=== PATIENT | female | born 1965 | race Caucasian/White ===

== ENCOUNTER → 2017-07-26 13:26 | Outpatient (CLI) | payer OTHER, SELFPAY ==
--- NOTE | 2017-07-26 13:35 | RAD_ITS ---
STUDY: X-RAY - PELVIS AND RIGHT HIP REASON FOR EXAM: Female, 51 years old. Pain TECHNIQUE: Radiological exam, hip, unilateral, with pelvis when performed; 2 or 3 views. COMPARISON: None. FINDINGS: There is a non-specific bowel gas pattern. Normal visualized soft tissue structures. Postoperative changes are seen in the lumbar spine. Normal bilateral iliac wings, sacroiliac joints and visualized sacrum. Normal bilateral superior and inferior pubic rami. Normal pubic symphysis. Normal bilateral ischial tuberosities. Normal visualized femoral head. Normal acetabulum. Normal hip joint. RAD/Hip 2-3 Views with Pelvis IMPRESSION: No acute bony abnormality. Electronically Signed: Vaibhav Alberts DO at 13:45 EDT Tel , Service support ,
== END ==
PROVIDERS: Family Provider Internal Medicine; PCP Internal Medicine; Visit Provider Anesthesiology Pain Medicine
DX: M25.559 Pain in unspecified hip (principal)
CPT/HCPCS: 73502

== ENCOUNTER → 2017-09-21 07:56 | Outpatient (CLI) | payer OTHER, SELFPAY ==
--- NOTE | 2017-09-21 07:59 | CT_ITS ---
STUDY: CT LUMBAR SPINE WITHOUT CONTRAST REASON FOR EXAM: Female, 51 years old. Chronic back pain and right hip pain. Prior lumbar fusion and pain stimulator placement. RADIATION DOSAGE (If Supplied By Facility): CTDIvol = ( 22.99 ) mGy, DLP = ( 617.81 ) mGycm TECHNIQUE: The patient was scanned in a multi detector CT scanner. High resolution transaxial imaging was performed. Images were obtained from T12 to S1 level. Sagittal and coronal images were reconstructed. Individualized dose optimization techniques were used for this CT. COMPARISON: Comparison is made with prior examination dated August 19, 2016. FINDINGS: Normal lumbar lordosis. There is no substantial scoliosis. Normal vertebrae of the lumbar spine. L1-2: Normal endplates. Normal disc height and morphology. Normal bilateral facet joints. Normal central canal and bilateral lateral recesses. Normal bilateral intervertebral neural foramina. L2-3: Normal endplates. Normal disc height and morphology. Normal bilateral facet joints. Normal central canal and bilateral lateral recesses. Normal bilateral intervertebral neural foramina. L3-4: The patient is status post laminectomy and interpedicular fusion. Intertransverse bone grafting. There is no evidence of spinal stenosis. No recurrent disc herniation is seen. L4-5: Status post laminectomy and interpedicular screw fixation. There is no evidence of spinal stenosis. There is no evidence of herniated nucleus pulposus. There is evidence of intertransverse body bone grafting. L5-S1: Mild degree of disc space narrowing. There is no evidence of hernia in the distal pulses. There is no evidence of spinal stenosis. Normal visualized paraspinous soft tissue structures. CT/Spine Lumbar without Contrast IMPRESSION: Status post laminectomy and interpedicular screw fixation at the L3-L4, and L4-L5 levels. No acute abnormality is seen. Electronically Signed: Ez Mascorro MD at 12:34 EDT Tel [phone], Service support ,
== END ==
PROVIDERS: Family Provider Internal Medicine; PCP Internal Medicine; Visit Provider Anesthesiology Pain Medicine
DX: M54.9 Dorsalgia, unspecified (principal); M79.606 Pain in leg, unspecified
CPT/HCPCS: 72131

== ENCOUNTER → 2017-12-26 16:27 | Outpatient (CLI) | payer OTHER, SELFPAY ==
[2017-12-26 17:18] LABS: Amphetamine Urine VISTA NEGATIVE (<1000 ng/mL); Barbiturate Urine VISTA NEGATIVE (< 200 ng/mL); Benzodiazepine Urine VISTA NEGATIVE (< 200 ng/mL); Cocaine Urine VISTA NEGATIVE (< 300 ng/mL); Ecstacy Urine VISTA NEGATIVE (< 500 ng/mL); Methadone Urine VISTA NEGATIVE (< 300 ng/mL); PCP Urine VISTA NEGATIVE (< 25 ng/mL); THC Urine VISTA NEGATIVE (< 50 ng/mL); Vista UDS pH Range 7
== END ==
PROVIDERS: Family Provider Internal Medicine; PCP Internal Medicine; Visit Provider Anesthesiology Pain Medicine
DX: F11.20 Opioid dependence, uncomplicated (principal)
CPT/HCPCS: 80307

== ENCOUNTER 2018-02-07 09:00 | Outpatient (RCR) | payer OTHER, SELFPAY ==
[2017-05-29 08:44] VITALS: BMI 32.4
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
== END 2018-02-07 10:00 | disposition home or self-care (01) ==
LOC: MASS 09:00
PROVIDERS: Family Provider Internal Medicine; PCP Internal Medicine; Visit Provider Anesthesiology Pain Medicine
DX: M54.9 Dorsalgia, unspecified (principal); M79.606 Pain in leg, unspecified
CPT/HCPCS: 97124

== ENCOUNTER → 2018-02-19 08:51 | Outpatient (CLI) | payer OTHER, SELFPAY ==
--- NOTE | 2018-02-19 08:53 | RAD_ITS ---
STUDY: X-RAY - LEFT HAND, ATTENTION THUMB REASON FOR EXAM: Pain at the base of the thumb for one year after injury. TECHNIQUE: 3 view(s) of the finger were obtained. COMPARISON: None. FINDINGS: There is moderate joint space narrowing of the first carpometacarpal joint. Normal metacarpal. Normal metacarpophalangeal joint. Normal proximal phalanx. Normal distal phalanx. Normal interphalangeal joint. RAD/Finger(s) Min 2 Views IMPRESSION: First carpometacarpal arthrosis. Electronically Signed: Ned Morton MD at 10:08 EDT Tel , Service support ,
== END ==
PROVIDERS: Family Provider Internal Medicine; PCP Internal Medicine; Referring Provider Orthopaedic Surgery; Visit Provider Orthopaedic Surgery
DX: M79.645 Pain in left finger(s) (principal)
CPT/HCPCS: 73140

== ENCOUNTER 2018-03-01 14:00 | Outpatient (RCR) | payer OTHER, SELFPAY ==
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
--- NOTE | 2018-02-22 15:59 | HP.PTREVAL ---
Marija Diaz, It has been my pleasure to treat DAVIS JONES over the last 9 visits for BACK PAIN AND RIGHT LEG WEAKNESS. Please see the progress note below for an update on the physical therapy plan of care! Subjective: PATIENT REPORTS INCREASED LBP AND DIFFICULTY SLEEPING AFTER LAST VISIT (FIRST AQUATIC THERAPY SESSION). PATIENT REPORTS HER HAND LEFT HAND HAS BEEN CRAMPY AND WITH INCREASED PAIN EVER SINCE THE POOL EXERCISES AND SHE RELATES IT TO SOMETHING WITH THE INJECTION SHE RECEIVED 48 HOURS PRIOR. SHE REPORTS THAT SHE IS JUST MOVING SLOWER TODAY. PATIENT HAD A FOLLOW UP WITH DR. DIAZ SUNDAY AND THEY DECIDED TO TRY A SACRAL INJECTION TO HELP DETERMINE IF ABLATION PROCEDURE MIGHT BE INDICATED. TURNED STIMULATOR UP HIGHER THAN NORMAL TODAY JUST BECAUSE SHE IS IN MORE PAIN SINCE POOL VISIT. Objective/Function: THERE ARE NO SIGNIFICANT CHANGES WITH TESTING TODAY COMPARED TO INITIAL EVAL BUT PATIENT IS HAVING INCREASED PAIN TODAY AND PRIOR TO LAST VISIT SHE WAS REPORTING IMPROVED STRENGTH IN HER LE'S. PATIENT HAS MADE PROGRESS TOWARD INCORPORATING BETTER BODY MECHANICS AND POSTURE CONTROL WITH ADL'S ALONG WITH APPROPRIATE ACTIVITIY MODIFICATIONS TO TRY TO BETTER MANAGE PAIN. WE ARE GOING TO MODIFY HER POOL PROGRAM AND CONTINUE LAND THERAPY WITH THE HOPE OF BUILDING ON PRIOR PROGRESS WITH PATIENT BEING ABLE TO TOLERATE ROM, STRETCHING AND STRENGTHEING WITHOUT INCREASING PAIN. Plan Plan: WE ARE GOING TO TRY TO MODIFY OUR APPROACH TO POOL EX'S FOR THIS PATIENT TO TAKE ADVANTAGE OF THE POTENTIAL BENEFITS WITH POOL THERAPY. TENTATIVELY WE WILL SCHEDULE ONE TIME A WEEK IN THE POOL AND ONE TIME A WEEK ON LAND FOR 13 MORE VISITS. *NO US OR ES*. POSTURE CORRECTION/STRENGTHENING, INSTRUCTION IN APPROPRIATE BODY MECHANICS AND ACTIVITY MODIFICATIONS. DLS WITH A NEUTRAL SPINE. MILTON LE ROM, STRETCHING AND STRENGTHENING. HEP INSTRUCTION. AQUATIC THERAPY HAS BEEN INCORPORATED INTO POC. PATIENT IS AGREEABLE. Goals Goal 1:: DECREASE C/O BACK AND LE SX'S Goal Time Frame: 4-6 Weeks Goal Progress: Not Progressing Goal 2:: IMPROVE SITTING, STANDING , WALKING, BENDING, LIFTING, WORK AND SLEEP FUNCTION Goal Time Frame: 4-6 Weeks Goal Progress: Progressing Goal 3:: INSTRUCT IN PROPHYLAXIS Goal Time Frame: 4-6 Weeks Goal Progress: Progressing Anticipated Interventions Patient/Client Instruction: Educate patient on: Condition, Plan of Care, Risk Factors, Benefits of Fitness Program For the Purpose of:: To improve self management Therapeutic Exercise to Include: Strength training, Body mechanics, Postural training, Flexibilty training, Dynamic Lumbar Stabilization For the Purpose of:: To decrease pain, To improve muscle performance and motor function, To increase tolerance to activity/condition/position, To improve ability of physical actions for home/community/work/leisure Thermo therapy (hot pack): Yes For the Purpose of:: To decrease pain, To increase ROM, To improve nutrient delivery to tissue Please do not hesitate to contact me at [phone] by phone or if you have questions or concerns regarding this new plan of care! Sincerely, Kelly Blake
--- NOTE | 2018-05-08 13:35 | HP.PTDCSUM ---
HP - PT D/C Summary It has been my pleasure to treat DAVIS JONES under orders from Marija Rascon MD, for the diagnosis of BACK PAIN AND RIGHT LEG WEAKNESS for a total of 11 visit(s). Discharge Date: 03/01/18 Please see the following information for a summary of their discharge status. - Subjective Subjective: PATIENT REPORTS SHE WAS STILL BAD AFTER THE LAST POOL SESSION BUT NOT BAD THE FIRST POOL SESSION. SHE HAD INCREASE LOW BACK AND LE PAIN AND DYSFUNCTION (INTERMS OF LEGS FEELING WEAKER THAN NORMAL) ALONG WITH INCREASED DIFFICULTY SLEEPING. PATIENT REPORTS SHE REALLY ISN'T ANY BETTER OR WORSE OVER ALL SINCE STARTING PT EXCEPT FOR MAYBE HER LEGS FEELING A LITTLE BIT STRONGER. - Pain LOW BACK Pain Intensity (Out of 10): 3 LEFT LEG Pain Intensity (Out of 10): 2 RIGHT LEG Pain Intensity (Out of 10): 1 - Objective Objective/Function: ALTHOUGH WE HAVE BEEN ABLE TO FIND A LIMITED LAND EX PROGRAM THAT PATIENT CAN TOLERATE WITHOUT INCREASED PAIN, SHE IS NOT IMPROVING OVER-ALL. UPON EXAM TODAY THERE ARE NO SIGNIFICANT CHANGES COMPARED TO INITIAL EVAL. - Goals Goal 1:: DECREASE C/O BACK AND LE SX'S Goal Progress: Not Progressing Goal 2:: IMPROVE SITTING, STANDING , WALKING, BENDING, LIFTING, WORK AND SLEEP FUNCTION Goal Progress: Progressing Goal 3:: INSTRUCT IN PROPHYLAXIS Goal Progress: Progressing - Plan Plan: D/C TO LIMITED INDEP EX PROGRAM TOLERATED. PATIENT IS AGREEABLE TO DISCHARGE. - D/C Information If there are questions or concerns regarding this patient's physical therapy, please feel free to call me at [phone]. Thank you for the referral of this patient. Sincerely, Kelly Blake, PT, Cert MDT
== END 2018-03-01 19:00 | disposition home or self-care (01) ==
LOC: PT 14:00
PROVIDERS: Family Provider Internal Medicine; PCP Internal Medicine; Referring Provider Anesthesiology Pain Medicine; Visit Provider Anesthesiology Pain Medicine
DX: M54.9 Dorsalgia, unspecified (principal); R29.898 Other symptoms and signs involving the musculoskeletal system
CPT/HCPCS: 97110; 97113; 97162; 97530

== ENCOUNTER → 2018-03-19 08:05 | Outpatient (CLI) | payer OTHER, SELFPAY ==
[2018-02-28 09:06] VITALS: BMI 36.0
--- NOTE | 2018-03-19 11:16 | NEURO_ITS ---
NCS and/or EMG Patient Report Ordering Doctor: Marija Rascon DATE OF SERVICE: 03/19/18 This is a bilateral lower extremity nerve conduction study and a left lower extremity EMG performed on this 60-year-old female with a history of lumbar laminectomy in 2009 followed by fractured pelvis in 2010. The patient has had paresthesias in her left lower extremity and to a lesser extent in the right lower extremity as well as weakness. Patient also experiences restless leg syndrome. Mild hammertoe deformities are noted bilaterally Bilateral lower extremity sensory and motor nerve conduction studies performed. The sural sensory responses demonstrate normal latencies and amplitudes. Conduction velocities from the motor responses from the peroneal nerves and tibial nerves are normal bilaterally as are the distal latencies and amplitudes. F-wave latency from the left peroneal nerve is mildly prolonged, this nerve al so demonstrates mild asymmetric reduction in conduction velocity and prolongation of latency although it remains within the normal range. The left tibial H reflex response is reduced, on the right it is normal. Left lower extremity needle electromyography is performed. Muscles evaluated included the extensor digitorum brevis, abductor houses, medial gastrocnemius, anterior tibialis, vastus lateralis and vastus medialis muscles. All muscles demonstrated normal insertional activity with absence of pathologic spontaneous activity. Motor unit potential recruitment pattern and amplitude was normal in all muscles tested. 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
--- OUTSIDE RECORDS SUMMARY | 2018-04-30 20:34 | XMS RPT_ITS ---
:1965 Author Organization OHIP Support Name Relationship Address Phone DESMOND JONES Unavailable [address] + [place] [address] [facility] Unavailable [address] + [place] [address] KAREN DESMOND Unavailable [address] + [place] [address] [facility] Unavailable [address] + [place] [address] KAREN DESMOND Unavailable [address] + [place] [address] [facility] Unavailable [address] + [place] [address] KAREN DESMOND Unavailable [address] + [place] [address] [facility] Unavailable [address] + [place] [address] KAREN DESMOND Unavailable [address] + [place] [address] [facility] Unavailable [address] + [place] [address] KAREN DESMOND Unavailable [address] + [place] [address] [facility] Unavailable [address] + [place] [address] KAREN DESMOND Unavailable [address] + [place] [address] [facility] Unavailable [address] + [place] [address] KAREN DESMOND Unavailable [address] + [place] [address] [facility] Unavailable [address] + [place] [address] KAREN, DESMOND Unavailable [address] + [place] [address] [facility] Unavailable [address] + [place] [address] KAREN, DESMOND Unavailable [address] + [place] [address] [facility] Unavailable [address] + [place] [address] KAREN, DESMOND Unavailable [address] + [place] [address] [facility] Unavailable [address] + [place] [address] KAREN, DESMOND Unavailable [address] + [place] [address] [facility] Unavailable [address] + [place] [address] KAREN, DESMOND Unavailable [address] + [place] [address] [facility] Unavailable [address] + [place] [address] KAREN, DESMOND Unavailable [address] + [place] [address] [facility] Unavailable [address] + [place] [address] KAREN, DESMOND Unavailable [address] + [place] [address] [facility] Unavailable [address] + [place] [address] KAREN, DESMOND Unavailable [address] + [place] [address] [facility] Unavailable [address] + [place] [address] KAREN, DESMOND Unavailable [address] + [place] [address] [facility] Unavailable [address] + [place] [address] KAREN, DESMOND Unavailable [address] + [place] [address] [facility] Unavailable [address] + [place] [address] KAREN, DESMOND Unavailable [address] + [place] [address] [facility] Unavailable [address] + [place] [address] KAREN, DESMOND Unavailable [address] + [place] [address] [facility] Unavailable [address] + [place] [address] KAREN, DESMOND Unavailable [address] + [place] [address] [facility] Unavailable [address] + [place] [address] KAREN, DESMOND Unavailable [address] + [place] [address] [facility] Unavailable [address] + [place] [address] KAREN, DESMOND Unavailable [address] + [place] [address] [facility] Unavailable [address] + [place] [address] KAREN, DESMOND Unavailable [address] + [place] [address] [facility] Unavailable [address] + [place] [address] KAREN, DESMOND Unavailable [address] + [place] [address] [facility] Unavailable [address] + [place] [address] KAREN, DESMOND Unavailable [address] + [place] [address] [facility] Unavailable [address] + [place] [address] KAREN, DESMOND Unavailable [address] + [place] [address] [facility] Unavailable [address] + [place] [address] KAREN, DESMOND Unavailable [address] + [place] [address] [facility] Unavailable [address] + [place] [address] KAREN, DESMOND Unavailable [address] + [place] [address] [facility] Unavailable [address] + [place] [address] KAREN, DESMOND Unavailable [address] + [place] [address] [facility] Unavailable [address] + [place] [address] KAREN, DESMOND Unavailable [address] + [place] [address] [facility] Unavailable [address] + [place] [address] KAREN, DESMOND Unavailable [address] + [place] [address] [facility] Unavailable [address] + [place] [address] KAREN, DESMOND Unavailable [address] + [place] [address] [facility] Unavailable [address] + [place] [address] KAREN, DESMOND Unavailable [address] + [place] [address] [facility] Unavailable [address] + [place] [address] Care Team Providers Name Role Phone TERI QUISPE (MALATHI) Referring Unavailable TERI QUISPE (MALATHI) Attending Unavailable TERI QUISPE (FABIANO) Referring Unavailable RAKEL VILLA Attending Unavailable TERI QUISPE (MALATHI) Referring Unavailable Sheila Sanchez Attending Unavailable Jonny Manzano Referring Unavailable Sheila Sanchez Attending Unavailable Sheila Sanchez Referring Unavailable [place]oneale, [facility] Unavailable DOCTOR, OUT OF TOWN Attending Unavailable Davide [facility] Primary [facility] Unavailable DossieKaruna D.C. Attending Unavailable Oleghe, Efewongbe Referring Unavailable Oleghe, Efewongbe Primary Care Unavailable DossieKaruna D.C. Attending Unavailable Oleghe, Efewongbe Referring Unavailable Oleghe, Efewongbe Primary Care Unavailable DossieKaruna D.C. Attending Unavailable Barry Le Attending Unavailable Oleghe, Efewongbe Referring Unavailable Oleghe, Efewongbe Primary Care Unavailable DossieKaruna D.C. Attending Unavailable Marija Diaz Attending Unavailable Oleghe, Efewongbe Primary Care Unavailable DossieKaruna D.C. Attending Unavailable Oleghe, Efewongbe Referring Unavailable Oleghe, Efewongbe Primary Care Unavailable DossieKaruna D.C. Attending Unavailable Oleghe, Efewongbe Referring Unavailable Oleghe, Efewongbe Primary Care Unavailable DossiKaruna farris D.C. Attending Unavailable Oleghe, Efewongbe Referring Unavailable Oleghe, Efewongbe Primary Care Unavailable DossieKaruna D.C. Attending Unavailable Oleghe, Efewongbe Referring Unavailable Oleghe, Efewongbe Primary Care Unavailable Marija Diaz Attending Unavailable Oleghe, Efewongbe Primary Care Unavailable DossieKaruna D.C. Attending Unavailable Oleghe, Efewongbe Referring Unavailable Oleghe, Efewongbe Primary Care Unavailable DossiKaruna farris D.C. Attending Unavailable Oleghe, Efewongbe Referring Unavailable Oleghe, Efewongbe Primary Care Unavailable DossieKaruna D.C. Attending Unavailable Oleghe, Efewongbe Referring Unavailable Oleghe, Efewongbe Primary Care Unavailable Oleghe, Efewongbe Attending Unavailable Oleghe, Efewongbe Referring Unavailable Oleghe, Efewongbe Primary Care Unavailable BasalMarija renteria Attending Unavailable BasaliMarija Referring Unavailable Oleghe, Efewongbe Primary Care Unavailable DossieKaruna D.C. Attending Unavailable Oleghe, Efewongbe Referring Unavailable Oleghe, Efewongbe Primary Care Unavailable Oleghe, Efewongbe Attending Unavailable Oleghe, Efewongbe Referring Unavailable Oleghe, Efewongbe Primary Care Unavailable DossiKaruna farris D.C. Attending Unavailable Oleghe, Efewongbe Referring Unavailable Oleghe, Efewongbe Primary Care Unavailable Rosibel Brooks Attending Unavailable DossiKaruna farris D.C. Attending Unavailable Oleghe, Efewongbe Referring Unavailable Oleghe, Efewongbe Primary Care Unavailable DossiKaruna farris D.C. Attending Unavailable Oleghe, Efewongbe Referring Unavailable Oleghe, Efewongbe Primary Care Unavailable Basali Ayman Attending Unavailable Basali, Ayman Referring Unavailable Oleghe, Efewongbe Primary Care Unavailable ASSESSMENT, HEALTH RISK Attending Unavailable ASSESSMENT, HEALTH RISK Referring Unavailable Oleghe, Efewongbe Primary Care Unavailable Oleghe, Efewongbe Attending Unavailable Oleghe, Efewongbe Referring Unavailable Oleghe, Efewongbe Primary Care Unavailable Basali, Edvinman Attending Unavailable Basali, Ayman Referring Unavailable Oleghe, Efewongbe Primary Care Unavailable DossiKaruna farris D.C. Attending Unavailable Oleghe, Efewongbe Referring Unavailable Chicorelli, Mattie Attending Unavailable Oleghe, Efewongbe Referring Unavailable Chicorelli, Mattie Attending Unavailable Chicorelli, Mattie Referring Unavailable Oleghe, Efewongbe Primary Care Unavailable DossiKaruna farris D.C. Attending Unavailable Basali, Ayman Attending Unavailable Basali, Ayman Referring Unavailable Oleghe, Efewongbe Primary Care Unavailable PROBLEMS PROBLEMS DATE TYPE CONDITION / CODE ATTENDING STATUS SOURCE 04/04/2018 Unknown M54.9 - Dorsalgia, DOCTOR, OUT OF Active [place] unspecified / TOWN Community M54.9(ICD-10) Hospital Repository 04/02/2018 Unknown G89.29 - Other Sheila Sanchez Active [place] chronic pain / Community G89.29(ICD-10) Hospital Repository 03/01/2018 Unknown M99.01 - Segmental DossiKaruna farris Active [place] and somatic [facility].C[facility] Community dysfunction of Hospital cervical region / Repository M99.01(ICD-10) 03/01/2018 Unknown M99.03 - Segmental Dossie, Karuna Active [place] and somatic D.C[facility] Community dysfunction of Hospital lumbar region / Repository M99.03(ICD-10) 03/01/2018 Unknown M99.02 - Segmental Dossie, Karuna Active [place] and somatic [facility] Community dysfunction of Hospital thoracic region / Repository M99.02(ICD-10) 03/01/2018 Unknown M51.16 - Dossie, Karuna Active [place] Intervertebral disc [facility] Community disorders with Hospital radiculopathy, Repository lumbar region / M51.16(ICD-10) 03/01/2018 Unknown M99.05 - Segmental Dossie, Karuna Active [place] and somatic [facility] Community dysfunction of Hospital pelvic region / Repository M99.05(ICD-10) 03/01/2018 Unknown M99.04 - Segmental Dossie, Karuna Active [place] and somatic [facility] Community dysfunction of Hospital sacral region / Repository M99.04(ICD-10) 02/26/2018 Active Unknown / TERI QUISPE Active [facility] UNK(Unknown) (CNM) [facility] [place] Repository 02/26/2018 Active Encounter for NA Active [facility] screening mammogram [facility] for malignant [place] neoplasm of breast / Repository Z12.31(ICD-10) 02/19/2018 Unknown M79.645 - Pain in Chicorelli, Active [place] left finger(s) / [facility] Community M79.645(ICD-10) Hospital Repository 01/11/2018 Unknown F11.20 - Opioid BasaliMarija Active [place] dependence, Community uncomplicated / Hospital F11.20(ICD-10) Repository 09/21/2017 Unknown M79.606 - Pain in Basali, Aynhan Active [place] leg, unspecified / Community M79.606(ICD-10) Hospital Repository 09/11/2017 Unknown M25.551 - Pain in Oleghe, Active [place] right hip / [place] Community M25.551(ICD-10) Hospital Repository 05/09/2017 Unknown J32.9 - Chronic Barry Le Active [place] sinusitis, Community unspecified / Hospital J32.9(ICD-10) Repository PROCEDURES PROCEDURES No Procedure Records FoundRESULTS RESULTS L/S SPINE COMP/W Observed: 04/02/2018 Status: F Source: [place] BENDING VIEWS 8:22 AM [facility] REPOSITORY [facility] Imaging Services [address] [place] [address] L/S Spine Comp/w Bending Views MR#: [id number] Acct: [id number] Name: DAVIS JONES Rep #: [id number] : 1965 F 52 From: Kostas Merida DO PCP: Jonny Manzano MD Status: REG CLI Study: L/S Spine Comp/w Bending Views Date of Exam: 04/02/18 Exam# [id number] Ordering Dr: Sheila Sanchez MD STUDY: X-RAY - LUMBOSACRAL SPINE REASON FOR EXAM: Female, 52 years old. Chronic back pain. TECHNIQUE: 6 view(s) of the lumbosacral spine were obtained. COMPARISON: None FINDINGS: Normal lumbar lordosis. There is no substantial scoliosis. There is normal alignment of the vertebrae. There is no change in alignment with flexion or extension. There is posterior fusion of L3-S1. The left pedicle screw at S1 is fractured. The remainder of the hardware is intact. Is associated laminectomy defects. No endplate spondylosis. Normal disc space heights. There is no evidence of acute fracture or loss of vertebral axial height. Normal bilateral sacral ala, sacroiliac joints, and visualized sacrum. Normal visualized soft tissue structures. There is a dorsal column stimulator with its electrodes posterior to T8. The generator is in the soft tissues of the right back. RAD/L/S Spine Comp/w Bending Views IMPRESSION: 1. Posterior fusion and laminectomy at L3-S1. The left S1 pedicle screw is fractured. 2. No evidence of vertebral fracture or prevertebral instability. Electronically Signed: Kostas Merida DO at 22:16 EST Tel [phone], Service support , CC: Jonny Manzano MD; Sheila Sanchez MD Hand Bobbin Cleaner: Signed NCS AND/OR EMG Observed: 03/20/2018 Status: F Source: [place] PATIENT 4:38 PM [facility] REPOSITORY [facility] Pulmonary Services/Neurology [address] [place] [address] MR#: [id number] Acct: [id number] Name: DAVIS JONES Rep #: [id number] : 1965 52 From: Juan Luis Vigil MD Referring Dr: Marija Diaz MD Status: REG CLI Ordering Dr: Date: Location: PSN Sex: F C NCS and/or EMG Patient Report Ordering Doctor: Marija iDaz DATE OF SERVICE: 03/19/18 This is a bilateral lower extremity nerve conduction study and a left lower extremity EMG performed on this 60-year-old female with a history of lumbar laminectomy in 2009 followed by fractured pelvis in 2010. The patient has had paresthesias in her left lower extremity and to a lesser extent in the right lower extremity as well as weakness. Patient also experiences restless leg syndrome. Mild hammertoe deformities are noted bilaterally Bilateral lower extremity sensory and motor nerve conduction studies performed. The sural sensory responses demonstrate normal latencies and amplitudes. Conduction velocities from the motor responses from the peroneal nerves and tibial nerves are normal bilaterally as are the distal latencies and amplitudes. F-wave latency from the left peroneal nerve is mildly prolonged, this nerve also demonstrates mild asymmetric reduction in conduction velocity and prolongation of latency although it remains within the normal range. The left tibial H reflex response is reduced, on the right it is normal. Left lower extremity needle electromyography is performed. Muscles evaluated included the extensor digitorum brevis, abductor houses, medial gastrocnemius, anterior tibialis, vastus lateralis and vastus medialis muscles. All muscles demonstrated normal insertional activity with absence of pathologic spontaneous activity. Motor unit potential recruitment pattern and amplitude was normal in all muscles tested. 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 03/20/18 1637 <Electronically signed by Juan Luis Vigil MD> Date Juan Luis Vigil MD CC: Marija Diaz MD; Jonny Manzano MD; Juan Luis Vigil MD Date Dictated: 03/19/18 1113 Date Transcribed: 03/19/18 1113 Hand Bobbin Cleaner: NF Signed PROGRESS Observed: 03/05/2018 Status: COMPLETED Source: [place] 5:30 PM [facility] REPOSITORY O ID: [id number] Author: Rakel Villa Service: (none) Author Type: Physician Type: Progress Notes Filed: 03/05/2018 5:34 PM Note Text: A normal sized anteverted uterus with the measurements shown below. The endometrial echo measures 5.8 mm. The endometrial cavity appears normal. A small intramural fibroid in the mid segment of the uterus. The myometrium appears normal. The right ovary appears normal. The left ovary is sub visualized. There is no free fluid in the cul de sac IMPRESSION: A small intramural fibroid CHIROPRACTIC REPORT Observed: 02/28/2018 Status: F Source: [place] 10:31 AM [facility] REPOSITORY [facility] Chiropractic [address] [place] [address] OFFICE VISIT Date of Service: 02/28/18 MR#: [id number] Acct: [id number] Name: DAVIS JONES Rep #: [id number] : 1965 Provider: Karuna Romero D.C. Age/Sex: 52/F Location: [facility] Status: Signed Intake Vital Signs02/28/18 Height 5 ft 4 in 02/28/18 Weight: 210 lb 02/28/18 Body Mass Index (BMI) 36.0 Intake Visit Reasons: back pain Chief Complaint: low back and pelvic pain Is patient in pain?: Yes Allergies No Known Allergies Allergy (Verified 01/02/18 15:34) Medications fexofenadine 60 mg tablet 60 mg PO BID 09/11/17 [History Confirmed 02/19/18] naproxen sodium 220 mg capsule 220 mg PO BID 10/19/17 [History Confirmed 02/19/18] oxycodone ER 15 mg tablet,extended release,12 hr mg PO BID tab 10/19/17 [History Confirmed 02/19/18] ranitidine 150 mg tablet 150 mg PO QDAY 10/19/17 [History Confirmed 02/19/18] tramadol 50 mg tablet 50 mg PO BID tab 10/19/17 [History Confirmed 02/19/18] PFS Medical History Back pain (Acute) Osteoarthritis (Acute) Surgical History Previous back surgery (Acute) Family History Other Arthritis Breast cancer Colon cancer Heart disease High cholesterol Hypertension Melanoma Myocardial infarction Social History Smoking Status: Never smoker alcohol intake: former what type of physical activity do you participate in: walking frequency: 1-2 times per week HPI back pain : Chief Complaint: neck and low back back pain Visit Number: 13 Details: DAVIS JONES is a 52 year old F who presents with neck and low back pain. She states that recently she has begun pool therapy, causing increased pain and tension. When pulling her arms back in the pool. at times she will feel a spasm in the neck and shoulder area. Today Davis rates her pain a 4/10 and describes it as a deep ache that bands across the neck, she also complains of low back and pelvic pain. Pool therapy is also causing pain in the low back and pelvis. Doing pelvic tilts and walking in the pool causes increased pain in the low back and legs. Davis complains of leg pain, occasional numbness and tingling. Location: neck and low back Duration: constant Aggravating or associated factors: pool therapy, walking, bending Relieving factors: chiro Pain Quality: aching, dull, cramping, sharp Exam Musc General: Yes normal posture and joint tenderness (C2, C5,C6,C7,T4, L2-L5); no normal gait Cervical Spine: loss of normal cervical lordosis, cervical muscular tenderness (R scalene and levator), pain with cervical ROM (slightly improved), cervical spasm (R scalene and levator), cervical ROM abnormal lateral flexion to the right decreased, lateral flexion to the left decreased and extension decreased Thoracic/Lumbar Spine: thor and lumb spine abnorm to inspection (surgical scar from T12-L5, stimulator R L1-L3), surgical scar(s) present, pain with thoraco- lumbar ROM (slightly worse) with forward flexion, with lateral flexion to the left, with rotation to the right, with lateral flexion to the right and with rotation to the left, thoraco-lumbar spasm bilaterally in the lower lumbar, in the mid lumbar and in the upper thoracic, paraspinal tenderness bilaterally in the lower lumbar, in the mid lumbar and in the upper thoracic, thoraco-lumbar ROM limited Sacroiliac joints: on the left, on the right Sacrum: tenderness on the left Office Procedures Chiropractic Treatments Procedures Manipulation: 3-4 regions (C2,C6,T4, L2, L sacrum) Electrical Stimulation: 15 mins (cervical) Assessment AND Plan 1. 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 Segmental and somatic dysfunction of thoracic region M99.02 Orders Orders: 3. Segmental and somatic dysfunction of cervical region M99.01 Orders Orders: 4. Segmental and somatic dysfunction of lumbar region M99.03 Orders Orders: 5. Segmental and somatic dysfunction of sacral region M99.04 Plan Detail Other Orders Orders: Additional Comments Recommend follow up with spinal surgeon. 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 Cosigner Signature: Date (if applicable) CC: CNCO Observed: 02/26/2018 Status: COMPLETED Source: [place] 4:31 PM [facility] REPOSIT[facility] HNO ID: [id number] Author: Mammography Coordinator Service: (none) Author Type: Physician Type: Letter Filed: 02/27/2018 11:33 PM Note Text: February 26, 2018 PID: [id number] Davis Jones [address] [place] [address] Dear Ms. Jones, We are pleased to inform you that the results of your recent breast imaging exam on 02/26/2018 are normal. Your mammogram demonstrates that you have dense breast tissue, which could hide abnormalities. Dense breast tissue, in and of itself, is a relatively common condition. Therefore, this information is not provided to cause undue concern; rather, it is to raise your awareness and promote discussion with your health care provider regarding the presence of dense breast tissue in addition to other risk factors. Early detection of cancer is very important. We also understand recommendations regarding breast cancer screening are controversial. Please discuss with your primary care provider which strategy is best for you and whether a mammogram is right for you. Your imaging studies and report will be kept on file at [facility] as part of your permanent medical record and are available for your continuing care. Thank you for allowing us to help in meeting your health care needs. Sincerely, Dr. Ledbetter Interpreting Radiologist [facility] (Normal over 40) PROGRESS Observed: 02/26/2018 Status: COMPLETED Source: [place] 8:37 AM [facility] REPOSITORY O ID: [id number] Author: Teri Quispe Service: (none) Author Type: Liquor Grinding Mill Operator Type: Progress Notes Filed: 03/06/2018 9:52 PM Note Text: Davis Jones is a 52 year old who presents for her annual gynecologic exam with complaints of lower left abdominal pain in the morning that goes away 1-2 hours after urinating. Rating pain 1-2/10, Denies any urinary complaints of dysuria, urinary frequency, urinary urgency, or hematuria. Menses: Last bleeding in December, very light flow, single wipe in the morning after urinating, no liner needed. Contraception: tubal ligation HPV vaccine: No Last Pap: 2015 normal HPV: negative History of abnormal pap: No Last mammogram: Today 02/26/2018, results pending Sexually active: Yes Time with current partner: 9 years History of fibroids: Yes, Pain with intercourse: No Postcoital bleeding: No Hot flashes: No. Would like to continue HRT (Estrace and Provera) Night sweats: No Vaginal dryness: No Mood swings: No Insomnia: No Exercise: Physical Therapy, 3 times a week, 30-60 minutes, exercises in the pool and land exercise Diet: Regular Seatbelt use: Yes Obstetric History T3 L3 SAB0 TAB0 Ectopic0 Multiple0 Live Births0 PAST MEDICAL HISTORY Diagnosis Date - Back pain - Fracture of coccyx (HCC) 07/2010 - Pelvic fracture (HCC) 07/2010 PAST SURGICAL HISTORY Procedure Laterality Date - COLONOSCOP W/ OR W/O BRSH SPEC 12/05/12 Colonoscopy - NEUROSTIMULATOR, SIMPLE 2011 back - PAST SURGICAL HISTORY OF tonsillectomy - PAST SURGICAL HISTORY OF exploratory lap-lysis of adhesions-fallopian tubes to abdominal wall - PAST SURGICAL HISTORY OF 08/2009 back surgery - lower back - PAST SURGICAL HISTORY OF 09/15/14 injection into coccyx FAMILY HISTORY Problem Relation Age of Onset - Hypertension Mother - Heart Mother Triple Bypass - Hypertension Father Diet controlled - Cancer Maternal Grandfather Leukemia - other (Dementia) Paternal Grandmother - other (Dementia) Paternal Grandfather - other (CF) Daughter - Cancer Sister 47 colon - stage 4 mets - Breast Cancer Maternal Aunt - Heart Maternal Aunt - Heart Maternal Uncle SOCIAL HISTORY Social History Substance Use Topics - Smoking status: Never Smoker - Smokeless tobacco: Never Used - Alcohol use No REVIEW OF SYSTEMS Abdomen: Left lower quadrant pain in the morning, nausea, vomiting, diarrhea, or constipation. No bloating, early satiety, indigestion, or increased flatulence. Bladder: No dysuria, gross hematuria, urinary frequency, urinary urgency. Some stress incontinence, does not require a liner/pad Breast: No breast lumps, nipple d/c, overlying skin changes, redness or skin retraction. Allergies and current medication updated:Yes EXAM: BP 132/84 Ht 5' 4.7[with shoes[ (1.64m) Wt 199 lb (90.3kg) LMP 01/09/2018 BMI 33.44 kg/(m2). GENERAL: pleasant, female in no apparent distress HEENT: Normocephalic, atraumatic, mucus membranes moist and no lesions NECK: Supple, full range of motion, no adenopathy and thyroid normal DERMATOLOGY: Normal, without lesions, non-icteric, non-hirsute and warm BREAST: soft, non-tender, symmetric, no dominant mass, normal nipple-areolar complex, no lymphadenopathy and no nipple discharge CHEST: Clear to auscultation Normal inspiratory effort Regular rate and rhythm ABDOMEN: soft, no masses, tenderness over the left lower quadrant with palpation PELVIC: external genitalia normal, normal Bartholin's glands, urethra, Wimbledon's glands, no vulvar lesions, no cervical lesions, good vaginal support, physiologic discharge present, normal appearing perineal body and perianal region, well estrogenized BIMANUAL: no adnexal masses, no cervical motion tenderness and Moderate tenderness midline and on the patient's left lower quadrant RECTOVAGINAL: deferred. NEURO: alert and oriented x3,exam grossly non-focal EXTREMITIES: normal ASSESSMENT/PLAN: 1) Health maintenance: Educated patient on signs of menopause (1 year of amenorrhea) 2) Pap/HPV up to date. Next PAP in 2020 3) Mammogram up to date, completed today 02/26/2018 4) Nutrition, exercise and routine health maintenance exams reviewed. Patient's current method of exercise is physical therapy 5) Contraception: tubal ligation. 6) STD screening: Declined STD check. 7) Pelvic Ultrasound ordered to follow up on pelvic pain and hx of fibroid 8) Estrace prescription renewed, discussed plan of care related to estrogen and progesterone use once patient is in menopause, will re-evaluate at future appointment, patient currently happy with estrace and provera. 9) Follow up one year or sooner as needed Adeline Barr Apn Student Teri Quispe APRN.FABIANO ARREOLA Observed: 02/26/2018 Status: COMPLETED Source: [place] 8:30 AM [facility] REPOSITORY Office Visit (WOOB) DAVIS JONES ([id number]) 1965 F Date Time Provider Department 02/26/18 8:30 AM TERI QUISPE) WOOB During your visit today, we recorded the following information about you: Blood pressure Weight Height Last Period 132/84 90.3 kg 1.643 m 01/09/18 Teri Quispe APRN.CNM 03/06/2018 9:52 PM Signed Davis Jones is a 52 year old who presents for her annual gynecologic exam with complaints of lower left abdominal pain in the morning that goes away 1-2 hours after urinating. Rating pain 1-2/10, Denies any urinary complaints of dysuria, urinary frequency, urinary urgency, or hematuria. Menses: Last bleeding in December, very light flow, single wipe in the morning after urinating, no liner needed. Contraception: tubal ligation HPV vaccine: No Last Pap: 2015 normal HPV: negative History of abnormal pap: No Last mammogram: Today 02/26/2018, results pending Sexually active: Yes Time with current partner: 9 years History of fibroids: Yes, Pain with intercourse: No Postcoital bleeding: No Hot flashes: No. Would like to continue HRT (Estrace and Provera) Night sweats: No Vaginal dryness: No Mood swings: No Insomnia: No Exercise: Physical Therapy, 3 times a week, 30-60 minutes, exercises in the pool and land exercise Diet: Regular Seatbelt use: Yes Obstetric History T3 L3 SAB0 TAB0 Ectopic0 Multiple0 Live Births0 PAST MEDICAL HISTORY Diagnosis Date - Back pain - Fracture of coccyx (HCC) 07/2010 - Pelvic fracture (HCC) 07/2010 PAST SURGICAL HISTORY Procedure Laterality Date - COLONOSCOP W/ OR W/O [facility] SPEC 12/05/12 Colonoscopy - NEUROSTIMULATOR, SIMPLE 2011 back - PAST SURGICAL HISTORY OF tonsillectomy - PAST SURGICAL HISTORY OF exploratory lap-lysis of adhesions-fallopian tubes to abdominal wall - PAST SURGICAL HISTORY OF 08/2009 back surgery - lower back - PAST SURGICAL HISTORY OF 09/15/14 injection into coccyx FAMILY HISTORY Problem Relation Age of Onset - Hypertension Mother - Heart Mother Triple Bypass - Hypertension Father Diet controlled - Cancer Maternal Grandfather Leukemia - other (Dementia) Paternal Grandmother - other (Dementia) Paternal Grandfather - other (CF) Daughter - Cancer Sister 47 colon - stage 4 mets - Breast Cancer Maternal Aunt - Heart Maternal Aunt - Heart Maternal Uncle SOCIAL HISTORY Social History Substance Use Topics - Smoking status: Never Smoker - Smokeless tobacco: Never Used - Alcohol use No REVIEW OF SYSTEMS Abdomen: Left lower quadrant pain in the morning, nausea, vomiting, diarrhea, or constipation. No bloating, early satiety, indigestion, or increased flatulence. Bladder: No dysuria, gross hematuria, urinary frequency, urinary urgency. Some stress incontinence, does not require a liner/pad Breast: No breast lumps, nipple d/c, overlying skin changes, redness or skin retraction. Allergies and current medication updated:Yes EXAM: BP 132/84 Ht 5' 4.7[with shoes[ (1.64m) Wt 199 lb (90.3kg) LMP 01/09/2018 BMI 33.44 kg/(m2). GENERAL: pleasant, female in no apparent distress HEENT: Normocephalic, atraumatic, mucus membranes moist and no lesions NECK: Supple, full range of motion, no adenopathy and thyroid normal DERMATOLOGY: Normal, without lesions, non-icteric, non-hirsute and warm BREAST: soft, non-tender, symmetric, no dominant mass, normal nipple-areolar complex, no lymphadenopathy and no nipple discharge CHEST: Clear to auscultation Normal inspiratory effort Regular rate and rhythm ABDOMEN: soft, no masses, tenderness over the left lower quadrant with palpation PELVIC: external genitalia normal, normal Bartholin's glands, urethra, Wimbledon's glands, no vulvar lesions, no cervical lesions, good vaginal support, physiologic discharge present, normal appearing perineal body and perianal region, well estrogenized BIMANUAL: no adnexal masses, no cervical motion tenderness and Moderate tenderness midline and on the patient's left lower quadrant RECTOVAGINAL: deferred. NEURO: alert and oriented x3,exam grossly non-focal EXTREMITIES: normal ASSESSMENT/PLAN: 1) Health maintenance: Educated patient on signs of menopause (1 year of amenorrhea) 2) Pap/HPV up to date. Next PAP in 2020 3) Mammogram up to date, completed today 02/26/2018 4) Nutrition, exercise and routine health maintenance exams reviewed. Patient's current method of exercise is physical therapy 5) Contraception: tubal ligation. 6) STD screening: Declined STD check. 7) Pelvic Ultrasound ordered to follow up on pelvic pain and hx of fibroid 8) Estrace prescription renewed, discussed plan of care related to estrogen and progesterone use once patient is in menopause, will re-evaluate at future appointment, patient currently happy with estrace and provera. 9) Follow up one year or sooner as needed Adeline Barr Apn Student Teri Quispe APRN.CNM Referring Provider: TERI QUISPE ([employer]) [[id number]] Allergies As of Date: 02/26/2018 Noted Allergy Reaction environmental [Other] 04/20/2005 16 - Unknown Comments: not confirmed Date Reviewed: 02/26/2018 Reviewed by: Zeynep Buckner Ma - Fully Assessed Primary Visit Diagnosis:Encounter for gynecological examination with abnormal finding [Z01.411] Other Visit Diagnoses:Pelvic pain in female [R10.2] Hormone replacement therapy (postmenopausal) [Z79.890] Order(s):ULTRASOUND [facility]I [[id number]] Order #: [id number]: 1 medroxyPROGESTERone (PROVERA, CYCRIN) 2.5 mg tabletTake 1 tablet by mouth once daily.Disp: 30 tabletRfl: 11 estradiol (ESTRACE) 1 mg tabletTake 1 tablet by mouth once daily.Disp: 30 tabletRfl: 11 Prescriptions as of 02/26/2018 Sig: TRAMADOL 50 MG TABLET Take 50 mg by mouth twice shilpi* MEDROXYPROGESTERONE 2.5 MG TA* Take 1 tablet by mouth once d* ESTRADIOL 1 MG TABLET Take 1 tablet by mouth once d* BUPRENORPHINE 15 MCG/HOUR WEE* Apply as directed. MULTIVITAMIN ORAL Take 1 tablet by mouth once d* FENTANYL 25 MCG/HR TRANSDERMA* Apply 1 Patch as directed dorcas* Patient taking differently: Apply 1 Patch as directed dorcas* CALTRATE 600 + D ORAL Take by mouth. Problem List As Of Date 02/26/2018 Noted Resolved PERS HX INFECT/PARASITIC DIS UNSP [Z86.19] INVALID FOR* More... ALLERGIC RHINITIS NOS [J30.9] INVALID FOR* More... Prescriptions ordered this encounter Disp Refills Start End ESTRADIOL 1 MG TABLET 30 t* 02/26/2018 02/26/2018 Route: ORAL Sig: Take 1 tablet by mouth once daily. MEDROXYPROGESTERONE 2.5 MG TABLET 30 t* 02/26/2018 02/26/2018 Route: ORAL Sig: Take 1 tablet by mouth once daily. MEDROXYPROGESTERONE 2.5 MG TABLET 30 t* 11 02/26/2018 Route: ORAL Sig: Take 1 tablet by mouth once daily. ESTRADIOL 1 MG TABLET 30 t* 11 02/26/2018 Route: ORAL Sig: Take 1 tablet by mouth once daily. Medications Discontinued During This Encounter estradiol (ESTRACE) 1 mg tablet 30 t* 11 02/20/2017 02/26/2018 Route: ORAL Sig: Take 1 tablet by mouth once daily. Disc: Reason for discontinue is not on file. medroxyPROGESTERone (PROVERA, CYCRIN* 30 t* 11 02/20/2017 02/26/2018 Route: ORAL Sig: Take 1 tablet by mouth once daily. Disc: Reason for discontinue is not on file. medroxyPROGESTERone (PROVERA, CYCRIN* 30 t* 11 02/26/2018 02/26/2018 Route: ORAL Sig: Take 1 tablet by mouth once daily. Disc: Reason for discontinue is not on file. estradiol (ESTRACE) 1 mg tablet 30 t* 11 02/26/2018 02/26/2018 Route: ORAL Sig: Take 1 tablet by mouth once daily. Disc: Reason for discontinue is not on file. Disposition: Return in 1 year (on 02/26/2019) for Annual Exam. Follow-up and Disposition History Recorded Encounter Status:Closed by TERI QUISPE on 03/06/18 [facility] SCREENING Observed: 02/26/2018 Status: F Source: [place] 7:41 AM [facility] REPOSITORY * * *Final Report* * * DATE OF EXAM: Feb 26 2018 7:41AM [facility] 05[address] [facility] SCREENING / PROCEDURE REASON: Encounter for screening mammogram for malignant neoplasm of breast * * * * Physician Interpretation * * * * RESULT: #[id number] - [facility] SCREENING BILATERAL DIGITAL SCREENING MAMMOGRAM WITH CAD: 02/26/2018 HISTORY: Encounter For Screening Mammogram For Malignant Neoplasm Of Breast /Screening Mammogram - patient reports NO breast symptoms /Priors available for comparison. RESULT: TECHNIQUE: The study was acquired using full field digital technology and interpreted from soft copy. Current study was also evaluated with a Computer Aided Detection (CAD). Comparison is made to exam dated: 09/24/2015 mammogram - [facility]. The tissue of both breasts is heterogeneously dense. This may lower the sensitivity of mammography. No significant masses, calcifications, or other findings are seen in either breast. There has been no significant interval change. IMPRESSION: NEGATIVE There is no mammographic evidence of malignancy.A 1 year screening mammogram is recommended. Obed Ledbetter M.D., lp/sonia:02/26/2018 16:31:04 Ed Manager: Clare VERMA)(Surya), [facility] letter sent: Normal over 40 Mammogram BI-RADS: 1 Negative Multiple national specialty organizations have released breast cancer screening guidelines for women at average risk for developing breast cancer - guidelines that are based on both evidence and opinion, yet differ on when to start and how often to screen for breast cancer. With representation from Breast Imaging, Internal Medicine, Women's Health, Family Medicine, and Medical/Surgical Oncology, the [facility] has carefully reviewed the data and reached the following consensus: 1) All women should engage in shared decision-making with their providers to decide when to start and how often to screen; 2) All women should have the opportunity to start screening mammography at age 40; 3) For women ages 45-55, we recommend annual screening mammograms; 4) For women ages 55 and over, we support both the transition from an annual to a biennial interval if this aligns more with patient's values and preferences, or continuation with annual screening; 5) All women should discuss with their providers when to stop screening mammograms. Hand Bobbin Cleaner: Sonia Transcribe Date/Time: Feb 26 2018 7:59A Dictated by: OBED LEDBETTER MD This examination was interpreted and the report reviewed and electronically signed by: OBED LEDBETTER MD on Feb 26 2018 4:31PM EST [id number] RE-EVALUATION - PT (1) Observed: 02/25/2018 Status: F Source: [place] 8:32 AM [facility] REPOSITORY [facility] [address] [place] [address] Fax REEVALUATION / MEDICARE RECERTIFICATION PHYSICAL THERAPY MR#: [id number] Acct: [id number] Name: DAVIS JONES Rep #: [id number] : 1965 52 From: Kelly Blake PT, Cert. MDT Referring Dr.: Marija Diaz MD Status: REG RCR Insurance: [facility] SELF PAY INSURANCE Marija Diaz, It has been my pleasure to treat DAVIS JONES over the last 9 visits for BACK PAIN AND RIGHT LEG WEAKNESS. Please see the progress note below for an update on the physical therapy plan of care! Subjective: PATIENT REPORTS INCREASED LBP AND DIFFICULTY SLEEPING AFTER LAST VISIT (FIRST AQUATIC THERAPY SESSION). PATIENT REPORTS HER HAND LEFT HAND HAS BEEN CRAMPY AND WITH INCREASED PAIN EVER SINCE THE POOL EXERCISES AND SHE RELATES IT TO SOMETHING WITH THE INJECTION SHE RECEIVED 48 HOURS PRIOR. SHE REPORTS THAT SHE IS JUST MOVING SLOWER TODAY. PATIENT HAD A FOLLOW UP WITH DR. DIAZ SUNDAY AND THEY DECIDED TO TRY A SACRAL INJECTION TO HELP DETERMINE IF ABLATION PROCEDURE MIGHT BE INDICATED. TURNED STIMULATOR UP HIGHER THAN NORMAL TODAY JUST BECAUSE SHE IS IN MORE PAIN SINCE POOL VISIT. Objective/Function: THERE ARE NO SIGNIFICANT CHANGES WITH TESTING TODAY COMPARED TO INITIAL EVAL BUT PATIENT IS HAVING INCREASED PAIN TODAY AND PRIOR TO LAST VISIT SHE WAS REPORTING IMPROVED STRENGTH IN HER LE'S. PATIENT HAS MADE PROGRESS TOWARD INCORPORATING BETTER BODY MECHANICS AND POSTURE CONTROL WITH ADL'S ALONG WITH APPROPRIATE ACTIVITIY MODIFICATIONS TO TRY TO BETTER MANAGE PAIN. WE ARE GOING TO MODIFY HER POOL PROGRAM AND CONTINUE LAND THERAPY WITH THE HOPE OF BUILDING ON PRIOR PROGRESS WITH PATIENT BEING ABLE TO TOLERATE ROM, STRETCHING AND STRENGTHEING WITHOUT INCREASING PAIN. Plan Plan: WE ARE GOING TO TRY TO MODIFY OUR APPROACH TO POOL EX'S FOR THIS PATIENT TO TAKE ADVANTAGE OF THE POTENTIAL BENEFITS WITH POOL THERAPY. TENTATIVELY WE WILL SCHEDULE ONE TIME A WEEK IN THE POOL AND ONE TIME A WEEK ON LAND FOR 13 MORE VISITS. *NO US OR ES*. POSTURE CORRECTION/STRENGTHENING, INSTRUCTION IN APPROPRIATE BODY MECHANICS AND ACTIVITY MODIFICATIONS. DLS WITH A NEUTRAL SPINE. MILTON LE ROM, STRETCHING AND STRENGTHENING. HEP INSTRUCTION. AQUATIC THERAPY HAS BEEN INCORPORATED INTO POC. PATIENT IS AGREEABLE. Goals Goal 1:: DECREASE C/O BACK AND LE SX'S Goal Time Frame: 4-6 Weeks Goal Progress: Not Progressing Goal 2:: IMPROVE SITTING, STANDING , WALKING, BENDING, LIFTING, WORK AND SLEEP FUNCTION Goal Time Frame: 4-6 Weeks Goal Progress: Progressing Goal 3:: INSTRUCT IN PROPHYLAXIS Goal Time Frame: 4-6 Weeks Goal Progress: Progressing Anticipated Interventions Patient/Client Instruction: Educate patient on: Condition, Plan of Care, Risk Factors, Benefits of Fitness Program For the Purpose of:: To improve self management Therapeutic Exercise to Include: Strength training, Body mechanics, Postural training, Flexibilty training, Dynamic Lumbar Stabilization For the Purpose of:: To decrease pain, To improve muscle performance and motor function, To increase tolerance to activity/condition/position, To improve ability of physical actions for home/community/work/leisure Thermo therapy (hot pack): Yes For the Purpose of:: To decrease pain, To increase ROM, To improve nutrient delivery to tissue Please do not hesitate to contact me at [phone] by phone or if you have questions or concerns regarding this new plan of care! Sincerely, Kelly Blake <Electronically signed by Kelly Blake PT, Cert. MDT> 02/25/18 0832 CC: Marija Diaz MD; Jonny Manzano MD VASHTI Signed For Medicare only, by signing this I certify the plan of care. Physicians Signature Date ORTHOPEDIC VISIT Observed: 02/19/2018 Status: F Source: [place] REPORT 9:59 AM [facility] [address] [place] [address] OFFICE VISIT Date of Service: 02/19/18 MR#: [id number] Acct: [id number] Name: DAVIS JONES Zoltan Rep #: [id number] : 1965 Provider: Mattie Kunz DO Age/Sex: 52/F Location: [facility] Status: Signed Intake Intake Visit Reasons: LEFT THUMB Is patient in pain?: Yes Allergies No Known Allergies Allergy (Verified 01/02/18 15:34) Medications fexofenadine 60 mg tablet 60 mg PO BID 09/11/17 [History Confirmed 02/19/18] naproxen sodium 220 mg capsule 220 mg PO BID 10/19/17 [History Confirmed 02/19/18] oxycodone ER 15 mg tablet,extended release,12 hr mg PO BID tab 10/19/17 [History Confirmed 02/19/18] ranitidine 150 mg tablet 150 mg PO QDAY 10/19/17 [History Confirmed 02/19/18] tramadol 50 mg tablet 50 mg PO BID tab 10/19/17 [History Confirmed 02/19/18] PFSH Medical History Back pain (Acute) Osteoarthritis (Acute) Surgical History Previous back surgery (Acute) Family History Other Arthritis Breast cancer Colon cancer Heart disease High cholesterol Hypertension Melanoma Myocardial infarction Social History Smoking Status: Never smoker alcohol intake: former what type of physical activity do you participate in: walking frequency: 1-2 times per week HPI LEFT THUMB: Details: DAVIS JONES is a 52 year old F here today for left thumb pain for a year now. 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 She has tried bracing and KT tape that gives some relief. 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 She has not had any injections or xrays. Denies numbness, tingling or other associated symptoms. Office Procedures Kenalog 10 mg/mL suspension for injection (triamcinolone acetonide) 20 mg Intra-Articular ONCE Procedure Detail Procedure performed by: Mattie Kunz Lot number: [id number] date: 03/23/19 Ortho Injection Site: Yes Ortho Injections/Aspirations Yes CMC Left Office Meds Justyn Performing Provider: Mattie Kunz DO Administered by: Mattie Kunz DO on 02/19/18 09:36 Dose Route [facility] Scaler Helper 20 mg Tendon Sheath Ileft wrist [id number] 03/23/19 8721-2617-22 [facility]. SQUIBB Justyn Performing Provider: Mattie Kunz DO Documented (not given) by: Zac Morales on 02/19/18 09:36 Dose Route Admin Location Lot Number Expiration Date [facility] Field Cane Scaler Helper 20 mg Intra-Articular Assessment AND Plan 1. De Quervain's tenosynovitis, left M65.4 Plan Patient has both CMC and de Quervain's. X-rays confirm probably in [place] 1 1-1/2 CMC arthritis on the left. This is where most of her pain is however she is also having some de Quervain's pain as well. Discussed risk benefits and alternatives to different treatment options today. 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 At this point we will offered her an injection and patient elected to proceed with CMC and de Quervain's injections. 2. Osteoarthritis of carpometacarpal joint of left thumb M18.12 Plan Detail Other Orders Orders: Other Medications New: Discontinued: Kenalog (triamcinolone acetonide) Disc20 mg (0.5 mL) Tendon Sheath Inj. ONCE 0.M79.645 ontinued Reason: Office Medication has b5 mL 0RF NS een Documented as given Goals Decrease pain and radiculopathy Decrease spasm Barriers Previous spinal surgery Coding Level of Care Code Off vis,new,level 3 Diagnoses De Quervain's tenosynovitis, left M65.4 Osteoarthritis of carpometacarpal joint of left thumb M18.12 Additional Codes wax pot tender.cmc (37106) 02/19/18 0959 <Electronically signed by Mattie Kunz DO> Date Mattie Kunz DO Cosigner Signature: Date (if applicable) CC: FINGER(S) MIN 2 VIEWS Observed: 02/19/2018 Status: F Source: [place] 8:53 AM [facility] REPOSITORY [facility] Imaging Services [address] [place] [id number] Finger(s) Min 2 Views MR#: [id number] Acct: [id number] Name: DAVIS JONES Rep #: [id number] : 1965 F 52 From: Ned Morton MD PCP: Jonny Manzano MD Status: REG CLI Study: Finger(s) Min 2 Views Date of Exam: 02/19/18 Exam# [id number] Ordering Dr: Mattie Kunz DO STUDY: X-RAY - LEFT HAND, ATTENTION THUMB REASON FOR EXAM: Pain at the base of the thumb for one year after injury. TECHNIQUE: 3 view(s) of the finger were obtained. COMPARISON: None. FINDINGS: There is moderate joint space narrowing of the first carpometacarpal joint. Normal metacarpal. Normal metacarpophalangeal joint. Normal proximal phalanx. Normal distal phalanx. Normal interphalangeal joint. RAD/Finger(s) Min 2 Views IMPRESSION: First carpometacarpal arthrosis. Electronically Signed: Ned Morton MD at 10:08 EDT Tel , Service support , CC: Mattie Kunz DO; Jonny Manzano MD Hand Bobbin Cleaner: Signed CHIROPRACTIC REPORT Observed: 02/11/2018 Status: F Source: [place] 12:27 PM [facility] [address] [place] [address] OFFICE VISIT Date of Service: 02/05/18 MR#: [id number] Acct: [id number] Name: DAVIS JONES Rep #: [id number] : 1965 Provider: Karuna Romero D.C. Age/Sex: 52/F Location: [facility] Status: Signed Intake Intake Visit Reasons: Neck pain Is patient in pain?: Yes Allergies No Known Allergies Allergy (Verified 01/02/18 15:34) Medications Estrogen,Con/M-Progest Acet [Prempro 0.625-5 MG TABLET] 1 ea PO DAILY 07/21/13 [History Confirmed 01/02/18] fexofenadine 60 mg tablet 60 mg PO BID 09/11/17 [History Confirmed 01/02/18] naproxen sodium 220 mg capsule 220 mg PO BID 10/19/17 [History Confirmed 01/02/18] oxycodone ER 15 mg tablet,extended release,12 hr mg PO BID tab 10/19/17 [History Confirmed 01/02/18] ranitidine 150 mg tablet 150 mg PO QDAY 10/19/17 [History Confirmed 01/02/18] tramadol 50 mg tablet 50 mg PO BID tab 10/19/17 [History Confirmed 01/02/18] PFS Medical History Back pain (Acute) Osteoarthritis (Acute) Surgical History Previous back surgery (Acute) Family History Other Arthritis Breast cancer Colon cancer Heart disease High cholesterol Hypertension Melanoma Myocardial infarction Social History Smoking Status: Never smoker HPI Neck pain : Chief Complaint: Neck pain Visit Number: 12 Details: DAVIS JONES is a 52 year old F who presents with neck pain. She states that this morning while driving to work, she noticed her neck, went out. The pain is described as a tight ache that can become sharp. Rotation of the neck, looking down, and lifting cause increased pain that does radiate up into the back of the skull. Her low back pain has been persistent since her last visit. She has begun physical therapy to attempt to strength her legs and low back. Davis denies any numbness, tingling, or radiculopathy. Location: neck/low back pain Duration: constant Aggravating or associated factors: rotation, looking down, and lifting Relieving factors: chiro Pain Quality: aching, dull, cramping, sharp Exam Musc General: Yes normal posture and joint tenderness (C2, C5,C6,C7,T4, L2-L5); no normal gait Cervical Spine: loss of normal cervical lordosis, cervical muscular tenderness (R scalene and levator), pain with cervical ROM (slightly improved), cervical spasm (R scalene and levator), cervical ROM abnormal Thoracic/Lumbar Spine: thor and lumb spine abnorm to inspection (surgical scar from T12-L5, stimulator R L1-L3), surgical scar(s) present, pain with thoraco- lumbar ROM (slightly worse), thoraco-lumbar spasm bilaterally in the lower lumbar and in the mid lumbar, paraspinal tenderness bilaterally in the lower lumbar, in the mid lumbar, in the upper thoracic and in the mid thoracic Sacroiliac joints: on the left, on the right Office Procedures Chiropractic Treatments Procedures Manipulation: 3-4 regions (C2,C6,T4, L2, RIL) Electrical Stimulation: 15 mins (cervical ) Assessment AND Plan 1. 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 Segmental and somatic dysfunction of cervical region M99.01 Orders Orders: 3. Segmental and somatic dysfunction of thoracic region M99.02 Orders Orders: 4. Segmental and somatic dysfunction of lumbar region M99.03 Orders Orders: 5. Segmental and somatic dysfunction of pelvic region M99.05 Plan Detail Additional Comments Angled that table to 30 degrees while treating to make patient comfortable. Laying flat or extension exacerbates patients low back pain. 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 activity do you participate in: walking frequency: 1-2 times per week HPI back pain : Chief Complaint: R sided low back and neck pain Visit Number: 14 Details: DAVIS JONES is a 51 year old F who presents with increased low back pain. She states that since the past treatment her pain has increased when standing after sitting, or laying for a long period of time. Davis states that her legs are feeling weak, and even giving out on her, at times. Today the patient rates her pain a 4/10 and describes it as a tight and deep ache that bands across the low back. Prolonged sitting, bending, and lifting all cause increased pain, although she denies any numbness or tingling. Location: low back Duration: constant Aggravating or associated factors: prolonged sitting and standing Relieving factors: chiro and massage Pain Quality: aching, dull, cramping Exam Musc General: Yes normal posture and joint tenderness (C2, C5,T4, L2-L5); no normal gait Cervical Spine: loss of normal cervical lordosis, cervical muscular tenderness (R scalene and levator), pain with cervical ROM (slightly improved) with lateral flexion to left and with extension, cervical spasm (R scalene and levator), cervical ROM abnormal lateral flexion to the left decreased and extension decreased Thoracic/Lumbar Spine: thor and lumb spine abnorm to inspection (surgical scar from T12-L5, stimulator R L1-L3), surgical scar(s) present, pain with thoraco- lumbar ROM (slightly worse) other (extension), with lateral flexion to the right and with lateral flexion to the left, thoraco-lumbar spasm on the left (QL) in the lower lumbar and on the right (QL) in the lower lumbar, paraspinal tenderness (worsened) bilaterally in the lower lumbar and in the mid lumbar Sacroiliac joints: on the left, on the right Office Procedures Chiropractic Treatments Procedures Manipulation: 3-4 regions (C2, C5,T4, L2, L5) Electrical Stimulation: 15 mins (lumbar ) Assessment AND Plan Problems 1. 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 Segmental and somatic dysfunction of thoracic region M99.02 3. Segmental and somatic dysfunction of cervical region M99.01 4. Segmental and somatic dysfunction of lumbar region M99.03 Plan Continue with acute treatment, referred to spinal surgeon for evaluation. Utilized Aceves technique on patient today. Monitor patient results. Orders Orders: Plan Detail Goals Decrease pain and radiculopathy Decrease spasm Barriers Previous spinal surgery Follow Up 3 Weeks Coding Level of Care Code No Charge Diagnoses Lumbar disc herniation with radiculopathy M51.16 Segmental and somatic dysfunction of thoracic region M99.02 Segmental and somatic dysfunction of cervical region M99.01 Segmental and somatic dysfunction of lumbar region M99.03 Additional Codes Procedures - Manipulation: 3-4 regions (46998) Procedures - Electrical Stimulation: 15 mins (64666) 11/29/17 2606 <Electronically signed by Karuna Romero D.C.> Date [facility] Signature: Date (if applicable) CC: CHIROPRACTIC REPORT Observed: 11/13/2017 Status: F Source: [place] 10:39 AM [facility] [address] [place] [id number] OFFICE VISIT Date of Service: 11/01/17 MR#: [id number] Acct: [id number] Name: DAVIS JONES Rep #: [id number] : 1965 Provider: Karuna Romero D.C. Age/Sex: 51/F Location: [facility] Status: Signed Intake Vital Signs11/01/17 Height 5 ft 4 in 11/01/17 Weight: 192 lb 11/01/17 Body Mass Index (BMI) 32.9 Intake Visit Reasons: BACK PAIN Chief Complaint: Rt hip pain AND low back pain Is patient in pain?: Yes Allergies No Known Allergies Allergy (Verified 09/11/17 08:08) Medications Estrogen,Con/M-Progest Acet [Prempro 0.625-5 MG TABLET] 1 ea PO DAILY 07/21/13 [History Confirmed 09/11/17] fexofenadine 60 mg tablet 60 mg PO BID 09/11/17 [History Confirmed 09/11/17] naproxen sodium 220 mg capsule 220 mg PO BID 10/19/17 [History Confirmed 10/19/17] oxycodone ER 15 mg tablet,extended release,12 hr mg PO BID tab 10/19/17 [History Confirmed 10/19/17] ranitidine 150 mg tablet 150 mg PO QDAY 10/19/17 [History Confirmed 10/19/17] tramadol 50 mg tablet 50 mg PO BID tab 10/19/17 [History Confirmed 10/19/17] PFSH Medical History Back pain (Acute) Osteoarthritis (Acute) Surgical History Previous back surgery (Acute) Family History Other Arthritis Breast cancer Colon cancer Heart disease High cholesterol Hypertension Melanoma Myocardial infarction Social History Smoking Status: Never smoker alcohol intake: former what type of physical activity do you participate in: walking frequency: 1-2 times per week HPI BACK PAIN: Chief Complaint: low back and hip pain Visit Number: 13 Details: DAVIS JONES is a 51 year old F who presents with hip and low back pain. Today the patient states that her low back pain has increased, describing it as a tight and deep ache. Bending, lifting, and twisting all cause increased pain. At times throughout the day Davis will still have some numbness and tingling into the upper thighs. Location: low back and L hip Duration: constant Aggravating or associated factors: bending, lifting, and twisting Relieving factors: chiro and medication Pain Quality: aching, dull, sharp Exam Musc General: Yes normal posture and joint tenderness (C2, C5,T4, L2-L5); no normal gait Cervical Spine: loss of normal cervical lordosis, cervical muscular tenderness (R scalene and levator), pain with cervical ROM (slightly improved) with lateral flexion to left and with extension, cervical spasm (R scalene and levator), cervical ROM abnormal lateral flexion to the left decreased and extension decreased Thoracic/Lumbar Spine: thor and lumb spine abnorm to inspection (surgical scar from T12-L5, stimulator R L1-L3), surgical scar(s) present, pain with thoraco- lumbar ROM (slightly worse) other (extension), with lateral flexion to the right and with lateral flexion to the left, thoraco-lumbar spasm (slightly improved) on the left (QL) in the lower lumbar and on the right (QL) in the lower lumbar, paraspinal tenderness (worsened) bilaterally in the lower lumbar and in the mid lumbar Sacroiliac joints: on the left, on the right Office Procedures Chiropractic Treatments Procedures Manipulation: 3-4 regions ( C2, C5,T4, L2,L5) Electrical Stimulation: 15 mins (Lumbar ) Assessment AND Plan 1. Segmental and somatic dysfunction of thoracic region M99.02 Orders Orders: 2. Lumbar disc herniation with radiculopathy M51.16 3. Segmental and somatic dysfunction of cervical region M99.01 Orders Orders: 4. Segmental and somatic dysfunction of lumbar region M99.03 Orders Orders: Plan Detail Goals Decrease pain and radiculopathy Decrease spasm Barriers Previous spinal surgery Health Concerns Recommend consult with spinal surgeon. Follow Up 2 Weeks Coding Level of Care Code No Charge Diagnoses Segmental and somatic dysfunction of thoracic region M99.02 Lumbar disc herniation with radiculopathy M51.16 Segmental and somatic dysfunction of cervical region M99.01 Segmental and somatic dysfunction of lumbar region M99.03 Additional Codes Procedures - Manipulation: 3-4 regions (25770) Procedures - Electrical Stimulation: 15 mins (29523) 11/13/17 1039 <Electronically signed by Karuna Romero D.C.> Date Karuna Romero D.C. Cosigner Signature: Date (if applicable) CC: CHIROPRACTIC REPORT Observed: 10/16/2017 Status: F Source: [place] 9:17 AM [facility] [place] [id number] OFFICE VISIT Date of Service: 10/11/17 MR#: [id number] Acct: [id number] Name: DAVIS JONES Rep #: [id number] : 1965 Provider: Karuna Romero D.C. Age/Sex: 51/F Location: [facility] Status: Signed Intake Vital Signs10/11/17 Height 5 ft 4 in 10/11/17 Weight: 192 lb 10/11/17 Body Mass Index (BMI) 32.9 Intake Visit Reasons: back pain Is patient in pain?: Yes Allergies No Known Allergies Allergy (Verified 09/11/17 08:08) Medications Estrogen,Con/M-Progest Acet [Prempro 0.625-5 MG TABLET] 1 ea PO DAILY 07/21/13 [History Confirmed 09/11/17] oxycodone-acetaminophen 2.5 mg-325 mg tablet 1 tab PO ONCE 05/09/17 [History Confirmed 09/11/17] tramadol 50 mg tablet 50 mg PO ONCE 05/09/17 [History Confirmed 09/11/17] fexofenadine 60 mg tablet 60 mg PO BID 09/11/17 [History Confirmed 09/11/17] methylprednisolone 4 mg tablets in a dose pack See Label Instructions PO PER PKG DIR #21 tab 09/11/17 [Rx Confirmed 09/11/17] PFSH Medical History Back pain (Acute) Osteoarthritis (Acute) Surgical History Previous back surgery (Acute) Family History Other Arthritis Breast cancer Colon cancer Heart disease High cholesterol Hypertension Melanoma Myocardial infarction Social History Smoking Status: Never smoker alcohol intake: former what type of physical activity do you participate in: walking frequency: 1-2 times per week HPI back pain : Chief Complaint: back pain Visit Number: 12 Details: DAVIS JONES is a 51 year old F who presents with low back pain. She states that still first thing in the morning her pain is at its worst and does not decrease until late afternoon. Today she rates her pain a 4/10 and describes it as a tight and sharp ache. Bending, lifting, twisting, all cause increased pain at times it can be sharp banding across the low back. Davis denies any numbness, tingling or radiculopathy. Location: low back Duration: constant Aggravating or associated factors: bending, lifting, twisting Relieving factors: chiro and massage Pain Quality: aching, dull, sharp Exam Musc General: Yes normal posture, normal gait and joint tenderness (C2, C5,T4, L2-L5) Cervical Spine: loss of normal cervical lordosis, cervical muscular tenderness (R scalene and levator), pain with cervical ROM (slightly improved) with lateral flexion to left and with extension, cervical spasm (R scalene and levator), cervical ROM abnormal lateral flexion to the left decreased and extension decreased Thoracic/Lumbar Spine: thor and lumb spine abnorm to inspection (surgical scar from T12-L5, stimulator R L1-L3), surgical scar(s) present, pain with thoraco- lumbar ROM (slightly improved) other (extension), with lateral flexion to the right and with lateral flexion to the left, thoraco-lumbar spasm (slightly improved) on the left (QL) in the lower lumbar and on the right (QL) in the lower lumbar, paraspinal tenderness bilaterally in the lower lumbar and in the mid lumbar Sacroiliac joints: on the left, on the right Office Procedures Chiropractic Treatments Procedures Manipulation: 3-4 regions (C2, C5,T4, L2, L5) Electrical Stimulation: 15 mins Location: lumbar Assessment AND Plan 1. 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 Segmental and somatic dysfunction of thoracic region M99.02 Orders Orders: 3. Segmental and somatic dysfunction of cervical region M99.01 Orders Orders: 4. Segmental and somatic dysfunction of lumbar region M99.03 Orders Orders: Plan Detail Goals Decrease pain and radiculopathy Decrease spasm Barriers Previous spinal surgery Follow Up 3 Weeks Coding Level of Care Code No Charge Diagnoses Lumbar disc herniation with radiculopathy M51.16 Segmental and somatic dysfunction of thoracic region M99.02 Segmental and somatic dysfunction of cervical region M99.01 Segmental and somatic dysfunction of lumbar region M99.03 Additional Codes Procedures - Manipulation: 3-4 regions (46380) Procedures - Electrical Stimulation: 15 mins (05130) 10/16/17 0917 <Electronically signed by Karuna Romero D.C.> Date Karuna Romero D.C. Cosigner Signature: Date (if applicable) CC: CHIROPRACTIC REPORT Observed: 10/03/2017 Status: F Source: [place] 8:52 AM [facility] [address] [place] [address] OFFICE VISIT Date of Service: 09/20/17 MR#: [id number] Acct: [id number] Name: DAVIS JONES Rep #: [id number] : 1965 Provider: Karuna Romero D.C. Age/Sex: 51/F [facility] [facility] Status: Signed Intake Vital Signs09/20/17 Height 5 ft 4 in 09/20/17 Weight: 192 lb 09/20/17 Body Mass Index (BMI) 32.9 Intake Visit Reasons: back pain Chief Complaint: Rt hip pain AND Lt thumb pain Is patient in pain?: Yes Allergies No Known Allergies Allergy (Verified 09/11/17 08:08) Medications Estrogen,Con/M-Progest Acet [Prempro 0.625-5 MG TABLET] 1 ea PO DAILY 07/21/13 [History Confirmed 09/11/17] oxycodone-acetaminophen 2.5 mg-325 mg tablet 1 tab PO ONCE 05/09/17 [History Confirmed 09/11/17] tramadol 50 mg tablet 50 mg PO ONCE 05/09/17 [History Confirmed 09/11/17] fexofenadine 60 mg tablet 60 mg PO BID 09/11/17 [History Confirmed 09/11/17] methylprednisolone 4 mg tablets in a dose pack See Label Instructions PO PER PKG DIR #21 tab 09/11/17 [Rx Confirmed 09/11/17] PFSH Medical History Back pain (Acute) Osteoarthritis (Acute) Surgical History Previous back surgery (Acute) Family History Other Arthritis Breast cancer Colon cancer Heart disease High cholesterol Hypertension Melanoma Myocardial infarction Social History Smoking Status: Never smoker HPI back pain : Chief Complaint: back pain Visit Number: 11 Details: DAVIS JONES is a 51 year old F who presents with low back and R hip pain. Davis states that since her last treatment she has been sore and achy in the low back. Today Davis rates her pain a 4/10 and describes it as a tight and sharp ache that is constant, the pain is worse first thing in the morning, as the day goes on she does seem to loosen up some. Bending, lifting, prolonged sitting and twisting cause increased pain although she denies any numbness or tingling. Her neck pain comes and goes, depending on her level of activity. She gets tight and sore bilaterally in her upper back. Location: low back and R hip Duration: constant Aggravating or associated factors: bending, lifting and twisting Relieving factors: chiro Pain Quality: aching, dull, cramping, sharp Exam Musc General: Yes normal posture, normal gait and joint tenderness (C2, C5,T4, L2-L5) Cervical Spine: loss of normal cervical lordosis, cervical muscular tenderness (R scalene and levator), pain with cervical ROM (slightly improved) with lateral flexion to left and with extension, cervical spasm (R scalene and levator), cervical ROM abnormal lateral flexion to the left decreased and extension decreased Thoracic/Lumbar Spine: thor and lumb spine abnorm to inspection (surgical scar from T12-L5, stimulator R L1-L3), surgical scar(s) present, pain with thoraco- lumbar ROM (slightly improved) other (extension), with lateral flexion to the right and with lateral flexion to the left, thoraco-lumbar spasm (slightly improved) on the left (QL) in the lower lumbar and on the right (QL) in the lower lumbar, paraspinal tenderness bilaterally in the lower lumbar and in the mid lumbar Sacroiliac joints: on the left, on the right Office Procedures Chiropractic Treatments Procedures Manipulation: 3-4 regions (C2, C5,T4, L2,L5) Electrical Stimulation: 15 mins Location: lumbar Traction, Mechanical: Yes Details: lumbar traction 15 min Assessment AND Plan 1. 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 Segmental and somatic dysfunction of thoracic region M99.02 Orders Orders: 3. Segmental and somatic dysfunction of cervical region M99.01 Orders Orders: 4. Segmental and somatic dysfunction of lumbar region M99.03 Orders Orders: Plan Detail Goals Decrease pain and radiculopathy Decrease spasm Barriers Previous spinal surgery Follow Up 2 Weeks Coding Level of Care Code No Charge Diagnoses Lumbar disc herniation with radiculopathy M51.16 Segmental and somatic dysfunction of thoracic region M99.02 Segmental and somatic dysfunction of cervical region M99.01 Segmental and somatic dysfunction of lumbar region M99.03 Additional Codes Procedures - Manipulation: 3-4 regions (45339) Procedures - Electrical Stimulation: 15 mins (67125) Procedures - Traction, Mechanical: Yes (50499) 10/03/17 0852 <Electronically signed by Karuna Romero D.C.> Date Karuna Romero D.C. Cosigner Signature: Date (if applicable) CC: SPINE LUMBAR WITHOUT Observed: 09/21/2017 Status: F Source: [place] CONTRAST 7:59 AM [facility] REPOSITORY [facility] Imaging Services [address] [place] [id number] Spine Lumbar without Contrast MR#: [id number] Acct: [id number] Name: DAVIS JONES Rep #: [id number] : 1965 F 51 From: Ez Mascorro MD PCP: Jonny Manzano MD Status: REG CLI Study: Spine Lumbar without Contrast Date of Exam: 09/21/17 Exam# [id number] Ordering Dr: Marija Diaz MD STUDY: CT LUMBAR SPINE WITHOUT CONTRAST REASON FOR EXAM: Female, 51 years old. Chronic back pain and right hip pain. Prior lumbar fusion and pain stimulator placement. RADIATION DOSAGE (If Supplied By Facility): CTDIvol = ( 22.99 ) mGy, DLP = ( 617.81 ) mGycm TECHNIQUE: The patient was scanned in a multi detector CT scanner. High resolution transaxial imaging was performed. Images were obtained from T12 to S1 level. Sagittal and coronal images were reconstructed. Individualized dose optimization techniques were used for this CT. COMPARISON: Comparison is made with prior examination dated August 19, 2016. FINDINGS: Normal lumbar lordosis. There is no substantial scoliosis. Normal vertebrae of the lumbar spine. L1-2: Normal endplates. Normal disc height and morphology. Normal bilateral facet joints. Normal central canal and bilateral lateral recesses. Normal bilateral intervertebral neural foramina. L2-3: Normal endplates. Normal disc height and morphology. Normal bilateral facet joints. Normal central canal and bilateral lateral recesses. Normal bilateral intervertebral neural foramina. L3-4: The patient is status post laminectomy and interpedicular fusion. Intertransverse bone grafting. There is no evidence of spinal stenosis. No recurrent disc herniation is seen. L4-5: Status post laminectomy and interpedicular screw fixation. There is no evidence of spinal stenosis. There is no evidence of herniated nucleus pulposus. There is evidence of intertransverse body bone grafting. L5-S1: Mild degree of disc space narrowing. There is no evidence of hernia in the distal pulses. There is no evidence of spinal stenosis. Normal visualized paraspinous soft tissue structures. CT/Spine Lumbar without Contrast IMPRESSION: Status post laminectomy and interpedicular screw fixation at the L3-L4, and L4-L5 levels. No acute abnormality is seen. Electronically Signed: Ez Mascorro MD at 12:34 EDT Tel [phone], Service support , CC: Marija Diaz MD; Jonny Manzano MD Hand Bobbin Cleaner: Signed INTERNAL MEDICINE Observed: 09/11/2017 Status: F Source: [place] OFFICE VISIT 4:48 PM [facility] [place], [place] [address] OFFICE VISIT Date of Service: 09/11/17 MR#: [id number] Acct: [id number] Name: DAVIS JONES Rep #: [id number] : 1965 Provider: Jonny Manzano MD Age/Sex: 51/F [place] [facility] Status: Signed Intake Vital Signs05/22/18 Height 5 ft 4 in 09/11/17 Weight: 192 lb 09/11/17 Body Mass Index (BMI) 32.9 09/11/17 Blood Pressure 136/84 Intake Visit Reasons: Hip pain Chief Complaint: Rt hip pain AND Lt thumb pain Is patient in pain?: Yes (Rt hip) Pain scale (1-10): 7 Allergies No Known Allergies Allergy (Verified 09/11/17 08:08) Medications Estrogen,Con/M-Progest Acet [Prempro 0.625-5 MG TABLET] 1 ea PO DAILY 07/21/13 [History Confirmed 09/11/17] oxycodone-acetaminophen 2.5 mg-325 mg tablet 1 tab PO ONCE 05/09/17 [History Confirmed 09/11/17] tramadol 50 mg tablet 50 mg PO ONCE 05/09/17 [History Confirmed 09/11/17] fexofenadine 60 mg tablet 60 mg PO BID 09/11/17 [History Confirmed 09/11/17] methylprednisolone 4 mg tablets in a dose pack See Label Instructions PO PER PKG DIR #21 tab 09/11/17 [Rx Confirmed 09/11/17] PFSH Medical History Back pain (Acute) Osteoarthritis (Acute) Surgical History Previous back surgery (Acute) Family History Other Arthritis Breast cancer Colon cancer Heart disease High cholesterol Hypertension Melanoma Myocardial infarction Social History Smoking Status: Never smoker alcohol intake: former what type of physical activity do you participate in: walking frequency: 1-2 times per week HPI HPI Chief Complaint: Rt hip pain AND Lt thumb pain Details: DAVIS JONES, is a 51yo F who presents to the office today due to left thumb pain and right hip pain. Right hip pain is said to have been ongoing for a couple of months. She currently follows up with Dr. Diaz and is currently on pain medications which does not help much with her pain. Pain is said to be worse after a period of immobility. She denies any history of trauma or history of osteoarthritis. Left thumb pain has been ongoing for a couple of weeks. She denies any history of trauma but states that her job involves a lot of repetitive motion. ROS Const Constitutional: No chills, fatigue, fever(s), frequent falls, malaise, sleep problems or change in appetite Eyes Eyes: No blurry vision, change in vision, double vision, discharge or visual disturbances ENT ENT: No abnormal hearing, ear pain, ear pressure, tinnitus or dizziness/vertigo Resp Respiratory: No cough, shortness of breath or wheezing Cardio Cardiology: No chest pain at rest, chest pain with exertion, shortness of breath, dyspnea on exertion, generalized swelling, irregular heart rhythm, lightheadedness, orthopnea, fast heart rate or palpitations Gastro GI: No abdominal pain, change in bowel habits, constipation, diarrhea, nausea/dyspepsia or vomiting Genitourinary-Female: No difficulty urinating, burning urination, painful urination, urinary incontinence, urinary frequency, urinary urgency, urinary hesitancy, urinary retention, Frequent nighttime urination/ nocturia, sexual problems, genital lesions, abnormal vaginal bleeding, pelvic pain, vaginal dryness, vaginal odor or Vaginal Itching Musc Musculoskeletal: Positive for joint pain (Rt hip AND Lt thumb) and back pain; no joint swelling, limited range of motion or tingling Skin Skin: No change in skin color, itching, rash or wounds Breast Breast: No breast lump or breast pain Neuro Neurology: Positive for unsteady gait/balance (Due to Rt hip); no frequent falls, abnormal hearing, tingling, dizziness, loss of vision, memory loss or visual disturbances Psych Psychiatric: No memory loss, No anxiety, No change in appetite, No depression, No Thoughts of harming yourself/Others Endo Endocrine: No fatigue, heat intolerance, increased thirst/drinking, increased hunger or increased urination Aller/Imm Allergy/Immunologic: Positive for seasonal allergy symptoms; no wheezing or itchy eyes Peter/Lymp Hematologic/Lymphatic: No easy bleeding, easy bruising or enlarged lymph nodes Exam Const General: cooperative, no acute distress, well developed Orientation: alert, awake, oriented x3 HENMT Head: atraumatic, normocephalic Ears: hearing grossly normal bilaterally Resp Effort AND Inspection: normal respiratory effort, able to speak in complete sentences Auscultation: Bilateral: Clear to Auscultation Cardio Rate: regular rate Rhythm: regular rhythm Heart Sounds: S1 normal, S2 normal GI Palpation: soft, no hepatosplenomegaly Musc Musculoskeletal: Yes joint tenderness; no joint redness or joint warmth Thoracic/Lumbar Spine: straight leg raise negative, thoracic and lumbar spine normal to inspection Neuro General: alert, awake, oriented x3, moves all extremities, CN's II-XI intact bilaterally Extrem General: no clubbing, cyanosis or edema Psych Appearance: grossly normal Mental Status: mental status grossly normal Mood: congruent mood Affect: normal affect Assessment AND Plan 1. Pain of left thumb M79.645 Plan Most probably tendinitis. Medrol dose pack. immobilize with a splint. Follow up in 2 weeks. 2. Right hip pain M25.551 Plan Chronic and progressing. Does not appear to be associated with her back pain. Straight leg raise test negative. Possibly an inflammatory process. A trial of medrol dose pack as above. Also scheduled to have a CT per pain management. Follow up in 2 weeks. Plan Detail Other Medications New: Goals Decrease pain and radiculopathy Decrease spasm Barriers Previous spinal surgery Follow Up 2 Weeks Coding Level of Care Code Off vis,est,level 3 Diagnoses Pain of left thumb M79.645 Right hip pain M25.551 09/11/17 1648 <Electronically signed by Jonny Manzano MD> Date Jonny Manzano MD Cosigner Signature: Date (if applicable) CC: CHIROPRACTIC REPORT Observed: 09/10/2017 Status: F Source: [place] 11:16 AM [facility] [address] [place] [id number] OFFICE VISIT Date of Service: 09/06/17 MR#: [id number] Acct: [id number] Name: DAVIS JONES Rep #: [id number] : 1965 Provider: Karuna Romero D.C. Age/Sex: 51/F Location: [facility] Status: Signed Intake Vital Signs09/06/17 Height 5 ft 4 in 09/06/17 Weight: 188 lb 09/06/17 Body Mass Index (BMI) 32.2 Intake Visit Reasons: back pain Chief Complaint: back pain Is patient in pain?: Yes Allergies No Known Allergies Allergy (Verified 05/09/17 12:16) Medications Ca/D3/Mag Ox/Zinc/Cable Weaver/Lance/Bor [Calcium 600-D3 Plus Caplet] 1 ea PO DAILY 07/21/13 [History Confirmed 05/09/17] Estrogen,Con/M-Progest Acet [Prempro 0.625-5 MG TABLET] 1 ea PO DAILY 07/21/13 [History Confirmed 05/09/17] oxycodone-acetaminophen 2.5 mg-325 mg tablet 1 tab PO ONCE 05/09/17 [History Confirmed 05/09/17] tramadol 50 mg tablet 50 mg PO ONCE 05/09/17 [History Confirmed 05/09/17] PFSH Medical History Back pain (Acute) Osteoarthritis (Acute) Surgical History Previous back surgery (Acute) Family History Other Arthritis Breast cancer Colon cancer Heart disease High cholesterol Hypertension Melanoma Myocardial infarction Social History Smoking Status: Never smoker alcohol intake: former what type of physical activity do you participate in: walking frequency: 1-2 times per week HPI back pain : Chief Complaint: back pain Visit Number: 10 Details: DAVIS JONES is a 51 year old F who presents with low back pain. She states that her pain has been persistent since her last visit, although it is no longer sharp and shooting. Today Davis rates her pain a 4/10 and describes it as a tight ache that increases with bending, kneeling and lifting. The patient still complains of pain radiating into the R hip, the patient does state that the pain radiates down the leg to the knee, although she denies any numbness, tingling. Location: low back and R hip Duration: constant Aggravating or associated factors: bending, lifting. kneeling Relieving factors: chiro Pain Quality: dull, aching, cramping Exam Musc General: Yes normal posture, normal gait and joint tenderness (C2, C5,T4, L2-L5) Cervical Spine: loss of normal cervical lordosis, cervical muscular tenderness (R scalene and levator), pain with cervical ROM (slightly improved) with lateral flexion to left and with extension, cervical spasm (R scalene and levator), cervical ROM abnormal lateral flexion to the left decreased and extension decreased Thoracic/Lumbar Spine: thor and lumb spine abnorm to inspection (surgical scar from T12-L5, stimulator R L1-L3), surgical scar(s) present, pain with thoraco- lumbar ROM (slightly improved) other (extension), with lateral flexion to the right and with lateral flexion to the left, thoraco-lumbar spasm (slightly improved) on the left (QL) in the lower lumbar and on the right (QL) in the lower lumbar, paraspinal tenderness bilaterally in the lower lumbar and in the mid lumbar Sacroiliac joints: on the left, on the right Office Procedures Chiropractic Treatments Procedures Manipulation: 3-4 regions (C2, C5,T4, L2,L5) Electrical Stimulation: 15 mins Location: Lumbar Traction, Mechanical: Yes Details: Lumbar traction 15 min Assessment AND Plan 1. 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 Segmental and somatic dysfunction of thoracic region M99.02 Orders Orders: 3. Segmental and somatic dysfunction of cervical region M99.01 Orders Orders: 4. Segmental and somatic dysfunction of lumbar region M99.03 Orders Orders: Plan Detail Goals Decrease pain and radiculopathy Decrease spasm Barriers Previous spinal surgery Follow Up 1 Month Coding Level of Care Code No Charge Diagnoses Lumbar disc herniation with radiculopathy M51.16 Segmental and somatic dysfunction of thoracic region M99.02 Segmental and somatic dysfunction of cervical region M99.01 Segmental and somatic dysfunction of lumbar region M99.03 Additional Codes Procedures - Electrical Stimulation: 15 mins (35227) Procedures - Traction, Mechanical: Yes (70400) Procedures - Manipulation: 3-4 regions (47261) 09/10/17 1116 <Electronically signed by Karuna Romero D.C.> Date Karuna Romero D.C. Cosign Signature: Date (if applicable) CC: CHIROPRACTIC REPORT Observed: 08/20/2017 Status: F Source: [place] 4:08 PM [facility] [address] [place] [id number] OFFICE VISIT Date of Service: 08/16/17 MR#: [id number] Acct: [id number] Name: DAVIS JONES Rep #: [id number] : 1965 Provider: Karuna Romero D.C. Age/Sex: 51/F Location: [facility] Status: Signed Intake Vital Signs08/16/17 Height 5 ft 4 in 08/16/17 Weight: 188 lb 08/16/17 Body Mass Index (BMI) 32.2 Intake Visit Reasons: back pain Chief Complaint: back pain Is patient in pain?: Yes Allergies No Known Allergies Allergy (Verified 05/09/17 12:16) Medications Ca/D3/Mag Ox/Zinc/Cable Weaver/Lance/Bor [Calcium 600-D3 Plus Caplet] 1 ea PO DAILY 07/21/13 [History Confirmed 05/09/17] Estrogen,Con/M-Progest Acet [Prempro 0.625-5 MG TABLET] 1 ea PO DAILY 07/21/13 [History Confirmed 05/09/17] oxycodone-acetaminophen 2.5 mg-325 mg tablet 1 tab PO ONCE 05/09/17 [History Confirmed 05/09/17] tramadol 50 mg tablet 50 mg PO ONCE 05/09/17 [History Confirmed 05/09/17] PFSH Medical History Back pain (Acute) Osteoarthritis (Acute) Surgical History Previous back surgery (Acute) Family History Other Arthritis Breast cancer Colon cancer Heart disease High cholesterol Hypertension Melanoma Myocardial infarction Social History Smoking Status: Never smoker alcohol intake: former what type of physical activity do you participate in: walking frequency: 1-2 times per week HPI back pain : Chief Complaint: back pain Visit Number: 9 Details: DAVIS JONES is a 51 year old F who presents with increased low back pain. She states that when the weather changes her pain increases. Today Davis rates her pain a 4/10 and describes it as a tight and sharp ache that radiates across the low back. Bending, prolonged standing, kneeling and twisting cause increased pain. Yesterday the patient did a lot of cooking causing increased pain, although she denies any numbness or tingling. Onset: 08/13/17 Location: low back Duration: constant Aggravating or associated factors: weather, bending, twisting, and kneeling Relieving factors: heat, medication and adjustments Pain Quality: aching, dull, cramping, sharp Exam Musc General: Yes normal posture, normal gait and joint tenderness (C2, C5,T4, L2-L5) Cervical Spine: loss of normal cervical lordosis, cervical muscular tenderness (R scalene and levator), pain with cervical ROM (slightly improved) with lateral flexion to left and with extension, cervical spasm (R scalene and levator), cervical ROM abnormal lateral flexion to the left decreased and extension decreased Thoracic/Lumbar Spine: thor and lumb spine abnorm to inspection (surgical scar from T12-L5, stimulator R L1-L3), surgical scar(s) present, pain with thoraco- lumbar ROM (slightly improved) other (extension), with lateral flexion to the right and with lateral flexion to the left, thoraco-lumbar spasm (slightly improved) on the left (QL) in the lower lumbar and on the right (QL) in the lower lumbar Sacroiliac joints: on the left, on the right Office Procedures Chiropractic Treatments Procedures Manipulation: 3-4 regions (C2, C5,T4, L2, L5) Electrical Stimulation: 15 mins Location: Lumbar Traction, Mechanical: Yes Details: Lumbar traction 15 min Assessment AND Plan Problems 1. 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 Segmental and somatic dysfunction of thoracic region M99.02 3. Segmental and somatic dysfunction of cervical region M99.01 4. Segmental and somatic dysfunction of lumbar region M99.03 Plan Follow up PRN. Orders Orders: Plan Detail Goals Decrease pain and radiculopathy Decrease spasm Barriers Previous spinal surgery Follow Up PRN Coding Level of Care Code No Charge Diagnoses Lumbar disc herniation with radiculopathy M51.16 Segmental and somatic dysfunction of thoracic region M99.02 Segmental and somatic dysfunction of cervical region M99.01 Segmental and somatic dysfunction of lumbar region M99.03 Additional Codes Procedures - Electrical Stimulation: 15 mins (25123) Procedures - Traction, Mechanical: Yes (36676) Procedures - Manipulation: 3-4 regions (81208) 08/20/17 1608 <Electronically signed by Karuna Romero D.C.> Date Karuna Romero D.C. Cosigner Signature: Date (if applicable) CC: CHIROPRACTIC REPORT Observed: 08/14/2017 Status: F Source: [place] 8:39 AM [facility] [address] [place] [address] OFFICE VISIT Date of Service: 08/02/17 MR#: [id number] Acct: [id number] Name: DAVIS JONES Rep #: [id number] : 1965 Provider: Karuna Romero D.C. Age/Sex: 51/F Location: [facility] Status: Signed Intake Vital Signs08/02/17 Height 5 ft 4 in 08/02/17 Weight: 188 lb 08/02/17 Body Mass Index (BMI) 32.2 Intake Visit Reasons: back pain Chief Complaint: back pain Is patient in pain?: Yes Allergies No Known Allergies Allergy (Verified 05/09/17 12:16) Medications Ca/D3/Mag Ox/Zinc/Cable Weaver/Lance/Bor [Calcium 600-D3 Plus Caplet] 1 ea PO DAILY 07/21/13 [History Confirmed 05/09/17] Estrogen,Con/M-Progest Acet [Prempro 0.625-5 MG TABLET] 1 ea PO DAILY 07/21/13 [History Confirmed 05/09/17] oxycodone-acetaminophen 2.5 mg-325 mg tablet 1 tab PO ONCE 05/09/17 [History Confirmed 05/09/17] tramadol 50 mg tablet 50 mg PO ONCE 05/09/17 [History Confirmed 05/09/17] PFSH Medical History Back pain (Acute) Osteoarthritis (Acute) Surgical History Previous back surgery (Acute) Family History Other Arthritis Breast cancer Colon cancer Heart disease High cholesterol Hypertension Melanoma Myocardial infarction Social History Smoking Status: Never smoker alcohol intake: former what type of physical activity do you participate in: walking frequency: 1-2 times per week HPI back pain : Chief Complaint: back pain Visit Number: 8 Details: DAVIS JONES is a 51 year old F who presents with low back pain. She states that recently she has began working out causing increased pain and soreness in the low back. Today Davis rates her pain a 4/10 and describes it as a tight and deep ache banding across low back, prolonged standing, bending and lifting causes increased pain. At its worst the ryan is rated a 7/10 which normally occurs first thing in the morning upon rising, after a shower and medication it does slightly ease up. Location: low back Duration: intermittent Aggravating or associated factors: bending, lifting and prolonged standing Relieving factors: heat and medication along with adjustment Pain Quality: aching, dull, sharp Exam Musc General: Yes normal posture, normal gait and joint tenderness (C2, C5,T4, L2-L5) Cervical Spine: loss of normal cervical lordosis, cervical muscular tenderness (R scalene and levator), pain with cervical ROM (slightly improved) with lateral flexion to left and with extension, cervical spasm (R scalene and levator), cervical ROM abnormal lateral flexion to the left decreased and extension decreased Thoracic/Lumbar Spine: thor and lumb spine abnorm to inspection (surgical scar from T12-L5, stimulator R L1-L3), surgical scar(s) present, pain with thoraco- lumbar ROM (slightly improved) other (extension), with lateral flexion to the right and with lateral flexion to the left, thoraco-lumbar spasm (slightly improved) on the left (QL) in the lower lumbar and on the right (QL) in the lower lumbar Sacroiliac joints: on the left, on the right Office Procedures Chiropractic Treatments Procedures Manipulation: 3-4 regions (C2, C5,T4, L2,L5) Electrical Stimulation: 15 mins Location: lumbar Traction, Mechanical: Yes Details: Lumbar traction 15 min Assessment AND Plan Problems 1. 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 Segmental and somatic dysfunction of thoracic region M99.02 3. Segmental and somatic dysfunction of cervical region M99.01 4. Segmental and somatic dysfunction of lumbar region M99.03 Plan Follow up PRN. Orders Orders: Plan Detail Goals Decrease pain and radiculopathy Decrease spasm Barriers Previous spinal surgery Follow Up PRN Coding Level of Care Code No Charge Diagnoses Lumbar disc herniation with radiculopathy M51.16 Segmental and somatic dysfunction of thoracic region M99.02 Segmental and somatic dysfunction of cervical region M99.01 Segmental and somatic dysfunction of lumbar region M99.03 Additional Codes Procedures - Electrical Stimulation: 15 mins (78229) Procedures - Traction, Mechanical: Yes (98671) Procedures - Manipulation: 3-4 regions (02690) 08/14/17 0839 <Electronically signed by Karuna Romero D.C.> Date Karuna Romero D.C. Cosigner Signature: Date (if applicable) CC: HIP 2-3 VIEWS WITH Observed: 07/26/2017 Status: F Source: [facility] 1:29 PM [facility] REPOSITORY [facility] Imaging Services [address] [place] [address] [place] [address] Hip 2-3 Views with Pelvis MR#: [id number] Acct: [id number] Name: DAVIS JONES Rep #: [id number] : 1965 F 51 From: Vaibhav Alberts DO PCP: Jonny Manzano MD Status: REG CLI Study: Hip 2-3 Views with Pelvis Date of Exam: 07/26/17 Exam# [id number] Ordering Dr: Marija Diaz MD STUDY: X-RAY - PELVIS AND RIGHT HIP REASON FOR EXAM: Female, 51 years old. Pain TECHNIQUE: Radiological exam, hip, unilateral, with pelvis when performed; 2 or 3 views. COMPARISON: None. FINDINGS: There is a non-specific bowel gas pattern. Normal visualized soft tissue structures. Postoperative changes are seen in the lumbar spine. Normal bilateral iliac wings, sacroiliac joints and visualized sacrum. Normal bilateral superior and inferior pubic rami. Normal pubic symphysis. Normal bilateral ischial tuberosities. Normal visualized femoral head. Normal acetabulum. Normal hip joint. RAD/Hip 2-3 Views with Pelvis IMPRESSION: No acute bony abnormality. Electronically Signed: Vaibhav Alberts DO at 13:45 EDT Tel , Service support , CC: Marija Diaz MD; Jonny Manzano MD Hand Bobbin Cleaner: Signed CHIROPRACTIC REPORT Observed: 07/16/2017 Status: F Source: [place] 9:05 AM [facility] [address] [place] [address] OFFICE VISIT Date of Service: 07/12/17 MR#: [id number] Acct: [id number] Name: DAVIS JONES Rep #: [id number] : 1965 Provider: Karuna Romero D.C. Age/Sex: 51/F Location: [facility] Status: Signed Intake Intake Visit Reasons: back pain Chief Complaint: back pain Allergies No Known Allergies Allergy (Verified 05/09/17 12:16) Medications Ca/D3/Mag Ox/Zinc/Cable Weaver/Lance/Bor [Calcium 600-D3 Plus Caplet] 1 ea PO DAILY 07/21/13 [History Confirmed 05/09/17] Estrogen,Con/M-Progest Acet [Prempro 0.625-5 MG TABLET] 1 ea PO DAILY 07/21/13 [History Confirmed 05/09/17] oxycodone-acetaminophen 2.5 mg-325 mg tablet 1 tab PO ONCE 05/09/17 [History Confirmed 05/09/17] tramadol 50 mg tablet 50 mg PO ONCE 05/09/17 [History Confirmed 05/09/17] PFSH Medical History Back pain (Acute) Osteoarthritis (Acute) Surgical History Previous back surgery (Acute) Family History Other Arthritis Breast cancer Colon cancer Heart disease High cholesterol Hypertension Melanoma Myocardial infarction Social History Smoking Status: Never smoker alcohol intake: former what type of physical activity do you participate in: walking frequency: 1-2 times per week HPI back pain : Chief Complaint: back pain Visit Number: 7 Details: DAVIS JONES is a 51 year old F who presents with neck and low back pain. She states that recently her R hip pain has decreased due to massage therapy, although her back pain is still present. Today the patient rates her pain a 4/10 and describes it as a deep sharp ache that can be constant, bending, lifting, and prolonged standing causes increased pain. Davis's pain is worse in the morning but then as the day goes on, and her medication kicks in the pain does slightly decrease. She denies any numbness or tingling. Her neck pain is described as a sore ache that comes and goes with tension, specifically in the evenings. Location: neck and low back Duration: intermittant Aggravating or associated factors: bending, lifting, rising, and prolonged standing Relieving factors: heat and adjustment Pain Quality: aching, dull, sharp Exam Musc General: Yes normal posture, normal gait and joint tenderness (C2, C5,T4, L2-L5) Cervical Spine: loss of normal cervical lordosis, cervical muscular tenderness (R scalene and levator), pain with cervical ROM (slightly improved) with lateral flexion to left and with extension, cervical spasm (R scalene and levator), cervical ROM abnormal lateral flexion to the left decreased and extension decreased Thoracic/Lumbar Spine: thor and lumb spine abnorm to inspection (surgical scar from T12-L5, stimulator R L1-L3), surgical scar(s) present, pain with thoraco- lumbar ROM (slightly improved) other (extension), with lateral flexion to the right and with lateral flexion to the left, thoraco-lumbar spasm (slightly improved) on the left (QL) in the lower lumbar and on the right (QL) in the lower lumbar Sacroiliac joints: on the left, on the right Office Procedures Chiropractic Treatments Procedures Manipulation: 3-4 regions (C2, C5, T4, L2, L5) Electrical Stimulation: 15 mins Location: cervical and lumbar Assessment AND Plan 1. 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 Segmental and somatic dysfunction of thoracic region M99.02 Orders Orders: 3. Segmental and somatic dysfunction of cervical region M99.01 Orders Orders: 4. Segmental and somatic dysfunction of lumbar region M99.03 Orders Orders: Plan Detail Goals Decrease pain and radiculopathy Decrease spasm Barriers Previous spinal surgery Follow Up 2 Weeks Coding Level of Care Code No Charge Diagnoses Lumbar disc herniation with radiculopathy M51.16 Segmental and somatic dysfunction of thoracic region M99.02 Segmental and somatic dysfunction of cervical region M99.01 Segmental and somatic dysfunction of lumbar region M99.03 Additional Codes Procedures - Electrical Stimulation: 15 mins (03363) Procedures - Manipulation: 3-4 regions (52387) 07/16/17 0905 <Electronically signed by Karuna Romero D.C.> Date Karuna Romero D.C. Cosigner Signature: Date (if applicable) CC: CHIROPRACTIC REPORT Observed: 07/05/2017 Status: F Source: [place] 9:44 AM [facility] [address] [place] [id number] OFFICE VISIT Date of Service: 07/03/17 MR#: [id number] Acct: [id number] Name: DAVIS JONES Rep #: [id number] : 1965 Provider: Karuna Romero D.C. Age/Sex: 51/F Location: [facility] Status: Signed Intake Vital Signs07/03/17 Height 5 ft 4 in 07/03/17 Weight: 188 lb 5 oz 07/03/17 Body Mass Index (BMI) 32.3 Intake Visit Reasons: LOW BACK PAIN Chief Complaint: back pain Is patient in pain?: Yes Allergies No Known Allergies Allergy (Verified 05/09/17 12:16) Medications Ca/D3/Mag Ox/Zinc/Cable Weaver/Lance/Bor [Calcium 600-D3 Plus Caplet] 1 ea PO DAILY 07/21/13 [History Confirmed 05/09/17] Estrogen,Con/M-Progest Acet [Prempro 0.625-5 MG TABLET] 1 ea PO DAILY 07/21/13 [History Confirmed 05/09/17] oxycodone-acetaminophen 2.5 mg-325 mg tablet 1 tab PO ONCE 05/09/17 [History Confirmed 05/09/17] tramadol 50 mg tablet 50 mg PO ONCE 05/09/17 [History Confirmed 05/09/17] [facility] Medical History Back pain (Acute) Osteoarthritis (Acute) Surgical History Previous back surgery (Acute) Family History Other Arthritis Breast cancer Colon cancer Heart disease High cholesterol Hypertension Melanoma Myocardial infarction Social History Smoking Status: Never smoker alcohol intake: former what type of physical activity do you participate in: walking frequency: 1-2 times per week HPI LOW BACK PAIN: Chief Complaint: neck and low back pain Visit Number: 7 Details: DAVIS JONES is a 51 year old F who presents with increased neck and low back pain. The patient states that recently she has been experiencing tightness and stiffness in the R lower back, with radiculopathy at times. Bending, prolonged standing and walking all increase the patients low back pain. the pain is described as a tight and sharp ache that comes and goes. The patient also complains of R sided neck pain. Today Davis rates her pain a 3/10 and describes it as a dull throbbing ache, she denies any numbness, tingling, or radiculopathy. Location: neck and low back Duration: constant Aggravating or associated factors: bending, prolonged walking and standing Relieving factors: chiro Pain Quality: aching, dull, sharp, radiating Exam Musc General: Yes normal posture, normal gait and joint tenderness (C2, C5,T4, L2-L5) Cervical Spine: loss of normal cervical lordosis, cervical muscular tenderness (R scalene and levator), pain with cervical ROM with lateral flexion to left and with extension, cervical spasm (R scalene and levator), cervical ROM abnormal lateral flexion to the left decreased and extension decreased Thoracic/Lumbar Spine: thor and lumb spine abnorm to inspection (surgical scar from T12-L5, stimulator R L1-L3), surgical scar(s) present, pain with thoraco- lumbar ROM other (extension), with lateral flexion to the right and with lateral flexion to the left, thoraco-lumbar spasm on the left (QL) in the lower lumbar and on the right (QL) in the lower lumbar Sacroiliac joints: on the left, on the right Office Procedures Chiropractic Treatments Procedures Manipulation: 3-4 regions (C2, C5, T1, T4, L3, L5) Electrical Stimulation: 15 mins Location: cervical and lumbar Traction, Mechanical: Yes Details: Traction: lumbar, 15min Assessment AND Plan 1. 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 Segmental and somatic dysfunction of thoracic region M99.02 Orders Orders: 3. Segmental and somatic dysfunction of cervical region M99.01 Orders Orders: 4. Segmental and somatic dysfunction of lumbar region M99.03 Orders Orders: Plan Detail Goals Decrease pain and radiculopathy Decrease spasm Barriers Previous spinal surgery Follow Up 2 Weeks Coding Level of Care Code No Charge Diagnoses Lumbar disc herniation with radiculopathy M51.16 Segmental and somatic dysfunction of thoracic region M99.02 Segmental and somatic dysfunction of cervical region M99.01 Segmental and somatic dysfunction of lumbar region M99.03 Additional Codes Procedures - Electrical Stimulation: 15 mins (54777) Procedures - Manipulation: 3-4 regions (04667) Procedures - Traction, Mechanical: Yes (77574) 07/05/17 0944 <Electronically signed by Karuna Romero D.C.> Date Karuna Romero D.C. Cosigner Signature: Date (if applicable) CC: CHIROPRACTIC REPORT Observed: 06/14/2017 Status: F Source: [place] 3:32 PM [facility] [address] [place] [address] OFFICE VISIT Date of Service: 06/14/17 MR#: [id number] Acct: [id number] Name: DAVIS JONES Rep #: [id number] : 1965 Provider: Karuna Romero D.C. Age/Sex: 51/F [place] [facility] Status: Signed Intake Vital Signs06/14/17 Height 5 ft 4 in 06/14/17 Weight: 189 lb 06/14/17 Body Mass Index (BMI) 32.4 Intake Visit Reasons: back pain Is patient in pain?: Yes Allergies No Known Allergies Allergy (Verified 05/09/17 12:16) Medications Ca/D3/Mag Ox/Zinc/Cable Weaver/Lance/Bor [Calcium 600-D3 Plus Caplet] 1 ea PO DAILY 07/21/13 [History Confirmed 05/09/17] Estrogen,Con/M-Progest Acet [Prempro 0.625-5 MG TABLET] 1 ea PO DAILY 07/21/13 [History Confirmed 05/09/17] oxycodone-acetaminophen 2.5 mg-325 mg tablet 1 tab PO ONCE 05/09/17 [History Confirmed 05/09/17] tramadol 50 mg tablet 50 mg PO ONCE 05/09/17 [History Confirmed 05/09/17] [facility] Medical History Back pain (Acute) Osteoarthritis (Acute) Surgical History Previous back surgery (Acute) Family History Other Arthritis Breast cancer Colon cancer Heart disease High cholesterol Hypertension Melanoma Myocardial infarction Social History Smoking Status: Never smoker alcohol intake: former what type of physical activity do you participate in: walking frequency: 1-2 times per week HPI back pain : Chief Complaint: back pain Visit Number: 6 Details: DAVIS JONES is a 51 year old F who presents with increased low back and neck pain. Davis states that over the past week she has felt as if she is having a flare up specifically in the mid back and neck. Today the patient rates her pain a 5/10 and describes it as a tight and sharp ache, specifically in the mid back. She stated that she had been experiencing an occasional headache although her doctor did increase her medication. Prolonged standing, sitting, walking, bending and leaning forward increase the patients pain which is worst first thing in the morning. Davis denies any numbness, tingling, or radiculopathy. Location: neck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 flexion to the left decreased and extension decreased Thoracic/Lumbar Spine: thor and lumb spine abnorm to inspection (surgical scar from T12-L5, stimulator R L1-L3), surgical scar(s) present, pain with thoraco- lumbar ROM other (extension), with lateral flexion to the right and with lateral flexion to the left, thoraco-lumbar spasm on the right greater than left (lower lumbar) Sacroiliac joints: on the right Office Procedures Chiropractic Treatments Procedures Manipulation: 3-4 regions (C2, C5, T3, T6, T11, L2) Electrical Stimulation: 15 mins Location: thoracic/lumbar region Assessment AND Plan 1. 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 Segmental and somatic dysfunction of thoracic region M99.02 Orders Orders: 3. Segmental and somatic dysfunction of cervical region M99.01 Orders Orders: 4. Segmental and somatic dysfunction of lumbar region M99.03 Plan Modified acute care treatment plan Orders Orders: Plan Detail Additional Comments Patient emailed cervical/lumbar imaging which was reviewed. Goals Decrease pain and radiculopathy Decrease spasm Barriers Previous spinal surgery Follow Up 1 Week 05/02/17 0834 <Electronically signed by Karuna Romero D.C.> Date Karuna Romero D.C. Cosigner Signature: Date (if applicable) CC: CHIROPRACTIC REPORT Observed: 04/30/2017 Status: F Source: [place] 1:39 PM [facility] [address] [place] [address] OFFICE VISIT Date of Service: 04/26/17 MR#: [id number] Acct: [id number] Name: DAVIS JONES Rep #: [id number] : 1965 Provider: Karuna Romero D.C. Age/Sex: 51/F Location: [facility] Status: Signed Intake Vital Signs04/26/17 Height 5 ft 4 in Intake Visit Reasons: back pain Is patient in pain?: Yes Allergies No Known Allergies Allergy (Verified 07/21/13 16:16) Medications Ca/D3/Mag Ox/Zinc/Cable Weaver/Lance/Bor [Calcium 600-D3 Plus Caplet] 1 ea PO DAILY 07/21/13 [History Confirmed 07/21/13] Estrogen,Con/M-Progest Acet [Prempro 0.625-5 MG TABLET] 1 ea PO DAILY 07/21/13 [History Confirmed 07/21/13] Fentanyl [Duragesic] 25 mcg TRANSDERM. Q48H 07/21/13 [History Confirmed 07/21/13] PFSH Medical History Lumbar disc herniation with radiculopathy (Acute) Segmental and somatic dysfunction of thoracic region (Acute) Segmental and somatic dysfunction of cervical region (Acute) Segmental and somatic dysfunction of lumbar region (Acute) Chest pain (Acute) Chronic back pain (Chronic) Osteoarthritis (Acute) Cervical strain, acute (Inactive) Contusion, hip (Inactive) Surgical History Previous back surgery (Acute) Family History Other Arthritis Breast cancer Colon cancer Heart disease High cholesterol Hypertension Melanoma Myocardial infarction Social History Smoking Status: Never smoker alcohol intake: never what type of physical activity do you participate in: walking frequency: 1-2 times per week HPI back pain : Chief Complaint: neck and back pain Visit Number: 1 Referral source: [facility] Employee Details: DAVIS JONES is a 51 year old F who presents with neck and low back pain. 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 The patient complains of neck pain mainly on the R side described as a tight ache that comes and goes. Davis also complains of low back pain, rating it a 6/10 at its worst. The pain is described as a tight and sharp ache that at times can becomes a muscle spasm. The pain does radiate into the legs and causes numbness and tingling along with weakness. Davis does see pain management where she receives injections although she has never gotten any relief. Mrs. Jones has been under child day care center worker in the past and has positive results. Onset: 02/15/11 Location: neck and low back Aggravating or associated factors: standing and lifting Relieving factors: chiropractic Pain Quality: aching, dull, sharp, radiating ROS Musc Reports system reviewed and no additional complaints, except as docu, Reports as per HPI Neuro Yes system reviewed and no additional complaints, except as docu, Yes as per HPI Exam Musc General: Yes normal posture, normal gait and joint tenderness (C4, C5, C6, T3, T4, L2-L5) Cervical Spine: loss of normal cervical lordosis, cervical muscular tenderness (R scalene and levator), pain with cervical ROM with lateral flexion to left and with extension, cervical spasm (R scalene and levator), cervical ROM abnormal lateral flexion to the left decreased and extension decreased Thoracic/Lumbar Spine: thor and lumb spine abnorm to inspection (surgical scar from T12-L5, stimulator R L1-L3), surgical scar(s) present, pain with thoraco- lumbar ROM other (extension), with lateral flexion to the right and with lateral flexion to the left, thoraco-lumbar spasm on the right greater than left (lower lumbar) Sacroiliac joints: on the right Neuro General: alert, awake, oriented x3, gait normal, deep tendon reflexes 2+ bilaterally Gait: normal gait DTR's: Rt Patellar: 3+, Lt Patellar: 2+ Ortho Test CERVICAL Compression pain: Negative Distraction pain: relief Femi's pain: Negative Valsalvas: Negative Shoulder depression pain: Right THORACIC Kemps: Negative Schepelmanns pain: Negative Wen: Negative LUMBAR Kemps: Positive Valsalvas: Negative SLR: Negative Braggards: Negative Iliac Compression: Positive Office Procedures Chiropractic Treatments Procedures Manipulation: 3-4 regions (C2, C5, T2, T6, L1, L5) Assessment AND Plan 1. Segmental and somatic dysfunction of cervical region M99.01 Orders Orders: 2. Segmental and somatic dysfunction of lumbar region M99.03 Orders Orders: 3. Segmental and somatic dysfunction of thoracic region M99.02 4. Lumbar disc herniation with radiculopathy M51.16 Plan Modified acute treatment plan: 1x/wk Plan Detail Goals Decrease pain and radiculopathy Decrease spasm Barriers Previous spinal surgery Follow Up 1 Week 04/30/17 1339 <Electronically signed by Karuna Romero D.C.> Date Karuna Romero D.C. Cosigner Signature: Date (if applicable) CC: ALLERGIES ALLERGIES DATE TYPE / CODE NAME / CODE REACTION SEVERITY SOURCE 01/02/2018 Drug No Known Unknown [place] Allergy/612539054(S Allergies/F Community NOMED [facility]) [id number]([facility]) Repository 04/20/2005 Miscellaneous OTHER UNKNOWN [facility] Allergy/647331108([facility] NOMED CT) Repository ENCOUNTERS ENCOUNTERS ADMIT/DISCHARGE ACCOUNT ADMITTING ENCOUNTER LOCATION SOURCE NUMBER CLASS 04/04/2018 [id number] Ambulatory [facility] Hospital ing:MASS Repository 04/02/2018 [id number] Ambulatory [facility] Hospital ing:HPRAD Repository 04/02/2018/04/02/20 [id number] Ambulatory BMSBuilding:B [place] [address] [place] Repository 03/19/2018 [id number] Ambulatory [facility] Hospital ing:PSN Repository 03/05/2018/03/06/20 [id number] Ambulatory [address] Repository 03/01/2018 [id number] Ambulatory [facility] Hospital ing:PT Repository 02/28/2018/02/29/20 [id number] Ambulatory BMSBuilding:[facility] [place] [facility] [place].Critical access hospital Hospital Repository 02/26/2018/03/07/20 [id number] Ambulatory [address] Repository 02/26/2018/02/27/20 [id number] Ambulatory [address] Repository 02/19/2018 [id number] Ambulatory [facility] Hospital[facility] Hospital ing:HPRAD Repository 02/19/2018/02/20/20 [id number] Ambulatory BMSBuilding:B [place] [address] [place].[facility] Hospital Repository 02/05/2018/02/06/20 [id number] Ambulatory BMSBuilding:B [place] [facility].Critical access hospital Hospital Repository 01/02/2018/01/03/20 [id number] Ambulatory BMSBuilding:B [place] 18 [facility] Hospital Repository 01/02/2018 [id number] Ambulatory [facility] Hospital ing:EMPH Repository 12/26/2017 [id number] Ambulatory [facility] Hospital ing:LAB Repository 11/22/2017/11/23/19 [id number] Ambulatory BMSBuilding:B [place] 18 [facility].Critical access hospital Hospital Repository 11/01/2017/11/02/19 [id number] Ambulatory BMSBuilding:[facility] [place] [facility].Critical access hospital Hospital Repository 10/19/2017 [id number] Ambulatory BMSBuilding:B [place] MS.[facility] Hospital Repository 10/11/2017/10/12/19 [id number] Ambulatory BMSBuilding:B [place] 18 [facility].Critical access hospital Hospital Repository 09/25/2017/09/26/19 [id number] Ambulatory BMSBuilding:B [place] 18 [facility] Hospital Repository 09/21/2017 [id number] Ambulatory [facility] Hospital[facility] Hospital ing:CT Repository 09/20/2017/09/21/19 [id number] Ambulatory BMSBuilding:B [place] 18 [facility].Critical access hospital Hospital Repository 09/13/2017 [id number] Ambulatory [facility] Hospital[facility] Hospital ing:MASS Repository 09/11/2017/09/12/19 [id number] Ambulatory BMSBuilding:B [place] 18 [facility] Hospital Repository 09/06/2017/09/07/19 [id number] Ambulatory BMSBuilding:[facility] [place] [facility].Critical access hospital Hospital Repository 08/16/2017/08/17/19 [id number] Ambulatory BMSBuilding:[facility] [place] [facility].Critical access hospital Hospital Repository 08/02/2017/08/03/19 [id number] Ambulatory BMSBuilding:[facility] [place] [facility].Critical access hospital Hospital Repository 07/26/2017 [id number] Ambulatory [facility] Hospital[facility] Hospital ing:RAD Repository 07/12/2017/07/13/19 [id number] Ambulatory BMSBuilding:B [place] 18 [facility].Critical access hospital Hospital Repository 07/03/2017/07/04/19 [id number] Ambulatory BMSBuilding:B [place] 18 [facility].Critical access hospital Hospital Repository 06/14/2017/06/14/19 [id number] Ambulatory BMSBuilding:B [place] 18 [facility].Critical access hospital Hospital Repository 05/29/2017/05/29/19 [id number] Ambulatory BMSBuilding:[facility] [place] [facility].Critical access hospital Hospital Repository 05/15/2017/05/15/19 [id number] Ambulatory BMSBuilding:B [place] 18 [facility].Critical access hospital Hospital Repository 05/09/2017/05/09/19 [id number] Ambulatory BMSBuilding:B [place] 18 [facility] Hospital Repository 05/08/2017/05/08/19 [id number] Ambulatory BMSBuilding:B [place] 18 [facility] Repository 05/01/2017/05/01/19 [id number] Ambulatory BMSBuilding:B [place] 18 [facility] Repository 04/26/2017/04/26/19 [id number] Ambulatory BMSBuilding:B [place] [facility] Repository PAYERS PAYERS ENCOUNTER GUARANTOR PAYER SUBSCRIBER SOURCE 04/04/2018 DAVIS L Primary Insurance:[facility] DAVIS L [place] [id number] [facility]: [address] [id number] Hospital [address]Izg: (330) Number: Repository [phone] () [id number] Date:0432-81-75KA [address] [address]QJKWKUKDJ, [place] [address]KZ: CHECK WEBSITE 04/04/2018 Secondary NOT GIVENUNK [place] Insurance:SELF PAY [facility] Number: Effective Repository Date:2017-02-22 04/02/2018 DAVIS L Primary Insurance:[facility] DAVIS [place] [id number] [facility] [address] [id number] Hospital [address]Dbf: (330) Number: Repository [phone] () [id number] Date:2874-23-37FX [address] [address]LMSJMFMUN, [place] [address]KT: CHECK WEBSITE 04/02/2018 Secondary NOT GIVENUNK [place] Insurance:SELF PAY [facility] Number: Effective Repository Date:2018-04-02 04/02/2018 DAVIS L Primary Insurance:[facility] DAVIS L [place] [id number] [facility] [address] [id number] Hospital [address]Kfw: (330) Number: Repository [phone] () [id number] Date:7623-27-68MY [address] [address]XMZGVOTFM, [place] [address]AB: CHECK WEBSITE 04/02/2018 Secondary NOT GIVENUNK [place] Insurance:SELF PAY [facility] Number: Effective Repository Date:2018-04-02 03/19/2018 DAVIS L Primary Insurance:[facility] DAVIS L [place] [id number] [facility] 5075-26-16[facility] [place] Number: Repository [address]Epg: 330 [id number] [phone] (HP) Date:3949-06-76LB [address] [address]ALFNGRWND, [place] [address]LH: CHECK WEBSITE 03/19/2018 Secondary NOT GIVENUNK [place] Insurance:SELF PAY [facility] Number: Effective Repository Date:2017-11-28 03/01/2018 DAVIS L Primary Insurance:[facility] DAVIS L [place] [id number] [address] [facility]: [facility] 1274-98-80BBXPlatte [facility] Number: Repository [address]Nmr: 330 [id number] [phone] (HP) Date:9231-82-50TG [address] [address]MTRLBPMEJ, [place] [address]TD: CHECK WEBSITE 03/01/2018 Secondary NOT GIVENUNK [place] Insurance:SELF PAY [facility] Number: Effective Repository Date:2018-01-24 02/28/2018 DAVIS L Primary Insurance:[facility] DAVIS L [place] [id number] [address] [facility]: [facility] 0791-28-30TXIPlatte [facility] Number: Repository [address]Keh: 330 [id number] [phone] (HP) Date:3080-65-82GM [address] [address]RWYMDPZHU, [place] [address]YK: CHECK WEBSITE 02/28/2018 Secondary NOT GIVENUNK [place] Insurance:SELF PAY [facility] Number: Effective Repository Date:2018-02-28 02/19/2018 DAVIS L Primary Insurance:[facility] DAVIS L [place] [id number] N [facility]: [facility] 2542-38-85VMRSt. [facility] [place] Number: Repository [address]Viz: 330 [id number] [phone] (HP) Date:0455-94-41NN [address] [address]GYLMLPTXE, [place] [address]SJ: CHECK WEBSITE 02/19/2018 Secondary NOT GIVENUNK [place] Insurance:SELF PAY [facility] Number: Effective Repository Date:2018-02-19 02/19/2018 DAVIS L Primary Insurance:[facility] DAVIS [place] Dimitrios [id number] N [facility]OB: [facility] 1843-33-47[place]JH[place], [place] Number: Repository [address]Dmy: 330 [id number] [phone]) Date:7568-74-75DD [address] [address]IFFXTJHEJ, [place] [address]SQ: CHECK WEBSITE 02/19/2018 Secondary NOT GIVENUNK [place] Insurance:SELF PAY [facility] Number: Effective Repository Date:2018-02-19 02/05/2018 DAVIS L Primary Insurance:[facility] DAVIS L [place] [id number] N [facility]DOB: [facility] 8695-03-77[place]BM[place], [place] Number: Repository [phone]: 330 [id number] [phone] (HP) Date:9214-65-01BE [address] [address]JWQMPOLIS, [place] [address]IQ: CHECK WEBSITE 02/05/2018 Secondary NOT GIVENUNK [place] Insurance:SELF PAY [facility] Number: Effective Repository Date:2018-02-05 01/02/2018 DAVIS L Primary Insurance:[facility] DAVIS L [place] [id number] N [facility]DOB: [facility] 1662-13-27UKUMoore, [place] Number: Repository [address]Jrv: 330 [id number] [phone] (HP) Date:1289-82-58SU [address] [address]DUAIHCEAQ, [place] [address]TY: CHECK WEBSITE 01/02/2018 Secondary NOT GIVENUNK [place] Insurance:SELF PAY [facility] Number: Effective Repository Date:2017-12-26 01/02/2018 DAVIS L Primary NOT GIVENUNK [place] [id number] N Insurance:SELF PAY [place], [place] Number: Effective Repository [address]Wyk: (330) Date:2018-01-021206 () 12/26/2017 DAVIS L Primary Insurance:[facility] DAVIS L [place] [id number] N [facility] BENNERDOB: [facility] 2678-88-92XDLPlatte Valley Medical Center, [place] Number: Repository [address]Pko: 330 [id number] [phone] () Date:0157-19-75JK [address] [address]RRLCHEFFY, [place] [address]UK: CHECK WEBSITE 12/26/2017 Secondary NOT GIVENUNK [place] Insurance:SELF PAY [facility] Number: Effective Repository Date:2017-12-26 11/22/2017 DAVIS L Primary Insurance:[facility] DAVIS L [place] [id number] N [facility]ENNERDOB: [facility] 3440-47-56ZNTPlatte Valley Medical Center, [place] Number: Repository [address]Wvs: 330 [id number] [phone] () Date:2252-63-04GM [address] [address]COPLPAWHC, [place] [address]YN: CHECK WEBSITE 11/22/2017 Secondary NOT GIVENUNK [place] Insurance:SELF PAY [facility] Number: Effective Repository Date:2017-11-22 11/01/2017 DAVIS L Primary Insurance:[facility] DAVIS L [place] [id number] N [facility]EN[facility]DOB: [facility] 6252-18-02OZWPlatte Valley Medical Center, [place] Number: Repository [address]Bls: (330 [id number] [phone] (HP) Date:3095-74-66ZC [address] [address]EJHCVVPUJ, [place] [address]SD: CHECK WEBSITE 11/01/2017 Secondary NOT GIVENUNK [place] Insurance:SELF PAY [facility] Number: Effective Repository Date:2017-11-01 10/19/2017 DAVIS L Primary Insurance:[facility] DAVIS L [place] [id number] N [facility]ENNERDOB: [facility] 6078-12-33JUNPlatte Valley Medical [facility], [place] Number: Repository [address]Blo: 330 [id number] [phone] (HP) Date:5386-72-29AM [address] [address]TFSJYNJLA, [place] [address]FH: CHECK WEBSITE 10/19/2017 Secondary NOT GIVENUNK [place] Insurance:SELF PAY [facility] Number: Effective Repository Date:2017-10-19 10/11/2017 DAVIS L Primary Insurance:[facility] DAVIS L [place] [id number] N [facility]: [facility] 7185-89-39RQLPlatte Valley Medical Center, [place] Number: Repository [address]Hoq: 330 [id number] [phone] (HP) Date:7064-67-57PB [address] [address]JPRBZPIYV, [place] [address]DJ: CHECK WEBSITE 10/11/2017 Secondary NOT GIVENUNK [place] Insurance:SELF PAY [facility] Number: Effective Repository Date:2017-10-11 09/25/2017 DAVIS L Primary Insurance:[facility] DAVIS L [place] [id number] N [facility]: [facility] 9284-07-42YEKSt. [facility] [place] Number: Repository [address]Uaj: 330 [id number] [phone] (HP) Date:1246-45-40JP [address] [address]CAYHQPGFX, [place] [address]TQ: CHECK WEBSITE 09/25/2017 Secondary NOT GIVENUNK [place] Insurance:SELF PAY [facility] Number: Effective Repository Date:2017-10-04 09/21/2017 DAVIS L Primary Insurance:[facility] DAIVS L [place] [id number] N [facility]: [facility] 3601-27-14CKUSt. [facility] [place] Number: Repository [address]Vyk: 330 [id number] [phone] (HP) Date:4597-87-44VV [address] [address]PKTMTCAXL, [place] [address]YK: CHECK WEBSITE 09/21/2017 Secondary NOT GIVENUNK [place] Insurance:SELF PAY [facility] Number: Effective Repository Date:2017-09-11 09/20/2017 DAVIS L Primary Insurance:[facility] DAVIS L [place] [id number] N [facility]: [facility] 6642-83-06JSIPlatte Valley Medical [facility], [place] Number: Repository [address]Rsd: 330 [id number] [phone] (HP) Date:9500-94-94UA [address] [address]MYCFBZDTF, [place] [address]AT: CHECK WEBSITE 09/20/2017 Secondary NOT GIVENUNK [place] Insurance:SELF PAY [facility] Number: Effective Repository Date:2017-09-20 09/13/2017 DAVIS L Primary Insurance:[facility] DAVIS L [place] [id number] N [facility]: [facility] [id number] [place] Number: Repository [address]Jsg: 330 [id number] [phone] (HP) Date:6828-95-63[address] [address]JICRIEWTC, [place] [address]BA: CHECK WEBSITE 09/13/2017 Secondary NOT GIVENUNK Dimitrios Insurance:SELF PAY [facility] Number: Effective Repository Date:2017-05-28 09/11/2017 DAVIS L Primary Insurance:[facility] DAVIS L [place] [id number] [facility] BENNERDOB: [facility] [id number]. [facility] [place] Number: Repository [phone]: 330 [id number] [phone] (HP) Date:2186-88-07UB [address] [address]SXTJAEZCJ, [place] [address]VW: CHECK WEBSITE 09/11/2017 Secondary NOT GIVENUNK [place] Insurance:SELF PAY [facility] Number: Effective Repository Date:2017-09-04 09/06/2017 DAVIS L Primary Insurance:[facility] DAVIS L [place] [id number] [facility] BENNERDOB: [facility] [id number]. [facility] [place] Number: Repository [phone]: 330 [id number] [phone] (HP) Date:8542-77-08WP [address] [address]DZYHVMEFO, [place] [address]HP: CHECK WEBSITE 09/06/2017 Secondary NOT GIVENUNK Dimitrios Insurance:SELF PAY [facility] Number: Effective Repository Date:2017-09-06 08/16/2017 DAVIS L Primary Insurance:[facility] DAVIS Charl[place] Dimitrios [id number] [facility] BENNERDOB: [facility] [id number] Number: Repository [address]Lcn: 330 [id number] [phone] (HP) Date:0420-05-91TK [address] [address]ZQEUDHTYY, [place] [address]NU: CHECK WEBSITE 08/16/2017 Secondary NOT GIVENUNK Dimitrios Insurance:SELF PAY [facility] Number: Effective Repository Date:2017-08-16 08/02/2017 DAVIS L Primary Insurance:[facility] DAVIS L Dimitrios [id number] [facility] BENNERDOB: [facility] [id number] Number: Repository [address]Gyh: 330 [id number] [phone] (HP) Date:3006-90-20BV [address] [address]BNWUCUAQA, [place] [address]AJ: CHECK WEBSITE 08/02/2017 Secondary NOT GIVENUNK Dimitrios Insurance:SELF PAY [facility] Number: Effective Repository Date:2017-08-02 07/26/2017 DAVIS L Primary Insurance:[facility] DVAIS L [place] [id number] [facility] BENNERDOB: [facility] [id number][place] Number: Repository [phone]: 330 [id number] [phone] (HP) Date:1847-96-20YM [address] [address]KCNNBAJLZ, [place] [address]JF: CHECK WEBSITE 07/26/2017 Secondary NOT GIVENUNK [place] Insurance:SELF PAY [facility] Number: Effective Repository Date:2017-07-26 07/12/2017 DAVIS [id number] Primary [facility] Dimitrios N [facility] [id number] Health West Hospital [address]Vyj: (330) Number: Repository [phone] () [id number] Date:7136-37-66RK [address] [address]WPQTSVTVG, [place] [address]QQ: CHECK WEBSITE 07/12/2017 Secondary NOT GIVENUNK Dimitrios Insurance:SELF PAY [facility] Number: Effective Repository Date:2017-07-12 07/03/2017 DAVISROEL [id number] Primary Insurance:[facility] JONESDOB: Dimitrios N SOHAN FoKo [facility] [id number] Health West Hospital [address]Arl: (330) Number: Repository [phone] () [id number] Date:0030-89-93WK [address] [address]DFZQJWCKP, [place] [address]JX: CHECK WEBSITE 07/03/2017 Secondary NOT GIVENUNK [place] Insurance:SELF PAY [facility] Number: Effective Repository Date:2017-07-02 06/14/2017 DAVIS [id number] Primary Insurance:[facility] DAVIS MONTIELB: Dimitrios N SOHAN FoKo [facility] [id number] Health West Hospital [address]Eok: (330) Number: Repository [phone] () [id number] Date:9974-96-67JA [address] [address]KGAGKHMQS, [place] [address]TR: CHECK WEBSITE 06/14/2017 Secondary NOT GIVENUNK Dimitrios Insurance:SELF PAY [facility] Number: Effective Repository Date:2017-05-15 05/29/2017 DAVIS [id number] Primary Insurance:[facility] DAVIS MONTIELB: Dimitrios Stalin PARRY FoKo [facility] [id number] Health West Hospital [address]Mnu: (330) Number: Repository [phone] () [id number] Date:5556-06-33CX [address] [address]BLWDMJXGL, [place] [address]ID: CHECK WEBSITE 05/29/2017 Secondary NOT GIVENUNK Dimitrios Insurance:SELF PAY [facility] Number: Effective Repository Date:2017-05-15 05/15/2017 DAVIS [id number] Primary Insurance:[facility] DAVIS MONTIELB: Dimitrios [facility]Y [facility] [id number] Ville [id number]: (330) Number: Repository [phone] () [id number] Date:2010-42-83XM [address] [address]TASPWUVXR, [place] [address]RA: CHECK WEBSITE 05/15/2017 Secondary NOT GIVENUNK Dimitrios Insurance:SELF PAY [facility] Number: Effective Repository Date:2017-04-26 05/09/2017 DAVIS [id number] Primary Insurance:[facility] DAVIS MONTIELB: Dimitrios [facility]Y [facility] [id number] Ville [address]Tel: (330) Number: Repository [phone] () [id number] Date:3838-35-08OR [address] [address]CGRSROCBT, [place] [address]GR: CHECK WEBSITE 05/09/2017 Secondary NOT GIVENUNK [place] Insurance:SELF PAY [facility] Number: Effective Repository Date:2017-05-09 05/08/2017 DAVIS [id number] Primary Insurance:[facility] DAVIS MONTIELB: Dimitrios [facility] [id number] Ville [id number]: (330) Number: Repository [phone] () [id number] Date:8730-80-85NG [address] [address]MXEMABJVY, [place] [address]AU: CHECK WEBSITE 05/08/2017 Secondary NOT GIVENUNK [place] Insurance:SELF PAY [facility] Number: Effective Repository Date:2017-04-26 05/01/2017 DAVIS [id number] Primary Insurance:[facility] DAVIS MONTIELB: Dimitrios [facility] [id number] Ville [id number]: (330) Number: Repository [phone] () [id number] Date:3043-09-36HC [address] [address]AKUYYEKQQ, [place] [address]OV: CHECK WEBSITE 05/01/2017 Secondary NOT GIVENUNK Dimitrios Insurance:SELF PAY [facility] Number: Effective Repository Date:2017-04-26 04/26/2017 DAVIS [id number] Primary Insurance:[facility] DAVIS MONTIELB: Dimitrios Gant [facility] [id number] Health [facility] Hospital [address]Hvj: (330) Number: Repository [phone] () [id number] Date:9061-18-61TP [address] [address]SGYANVNKV, [place] [address]KJ: CHECK WEBSITE 04/26/2017 Secondary NOT GIVENUNK Dimitrios Insurance:SELF PAY [facility] Number: Effective Repository Date:2017-04-26
== END ==
PROVIDERS: Family Provider Internal Medicine; PCP Internal Medicine; Referring Provider Anesthesiology Pain Medicine; Visit Provider Anesthesiology Pain Medicine
DX: M54.16 Radiculopathy, lumbar region (principal); M54.17 Radiculopathy, lumbosacral region
CPT/HCPCS: 95886; 95910

== ENCOUNTER → 2018-04-02 08:20 | Outpatient (CLI) | payer OTHER, SELFPAY ==
[2018-04-02 08:20] VITALS: BMI 32.4
--- NOTE | 2018-04-02 08:22 | RAD_ITS ---
STUDY: X-RAY - LUMBOSACRAL SPINE REASON FOR EXAM: Female, 52 years old. Chronic back pain. TECHNIQUE: 6 view(s) of the lumbosacral spine were obtained. COMPARISON: None FINDINGS: Normal lumbar lordosis. There is no substantial scoliosis. There is normal alignment of the vertebrae. There is no change in alignment with flexion or extension. There is posterior fusion of L3-S1. The left pedicle screw at S1 is fractured. The remainder of the hardware is intact. Is associated laminectomy defects. No endplate spondylosis. Normal disc space heights. There is no evidence of acute fracture or loss of vertebral axial height. Normal bilateral sacral ala, sacroiliac joints, and visualized sacrum. Normal visualized soft tissue structures. There is a dorsal column stimulator with its electrodes posterior to T8. The generator is in the soft tissues of the right back. RAD/L/S Spine Comp/w Bending Views IMPRESSION: 1. Posterior fusion and laminectomy at L3-S1. The left S1 pedicle screw is fractured. 2. No evidence of vertebral fracture or prevertebral instability. Electronically Signed: Kostas Merida DO at 22:16 EST Tel [phone], Service support ,
--- OUTSIDE RECORDS SUMMARY | 2018-05-19 06:13 | XMS RPT_ITS ---
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 Mattie Kunz DO Documented (not given) by: Zac Morales on 02/19/18 09:36 Dose Route Admin Location Lot Number Expiration Date [facility] Telecommunications Field Technician 20 mg Intra-Articular Assessment AND Plan 1. 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[facility] [place] ([address]) 02/19/18 0959 <Electronically signed by Mattie Kunz DO> Date Mattie Kunz DO Cosigner Signature: Date (if applicable) CC: FINGER(S) MIN 2 VIEWS Observed: 02/19/2018 Status: F Source: [place] 8:53 AM [facility] REPOSITORY [place] [facility] [address] [place] [address] Finger(s) Min 2 Views MR#: [id number] Acct: [id number] Name: DAVIS JONES Rep #: [id number] : 1965 F 52 From: Ned Morton MD PCP: Jonny Manzano MD Status: REG CLI Study: Finger(s) Min 2 Views Date of Exam: 02/19/18 Exam# [id number] Ordering Dr: Mattie Kunz DO STUDY: X-RAY [...] CC: Mattie Kunz DO; Jonny Manzano MD Manager Access: Signed CHIROPRACTIC REPORT Observed: 02/11/2018 Status: F Source: [place] 12:27 PM [facility] [address] [place] [address] OFFICE VISIT Date of Service: 02/05/18 MR#: [id number] Acct: [id number] Name: DAVIS JONES Rep #: [id number] : 1965 Provider: Karuna Romero D.C. Age/Sex: 52/F [place] [facility] [place] Status: Signed Intake Intake Visit Reasons: Neck [...] PO BID tab 10/19/17 [History Confirmed 01/02/18] [facility] Medical History Back pain (Acute) Osteoarthritis [...] Additional Codes Procedures - Manipulation: 3-4 regions (83859) Procedures - Electrical Stimulation: 15 mins (36200) 02/11/18 1227 <Electronically signed by Karuna Romero D.C.> Date Karuna Romero D.C. Cosigner Signature: Date (if applicable) CC: DISCHARGE SUMMARY Observed: 02/07/2018 Status: F Source: [place] 12:54 PM [facility] REPOSITORY [place] Medical Records Department [address] [place] [address] Discharge Summary 02/07/18 1248 MR#: [id number] Acct: [id number] Name: DAVIS JONES Rep #: [id number] : 1965 52 From: Rachel Crawford PCP: [...] is being discharged from [facility]. 02/07/18 1254 <Electronically signed by Rachel Crawford > Date Rachel Crawford Cosigner Signature (if applicable): Date CC: Jonny Manzano MD; Rachel Crawford Signed INITAL EVALUATION (1) Observed: 02/01/2018 Status: F Source: [place] - PT 5:00 PM [facility] REPOSITORY [facility] Physical [facility] [address] [place] [address]. [address] [place] [address] Fax REHABILITATION SERVICES INITIAL EVALUATION MR#: [id number] Acct: [id number] Name: DAVIS JONES Rep #: [id number] : 1965 52 From: Kelly Blake PT, Cert. MDT Referring Dr.: Marija Diaz MD Status: REG RCR Insurance: [facility] SELF PAY INSURANCE Patient's Visit Information DAVIS JONES is a 52 year old F referred to Physical Therapy by Marija Diaz with a diagnosis of BACK PAIN AND RIGHT LEG WEAKNESS. Date of Evaluation: 01/31/18 Physical Therapist: Kelly Blake - Visit Plan Frequency: 2-3x /Week Duration: 4-6 Weeks Plan: *NO US OR ES*. POSTURE CORRECTION/STRENGTHENING, INSTRUCTION IN APPROPRIATE BODY MECHANICS AND ACTIVITY MODIFICATIONS. DLS WITH A NEUTRAL SPINE. MILTON LE ROM, STRETCHING AND STRENGTHENING. HEP INSTRUCTION. CONSIDER AQUATIC THERAPY. 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 Disability: NO. Present symptoms: MILTON LOW BACK PAIN LEFT > RIGHT FROM L4 DOWN AND SACRUM AREA IS THE WORST. MILTON THIGH, LEG AND FOOT SX'S LEFT > RIGHT. MILTON LE NUMBNESS AND TINGLING MILTON LE'S LEFT > RIGHT. RIGHT HIP > LEFT HIP. Present since: 2008. RIGHT HIP PAIN IS NEW 5 MONTHS AGO AND PATIENT RELATES IT TO BURSITIS AND ALEVE HELPS. Pain Scale: WORST 6/10, LEAST 3/10. PATIENT REPORTS ALL SX'S ARE CONSTANT. Currently: 08/30. 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 FX'D PELVIS 2010 - FELL OFF HORSE [...] REFERRED HER TO DR. SULLIVAN AT THE [facility] BUT SHE WAS UNABLE TO GET AN [...] No acute abnormality is seen. MYLEGRAM IN [place] AFTER FALL FROM HORSE SHOWING BROKEN SCREW. [...] to be FAXED BACK to us at [phone] for Medicare purposes. Please let me know if there are questions or concerns regarding this plan of care. Physician Signature: Date: <Electronically signed by Kelly Blake PT, Cert. MDT> 02/01/18 7040 CC: Marija Diaz MD; Jonny Manzano MD VASHTI Signed For Medicare only, by signing this I certify the plan of care. Physicians Signature Date INTERNAL MEDICINE Observed: 01/04/2018 Status: F Source: [place] OFFICE VISIT 4:45 PM [facility] [place] [address] OFFICE VISIT Date of Service: 01/02/18 MR#: [id number] Acct: [id number] Name: DAVIS JONES Rep #: [id number] : 1965 Provider: Jonny Manzano MD Age/Sex: 52/F [place] [facility] [place] Status: Signed Intake Vital Signs01/02/18 Height 5 [...] joint injection. This note was generated with Ludeiation software. It may contain incorrect words, spelling, [...] 01/02/2018 Status: F Source: [place] 7:29 AM [facility] REPOSITORY TYPE CODE TESTS [...] ESTERASE 100 Performed By: #### L400.0100 #### [facility] [address] [place], [place], [id number] [employer], EMPLOYEE Collected: 01/02/2018 Status: C Source: [place] 7:29 AM [facility] REPOSITORY Order Comment: SLIDE [...] as: August Performed By: #### L100.0200 #### [facility] [address] [place], [address] NICOTINE URINE DRUG Collected: 01/02/2018 Status: F Source: [place] SCREEN 7:29 AM [facility] REPOSITORY TYPE CODE TESTS [...] of Nicotine. Performed By: #### L505.6240 #### [facility] [address] [place], [address] EMPLOYEE PROFILE Collected: 01/02/2018 Status: F Source: [place] 7:29 AM [facility] REPOSITORY TYPE CODE TESTS [...] LDH 166 Performed By: #### L500.2900 #### [facility] [address] [place], [place], [id number] URINE DRUG SCREEN Collected: 12/26/2017 Status: F Source: [place] (VISTA) 4:35 PM [facility] REPOSITORY Order Comment: Comments: [id number] TRAMADOL URINE List of Drugs Taken or [...] Normal NEGATIVE Performed By: #### L505.5000 #### [facility] [address] [place], [place], [address] MISCELLANEOUS LAB Collected: 12/26/2017 Status: F Source: [place] PROCEDURE 2 4:35 PM [facility] REPOSITORY Order Comment: Comments: [id number] TRAMADOL URINE List Test(s) Ordered by Physician: [id number] TRAMADOL URINE TYPE CODE TESTS RESULT OUT OF RANGE REFERENCE UNITS LAB L801.1543 Normal [facility] LAB TEST 2 Result Comment: TEST RESULT UNITS REF INTERVAL Tramadol, Urine Tramadol Positive Gesfoi=226 Tramadol (GC/MS) 2620 ng/mL Glyesq=356 Tramadol detected; this finding can be consistent with use of medications that include Ultram, Topalgic, Tradol, Zydol, or generic formulations. Drugs listed are termite control service representative of common sources of the compound detected and are not intended to include all possible sources. Please Note: Drug-test results should be interpreted in the context of clinical information. Patient metabolic variables, specific drug chemistry, and specimen characteristics can affect test outcome. Technical consultation is available if a test result is inconsistent with an expected outcome. ([email or web address] or call toll-free [phone]) TESTING PERFORMED AT [facility]. ORIGINAL REPORT ON FILE IN LAB CONTAINS ADDITIONAL TEST SITE INFORMATION. Performed By: #### L801.1543 #### [facility] [place], [address] MISCELLANEOUS LAB Collected: 12/26/2017 Status: F Source: [place] PROCEDURE 4:35 PM [facility] REPOSITORY Order Comment: Comments: [id number] TRAMADOL URINE Test(s) Ordered: [id number] URINE DRUG SCREEN TYPE CODE TESTS RESULT OUT OF RANGE REFERENCE UNITS LAB L801.1541 Normal [facility] LAB TEST Result Comment: TEST RESULT UNITS REF INTERVAL 641976 6+Oxycodone-Bund Amphetamines, Urine Negative ng/mL Tfcakj=1887 Amphetamine test includes Amphetamine and Methamphetamine. Barbiturate Negative ng/mL Esvkfs=498 Benzodiazepines Negative ng/mL Zwqxvu=906 Cannabinoids Negative ng/mL Cutoff=20 Cocaine (Metabolite) Negative ng/mL Hambww=415 Opiates Negative ng/mL Dugzff=343 Opiate test includes Codeine, Morphine, Hydromorphone, Hydrocodone. Oxycodone/Oxymorph Positive Whcjlx=426 Test includes Oxycodone and Oxymorphone Oxycodone Positive Oxycodone (GC/MS) 506 ng/mL Rxwydj=663 Oxymorphone Negative Cpntyr=282 TESTING PERFORMED AT [facility]. ORIGINAL REPORT ON FILE IN LAB CONTAINS ADDITIONAL TEST SITE INFORMATION. Performed By: #### L801.1541 #### [facility] [address] [facility]. [place], [place], [address] CHIROPRACTIC REPORT Observed: 11/29/2017 Status: F Source: [place] 2:17 PM [facility] REPOSITORY [facility] [address] [place], [place] [id number] OFFICE VISIT Date of Service: 11/22/17 MR#: [id number] Acct: [id number] Name: KARENDAVIS L Rep #: [id number] : 1965 Provider: Karuna Romero D.C. Age/Sex: 51/F [place] [facility] [place]: Signed Intake Vital Signs11/22/17 Height 5 [...] Additional Codes Procedures - Manipulation: 3-4 regions (17828) Procedures - Electrical Stimulation: 15 mins (82023) 11/29/17 3631 <Electronically signed by Karuna Romero D.C.> Date Karuna Romero D.C. Cosigner Signature: Date (if applicable) CC: CHIROPRACTIC REPORT Observed: 11/13/2017 Status: F Source: [place] 10:39 AM [facility] [address] [place] [address] OFFICE VISIT Date of Service: 11/01/17 MR#: [id number] Acct: [id number] Name: DAVIS JONES Rep #: [id number] : 1965 Provider: Karuna Romero D.C. Age/Sex: 51/F [place] [facility] [place]: Signed Intake Vital Signs11/01/17 Height 5 [...] Additional Codes Procedures - Manipulation: 3-4 regions (23803) Procedures - Electrical Stimulation: 15 mins (33740) 11/13/17 1039 <Electronically signed by Karuna Romero D.C.> Date Karuna Romero D.C. Cosigner Signature: Date (if applicable) CC: CHIROPRACTIC REPORT Observed: 10/16/2017 Status: F Source: [place] 9:17 AM [facility] [address] [place] [address] OFFICE VISIT Date of Service: 10/11/17 MR#: [id number] Acct: [id number] Name: KARENDAVIS L Rep #: [id number] : 1965 Provider: Karuna Romero D.C. Age/Sex: 51/F [place] [facility] [place]: Signed Intake Vital Signs10/11/17 Height 5 [...] Additional Codes Procedures - Manipulation: 3-4 regions (31483) Procedures - Electrical Stimulation: 15 mins (59285) 10/16/17 0917 <Electronically signed by Karuna Romero D.C.> Date Karuna Romero D.C. Cosigner Signature: Date (if applicable) CC: CHIROPRACTIC REPORT Observed: 10/03/2017 Status: F Source: [place] 8:52 AM [facility] [address] [place] [address] OFFICE VISIT Date of Service: 09/20/17 MR#: [id number] Acct: [id number] Name: DAVIS JONES Rep #: [id number] : 1965 Provider: Karuna Romero D.C. Age/Sex: 51/F [place] [facility] [place]: Signed Intake Vital Signs09/20/17 Height 5 [...] Additional Codes Procedures - Manipulation: 3-4 regions (79757) Procedures - Electrical Stimulation: 15 mins (53549) Procedures - Traction, Mechanical: Yes (81603) 10/03/17 0852 <Electronically signed by Karuna Romero D.C.> Date Karuna Escalona Signature: Date (if applicable) CC: SPINE LUMBAR WITHOUT Observed: 09/21/2017 Status: F Source: [place] CONTRAST 7:59 AM [facility] REPOSITORY [place] [facility] [address] [place] [address] Spine Lumbar without Contrast MR#: [id number] Acct: [id number] Name: DAVIS JONES Rep #: [id number] : 1965 F 51 From: Ez Mascorro MD PCP: Jonny Manzano MD Status: REG CLI Study: Spine Lumbar without Contrast Date of Exam: 09/21/17 Exam# [id number] Ordering Dr: Marija Diaz MD STUDY: CT [...] Ez Mascorro MD at 12:34 EDT Tel [phone], Service support , CC: Marija Diaz MD; Jonny Manzano MD Manager Access: Signed INTERNAL MEDICINE Observed: 09/11/2017 Status: F Source: [place] OFFICE VISIT 4:48 PM [facility] [address] [place] [address] OFFICE VISIT Date of Service: 09/11/17 MR#: [id number] Acct: [id number] Name: DAVIS JONES Rep #: [id number] : 1965 Provider: Jonny Manzano MD Age/Sex: 51/F Location: [facility] Status: Signed Intake Vital Signs09/11/17 Height 5 ft 4 in 09/11/17 Weight: [...] well developed Orientation: alert, awake, oriented x3 [facility] Head: atraumatic, normocephalic Ears: hearing grossly normal [...] CHIROPRACTIC REPORT Observed: 09/10/2017 Status: F Source: [place] 11:16 AM [facility] [address] [place] [address] OFFICE VISIT Date of Service: 09/06/17 MR#: [id number] Acct: [id number] Name: DAVIS JONES Rep #: [id number] : 1965 Provider: Karuna Romero D.C. Age/Sex: 51/F [place] [facility] [place]: Signed Intake Vital Signs09/06/17 Height 5 ft 4 in 09/06/17 Weight: 188 lb 09/06/17 Body Mass Index (BMI) 32.2 Intake Visit Reasons: back pain Chief Complaint: back pain Is patient in pain?: Yes Allergies No Known Allergies Allergy (Verified 05/09/17 12:16) Medications Ca/D3/Mag Ox/Zinc/Bereavement Program Coordinator/Lance/Bor [Calcium 600-D3 Plus Caplet] 1 ea PO [...] Codes Procedures - Electrical Stimulation: 15 mins (85039) Procedures - Traction, Mechanical: Yes (27457) Procedures - Manipulation: 3-4 regions (32461) 09/10/17 1116 <Electronically signed by Karuna Romero D.C.> Date Karuna Romero D.C. Cosigner Signature: Date (if applicable) CC: CHIROPRACTIC REPORT Observed: 08/20/2017 Status: F Source: [place] 4:08 PM [facility] REPOSITORY [facility] [address] [place] [address] OFFICE VISIT Date of Service: 08/16/17 MR#: [id number] Acct: [id number] Name: DAVIS JONES Rep #: [id number] : 1965 Provider: Karuna Romero D.C. Age/Sex: 51/F [place] [facility]: Signed Intake Vital Signs08/16/17 Height 5 ft 4 in 08/16/17 Weight: 188 lb 08/16/17 Body Mass Index (BMI) 32.2 Intake Visit Reasons: back pain Chief Complaint: back pain Is patient in pain?: Yes Allergies No Known Allergies Allergy (Verified 05/09/17 12:16) Medications Ca/D3/Mag Ox/Zinc/Bereavement Program Coordinator/Lance/Bor [Calcium 600-D3 Plus Caplet] 1 ea PO [...] Codes Procedures - Electrical Stimulation: 15 mins (06091) Procedures - Traction, Mechanical: Yes (92038) Procedures - Manipulation: 3-4 regions (32138) 08/20/17 1608 <Electronically signed by Karuna Romero D.C.> Date Karuna Romero D.C. Cosigner Signature: Date (if applicable) CC: CHIROPRACTIC REPORT Observed: 08/14/2017 Status: F Source: [place] 8:39 AM [facility] [address] [place] [address] OFFICE VISIT Date of Service: 08/02/17 MR#: [id number] Acct: [id number] Name: DAVIS JONES Rep #: [id number] : 1965 Provider: Karuna Romero D.C. Age/Sex: 51/F [place] [facility] [place] Status: Signed Intake Vital Signs08/02/17 Height 5 ft 4 in 08/02/17 Weight: 188 lb 08/02/17 Body Mass Index (BMI) 32.2 Intake Visit Reasons: back pain Chief Complaint: back pain Is patient in pain?: Yes Allergies No Known Allergies Allergy (Verified 05/09/17 12:16) Medications Ca/D3/Mag Ox/Zinc/Bereavement Program Coordinator/Lance/Bor [Calcium 600-D3 Plus Caplet] 1 ea PO DAILY 07/21/13 [History Confirmed 05/09/17] Estrogen,Con/M-Progest Acet [Prempro 0.625-5 MG TABLET] 1 ea PO DAILY 07/21/13 [History Confirmed 05/09/17] oxycodone-acetaminophen 2.5 mg-325 mg tablet 1 tab PO ONCE 05/09/17 [History Confirmed 05/09/17] tramadol 50 mg tablet 50 mg PO ONCE 05/09/17 [History Confirmed 05/09/17] [facility] Medical History Back pain (Acute) Osteoarthritis [...] Codes Procedures - Electrical Stimulation: 15 mins (56022) Procedures - Traction, Mechanical: Yes (21337) Procedures - Manipulation: 3-4 regions (90582) 08/14/17 0839 <Electronically signed by Karuna Romero D.C.> Date Karuna Romero D.C. Cosigner Signature: Date (if applicable) CC: HIP 2-3 VIEWS WITH Observed: 07/26/2017 Status: F Source: [place] PELVIS 1:29 PM [facility] REPOSITORY [place] [facility] [address] [place] [address] Hip 2-3 Views with Pelvis MR#: [id number] Acct: [id number] Name: DAVIS JONES Rep #: [id number] : 1965 F 51 From: Vaibhav Alberts DO PCP: Jonny Manzano MD Status: REG CLI Study: Hip 2-3 Views with Pelvis Date of Exam: 07/26/17 Exam# [id number] Ordering Dr: Marija Diaz MD STUDY: X-RAY [...] CC: Marija Diaz MD; Jonny Manzano MD Manager Access: Signed CHIROPRACTIC REPORT Observed: 07/16/2017 Status: F Source: [place] 9:05 AM [facility] [address] [place] [address] OFFICE VISIT Date of Service: 07/12/17 MR#: [id number] Acct: [id number] Name: DAVIS JONES Rep #: [id number] : 1965 Provider: Karuna Romero D.C. Age/Sex: 51/F [place] [facility] [place]: Signed Intake Intake Visit Reasons: back pain Chief Complaint: back pain Allergies No Known Allergies Allergy (Verified 05/09/17 12:16) Medications Ca/D3/Mag Ox/Zinc/Bereavement Program Coordinator/Lance/Bor [Calcium 600-D3 Plus Caplet] 1 ea PO DAILY 07/21/13 [History Confirmed 05/09/17] Estrogen,Con/M-Progest Acet [Prempro 0.625-5 MG TABLET] 1 ea PO DAILY 07/21/13 [History Confirmed 05/09/17] oxycodone-acetaminophen 2.5 mg-325 mg tablet 1 tab PO ONCE 05/09/17 [History Confirmed 05/09/17] tramadol 50 mg tablet 50 mg PO ONCE 05/09/17 [History Confirmed 05/09/17] [facility] Medical History Back pain (Acute) Osteoarthritis [...] Codes Procedures - Electrical Stimulation: 15 mins (78210) Procedures - Manipulation: 3-4 regions (29308) 07/16/17 0905 <Electronically signed by Karuna Romero D.C.> Date Karuna Romero D.C. Cosigner Signature: Date (if applicable) CC: CHIROPRACTIC REPORT Observed: 07/05/2017 Status: F Source: [place] 9:44 AM [facility] [address] [place] [address] OFFICE VISIT Date of Service: 07/03/17 MR#: [id number] Acct: [id number] Name: DAVIS JONES Rep #: [id number] : 1965 Provider: Karuna Romero D.C. Age/Sex: 51/F [place] [facility] [place] Status: Signed Intake Vital Signs07/03/17 Height 5 ft 4 in 07/03/17 Weight: 188 lb 5 oz 07/03/17 Body Mass Index (BMI) 32.3 Intake Visit Reasons: LOW BACK PAIN Chief Complaint: back pain Is patient in pain?: Yes Allergies No Known Allergies Allergy (Verified 05/09/17 12:16) Medications Ca/D3/Mag Ox/Zinc/Bereavement Program Coordinator/Lance/Bor [Calcium 600-D3 Plus Caplet] 1 ea PO [...] Codes Procedures - Electrical Stimulation: 15 mins (65984) Procedures - Manipulation: 3-4 regions (98302) Procedures - Traction, Mechanical: Yes (81290) 07/05/17 0944 <Electronically signed by Karuna Romero D.C.> Date Karuna Romero D.C. Cosigner Signature: Date (if applicable) CC: CHIROPRACTIC REPORT Observed: 06/14/2017 Status: F Source: [place] 3:32 PM [facility] [address] [place] [address] OFFICE VISIT Date of Service: 06/14/17 MR#: [id number] Acct: [id number] Name: DAVIS JONES Rep #: [id number] : 1965 Provider: Karuna Romero D.C. Age/Sex: 51/F [place] [facility] [place]: Signed Intake Vital Signs06/14/17 Height 5 ft 4 in 06/14/17 Weight: 189 lb 06/14/17 Body Mass Index (BMI) 32.4 Intake Visit Reasons: back pain Is patient in pain?: Yes Allergies No Known Allergies Allergy (Verified 05/09/17 12:16) Medications Ca/D3/Mag Ox/Zinc/Bereavement Program Coordinator/Lance/Bor [Calcium 600-D3 Plus Caplet] 1 ea PO [...] Codes Procedures - Electrical Stimulation: 15 mins (33786) Procedures - Traction, Mechanical: Yes (11626) Procedures - Manipulation: 3-4 regions (05761) 06/14/17 1532 <Electronically signed by Karuna Romero D.C.> Date Karuna Romero D.C. Cosigner Signature: Date (if applicable) CC: MASSAGE THERAPY Observed: 06/07/2017 Status: F Source: [place] EVALUATION 7:53 AM [facility] REPOSITORY [facility] Physical Therapy [address] [place] [address] Fax REHABILITATION SERVICES INITIAL EVALUATION MR#: [id number] Acct: [id number] Name: DAVIS JONES Rep #: [id number] : 1965 51 From: Kimberlee Castaneda DrCornelius: Marija Diaz MD Status: REG RCR Insurance: [facility] SELF PAY INSURANCE Massage Therapy Evaluation: Evaluation [...] CHIROPRACTIC REPORT Observed: 05/30/2017 Status: F Source: [place] 10:51 AM [facility] [address] [place] [address] OFFICE VISIT Date of Service: 05/29/17 MR#: [id number] Acct: [id number] Name: DAVIS JONES Rep #: [id number] : 1965 Provider: Karuna Romero D.C. Age/Sex: 51/F [place] [facility] [place]: Signed Intake Vital Signs05/29/17 Height 5 ft 4 in 05/29/17 Weight: 189 lb 05/29/17 Body Mass Index (BMI) 32.4 Intake Visit Reasons: back pain Allergies No Known Allergies Allergy (Verified 05/09/17 12:16) Medications Ca/D3/Mag Ox/Zinc/Bereavement Program Coordinator/Lance/Bor [Calcium 600-D3 Plus Caplet] 1 ea PO [...] Codes Procedures - Electrical Stimulation: 15 mins (79907) Procedures - Traction, Mechanical: Yes (41622) Procedures - Manipulation: 3-4 regions (19427) 05/30/17 1051 <Electronically signed by Karuna Romero D.C.> Date Karuna Romero D.C. Cosigner Signature: Date (if applicable) CC: CHIROPRACTIC REPORT Observed: 05/15/2017 Status: F Source: [place] 9:42 AM [facility] [place] [address] OFFICE VISIT Date of Service: 05/15/17 MR#: [id number] Acct: [id number] Name: DAVIS JONES Rep #: [id number] : 1965 Provider: Karuna Romero D.C. Age/Sex: 51/F [place] [facility] [place]: Signed Intake Vital Signs05/15/17 Height 5 ft 4 in 05/15/17 Weight: 189 lb 05/15/17 Body Mass Index (BMI) 32.4 Intake Visit Reasons: back pain Is patient in pain?: Yes Allergies No Known Allergies Allergy (Verified 05/09/17 12:16) Medications Ca/D3/Mag Ox/Zinc/Bereavement Program Coordinator/Lance/Bor [Calcium 600-D3 Plus Caplet] 1 ea PO [...] mg PO ONCE 05/09/17 [History Confirmed 05/09/17] PFS Medical History Back pain (Acute) Osteoarthritis [...] Additional Codes Procedures - Manipulation: 3-4 regions (99603) Procedures - Electrical Stimulation: 15 mins (04633) Procedures - Traction, Mechanical: Yes (54697) 05/15/17 0942 <Electronically signed by Karuna Romero D.C.> Date Karuna Mckeonigner Signature: Date (if applicable) CC: ALLERGIES ALLERGIES DATE TYPE / CODE NAME / CODE REACTION SEVERITY SOURCE 01/02/2018 Drug No Known Unknown [facility] Allergy/545225951( Allergies/[facility] NOMED [facility]) [id number]([facility] X[facility] OF [facility]) Repository 04/20/2005 Miscellaneous OTHER UNKNOWN [facility] Allergy/754986780([facility] NOMED CT) Repository ENCOUNTERS ENCOUNTERS ADMIT/DISCHARGE ACCOUNT ADMITTING ENCOUNTER LOCATION SOURCE NUMBER CLASS 04/04/2018 [id number] Ambulatory [facility] ing:MASS Repository 04/02/2018 [id number] Ambulatory [facility] ing:HPRAD Repository 04/02/2018/04/02/20 [id number] Ambulatory BMSBuilding:B [facility] [address] [facility] Repository 03/19/2018 [id number] Ambulatory [facility] ing:PSN Repository 03/05/2018/03/06/20 [id number] Ambulatory [address] Repository 03/01/2018 [id number] Ambulatory [facility] ing:PT Repository 02/28/2018/02/29/20 [id number] Ambulatory BMSBuilding:B [facility] 18 [facility] Repository 02/26/2018/03/07/20 [id number] Ambulatory [address] Repository 02/26/2018/02/27/20 [id number] Ambulatory [address] Repository 02/19/2018 [id number] Ambulatory [facility] ing:HPRAD Repository 02/19/2018/02/20/20 [id number] Ambulatory BMSBuilding:B D[facility] 18 MS.[facility] Repository 02/05/2018/02/06/20 [id number] Ambulatory BMSBuilding:B [place] 18 MS.[facility] Repository 01/02/2018/01/03/20 [id number] Ambulatory BMSBuilding:B [facility] 18 MS.[facility] Repository 01/02/2018 [id number] [facility] 12/26/2017 [id number] [facility] Repository 11/22/2017/11/23/19 [id number] Ambulatory BMSBuilding:B [facility] 18 [place].[facility] Repository 11/01/2017/11/02/19 [id number] Ambulatory BMSBuilding:B [place] 18 MS.[facility] Repository 10/19/2017 [id number] Ambulatory BMSBuilding:B [facility] MS.[facility] Repository 10/11/2017/10/12/19 [id number] Ambulatory BMSBuilding:B [place] 18 MS.[facility] Repository 09/25/2017/09/26/19 [id number] Ambulatory BMSBuilding:B [place] 18 MS.[facility] Repository 09/21/2017 [id number] Ambulatory [facility] ing:CT Repository 09/20/2017/09/21/19 [id number] Ambulatory BMSBuilding:B [place] 18 MS.[facility] Repository 09/13/2017 [id number] [facility] ing:MASS Repository 09/11/2017/09/12/19 [id number] Ambulatory BMSBuilding:B [facility] 18 MS.[facility] Repository 09/06/2017/09/07/19 [id number] Ambulatory BMSBuilding:B [facility] 18 MS.[facility] Repository 08/16/2017/08/17/19 [id number] Ambulatory BMSBuilding:B [place] 18 MS.[facility] Repository 08/02/2017/08/03/19 [id number] Ambulatory BMSBuilding:B [place] 18 MS.[facility] Repository 07/26/2017 [id number] Ambulatory [facility] ing:RAD Repository 07/12/2017/07/13/19 [id number] Ambulatory BMSBuilding:B [facility] 18 [facility] Repository 07/03/2017/07/04/19 [id number] Ambulatory BMSBuilding:B [facility] 18 MS.[facility] Repository 06/14/2017/06/14/19 [id number] Ambulatory BMSBuilding:B [facility] 18 [facility] Repository 05/29/2017/05/29/19 [id number] Ambulatory BMSBuilding:B [facility] 18 MS.[facility] Repository 05/15/2017/05/15/19 [id number] Ambulatory BMSBuilding:B [facility] 18 MS.[facility] Repository PAYERS PAYERS ENCOUNTER GUARANTOR PAYER SUBSCRIBER SOURCE 04/04/2018 DAVIS L Primary Insurance:[facility] DAVIS L [facility] [id number] [facility] [address] [id number] Hospital [address]Kqx: (330) Number: Repository [phone] () [id number] Date:4237-49-00LD [address] [address]VFFBUUCWD, [place] [address]KJ: CHECK WEBSITE 04/04/2018 Secondary NOT GIVENUNK [facility] Insurance:SELF PAY [facility] Number: Effective Repository Date:2017-02-22 04/02/2018 DAVIS L Primary Insurance:[facility] DAVIS L Dimitrios [id number] [facility]: [address] [id number] Hospital [address]Fnb: (330) Number: Repository [phone] () [id number] Date:0628-36-65WB [address] [address]KVAAKZMMF, [place] [address]US: CHECK WEBSITE 04/02/2018 Secondary NOT GIVENUNK [facility] Insurance:SELF PAY [facility] Number: Effective Repository Date:2018-04-02 04/02/2018 DAVIS L Primary Insurance:[facility] DAIVS L [facility] [id number] [facility]: [address] [id number] Hospital [address]Ofx: (330) Number: Repository [phone] () [id number] Date:1668-01-27EW [address] [address]BQWURPPOC, [place] [address]CH: CHECK WEBSITE 04/02/2018 Secondary NOT GIVENUNK [facility] Insurance:SELF PAY [facility] Number: Effective Repository Date:2018-04-02 03/19/2018 DAVIS L Primary Insurance:[facility] DAVIS L [facility] [id number] [address] [facility] BENNER[facility]: [facility] 7674-67-73[place]QJes[place] Number: Repository [address]Wff: 330 [id number] [phone] (HP) Date:7466-60-82KI [address] [address]WMKWVUDKH, [place] [address]NA: CHECK WEBSITE 03/19/2018 Secondary NOT GIVENUNK [facility] Insurance:SELF PAY [facility] Number: Effective Repository Date:2017-11-28 03/01/2018 DAVIS L Primary Insurance:[facility] DAVIS L [facility] [id number] N [facility] 1912-13-[place] Number: Repository [address]Vxq: 330 [id number] [phone] (HP) Date:3058-75-65ZW [address] [address]QOHBVXEYM, [place] [address]MW: CHECK WEBSITE 03/01/2018 Secondary NOT GIVENUNK [facility] Insurance:SELF PAY [facility] Number: Effective Repository Date:2018-01-24 02/28/2018 DAVIS L Primary Insurance:[facility] DAVIS L Dimitrios [id number] N [facility]: [facility] 2468-21-69WYBJesup, [place] Number: Repository [address]Wrk: 330 [id number] [phone] (HP) Date:5769-46-41NG [address] [address]YMIHMLWUY, [place] [address]DQ: CHECK WEBSITE 02/28/2018 Secondary NOT GIVENUNK [facility] Insurance:SELF PAY [facility] Number: Effective Repository Date:2018-02-28 02/19/2018 DAVIS L Primary Insurance:[facility] DAVIS L Dimitrios [id number] [address] [facility]: [facility] 0041-47-48KNUJes[place], [place] Number: Repository [address]Qbh: 330 [id number] [phone] (HP) Date:7407-35-14IG [address] [address]MVFXPEBJK, [place] [address]HZ: CHECK WEBSITE 02/19/2018 Secondary NOT GIVENUNK Dimitrios Insurance:SELF PAY [facility] Number: Effective Repository Date:2018-02-19 02/19/2018 DAVIS L Primary Insurance:[facility] DAVIS L [facility] [id number] [address] [facility]ENNER[facility]: [facility] 5791-75-31MOFJes[place], [place] Number: Repository [address]Gtj: 330 [id number] [phone] (HP) Date:5455-23-64UR [address] [address]LJHJCAMPW, [place] [address]TJ: CHECK WEBSITE 02/19/2018 Secondary NOT GIVENUNK [facility] Insurance:SELF PAY [facility] Number: Effective Repository Date:2018-02-19 02/05/2018 DAVIS L Primary Insurance:[facility] DAVIS L Dimitrios [id number] [address] [facility]: [facility] 3445-96-51VUFJes[place], [place] Number: Repository [address]Mhl: 330 [id number] [phone] (HP) Date:6697-65-65HK [address] [address]JFIFQREKG, [place] [address]DF: CHECK WEBSITE 02/05/2018 Secondary NOT GIVENUNK Dimitrios Insurance:SELF PAY [facility] Number: Effective Repository Date:2018-02-05 01/02/2018 DAVIS L Primary Insurance:[facility] DAVIS L Dimitrios [id number] [address] [facility]: [facility] 1167-15-66GNIJes[place], [place] Number: Repository [address]Tjn: 330 [id number] [phone] (HP) Date:2434-26-08HB [address] [address]MFGZUXONX, [place] [address]FJ: CHECK WEBSITE 01/02/2018 Secondary NOT GIVENUNK [facility] Insurance:SELF PAY [facility] Number: Effective Repository Date:2017-12-26 01/02/2018 DAVIS L Primary NOT GIVENUNK Dimitrios [id number] N Insurance:SELF [place] Number: Effective Repository [address]Yww: (330) Date:2018-01-021206 (HP) 12/26/2017 DAVIS L Primary Insurance:[facility] DAVIS L Dimitrios [id number] N [facility]EN[facility]: [facility] 1917-73-[facility] [place] Number: Repository [address]Uhi: 330 [id number] 1206 (HP) Date:2099-06-03OX [address] [address]IJSVGKPVC, [place] [address]EO: CHECK WEBSITE 12/26/2017 Secondary NOT GIVENUNK Dimitrios Insurance:SELF PAY [facility] Number: Effective Repository Date:2017-12-26 11/22/2017 DAVIS L Primary Insurance:[facility] DAVIS L [facility] [id number] [address] [facility]ENNER[facility]: [facility] 3301-02-12TCMJes[place], [place] Number: Repository [address]Nhv: 330 [id number] 1206 (HP) Date:2656-98-66YL [address] [address]WCDBAYEMD, [place] [address]NZ: CHECK WEBSITE 11/22/2017 Secondary NOT GIVENUNK [facility] Insurance:SELF PAY [facility] Number: Effective Repository Date:2017-11-22 11/01/2017 DAVIS L Primary Insurance:[facility] DAVIS L [facility] [id number] [address] [facility]: [facility] 5063-08-66MSTJesup, [place] Number: Repository [address]Pkd: 330 [id number] 1206 (HP) Date:9784-99-26ZP [address] [address]WBXRRJAAW, [place] [address]FF: CHECK WEBSITE 11/01/2017 Secondary NOT GIVENUNK [facility] Insurance:SELF PAY [facility] Number: Effective Repository Date:2017-11-01 10/19/2017 DAVIS L Primary Insurance:[facility] DAVIS L Dimitrios [id number] N [facility]: [facility] 6328-73-23YZOJesup, [place] Number: Repository [address]Brt: 330 [id number] [phone] () Date:3906-94-46ZM [address] [address]ZMLTUBGGZ, [place] [address]WE: CHECK WEBSITE 10/19/2017 Secondary NOT GIVENUNK Dimitrios Insurance:SELF PAY [facility] Number: Effective Repository Date:2017-10-19 10/11/2017 DAVIS L Primary Insurance:[facility] DAVIS L Dimitrios [id number] [address] [facility]: [facility] [id number] View Behavioral [facility] [place] Number: Repository [address]Ith: 330 [id number] [phone] () Date:0054-22-44QV [address] [address]SJKAJALSI, [place] [address]JM: CHECK WEBSITE 10/11/2017 Secondary NOT GIVENUNK Dimitrios Insurance:SELF PAY [facility] Number: Effective Repository Date:2017-10-11 09/25/2017 DAVIS L Primary Insurance:[facility] DAVIS L [facility] [id number] [address] [facility]EN[facility]: [facility] [id number] View Behavioral Health [place] Number: Repository [address]Exb: 330 [id number] [phone] () Date:4032-73-59AH [address] [address]TXAVTCDXP, [place] [address]LS: CHECK WEBSITE 09/25/2017 Secondary NOT GIVENUNK [facility] Insurance:SELF PAY [facility] Number: Effective Repository Date:2017-10-04 09/21/2017 DAVIS L Primary Insurance:[facility] DAVIS L Dimitrios [id number] [address] [facility]EN[facility]: [facility] [id number] View Behavioral Health [place] Number: Repository [address]Lgd: 330 [id number] [phone] (HP) Date:5763-04-00AL [address] [address]DWSNKRLMS, [place] [address]ZW: CHECK WEBSITE 09/21/2017 Secondary NOT GIVENUNK [facility] Insurance:SELF PAY [facility] Number: Effective Repository Date:2017-09-11 09/20/2017 DAVIS L Primary Insurance:[facility] DAVIS L [facility] [id number] N [facility]: [facility] 5359-32-38CDIJesup, [place] Number: Repository [address]Mre: 330 [id number] [phone] (HP) Date:8109-46-62EO [address] [address]DCTGKTCRU, [place] [address]NE: CHECK WEBSITE 09/20/2017 Secondary NOT GIVENUNK [facility] Insurance:SELF PAY [facility] Number: Effective Repository Date:2017-09-20 09/13/2017 DAVIS L Primary Insurance:[facility] DAVIS L [facility] [id number] N [facility] 7912-27-67EGNJesup, [place] Number: Repository 34[address]Fjf: 330 [id number] [phone] (HP) Date:9239-79-72MH [address] [address]UMFDZAPXV, [place] [address]AJ: CHECK WEBSITE 09/13/2017 Secondary NOT GIVENUNK Dimitrios Insurance:SELF PAY [facility] Number: Effective Repository Date:2017-05-28 09/11/2017 DAVIS L Primary Insurance:[facility] DAVIS L Dimitrios [id number] N [facility]: [facility] 7945-83-84ZMAJesup, [place] Number: Repository [address]Vcf: 330 [id number] [phone] (HP) Date:7371-28-51JS [address] [address]RFHWRVNIL, [place] [address]XT: CHECK WEBSITE 09/11/2017 Secondary NOT GIVENUNK Dimitrios Insurance:SELF PAY [facility] Number: Effective Repository Date:2017-09-04 09/06/2017 DAVIS L Primary Insurance:[facility] DAVIS L Dimitrios [id number] N [facility]: [facility] 9167-94-92YXRJesup, [place] Number: Repository 386[address]Djj: 330 [id number] [phone] (HP) Date:8821-55-79YV [address] [address]HTJOEMCKY, [place] [address]QT: CHECK WEBSITE 09/06/2017 Secondary NOT GIVENUNK [facility] Insurance:SELF PAY [facility] Number: Effective Repository Date:2017-09-06 08/16/2017 DAVIS L Primary Insurance:[facility] DAVIS L Dimitrios [id number] N [facility]EN[facility]: [facility] 5858-39-50GRKJesup, [place] Number: Repository [address]Gna: 330 [id number] [phone] (HP) Date:9873-68-71QR [address] [address]TFAAPKDZI, [place] [address]ON: CHECK WEBSITE 08/16/2017 Secondary NOT GIVENUNK [facility] Insurance:SELF PAY [facility] Number: Effective Repository Date:2017-08-16 08/02/2017 DAVIS L Primary Insurance:[facility] DAVIS L Dimitrios [id number] N [facility]: [facility] 8727-81-72PGLJesup, [place] Number: Repository [address]Rpm: 330 [id number] [phone] (HP) Date:8854-10-29TA [address] [address]IYNLQUWPS, [place] [address]NG: CHECK WEBSITE 08/02/2017 Secondary NOT GIVENUNK [facility] Insurance:SELF PAY [facility] Number: Effective Repository Date:2017-08-02 07/26/2017 DAVIS L Primary Insurance:[facility] DAVIS L [facility] [id number] N [facility]: [facility] 7425-44-95ADZJesup, [place] Number: Repository [id number]: 330 [id number] [phone] (HP) Date:9680-51-65XH [address] [address]PARQTYXUI, [place] [address]ET: CHECK WEBSITE 07/26/2017 Secondary NOT GIVENUNK [facility] Insurance:SELF PAY [facility] Number: Effective Repository Date:2017-07-26 07/12/2017 DAVIS [id number] Primary Insurance:[facility] DAVIS IRWINDECLANDOB: [facility] N [employer] [id number] [place] [address]Tel: (330) Number: Repository [phone] () [id number] Date:3262-98-05XR [address] [address]QJYCMJPTE, [place] [address]GN: CHECK WEBSITE 07/12/2017 Secondary NOT GIVENUNK [facility] Insurance:SELF PAY [facility] Number: Effective Repository Date:2017-07-12 07/03/2017 DAVIS [id number] Primary Insurance[facility] JONESB: [facility] N [employer] [id number] [place] [address]Tel: (330) Number: Repository [phone] () [id number] Date:2264-89-91JB [address] [address]NMIVMYPZB, [place] [address]KW: CHECK WEBSITE 07/03/2017 Secondary NOT GIVENUNK [facility] Insurance:SELF PAY [facility] Number: Effective Repository Date:2017-07-02 06/14/2017 DAVIS [id number] Primary Insurance:[facility] KARENB: Dimitrios Stalin [facility] [id number] [place] [address]Tel: (330) Number: Repository [phone] () [id number] Date:1066-14-30PK [address] [address]PBJHVSARK, [place] [address]DR: CHECK WEBSITE 06/14/2017 Secondary NOT GIVENUNK Dimitrios Insurance:SELF PAY [facility] Number: Effective Repository Date:2017-05-15 05/29/2017 DAVIS [id number] Primary Insurance:[facility] TIANAB: Dimitrios Stalin [facility] [id number] [place] [address]Tel: (330) Number: Repository [phone] () [id number] Date:9295-64-61MK [address] [address]DVYWLEAOW, [place] [address]PU: CHECK WEBSITE 05/29/2017 Secondary NOT GIVENUNK Dimitrios Insurance:SELF PAY [facility] Number: Effective Repository Date:2017-05-15 05/15/2017 DAVIS [id number] Primary Insurance:[facility] DAVIS TAY: [facility] [id number] [address]Ayz: (330) Number: Repository [phone] () [id number] Date:7179-82-36OM [address] [address]APBDJACDX, [place] [address]KL: CHECK WEBSITE 05/15/2017 Secondary NOT GIVENUNK [facility] Insurance:SELF PAY [facility] Number: Effective Repository Date:2017-04-26
== END ==
PROVIDERS: Family Provider Internal Medicine; PCP Internal Medicine; Referring Provider Orthopaedic Surgery; Visit Provider Orthopaedic Surgery
DX: G89.29 Other chronic pain (principal); M54.9 Dorsalgia, unspecified
CPT/HCPCS: 72114

== ENCOUNTER 2018-04-04 08:00 | Outpatient (RCR) | payer OTHER, SELFPAY ==
--- NOTE | 2018-02-07 12:54 | DS.PCM_ITS ---
Massage Therapy Discharge Summary: Discharge Date: 02/07/2018 Diane was seen for a massotherapy evaluation on 05/31/2017 with the diagnosis of back and leg pain. She was treated with ten sessions of massage consisting of moderate to deep pressure soft tissue techniques, myofascial release and trigger point compression to her neck, shoulders, thoracic, lower back and hips. Diane responded well to the therapy by reporting decreased tension and pain throughout her interscapular region, lower back and hips. Her goals for therapy were met throughout the treatment sessions. At this time this patient is being discharged from our care at [facility] facility.
== END 2018-04-04 19:00 | disposition home or self-care (01) ==
LOC: MASS 08:00
PROVIDERS: Family Provider Internal Medicine; PCP Internal Medicine
DX: M54.9 Dorsalgia, unspecified (principal); M79.606 Pain in leg, unspecified
CPT/HCPCS: 97124

== ENCOUNTER → 2018-05-15 11:34 | Outpatient (CLI) | payer OTHER, SELFPAY ==
[2018-04-24 15:09] VITALS: BMI 32.4
--- NOTE | 2018-05-15 11:36 | RAD_ITS ---
PROCEDURE: LUMBAR MYELOGRAM DATE OF EXAMINATION: 2018. INDICATION: Female, 52 years old. Low back pain. Prior laminectomy with screw and the ventricular fixation at the L3-L4, L4-L5 and L5-S1 levels. PHYSICIAN: Ez Mascorro M.D. CONSENT: The patient's history and physical findings were reviewed. The lumbar myelogram procedure was discussed with the patient prior to signing a consent. SEDATION: Local anesthesia with 3 mL of 1% lidocaine was used. FLUOROSCOPY TIME (if supplied): (0:55) minutes/seconds Injection Information: 10 cc of Isovue-M 200. Number of images obtained: 4 TECHNIQUE: Digital fluoroscopy was used to identify a safe approach for the lumbar myelogram. The back was prepped and draped in usual fashion. Local anesthesia was utilized. Under fluoroscopic guidance a 22-gauge spinal needle was inserted into the spinal canal at the L4-5 level. The opening pressure measured 11 cm. Clear spinal fluid was seen with a sample sent to the laboratory. 12 mL of Isovue 200 M was injected into the spinal canal. There is good opacification of the spinal fluid. The nerve root sheaths are asymmetrically identified. There is no extradural defects. CT scan to follow. RAD/Lumbar Myelogram IMPRESSION: Normal lumbar myelogram. Electronically Signed: Ez Mascorro MD at 13:44 EST , Service support ,
--- NOTE | 2018-05-15 11:36 | CT_ITS ---
STUDY: CT LUMBAR SPINE WITH INTRATHECAL CONTRAST (LUMBAR CT MYELOGRAM) REASON FOR EXAM: Female, 52 years old. Low back pain. Prior fusion. Spinal stimulator. RADIATION DOSAGE (If Supplied By Facility): CTDIvol = ( 31.22 ) mGy, DLP = ( 1057.68 ) mGycm TECHNIQUE: Transaxial images were obtained from the T12 vertebra through the S1 vertebrae, following intrathecal administration of 12 ml of Isovue-M 200 contrast material, performed by Dr. Mascorro. Please refer to this physicians technical notes for procedural details. Coronal and sagittal reconstructions were obtained. Individualized dose optimization techniques were used for this CT. COMPARISON: None. FINDINGS: Normal lumbar lordosis. There is no substantial scoliosis. Normal vertebrae of the lumbar spine. There is dependent layering of contrast material in the distal thecal sac. The conus medullaris terminates in a normal position at the T12-L1 level. There is no demonstrated cauda equina nerve root abnormality or intraspinal mass. L1-2: Normal endplates. Normal disc height and morphology. Normal bilateral facet joints. Normal central canal and bilateral lateral recesses. Normal bilateral intervertebral neural foramina. L2-3: Mild degree of central canal stenosis secondary to hypertrophy of the ligamenta flava and minimal disc bulge. L3-4: The patient is status post posterior laminectomy and interpedicular screw fixation. There is no evidence for spinal stenosis or nerve root impingement. L4-5: The patient is status post interpedicular screw fixation and laminectomy. There is no evidence of spinal stenosis. No neural foraminal stenosis is seen. L5-S1: Interval decrease screws are seen at the L5 level. There is no evidence of spinal stenosis. No evidence of neural foraminal stenosis. Normal visualized sacroiliac joints. Normal visualized paraspinous soft tissue structures. CT/Spine Lumbar without Contrast IMPRESSION: Status post laminectomy and fusion at the L3-L4 and L4-L5 levels. Mild degree of central canal stenosis at the L2-L3 level as described. Electronically Signed: Ez Mascorro MD at 14:57 EST , Service support ,
[2018-05-15 12:34] VITALS: BP 152/89; PULSE 68; RESP 16; O2SAT 100; BMI 31.7
[2018-05-15 14:30] VITALS: BP 128/77; PULSE 75; RESP 16; O2SAT 97
--- OUTSIDE RECORDS SUMMARY | 2018-07-17 09:10 | XMS RPT_ITS ---
:1965 Author Organization OHIP Support Name Relationship Address Phone DESMOND JONES Unavailable [address] + [place] [address] [facility] Unavailable [address] + [place] [address] KAREN DESMOND Unavailable [address] + [place] [address] [facility] Unavailable [address] + [place] [address] KAREN DESMOND Unavailable [address] + [place] [address] [facility] Unavailable [address] + [place] [address] KAREN DESMOND Unavailable [address] + [place] [address] [facility] Unavailable [address] + [place] [address] KAREN DESMOND Unavailable [address] + [place] [address] [facility] Unavailable [address] + [place] [address] KAREN DESMOND Unavailable [address] + [place] [address] [facility] Unavailable [address] + [place] [address] KAREN DESMOND Unavailable [address] + [place] [address] [facility] Unavailable [address] + [place] [address] KAREN DESMOND Unavailable [address] + [place] [address] [facility] Unavailable [address] + [place] [address] KAREN, DESMOND Unavailable [address] + [place] [address] [facility] Unavailable [address] + [place] [address] KAREN, DESMOND Unavailable [address] + [place] [address] [facility] Unavailable [address] + [place] [address] KAREN, DESMOND Unavailable [address] + [place] [address] [facility] Unavailable [address] + [place] [address] KAREN, DESMOND Unavailable [address] + [place] [address] [facility] Unavailable [address] + [place] [address] KAREN, DESMOND Unavailable [address] + [place] [address] [facility] Unavailable [address] + [place] [address] KAREN, DESMOND Unavailable [address] + [place] [address] [facility] Unavailable [address] + [place] [address] KAREN, DESMOND Unavailable [address] + [place] [address] [facility] Unavailable [address] + [place] [address] KAERN, DESMOND Unavailable [address] + [place] [address] [facility] Unavailable [address] + [place] [address] KAREN, DESMOND Unavailable [address] + [place] [address] [facility] Unavailable [address] + [place] [address] KAREN, DESMOND Unavailable [address] + [place] [address] [facility] Unavailable [address] + [place] [address] KAREN, DESMOND Unavailable [address] + [place] [address] [facility] Unavailable [address] + [place] [address] KAREN, DESMOND Unavailable [address] + [place] [address] [facility] Unavailable [address] + [place] [address] KAREN, DESMOND Unavailable [address] + [place] [address] [facility] Unavailable [address] + [place] [address] KAREN, DESMOND Unavailable [address] + [place] [address] [facility] Unavailable [address] + [place] [address] KAREN, DESMOND Unavailable [address] + [place] [address] [facility] Unavailable [address] + [place] [address] KAREN, DESMOND Unavailable [address] + [place] [address] [facility] Unavailable [address] + [place] [address] KAREN, DESMOND Unavailable [address] + [place] [address] [facility] Unavailable [address] + [place] [address] KAREN, DESMOND Unavailable [address] + [place] [address] [facility] Unavailable [address] + [place] [address] KAREN, DESMOND Unavailable [address] + [place] [address] [facility] Unavailable [address] + [place] [address] KAREN, DESMOND Unavailable [address] + [place] [address] [facility] Unavailable [address] + [place] [address] KAREN, DESMOND Unavailable [address] + [place] [address] [facility] Unavailable [address] + [place] [address] KAREN, DESMOND Unavailable [address] + [place] [address] [facility] Unavailable [address] + [place] [address] Care Team Providers Name Role Phone TERI QUISPE (CN) Referring Unavailable TERI QUISPE (CN) Attending Unavailable TERI QIUSPE (CN) Referring Unavailable RAKEL VILLA Attending Unavailable TERI QUISPE ([facility]) Referring Unavailable DosKaruna olivier D.C. Attending Unavailable Oleghe, Efewongbe Referring Unavailable Oleghe, Efewongbe Primary Care Unavailable Karuna Carballo D.C. Attending Unavailable Oleghe, Efewongbe Referring Unavailable Oleghe, Efewongbe Primary Care Unavailable Sheila Sanchez Attending Unavailable Celestina SanchezSheila Referring Unavailable Oleghe, Efewongbe Primary Care Unavailable Mattie Kunz Attending Unavailable Mattie Kunz Referring Unavailable Oleghe, Efewongbe Primary Care Unavailable Mattie Kunz Attending Unavailable Oleghe, Efewongbe Referring Unavailable ASSESSMENT, HEALTH RISK Attending Unavailable ASSESSMENT, HEALTH RISK Referring Unavailable Oleghe, Efewongbe Primary Care Unavailable Marija Diaz Attending Unavailable Jerrii Aynhan Referring Unavailable Oleghe, Efewongbe Primary Care Unavailable Karuna Carballo D.C. Attending Unavailable Oleghe, Efewongbe Referring Unavailable Oleghe, Efewongbe Primary Care Unavailable Karuna Carballo D.C. Attending Unavailable Oleghe, Efewongbe Referring Unavailable Oleghe, Efewongbe Primary Care Unavailable Rosibel Brooks Attending Unavailable Karuna Carballo D.C. Attending Unavailable Oleghe, [...] Primary Care Unavailable BasaliMarija Attending Unavailable Oleghe, Efewongbe Primary Care Unavailable DossiKaruna farris D.C. Attending Unavailable Oleghe, Efewongbe Referring Unavailable Oleghe, Efewongbe Primary Care Unavailable Karuna Carballo D.C. Attending Unavailable Oleghe, Efewongbe Referring Unavailable Oleghe, Efewongbe Primary Care Unavailable BasaliEdvinman Attending Unavailable Oleghe, Efewongbe Primary Care Unavailable Sanchez, Sheila Attending Unavailable Sanchez, Sheila Referring Unavailable Oleghe, Efewongbe Primary Care Unavailable Sanchez Sheila Attending Unavailable Oleghe, Efewongbe Referring Unavailable Basali Aynhan Attending Unavailable Basali Ayman Referring Unavailable Oleghe, Efewongbe Primary Care Unavailable DossiKaruna farris D.C. Attending Unavailable Karuna Carballo D.C. Attending Unavailable Oleghe, Efewongbe Referring Unavailable Basali Ayman Attending Unavailable Basali Ayman Referring Unavailable Oleghe, Efewongbe Primary Care Unavailable Oleghe, Efewongbe Attending Unavailable Oleghe, Efewongbe Referring Unavailable Oleghe, Efewongbe Primary Care Unavailable Oleghe, Efewongbe Attending Unavailable Oleghe, Efewongbe Referring Unavailable Oleghe, Efewongbe Primary Care Unavailable Basali Aynhan Attending Unavailable Basali Ayman Referring Unavailable Oleghe, Efewongbe Primary Care Unavailable DOCTOR, OUT OF TOWN Attending Unavailable Oleghe, Efewongbe Primary Care Unavailable DossiKaruna farris D.C. Attending Unavailable Jonny Manzano Referring Unavailable Jonny Manzano Primary Care Unavailable PROBLEMS PROBLEMS DATE TYPE CONDITION / CODE ATTENDING STATUS SOURCE 05/15/2018 Unknown M51.16 - Sheila Sanchez Active [place] Intervertebral disc Community disorders with Hospital radiculopathy, Repository lumbar region / M51.16(ICD-10) 04/02/2018 Unknown G89.29 - Other Lanie Sanchezbeth Active [place] chronic pain / Community G89.29(ICD-10) Hospital Repository 05/16/2018 Unknown M54.9 - Dorsalgia, Basali, Ayman Active [facility] unspecified / Community M54.9(ICD-10) Hospital Repository 03/01/2018 Unknown M99.02 - Segmental Dossie, Karuna Active [facility] and somatic D.C. Community dysfunction of Hospital thoracic region / Repository M99.02(ICD-10) 03/01/2018 Unknown M99.01 - Segmental Dossie, Karuna Active [place] and somatic D.C. Community dysfunction of Hospital cervical region / Repository M99.01(ICD-10) 03/01/2018 Unknown M99.03 - Segmental Dossie, Karuna Active [place] and somatic D.C. Community dysfunction of Hospital lumbar region / Repository M99.03(ICD-10) 03/01/2018 Unknown M99.05 - Segmental [place]ossie, Karuna Active [place] and somatic D.C. Community dysfunction of Hospital pelvic region / Repository M99.05(ICD-10) 03/01/2018 Unknown M99.04 - Segmental Dossie, Karuna Active [place] and somatic D.C. Community dysfunction of Hospital sacral region / Repository M99.04(ICD-10) 02/26/2018 Active Unknown / TERI QUISPE Active [facility] UNK(Unknown) (CNM) Clinic Main [place] Repository 02/26/2018 Active Encounter for NA Active [facility] screening mammogram Clinic Main for malignant [place] neoplasm of breast / Repository Z12.31(ICD-10) 02/19/2018 Unknown M79.645 - Pain in [place], Active [facility] left finger(s) / [facility]ie Community M79.645(ICD-10) Hospital Repository 01/11/2018 Unknown F11.20 - Opioid Basali, Ayman Active [place] dependence, Community uncomplicated / Hospital F11.20(ICD-10) Repository 09/21/2017 Unknown M79.606 - Pain in Marija Diaz Active [place] leg, unspecified / Community M79.606(ICD-10) Hospital Repository 09/11/2017 Unknown M25.551 - Pain in Jose Juan, Active [facility] right hip / [facility] M25.551(ICD-10) Hospital Repository PROCEDURES PROCEDURES No Procedure Records FoundRESULTS RESULTS LUMBAR MYELOGRAM Observed: 05/15/2018 Status: F Source: [place] 11:36 AM [facility], [facility]1983 HOSPITAL REPOSITORY [facility] Imaging Services [address] [place] [address] Lumbar Myelogram MR#: [id number] Acct: [id number] Name: DAVIS JONES Rep #: [id number] : 1965 F 52 From: Ez Mascorro MD PCP: Jonny Manzano MD Status: REG CLI Study: Lumbar Myelogram Date of Exam: 05/15/18 Exam# [id number] Ordering Dr: Sheila Sanchez MD PROCEDURE: LUMBAR MYELOGRAM DATE OF EXAMINATION: 2018. INDICATION: Female, 52 years old. Low back pain. Prior laminectomy with screw and the ventricular fixation at the L3-L4, L4-L5 and L5-S1 levels. PHYSICIAN: Ez Mascorro M.D. CONSENT: The patient's history and physical findings were reviewed. The lumbar myelogram procedure was discussed with the patient prior to signing a consent. SEDATION: Local anesthesia with 3 mL of 1% lidocaine was used. FLUOROSCOPY TIME (if supplied): (0:55) minutes/seconds Injection Information: 10 cc of Isovue-M 200. Number of images obtained: 4 TECHNIQUE: Digital fluoroscopy was used to identify a safe approach for the lumbar myelogram. The back was prepped and draped in usual fashion. Local anesthesia was utilized. Under fluoroscopic guidance a 22- gauge spinal needle was inserted into the spinal canal at the L4-5 level. The opening pressure measured 11 cm. Clear spinal fluid was seen with a sample sent to the laboratory. 12 mL of Isovue 200 M was injected into the spinal canal. There is good opacification of the spinal fluid. The nerve root sheaths are asymmetrically identified. There is no extradural defects. CT scan to follow. RAD/Lumbar Myelogram IMPRESSION: Normal lumbar myelogram. Electronically Signed: Ez Mascorro MD at 13:44 EST , Service support , CC: Jonny Manzano MD; Sheila Sanchez MD Digital Project Manager: Signed SPINE LUMBAR WITHOUT Observed: 05/15/2018 Status: F Source: [place] CONTRAST 11:36 AM REPOSITORY [facility] Imaging Services [address] [place] [address] Spine Lumbar without Contrast MR#: [id number] Acct: [id number] Name: DAVIS JONES Rep #: [id number] : 1965 F 52 From: Ez Mascorro MD PCP: Jonny Manzano MD Status: REG CLI Study: Spine Lumbar without Contrast Date of Exam: 05/15/18 Exam# [id number] Ordering Dr: Sheila Sanchez MD STUDY: CT LUMBAR SPINE WITH INTRATHECAL CONTRAST (LUMBAR CT MYELOGRAM) REASON FOR EXAM: Female, 52 years old. Low back pain. Prior fusion. Spinal stimulator. RADIATION DOSAGE (If Supplied By Facility): CTDIvol = ( 31.22 ) mGy, DLP = ( 1057.68 ) mGycm TECHNIQUE: Transaxial images were obtained from the T12 vertebra through the S1 vertebrae, following intrathecal administration of 12 ml of Isovue-M 200 contrast material, performed by Dr. Mascorro. Please refer to this physicians technical notes for procedural details. Coronal and sagittal reconstructions were obtained. Individualized dose optimization techniques were used for this CT. COMPARISON: None. FINDINGS: Normal lumbar lordosis. There is no substantial scoliosis. Normal vertebrae of the lumbar spine. There is dependent layering of contrast material in the distal thecal sac. The conus medullaris terminates in a normal position at the T12-L1 level. There is no demonstrated cauda equina nerve root abnormality or intraspinal mass. L1-2: Normal endplates. Normal disc height and morphology. Normal bilateral facet joints. Normal central canal and bilateral lateral recesses. Normal bilateral intervertebral neural foramina. L2-3: Mild degree of central canal stenosis secondary to hypertrophy of the ligamenta flava and minimal disc bulge. L3-4: The patient is status post posterior laminectomy and interpedicular screw fixation. There is no evidence for spinal stenosis or nerve root impingement. L4-5: The patient is status post interpedicular screw fixation and laminectomy. There is no evidence of spinal stenosis. No neural foraminal stenosis is seen. L5-S1: Interval decrease screws are seen at the L5 level. There is no evidence of spinal stenosis. No evidence of neural foraminal stenosis. Normal visualized sacroiliac joints. Normal visualized paraspinous soft tissue structures. CT/Spine Lumbar without Contrast IMPRESSION: Status post laminectomy and fusion at the L3-L4 and L4-L5 levels. Mild degree of central canal stenosis at the L2-L3 level as described. Electronically Signed: Ez Mascorro MD at 14:57 EST , Service support , CC: Jonny Manzano MD; Sheila Sanchez MD Digital Project Manager: Signed PT D/C SUMMARY (1) Observed: 05/09/2018 Status: F Source: [place] 1:23 PM REPOSITORY [facility] Physical Therapy [facility] [address] [place] [address]. [address] [place] [address] / REHABILITATION SERVICES DISCHARGE SUMMARY MR#: [id number] Acct: [id number] Name: DAVIS JONES Rep #: [id number] : 1965 52 From: Cert. JAYANT Duncan PT Referring Dr.: Marija Diaz MD Status: REG RCR Insurance: [facility] SELF PAY INSURANCE HP - PT D/C [...] please feel free to call me at [phone]. Thank you for the referral of this patient. Sincerely, Kelly Blake PT, Cert T <Electronically signed by Cert. SHARLENE Duncan PTT> 05/09/18 1320 CC: Marija Diaz MD; Jonny Manzano MD VASHTI Signed ORTHOPEDIC VISIT Observed: 04/13/2018 Status: F Source: [place] REPORT 9:16 PM REPOSITORY [facility] Orthopaedics AND Sports Medicine [address] [place] [address] [address] [place] [address] OFFICE VISIT Date of Service: 04/02/18 MR#: [id number] Acct: [id number] Name: DAVIS JONES Rep #: [id number] : 1965 Provider: Sheila Sanchez MD Age/Sex: 52/F Location: [facility] Status: Signed Intake Intake Visit Reasons: LOW [...] a spinal fusion by Dr. Nguyen at [facility] for back pain. She denies postoperative complications. [...] up pain. 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. She denies nicotine use. Ortho Exam Spine [...] history of L3-S1 laminectomy with instrumented fusion 2009, elsewhere 4. history of pelvic fractures 5. [...] SPINE COMP/W Observed: 04/02/2018 Status: F Source: [place] BENDING VIEWS 8:22 AM REPOSITORY [facility] Imaging Services [address] [place] [address] L/S Spine Comp/w Bending Views MR#: [id number] Acct: [id number] Name: DAVIS JONES Rep #: [id number] : 1965 F 52 From: Kostas Merida DO PCP: Jonny Manzano MD Status: REG CLI Study: L/S Spine Comp/w Bending Views Date of Exam: 04/02/18 Exam# [id number] Ordering Dr: Sheila Sanchez MD STUDY: X-RAY [...] Kostas Merida DO at 22:16 EST Tel [phone], Service support , CC: Jonny Manzano MD; Sheila Sanchez MD Digital Project Manager: Signed NCS AND/OR EMG Observed: 03/20/2018 Status: F Source: [place] PATIENT 4:38 PM REPOSITORY [facility] Pulmonary Services/Neurology [address] [place] [address] MR#: [id number] Acct: [id number] Name: DAVIS JONES Rep #: [id number] : 1965 52 From: Juan Luis Vigil MD Referring Dr: Marija Diaz MD Status: REG CLI Ordering Dr: Date: Location: [facility] Sex: F C NCS and/or EMG [...] MD Date Dictated: 03/19/18 1113 Date Transcribed: 03/19/181112 Digital Project Manager: NF Signed PROGRESS Observed: 03/05/2018 Status: COMPLETED Source: [place] 5:30 PM [facility] REPOSITORY O ID: [id number] Author: Rakel Villa Service: (none) Author Type: [...] CHIROPRACTIC REPORT Observed: 02/28/2018 Status: F Source: [place] 10:31 AM REPOSITORY [facility] Chiropractic [address] [place] [address] OFFICE VISIT Date of Service: 02/28/18 MR#: [id number] Acct: [id number] Name: DAVIS JONES Rep #: [id number] : 1965 Provider: Karuna Romero D.C. Age/Sex: 52/F Location: [facility] Status: Signed Intake Vital Signs02/28/18 Height 5 [...] PO BID tab 10/19/17 [History Confirmed 02/19/18] [facility] Medical History Back pain (Acute) Osteoarthritis (Acute) [...] Additional Codes Procedures - Manipulation: 3-4 regions (20174) Procedures - Electrical Stimulation: 15 mins (37429) 02/28/18 1031 <Electronically signed by Karuna Romero D.C.> Date Karuna Romero D.C. Cosigner Signature: Date (if applicable) CC: CNCO Observed: 02/26/2018 Status: COMPLETED Source: [place] 4:31 PM [facility] [place] REPOSITORY HNO ID: [id number] Author: Mammography Coordinator Service: (none) Author Type: Physician Type: Letter Filed: 02/27/2018 11:33 PM Note Text: February 26, 2018 PID: [id number] Davis Jones [address] [place] [address] Dear Ms. Jones, We are pleased to [...] report will be kept on file at [facility] as part of your permanent medical record and are available for your continuing care. Thank you for allowing us to help in meeting your health care needs. Sincerely, Dr. Ledbetter Interpreting Radiologist [facility] (Normal over 40) PROGRESS Observed: 02/26/2018 Status: COMPLETED Source: [place] 8:37 AM CLINIC MAIN [facility]AMPUS REPOSITORY O ID: [id number] Author: Teri Quispe Service: (none) Author Type: Arborer Type: Progress Notes Filed: 03/06/2018 9:52 PM [...] external genitalia normal, normal Bartholin's glands, urethra, [place]'s glands, no vulvar lesions, no cervical lesions, [...] Adeline Barr Apn Student Teri Quispe APRN.CNM CNOV Observed: 02/26/2018 Status: COMPLETED Source: [place] 8:30 AM [facility] REPOSITORY Office Visit (WOOB) DAVIS JONES ([id number]) 1965 F Date Time Provider Department 02/26/18 8:30 AM TERI QUISPE ([facility]) WOOB During your visit today, we [...] Laterality Date - COLONOSCOP W/ OR W/O [facility] SPEC 12/05/12 Colonoscopy - NEUROSTIMULATOR, [...] external genitalia normal, normal Bartholin's glands, urethra, [place]'s glands, no vulvar lesions, no cervical lesions, [...] Teri Quispe APRN.FABIANO Referring Provider: TERI QUISPE ([facility]) [[id number]] Allergies As of Date: 02/26/2018 Noted Allergy Reaction environmental [Other] 04/20/2005 16 - Unknown Comments: not confirmed Date Reviewed: 02/26/2018 Reviewed by: Zeynep Buckner Ma - Fully Assessed Primary Visit Diagnosis:Encounter for gynecological examination with abnormal finding [Z01.411] Other Visit Diagnoses:Pelvic pain in female [R10.2] Hormone replacement therapy (postmenopausal) [Z79.890] Order(s):ULTRASOUND I [5020358] Order #: [id number]: 1 medroxyPROGESTERone (PROVERA, CYCRIN) 2.5 mg tabletTake [...] Encounter Status:Closed by TERI QUISPE on 03/06/18 FENG SCREENING Observed: 02/26/2018 Status: F Source: [place] 7:41 AM [facility] REPOSITORY * * *Final Report* * * DATE OF EXAM: Feb 26 2018 7:41AM WOW 0581 - [facility] SCREENING / PROCEDURE REASON: Encounter for screening mammogram for malignant neoplasm of breast * * * * Physician Interpretation * * * * RESULT: #[id number] - FENG SCREENING BILATERAL DIGITAL SCREENING MAMMOGRAM WITH CAD: [...] made to exam dated: 09/24/2015 mammogram - [facility]. The tissue of both breasts is heterogeneously dense. This may lower the sensitivity of mammography. No significant masses, calcifications, or other findings are seen in either breast. There has been no significant interval change. IMPRESSION: NEGATIVE There is no mammographic evidence of malignancy.A 1 year screening mammogram is recommended. Obed Ledbetter M.D., lp/penrad:02/26/2018 16:31:04 Watch Train Inspector: Clare VERMA)([place]), [facility] letter sent: Normal over 40 Mammogram BI-RADS: [...] Health, Family Medicine, and Medical/Surgical Oncology, the [facility] has carefully reviewed the data and [...] their providers when to stop screening mammograms. Digital Project Manager: Shade Transcribe Date/Time: Feb 26 2018 7:59A Dictated by: OBED LEDBETTER MD This examination was interpreted and the report reviewed and electronically signed by: OBED LEDBETTER MD on Feb 26 2018 4:31PM EST [id number] RE-EVALUATION - PT (1) Observed: 02/25/2018 Status: F Source: [place] 8:32 AM REPOSITORY [facility] Physical Therapy [facility] [address] [place] [address] Fax REEVALUATION / MEDICARE RECERTIFICATION PHYSICAL THERAPY MR#: [id number] Acct: [id number] Name: DAVIS JONES Rep #: [id number] : 1965 52 From: Kelly Blake PT, Cert. MDT Referring Dr.: Marija Diaz MD Status: REG RCR Insurance: [facility] [employer] SELF PAY INSURANCE Marija Diaz, It has [...] do not hesitate to contact me at [phone] by phone or if you have questions or concerns regarding this new plan of care! Sincerely, Kelly Blake <Electronically signed by Kelly Blake PT, Cert. MDT> 02/25/18 0832 CC: Marija Diaz MD; Jonny Manzano MD VASHTI Signed For Medicare only, by signing this I certify the plan of care. 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 She has tried bracing and KT tape that gives some relief. 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 She has not had any injections or xrays. Denies numbness, tingling or other associated symptoms. Office Procedures Kenalog 10 mg/mL suspension for injection (triamcinolone acetonide) 20 mg Intra-Articular ONCE Procedure Detail Procedure performed by: Mattie Knuz Lot number: [id number] date: 03/23/19 Ortho Injection Site: Yes Ortho Injections/Aspirations Yes CMC Left Office Meds Kenalog Performing Provider: Mattie Kunz DO Administered by: Mattie Kunz DO on 02/19/18 09:36 Dose Route Admin [facility] 20 mg Tendon Sheath Ileft wrist [id number] 03/23/19 0623-1918-80 [place] RM de. SQUIBB Kenalog Performing Provider: Mattie Kunz DO Documented (not given) by: Zac Morales on 02/19/18 09:36 Dose Route Admin Location Lot Number Expiration Date [facility] Vice President Diversity 20 mg Intra-Articular Assessment AND Plan 1. De Quervain's tenosynovitis, left M65.4 Plan Patient has both CMC and de Quervain's. X-rays confirm probably in [place] 1 1-12 CMC arthritis on the left. This is where most of her pain is however she is also having some de Quervain's pain as well. Discussed risk benefits and alternatives to different treatment options today. 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.cmc (15923) 02/19/18958 <Electronically signed by Mattie Kunz DO> Date Mattie Kunz DO Cosigner Signature: Date (if applicable) CC: FINGER(S) MIN 2 VIEWS Observed: 02/19/2018 Status: F Source: [place] 8:53 AM [facility] Imaging Services [address] [place] [address] Finger(s) Min 2 Views MR#: [id number] Acct: [id number] Name: DAVIS JONES Rep #: [id number] : 1965 F 52 From: Ned Morton MD PCP: Jonny Manzano MD Status: REG CLI Study: Finger(s) Min 2 Views Date of Exam: 02/19/18 Exam# [id number] Ordering Dr: Mattie Kunz DO STUDY: X-RAY [...] CC: Mattie Kunz DO; Jonny Manzano MD Digital Project Manager: Signed CHIROPRACTIC REPORT Observed: 02/11/2018 Status: F Source: [place] 12:27 PM [facility] [address] [place] [address] OFFICE VISIT Date of Service: 02/05/18 MR#: [id number] Acct: [id number] Name: DAVIS JONES Rep #: [id number] : 1965 Provider: Karuna Romero D.C. Age/Sex: 52/F Location: [facility] Status: Signed Intake Intake Visit [...] PO BID tab 10/19/17 [History Confirmed 01/02/18] [facility] Medical History Back pain (Acute) Osteoarthritis (Acute) [...] Additional Codes Procedures - Manipulation: 3-4 regions (38725) Procedures - Electrical Stimulation: 15 mins (94686) 02/11/18 1227 <Electronically signed by Karuna Romero D.C.> Date Karuna Romero D.C. Cosigner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 [phone] (HP) Date:1617-72-67BV [address] [address]QPYUBMBCD, [place] [address]AM: CHECK WEBSITE 02/19/2018 Secondary NOT GIVENUNK [place] Insurance:SELF PAY [facility] Number: Effective Repository Date:2018-02-19 02/05/2018 DAVIS L Primary Insurance:[facility] DAVIS L [place] [id number] N [facility] BENNERDOB: [facility] 6924-07-43JYGHettick, [place] Number: Repository [phone]: 330 [id number] 120 () Date:8558-11-51IB [address] [address]DBPPUHJBR, [place] [address]HV: CHECK WEBSITE 02/05/2018 Secondary NOT GIVENUNK [place] Insurance:SELF PAY [facility] Number: Effective Repository Date:2018-02-05 01/02/2018 DAVIS L Primary Insurance:[facility] DAVIS L [place] [id number] N [facility]NERDOB: [facility] 6732-93-60WHUParkview Medical [facility], [place] Number: Repository [address]Cfn: 330 [id number] 120 () Date:1604-32-68DS [address] [address]KBXQMQAVO, [place] [address]IF: CHECK WEBSITE 01/02/2018 Secondary NOT GIVENUNK [place] Insurance:SELF PAY [facility] Number: Effective Repository Date:2017-12-26 01/02/2018 DAVIS L Primary NOT GIVENUNK [place] [id number] N Insurance:SELF [place]Y [place] Number: Effective Repository [phone]: 330) Date:2018-01-02120 () 12/26/2017 DAVIS L Primary Insurance:[facility] DAVIS L [place] [id number] N [facility] BENNERB: [facility] 3644-39-04PITHettick, [place] Number: Repository [address]Qiy: 330 [id number] 120 () Date:3786-72-60UX [address] [address]AVNBYOQRQ, [place] [address]YI: CHECK WEBSITE 12/26/2017 Secondary NOT GIVENUNK [place] Insurance:SELF [facility]Y [facility] Number: Effective Repository Date:2017-12-26 11/22/2017 DAVIS L Primary Insurance:[facility] DAVIS L [place] [id number] N [facility] BENNERDOB: [facility] 1479-08-67CCWParkview Medical Center, [place] Number: Repository [address]Bbv: 330 [id number] [phone] (HP) Date:9169-89-33JH [address] [address]JWBEPTCRV, [place] [address]PH: CHECK WEBSITE 11/22/2017 Secondary NOT GIVENUNK [place] Insurance:SELF PAY [facility] Number: Effective Repository Date:2017-11-22 11/01/2017 DAVIS L Primary Insurance:[facility] DAVIS L [place] [id number] N [facility] BENNERDOB: [facility] 3357-20-30ATQParkview Medical Center, [place] Number: Repository [address]Ipa: 330 [id number] [phone] (HP) Date:5109-70-14JG [address] [address]SIZGZOFFN, [place] [address]VU: CHECK WEBSITE 11/01/2017 Secondary NOT GIVENUNK [place] Insurance:SELF PAY [facility] Number: Effective Repository Date:2017-11-01 10/19/2017 DAVIS L Primary Insurance:[facility] DAVIS L [place] [id number] N [facility] BENNERDOB: [facility] 8751-28-89IOAParkview Medical Center, [place] Number: Repository [address]Dzl: 330 [id number] [phone] (HP) Date:8974-12-16NI [address] [address]AVRPDDXYF, [place] [address]NI: CHECK WEBSITE 10/19/2017 Secondary NOT GIVENUNK [place] Insurance:SELF PAY [facility] Number: Effective Repository Date:2017-10-19 10/11/2017 DAVIS L Primary Insurance:[facility] DAVIS L [place] [id number] N [facility] BENNERDOB: [facility] 5158-45-43PLPParkview Medical Center, [place] Number: Repository [address]Dzr: 330 [id number] [phone] (HP) Date:2672-11-94VO [address] [address]TDSDYBREB, [place] [address]TQ: CHECK WEBSITE 10/11/2017 Secondary NOT GIVENUNK [place] Insurance:SELF PAY [facility] Number: Effective Repository Date:2017-10-11 09/25/2017 DAVIS L Primary Insurance:[facility] DAVIS L [place] [id number] N [facility] BENNERDOB: [facility] 3520-61-21QHGHettick, [place] Number: Repository [address]Rxd: 330 [id number] [phone] (HP) Date:7052-36-24PM [address] [address]KODRTTDZM, [place] [address]XR: CHECK WEBSITE 09/25/2017 Secondary NOT GIVENUNK [place] Insurance:SELF PAY [facility] Number: Effective Repository Date:2017-10-04 09/21/2017 DAVIS L Primary Insurance:[facility] DAVIS L [place] [id number] N [facility] BENNERDOB: [facility] 6654-02-11JNRHettick, [place] Number: Repository [address]Dri: 330 [id number] 1206 (HP) Date:6105-83-67WG [address] [address]QAPWWYVZO, [place] [address]IM: CHECK WEBSITE 09/21/2017 Secondary NOT GIVENUNK [place] Insurance:SELF PAY [facility] Number: Effective Repository Date:2017-09-11 09/20/2017 DAVIS L Primary Insurance:[facility] DAVIS L [place] [id number] N [facility] BENNERDOB: [facility] 0768-50-52QCEHettick, [place] Number: Repository [address]Uhf: 330 [id number] 1206 (HP) Date:8121-48-43IB [address] [address]IQAZRJAAE, [place] [address]MG: CHECK WEBSITE 09/20/2017 Secondary NOT GIVENUNK [place] Insurance:SELF PAY [facility] Number: Effective Repository Date:2017-09-20 09/13/2017 DAVIS L Primary Insurance:[facility] DAVIS L [place] [id number] N [facility] BENNERDOB: [facility] 0981-59-14SMHSt. Mary's Medical Center [place] Number: Repository [address]Uoq: 330 [id number] [phone] (HP) Date:7944-19-07UU [address] [address]QSMRLNDIE, [place] [address]CR: CHECK WEBSITE 09/13/2017 Secondary NOT GIVENUNK [place] Insurance:SELF PAY [facility] Number: Effective Repository Date:2017-05-28 09/11/2017 DAVIS L Primary Insurance:[facility] DAVIS L [place] [id number] N [facility] BENNERDOB: [facility] 1413-83-78TZOParkview Medical Center, [place] Number: Repository [address]Sab: 330 [id number] [phone] (HP) Date:5469-09-21SJ [address] [address]KRIAQDYHP, [place] [address]GQ: CHECK WEBSITE 09/11/2017 Secondary NOT GIVENUNK [place] Insurance:SELF PAY [facility] Number: Effective Repository Date:2017-09-04 09/06/2017 DAVIS L Primary Insurance:[facility] DAVIS L [place] [id number] N [facility] BENNERDOB: [facility] 7659-70-85NBEParkview Medical Center, [place] Number: Repository [address]Vgl: 330 [id number] [phone] (HP) Date:2640-89-43KI [address] [address]XQCEFITYY, [place] [address]QT: CHECK WEBSITE 09/06/2017 Secondary NOT GIVENUNK [place] Insurance:SELF PAY [facility] Number: Effective Repository Date:2017-09-06 08/16/2017 DAVIS L Primary Insurance:[facility] DAVIS L [place] [id number] N [facility] BENNERDOB: [facility] 0076-53-42WACHettick, [place] Number: Repository 94[address]Zbw: 330 [id number] [phone] (HP) Date:8659-42-76AR [address] [address]TGGSGLKVA, [place] [address]FT: CHECK WEBSITE 08/16/2017 Secondary NOT GIVENUNK [place] Insurance:SELF PAY [facility] Number: Effective Repository Date:2017-08-16 08/02/2017 DAVIS L Primary Insurance:[facility] DAVIS L [place] [id number] N [facility] BENNERDOB: [facility] 7865-47-54OGYHettick, [place] Number: Repository [address]Sjo: 330 [id number] 1206 () Date:3323-29-06PW [address] [address]YFVVGZRFX, [place] [address]KK: CHECK WEBSITE 08/02/2017 Secondary NOT GIVENUNK [place] Insurance:SELF PAY [facility] Number: Effective Repository Date:2017-08-02 07/26/2017 DAVIS L Primary Insurance:[facility] DAVIS L [place] [id number] N [facility] CENT[facility]ERB: [facility] 4199-68-59IIQHettick, [place] Number: Repository [address]Trt: 330 [id number] 1206 () Date:7593-62-23TG [address] [address]HDTKNLGHW, [place] [address]GQ: CHECK WEBSITE 07/26/2017 Secondary NOT GIVENUNK [place] Insurance:SELF PAY [facility] Number: Effective Repository Date:2017-07-26 07/12/2017 DAVIS [id number] Primary Insurance:[facility] TIANAB: Dimitrios N [facility] 3203-00-79ADCAdventHealth Littleton [address]Kyj: (330) Number: Repository [phone] () [id number] Date:9048-06-91RU [address] [address]YWEVYPZBC, [place] [address]BP: CHECK WEBSITE 07/12/2017 Secondary NOT GIVENUNK [place] Insurance:SELF PAY [facility] Number: Effective Repository Date:2017-07-12 07/03/2017 DAVIS [id number] Primary Insurance:[facility] TIANAB: Dimitrios N [facility] [id number] Littleton [address]Jwk: (330) Number: Repository [phone] () [id number] Date:6082-74-72CZ [address] [address]QTVKXYJXJ, [place] [address]WI: CHECK WEBSITE 07/03/2017 Secondary NOT GIVENUNK [place] Insurance:SELF PAY [facility] Number: Effective Repository Date:2017-07-02 06/14/2017 DAVIS [id number] Primary Insurance:[facility] DAVIS MONTIELB: Dimitrios Gant [facility] [id number] V[place] [address]Tel: (330) Number: Repository [phone] () [id number] Date:6428-59-40SW [address] [address]DBCOOBGGK, [place] [address]JG: CHECK WEBSITE 06/14/2017 Secondary NOT GIVENUNK [place] Insurance:SELF PAY [facility] Number: Effective Repository Date:2017-05-15 05/29/2017 DAVIS [id number] Primary [facility] MONTIELB: Dimitrios Gant [facility] 5664-99-23WUUAdventHealth Littleton [address]Okv: (330) Number: Repository [phone] () [id number] Date:9682-71-82AD [address] [address]NUVPJTYDT, [place] [address]YX: CHECK WEBSITE 05/29/2017 Secondary NOT GIVENUNK D[place] Insurance:SELF PAY [facility] Number: Effective Repository Date:2017-05-15
== END ==
PROVIDERS: Family Provider Internal Medicine; PCP Internal Medicine; Referring Provider Orthopaedic Surgery; Visit Provider Orthopaedic Surgery
DX: M51.16 Intervertebral disc disorders with radiculopathy, lumbar region (principal)
CPT/HCPCS: 62304; 62284; 72131; 72265; Q9965

== ENCOUNTER → 2019-02-26 12:11 | Outpatient (CLI) | payer OTHER, SELFPAY ==
[2019-02-26 11:09] VITALS: BMI 35.2
--- NOTE | 2019-02-26 12:14 | RAD_ITS ---
STUDY: X-RAY - PELVIS REASON FOR EXAM: Female, 53 years old. Trauma TECHNIQUE: One view of the pelvis was obtained. COMPARISON: None. FINDINGS: There is a non-specific bowel gas pattern. Normal visualized soft tissue structures. Normal bilateral iliac wings, sacroiliac joints and visualized sacrum. Normal visualized bilateral superior and inferior pubic rami. Normal pubic symphysis. Normal ischial tuberosities. Normal visualized right femoral head. Normal right acetabulum. Normal right hip joint. Normal visualized left femoral head. Normal left acetabulum. Normal left hip joint. RAD/Pelvis 1 or 2 Views IMPRESSION: Normal x-ray examination of the pelvis. Electronically Signed: Clement Benavides MD at 18:11 EST , Service support ,
--- NOTE | 2019-02-26 12:14 | CT_ITS ---
STUDY: CT BRAIN WITHOUT CONTRAST REASON FOR EXAM: Female, 53 years old. Concussion following head injury. Photophobia. RADIATION DOSAGE (If Supplied By Facility): CTDIvol = ( 44.99 ) mGy, DLP = ( 745.49 ) mGycm TECHNIQUE: Transaxial CT imaging of the brain was performed without administration of intravenous contrast material. Individualized dose optimization techniques were used for this CT. COMPARISON: No relevant priors. FINDINGS: Normal soft tissue structures. Normal calvarium. Normal size ventricles and extra-axial spaces for the patient's age. Normal white matter tracts of the cerebral hemispheres. Normal basal ganglia and thalami. Normal brainstem. Normal cerebellum. There is no intracranial hemorrhage. There are no findings of an acute ischemic infarction. Normal visualized paranasal sinuses. CT/Brain/Head without Contrast IMPRESSION: Normal unenhanced CT scan of the brain. Electronically Signed: Ez Mascorro, at 12:55 EST , Service support ,
--- NOTE | 2019-02-26 12:14 | RAD_ITS ---
STUDY: X-RAY - SACRUM/COCCYX REASON FOR EXAM: Female, 53 years old. Struck by a horse TECHNIQUE: 3 view(s) of the sacrum and coccyx were obtained. COMPARISON: None. FINDINGS: Normal bilateral sacroiliac joints. Normal visualized sacral ala and fused sacral bodies. Normal sacrococcygeal junction with a normal angulation. Normal coccygeal segments. The presacral soft tissue structures are unremarkable. There are posterior spinal fusion changes with rods and interpeduncular screws from L3 to S1. There are status post laminectomy changes of L4 and L5. RAD/Sacrum-Coccyx min 2 Views IMPRESSION: Normal x-rays of the sacrum and coccyx. Posterior spinal fusion with rods and interpeduncular screws from L3 to S1. Electronically Signed: Clement Benavides MD at 17:17 EST , Service support ,
== END ==
PROVIDERS: Family Provider Internal Medicine; PCP Internal Medicine; Referring Provider Nurse Practitioner Family; Visit Provider Nurse Practitioner Family
DX: S06.0X9A Concussion with loss of consciousness of unspecified duration, initial encounter (principal); H53.149 Visual discomfort, unspecified; W55.12XA Struck by horse, initial encounter
CPT/HCPCS: 70450; 72170; 72220

== ENCOUNTER → 2019-03-05 17:00 | Outpatient (CLI) | payer OTHER, SELFPAY ==
[2019-03-05 16:28] VITALS: BMI 35.2
[2019-03-06 12:44] LABS: Color, Urine Yellow (Yellow); Glucose, Dipstick Normal (Normal); Ketone-Dipstick Negative (Negative); Leukocyte Esterase-Dipstick 500 /ul (Negative); Nitrite-Dipstick Positive (Negative); Occult Blood-Urine 50 /ul (Negative); Protein-Dipstick 30 mg/dl (Negative); Urine Bilirubin Dipstick Negative (Negative); Urine Clarity Sl. Cloudy (Clear); Urine Urobilinogen Normal (Normal); Urine pH 6.5 (5.0 - 8.0)
[2019-03-06 13:12] LABS: Bacteria 3+ /hpf (None Seen); Red Blood Cells-Urine 0-5 SEEN /hpf (0-5); Squamous Epithelial Cells - UA 0-5 SEEN /hpf (5-10); White Blood Cells 50-100 SEEN /hpf (0-5)
[2019-03-06 13:13] LABS: Mucous, Urine 1+ /hpf (<or=2+)
== END ==
PROVIDERS: Family Provider Internal Medicine; PCP Internal Medicine; Visit Provider Nurse Practitioner Family
DX: R30.0 Dysuria (principal)
CPT/HCPCS: 81001; 87077; 87086; 87088; 87186

== ENCOUNTER → 2019-03-26 16:53 | Outpatient (CLI) | payer OTHER, SELFPAY ==
[2019-03-19 16:11] VITALS: BMI 35.6
[2019-03-26 17:38] LABS: Amphetamine Urine VISTA NEGATIVE (<1000 ng/mL); Barbiturate Urine VISTA NEGATIVE (< 200 ng/mL); Benzodiazepine Urine VISTA NEGATIVE (< 200 ng/mL); Cocaine Urine VISTA NEGATIVE (< 300 ng/mL); Ecstacy Urine VISTA NEGATIVE (< 500 ng/mL); Methadone Urine VISTA NEGATIVE (< 300 ng/mL); PCP Urine VISTA NEGATIVE (< 25 ng/mL); THC Urine VISTA NEGATIVE (< 50 ng/mL); Vista UDS pH Range 6
== END ==
PROVIDERS: Family Provider Internal Medicine; PCP Internal Medicine; Referring Provider Anesthesiology Pain Medicine; Visit Provider Anesthesiology Pain Medicine
DX: F11.20 Opioid dependence, uncomplicated (principal)
CPT/HCPCS: 80307

== ENCOUNTER 2019-04-04 08:00 | Outpatient (RCR) | payer OTHER, SELFPAY ==
[2018-05-15 12:34] VITALS: BMI 31.7
[2018-06-04 08:08] VITALS: BMI 31.7
--- NOTE | 2018-06-06 09:08 | MASS.EVAL ---
Massage Therapy Evaluation: Initial Evaluation Date: 06/06/2018 /Age: 08 1965, 52 Diagnosis: Low Back Pain Medications: Oxycotin Tramidal Goals: Decrease muscle tension Decrease pain Improve range of motion Assessment: The patient is a good candidate for massage. She has responded well in the past. Plan: To be seen one time per month or PRN for a total of 10 visits.
--- NOTE | 2019-04-10 07:50 | MASS.DISCH ---
Massage Therapy Discharge Summary: Initial Evaluation Date: 06/06/2018 Diagnosis: LBP No. of Visits: Date of last visit: 04/04/2019 This patient is being discharged from our care at the [facility]. Thank you, Kimberlee Don LMT
== END 2019-04-04 19:00 | disposition home or self-care (01) ==
LOC: MASS 08:00
PROVIDERS: Family Provider Internal Medicine; PCP Internal Medicine; Referring Provider Anesthesiology Pain Medicine; Visit Provider Anesthesiology Pain Medicine
DX: M54.5 Low back pain (principal)
CPT/HCPCS: 97124

== ENCOUNTER → 2019-06-25 16:41 | Outpatient (CLI) | payer OTHER, SELFPAY ==
[2019-06-18 15:36] VITALS: BMI 35.6
[2019-06-25 17:44] LABS: Amphetamine Urine VISTA NEGATIVE (<1000 ng/mL); Barbiturate Urine VISTA NEGATIVE (< 200 ng/mL); Benzodiazepine Urine VISTA NEGATIVE (< 200 ng/mL); Cocaine Urine VISTA NEGATIVE (< 300 ng/mL); Ecstacy Urine VISTA NEGATIVE (< 500 ng/mL); Methadone Urine VISTA NEGATIVE (< 300 ng/mL); PCP Urine VISTA NEGATIVE (< 25 ng/mL); THC Urine VISTA NEGATIVE (< 50 ng/mL); Vista UDS pH Range 7
== END ==
PROVIDERS: PCP Internal Medicine; Referring Provider Anesthesiology Pain Medicine; Visit Provider Anesthesiology Pain Medicine
DX: F11.20 Opioid dependence, uncomplicated (principal)
CPT/HCPCS: 80307

== ENCOUNTER → 2019-07-23 13:00 | Outpatient (CLI) | payer OTHER, SELFPAY ==
[2019-06-18 15:36] VITALS: BMI 35.6
== END ==
PROVIDERS: PCP Internal Medicine; Referring Provider Nurse Practitioner Family; Visit Provider Nurse Practitioner Family
DX: J02.9 Acute pharyngitis, unspecified (principal)
CPT/HCPCS: 87804; 87880

== ENCOUNTER → 2019-09-09 14:34 | Outpatient (CLI) | payer OTHER, SELFPAY ==
[2019-09-09 14:31] VITALS: BMI 35.6
--- NOTE | 2019-09-09 14:34 | RAD_ITS ---
STUDY: X-RAY - LEFT HAND, ATTENTION THUMB REASON FOR EXAM: Chronic pain, arthritis. TECHNIQUE: 3 view(s) of the finger were obtained. COMPARISON: Radiographs 02/19/2018. FINDINGS: There is joint space narrowing of the first carpometacarpal joint similar to the prior study. Normal metacarpal. Normal metacarpophalangeal joint. Normal proximal phalanx. Normal distal phalanx. Normal interphalangeal joint. RAD/Finger(s) Min 2 Views IMPRESSION: Arthrosis of the first carpometacarpal joint. Electronically Signed: Ned Morton MD at 15:31 EDT Tel , Service support ,
== END ==
PROVIDERS: PCP Internal Medicine; Referring Provider Orthopaedic Surgery; Visit Provider Orthopaedic Surgery
DX: M79.645 Pain in left finger(s) (principal)
CPT/HCPCS: 73140

== ENCOUNTER → 2019-10-16 | Outpatient (CLI) | payer OTHER, SELFPAY ==
[2019-10-16 15:50] VITALS: BMI 35.6
[2019-10-16 16:28] LABS: Bacteria 0 SEEN /hpf (None Seen); Mucous, Urine 0 SEEN /hpf (<or=2+)
[2019-10-16 16:54] LABS: Color, Urine Yellow (Yellow); Glucose, Dipstick Normal (Normal); Ketone-Dipstick 5 mg/dl (Negative); Leukocyte Esterase-Dipstick 500 /ul (Negative); Nitrite-Dipstick Positive (Negative); Occult Blood-Urine 250 /ul (Negative); Protein-Dipstick 100 mg/dl (Negative); Urine Bilirubin Dipstick Negative (Negative); Urine Clarity Cloudy (Clear); Urine Urobilinogen 1 mg/dl (Normal)
[2019-10-16 17:30] LABS: Red Blood Cells-Urine > 100 SEEN /hpf (0-5); White Blood Cells 50-100 SEEN /hpf (0-5)
[2019-10-16 17:31] LABS: Squamous Epithelial Cells - UA 0-5 SEEN /hpf (5-10)
== END | disposition home or self-care (01) ==
PROVIDERS: PCP Internal Medicine; Referring Provider Internal Medicine; Visit Provider Internal Medicine
DX: R30.0 Dysuria (principal)
CPT/HCPCS: 81001; 87086; 87088

== ENCOUNTER → 2020-01-12 12:11 | Outpatient (CLI) | payer OTHER, SELFPAY ==
[2020-01-09 09:17] VITALS: BMI 35.6
[2020-01-12 12:18] LABS: Lyme Ab Screen Interpretation REF LAB
[2020-01-12 16:59] LABS: ALB/GLOB Ratio 0.9 RATIO (0.9-2.4); AST(SGOT) 14 U/L (15-37); Alanine Aminotransfer ALT/SGPT 21 U/L (13-56); Albumin, Serum 3.5 g/dL (3.2-5.0); Alkaline Phosphatase 88 U/L (45-117); Anion Gap 5 (5-15); BUN 15 mg/dL (7-18); BUN/Creat Ratio 17.7 RATIO (10-20); Calcium,Total 8.9 mg/dL (8.5-10.1); Chloride 107 mmol/L (98-107); Creatinine, Serum 0.85 mg/dL (0.55-1.02); EST Glomerular Filtration Rate 75 mL/min (>60); Est Glom Filt Rate - Afr Amer 91 mL/min (>60); Globulin 3.7 g/dL (2.2-4.2); Glucose 107 mg/dL (74-106); Potassium 3.7 mmol/L (3.5-5.1); Protein, Total 7.2 g/dL (6.4-8.2); Rheumatoid Factor < 10.0 IU/mL (<15); Sodium Level 141 mmol/L (136-145)
[2020-01-12 17:13] LABS: Absolute Lymphocyte Count 2.06 X10^3/uL (0.83-4.51); Absolute Neutrophil Count 2.4 X10^3/uL (2.0-7.7); Basophil# 0.03 X10^3/uL; Basophil% 0.6 % (0-1); Eosinophil# 0.06 X10^3/uL; Eosinophils% 1.2 % (0-5); Hematocrit 39.1 % (37-47); Hemoglobin 12.6 g/dL (12.0-15.0); Lymphocyte # 2.06 X10^3/ul (4.0); Lymphocyte % 41.4 % (19-41); Mean Corp Hgb Conc 32.2 g/dL (32-36); Mean Corpuscular Volume 93.1 fL (81-99); Mean Platelet Vol. 9.9 fl (6.2-12.0); Monocyte# 0.39 X10^3/uL; Monocyte% 7.8 % (0-10); NRBC Flagged by Analyzer 0 % (0-5); Neutrophil # 2.43 X10^3/uL (2.7-7.7); Neutrophil % 48.8 % (47-70); Platelet Count 319 K/mm3 (150-450); RBC Distribution Width CV 12.3 % (11.6-14.6); RBC Distribution Width SD 42.4 fl (35.1-43.9)
[2020-01-12 17:27] LABS: Erythrocyte Sedimentation Rate 5 mm/hr (0-30)
[2020-01-14 15:20] LABS: ANTINUCLEAR ANTIBODIES DIRECT Negative (Negative)
[2020-01-20 16:08] LABS: CCP IgG Antibodies 3 units (0-19); HLA B27 Negative (.); Lyme Scn Total Ab w/Rflx <0.91 ISR (0.00-0.90)
== END ==
PROVIDERS: Physician Assistant; PCP Internal Medicine; Referring Provider Internal Medicine; Visit Provider Internal Medicine
DX: M13.0 Polyarthritis, unspecified (principal); M25.50 Pain in unspecified joint
CPT/HCPCS: 36415; 80053; 81374; 85025; 85652; 86038; 86140; 86200; 86431; 86618

== ENCOUNTER → 2020-01-22 08:06 | Outpatient (CLI) | payer OTHER, SELFPAY ==
[2020-01-09 09:17] VITALS: BMI 35.6
--- NOTE | 2020-01-22 08:08 | US_ITS ---
STUDY: RENAL ULTRASOUND - COMPLETE REASON FOR EXAM: Female, 54 years old. Uti TECHNIQUE: Ultrasound evaluation of the kidneys was performed with real-time and static peres-scale imaging. COMPARISON: None. FINDINGS: RIGHT KIDNEY: Normal location of the right kidney, which is normal in size. The right kidney measures 10.2 cm x 4.5 cm x 5.0 cm. There is a normal cortex of the right kidney. The renal cortex measures 1.6 cm. There is no right renal mass or cyst. There are no right renal calculi. There is no right hydronephrosis. DISTAL RIGHT URETER: There is non-visualization of the distal right ureter. There is no demonstrated right ureterovesical junction calculus. There is no demonstrated right ureteral jet. LEFT KIDNEY: Normal location of the left kidney, which is normal in size. The left kidney measures 10 cm x 4.4 cm x 5.1 cm. There is a normal cortex of the left kidney. The renal cortex measures 1.8 cm. There is no left renal mass or cyst. There are no left renal calculi. There is no left hydronephrosis. DISTAL LEFT URETER: There is non-visualization of the distal left ureter. There is no demonstrated left ureterovesical junction calculus. There is no demonstrated left ureteral jet. BLADDER: The bladder is empty at the time of examination. US/Kidney and Bladder IMPRESSION: Normal ultrasound of the kidneys. Electronically Signed: Ez Mascorro, at 10:47 EDT , Service support ,
== END ==
PROVIDERS: PCP Internal Medicine; Visit Provider Urology
DX: N39.0 Urinary tract infection, site not specified (principal)
CPT/HCPCS: 76770

== ENCOUNTER 2020-02-06 06:02 | Day surgery (SDC) | payer OTHER, SELFPAY ==
[2020-01-09 09:17] VITALS: BMI 35.6
[2020-02-06 06:26] VITALS: BP 136/75; PULSE 88; RESP 18; TEMP 36.2; O2SAT 99; BMI 37.0
[2020-02-06] MEDS: Lactated Ringers 1,000 ML 100 ML IV (06:41)
[2020-02-06] MEDS: Cefazolin 2 GM in 0.9% Normal Saline 100 ML IV (08:26)
[2020-02-06] MEDS: Bupiv/Epi 0.25% 30 ML Vial (08:29)
[2020-02-06 08:49] VITALS: BP 136/75; BP 148/92; PULSE 99; RESP 18; TEMP 36.4; O2SAT 96
[2020-02-06 08:55] VITALS: BP 136/75; BP 151/84; PULSE 97; RESP 16; O2SAT 99
[2020-02-06 09:00] VITALS: BP 136/75; BP 145/90; PULSE 91; RESP 18; O2SAT 99
[2020-02-06 09:09] VITALS: BP 136/75; BP 146/94; PULSE 82; RESP 16; TEMP 37.3; O2SAT 100
[2020-02-06 09:58] VITALS: BP 136/75; BP 144/92; PULSE 85; RESP 16; TEMP 37.2; O2SAT 100
== END 2020-02-06 10:00 | disposition home or self-care (01) ==
LOC: SDC 06:02 → AC 06:03
PROVIDERS: Anesthesiology; PCP Internal Medicine; Referring Provider Anesthesiology Pain Medicine; Visit Provider Anesthesiology Pain Medicine
PROC: (CPT 63688; principal; 2020-02-06 07:15)
DX: Z45.42 Encounter for adjustment and management of neurostimulator (principal); M96.1 Postlaminectomy syndrome, not elsewhere classified; M51.16 Intervertebral disc disorders with radiculopathy, lumbar region; M51.17 Intervertebral disc disorders with radiculopathy, lumbosacral region; Z11.59 Encounter for screening for other viral diseases; I10 Essential (primary) hypertension; K21.9 Gastro-esophageal reflux disease without esophagitis; F41.9 Anxiety disorder, unspecified; G25.81 Restless legs syndrome; Z78.0 Asymptomatic menopausal state; Z79.899 Other long term (current) drug therapy
CPT/HCPCS: 63688; 87635; C1820; C9803; J7120; U0003

== ENCOUNTER 2020-02-17 08:25 | Outpatient (RCR) | payer OTHER, SELFPAY ==
[2019-12-23 08:49] VITALS: BMI 35.6
== END 2020-02-21 23:59 | disposition home or self-care (01) ==
LOC: NS 08:25
PROVIDERS: PCP Internal Medicine; Visit Provider Internal Medicine
DX: Z71.3 Dietary counseling and surveillance (principal); E66.9 Obesity, unspecified; Z68.36 Body mass index [BMI] 36.0-36.9, adult
CPT/HCPCS: 97802

== ENCOUNTER → 2020-03-11 07:26 | Outpatient (CLI) | payer OTHER, SELFPAY ==
[2020-01-09 09:17] VITALS: BMI 35.6
--- NOTE | 2020-03-11 07:28 | MRI_ITS ---
STUDY: MRI LEFT HAND (ATTENTION THUMB) REASON FOR EXAM: Left thumb pain and swelling in first carpometacarpal area, no specific injury. TECHNIQUE: Standardized fat and water weighted pulse sequences were obtained in all 3 orthogonal planes. COMPARISON: Radiographs 09/09/2019. FINDINGS: There is advanced arthrosis of the first carpometacarpal articulation with chondral loss, subchondral cystic change, bone edema of the trapezium and bone edema of the first metacarpal extending into the diaphysis and neck (inversion recovery coronal images 9-13). There is a small effusion of the first carpometacarpal articulation (inversion recovery coronal image 9). Normal first metacarpophalangeal joint with intact radial and ulnar collateral ligaments. Normal interphalangeal joint of the first digit. Normal proximal and distal phalanges of the first digit. Normal flexor pollicis longus and extensor pollicis longus tendons. Normal thenar musculature. There is no discrete soft tissue mass or cyst of the thumb. Normal second through fifth carpometacarpal and metacarpophalangeal joints. Normal second through fifth metacarpals and proximal phalanges. MRI/Upper Ext/No Jt/ wo IMPRESSION: Advanced arthrosis of the first carpometacarpal articulation with bone edema and small joint effusion. Electronically Signed: Ned Morton MD at 9:38 EST Tel , Service support ,
== END ==
PROVIDERS: PCP Internal Medicine; Referring Provider Physician Assistant; Visit Provider Physician Assistant
DX: M79.642 Pain in left hand (principal)
CPT/HCPCS: 73218

== ENCOUNTER 2020-03-16 12:15 | Outpatient (RCR) | payer OTHER, SELFPAY | END 2020-03-22 23:59 | LOC: NS 12:15 | PROVIDERS: PCP Internal Medicine; Visit Provider Internal Medicine | DX: Z71.3 Dietary counseling and surveillance (principal); E66.9 Obesity, unspecified; Z68.36 Body mass index [BMI] 36.0-36.9, adult | CPT/HCPCS: 97803 ==

== ENCOUNTER 2020-04-07 07:00 | Outpatient (RCR) | payer OTHER, SELFPAY ==
[2019-03-19 16:11] VITALS: BMI 35.6
[2019-06-18 15:36] VITALS: BMI 35.6
--- NOTE | 2019-06-19 09:10 | MASS.EVAL ---
Massage Therapy Evaluation: Initial Evaluation Date: 06/19/2019 /Age: 08 1965, 53 Diagnosis: Neck and back pain Goals: Decrease pain Decrease muscle tension Assessment: Diane is a good candidate for massage at this time. We have had success helping manage her symptoms in the past. Plan: To be seen one time per month or PRN for a total of 10 one hour sessions.
--- NOTE | 2020-04-12 11:48 | MASS.DISCH ---
Massage Therapy Discharge Summary: Initial Evaluation Date: 06/19/2019 Diagnosis: Low Back Pain No. of Visits: 8 Date of last visit: 04/07/2020 This patient is being discharged from our care at the [facility]. Thank you, Kimberlee Don LMT
== END 2020-04-07 19:00 | disposition home or self-care (01) ==
LOC: MASS 07:00
PROVIDERS: Family Provider Internal Medicine; PCP Internal Medicine; Referring Provider Anesthesiology Pain Medicine; Visit Provider Anesthesiology Pain Medicine
DX: M54.2 Cervicalgia (principal); M54.9 Dorsalgia, unspecified
CPT/HCPCS: 97124

== ENCOUNTER 2020-04-13 12:15 | Outpatient (RCR) | payer OTHER, SELFPAY ==
[2020-03-16 08:43] VITALS: BMI 35.6
== END 2020-04-22 23:59 ==
LOC: NS 12:15
PROVIDERS: PCP Internal Medicine; Visit Provider Internal Medicine
DX: Z71.3 Dietary counseling and surveillance (principal); E66.9 Obesity, unspecified; Z68.36 Body mass index [BMI] 36.0-36.9, adult
CPT/HCPCS: 97803

== ENCOUNTER → 2020-04-28 09:18 | Outpatient (CLI) | payer OTHER, SELFPAY ==
[2020-04-23 00:12] VITALS: BMI 37.0
--- NOTE | 2020-04-28 09:21 | RAD_ITS ---
STUDY: X-RAY - LEFT FOOT CLINICAL: Female, 54 years old. left foot pain on the bottom of left foot by sesamoid bones, large amount of swelling about 7-8 weeks TECHNIQUE: 5 view(s) of the foot. COMPARISON: None. FINDINGS: Normal talus, calcaneus, and tarsal bones. Normal visualized subtalar, talonavicular, calcaneocuboid, tarsal and tarsometatarsal articulations. Normal metatarsi. Normal metatarsophalangeal joint of the great toe. There is a bipartite tibial sesamoid. Normal interphalangeal joint of the great toe. Normal phalanges of the great toe. Normal second through fifth metatarsophalangeal joints. Normal interphalangeal joints and phalanges of the lesser toes. The soft tissue structures are unremarkable. RAD/Foot min 3 Views IMPRESSION: Normal x-ray examination of the foot. Bipartite or less likely fractured tibial sesamoid bone. MRI may be useful. Electronically Signed: Dom Cross MD at 17:19 EST Tel , Service support ,
== END ==
PROVIDERS: PCP Internal Medicine; Referring Provider Podiatrist; Visit Provider Podiatrist
DX: M25.80 Other specified joint disorders, unspecified joint (principal)
CPT/HCPCS: 73630

== ENCOUNTER → 2020-05-14 13:06 | Outpatient (CLI) | payer OTHER, SELFPAY ==
[2020-04-23 00:12] VITALS: BMI 37.0
[2020-05-14 15:46] LABS: Erythrocyte Sedimentation Rate 4 mm/hr (0-30)
== END ==
PROVIDERS: PCP Internal Medicine
DX: M25.475 Effusion, left foot (principal); M18.12 Unilateral primary osteoarthritis of first carpometacarpal joint, left hand
CPT/HCPCS: 36415; 85652; 86140

== ENCOUNTER 2020-05-18 12:15 | Outpatient (RCR) | payer OTHER, SELFPAY ==
[2020-04-23 00:12] VITALS: BMI 37.0
== END 2020-05-23 23:59 ==
LOC: NS 12:15
PROVIDERS: PCP Internal Medicine; Visit Provider Internal Medicine
DX: Z71.3 Dietary counseling and surveillance (principal); E66.9 Obesity, unspecified; Z68.36 Body mass index [BMI] 36.0-36.9, adult
CPT/HCPCS: 97803

== ENCOUNTER 2020-06-15 12:15 | Outpatient (RCR) | payer OTHER, SELFPAY ==
[2020-04-23 00:12] VITALS: BMI 37.0
== END 2020-06-20 23:59 ==
LOC: NS 12:15
PROVIDERS: PCP Internal Medicine; Visit Provider Internal Medicine
DX: Z71.3 Dietary counseling and surveillance (principal); E66.9 Obesity, unspecified; Z68.36 Body mass index [BMI] 36.0-36.9, adult
CPT/HCPCS: 97803

== ENCOUNTER → 2020-06-15 18:07 | Outpatient (CLI) | payer OTHER, SELFPAY ==
[2020-04-23 00:12] VITALS: BMI 37.0
--- NOTE | 2020-06-15 18:12 | CT_ITS ---
STUDY: CT LEFT FOOT REASON FOR EXAM: Female, 54 years old. FRACTURE LT FOOT SESAMOID BONE,SWELLING FOR MONTHS, RADIATION DOSAGE (If Supplied By Facility): CTDIvol = ( 15.35 ) mGy, DLP = ( 453.54 ) mGycm TECHNIQUE: Thin section transaxial imaging of the foot was obtained, with sagittal and coronal reconstructed images. Individualized dose optimization techniques were used for this CT. COMPARISON: Comparison is made with prior radiograph dated 04/28/2020. FINDINGS: Normal talus, calcaneus, and tarsal bones. Normal visualized tibiotalar, subtalar, talonavicular, calcaneocuboid, tarsal and tarsometatarsal articulations. Normal metatarsi. Normal metatarsophalangeal joint of the great toe. There is a fracture of the tibial sesamoid bone. There is no evidence of union. There is sclerosis of the distal fracture fragment. This is suggestive of possible avascular necrosis. Normal interphalangeal joint of the great toe. Normal phalanges of the great toe. Normal second through fifth metatarsophalangeal joints. Normal interphalangeal joints and phalanges of the lesser toes. The soft tissue structures are unremarkable. CT/Extremity Lower without Contra IMPRESSION: Fracture of the tibiotalar sesamoid bone with sclerosis of the distal fracture fragment. Electronically Signed: Ez Mascorro MD at 15:49 EST , Service support ,
== END ==
PROVIDERS: PCP Internal Medicine; Referring Provider Podiatrist; Visit Provider Podiatrist
DX: S92.909K Unspecified fracture of unspecified foot, subsequent encounter for fracture with nonunion (principal)
CPT/HCPCS: 73700

== ENCOUNTER 2020-07-20 12:15 | Outpatient (RCR) | payer OTHER, SELFPAY ==
[2020-04-23 00:12] VITALS: BMI 37.0
[2020-06-30 09:10] VITALS: BMI 36.8
== END 2020-07-21 23:59 ==
LOC: NS 12:15
PROVIDERS: PCP Internal Medicine; Visit Provider Internal Medicine
DX: Z71.3 Dietary counseling and surveillance (principal); E66.9 Obesity, unspecified; Z68.36 Body mass index [BMI] 36.0-36.9, adult
CPT/HCPCS: 97803

== ENCOUNTER → 2020-07-23 08:38 | Outpatient (CLI) | payer OTHER, SELFPAY ==
[2020-06-30 09:10] VITALS: BMI 36.8
[2020-07-23 10:34] LABS: Amphetamine Urine VISTA NEGATIVE (<1000 ng/mL); Barbiturate Urine VISTA NEGATIVE (< 200 ng/mL); Benzodiazepine Urine VISTA NEGATIVE (< 200 ng/mL); Cocaine Urine VISTA NEGATIVE (< 300 ng/mL); Ecstacy Urine VISTA NEGATIVE (< 500 ng/mL); Methadone Urine VISTA NEGATIVE (< 300 ng/mL); PCP Urine VISTA NEGATIVE (< 25 ng/mL); THC Urine VISTA NEGATIVE (< 50 ng/mL); Vista UDS pH Range 5
== END ==
PROVIDERS: PCP Internal Medicine; Referring Provider Anesthesiology Pain Medicine; Visit Provider Anesthesiology Pain Medicine
DX: F11.20 Opioid dependence, uncomplicated (principal)
CPT/HCPCS: 80307

== ENCOUNTER 2020-07-28 13:20 | Outpatient (RCR) | payer OTHER, SELFPAY ==
[2020-06-30 09:10] VITALS: BMI 36.8
--- NOTE | 2020-07-27 17:27 | HP.PTEVAL ---
Patient's Visit Information DAVIS JONES is a 54 year old F referred to Physical Therapy by Dr. Savi Washington DPM with a diagnosis of L sesamoid pain foot. Date of Evaluation: 07/27/20 Physical Therapist: Martin Davis DPT, OCS, CSCS - Visit Plan Duration: 2 visits Plan: Molded orthoitcs and sent to [email or web address], will call to fit in shoe when ready. Goal to offload 1st met head on L with pocket to limit WB. also educated on keeping weight off front of foot in sitting using prop if needed. - Subjective L foot pain for months. Been in boot for 3 months. Insidious onset around Thanksgiving. 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 Numbness in 1 toe L. Pain is in ball of L 1 met adn 06/02 but gets wrose if on it alot. Having 3 EPAT treatments, one down. Working at [employer]. Sleep is not too bad. - Pain L met head Pain Intensity (Out of 10): 0 Pain Intensity Range: 0, 2 - Objective Avoids L met head 1 WB in stance. Walks with weight through heel on L. B pes planus. Will not let me touch 1st met head on L due to sensitivty. Ankle aROM WFL and flexibility gastroc WNL. Strength not tested today. Orthoitc molds taken and sent to [facility]. - Goals Goal 1:: Fit for and I in use of orthoitcs. Goal Time Frame: 2-4 Weeks - Rehabilitation Potential Physical Therapy Diagnosis: pain L foot limiting function Rehabilitation Potential: Fair - Anticipated Interventions Patient/Client Instruction: Educate patient on: Condition, Plan of Care For the Purpose of:: To decrease pain Orthotics: Shoe insert For the Purpose of:: To decrease pain Thank you for the opportunity to evaluate your patient. For Medicare and Medicare HMO plans, please review the plan of care and approve it. It will need to be FAXED BACK to us at [phone] for Medicare purposes. For Medicare only, by signing this I certify the plan of care. Please let me know if there are questions or concerns regarding this plan of care. Physician Signature: Date:
--- NOTE | 2020-08-18 10:51 | HP.PTDCSUM ---
It has been my pleasure to treat DAVIS JONES referred by Dr. Savi Washington DPM, with the diagnosis of L sesamoid pain foot for a total of 2 visit(s). Discharge Date: Please see the following information for a summary of their discharge status. Subjective: Ready to get orthotics in, has doctor appointment today. L met head Pain Intensity (Out of 10): Unrated Goal 1:: Fit for and I in use of orthoitcs. Goal Progress: Goal Met Plan: d/c, pt has and will wear orthotics and let me know if there are questions. If there are questions or concerns regarding this patient's physical therapy, please feel free to call me at [phone]. Thank you for the referral of this patient. Sincerely, Martin Davis, DPT, OCS, CSCS
== END 2020-07-28 19:00 | disposition home or self-care (01) ==
LOC: PT 13:20
PROVIDERS: PCP Internal Medicine; Referring Provider Podiatrist; Visit Provider Podiatrist
DX: S92.902K Unspecified fracture of left foot, subsequent encounter for fracture with nonunion (principal)
CPT/HCPCS: 97161; 97760; 97763

== ENCOUNTER → 2020-07-29 15:28 | Outpatient (CLI) | payer OTHER, SELFPAY ==
[2020-06-30 09:10] VITALS: BMI 36.8
--- NOTE | 2020-07-29 15:31 | RAD_ITS ---
STUDY: X-RAY - LEFT FOOT CLINICAL: Sesamoid fracture follow-up. TECHNIQUE: 4 view(s) of the foot. COMPARISON: Radiographs 04/28/2020. FINDINGS: Normal talus, calcaneus, and tarsal bones. Normal visualized subtalar, talonavicular, calcaneocuboid, tarsal and tarsometatarsal articulations. Normal metatarsi. Normal metatarsophalangeal joint of the great toe. There is mild bone resorption in comparison to the prior study of the nondisplaced tibial sesamoid fracture. Normal fibular sesamoid. Normal interphalangeal joint of the great toe. Normal phalanges of the great toe. Normal second through fifth metatarsophalangeal joints. Normal interphalangeal joints and phalanges of the lesser toes. The soft tissue structures are unremarkable. RAD/Foot min 3 Views IMPRESSION: Nondisplaced tibial sesamoid fracture. Electronically Signed: Ned Morton MD at 11:38 EDT Tel , Service support ,
== END ==
PROVIDERS: PCP Internal Medicine; Referring Provider Podiatrist; Visit Provider Podiatrist
DX: S92.81 Other fracture of foot (principal)
CPT/HCPCS: 73630

== ENCOUNTER 2020-08-09 12:09 | Outpatient (RCR) | payer OTHER, SELFPAY ==
[2020-06-30 09:10] VITALS: BMI 36.8
== END 2020-08-20 23:59 ==
LOC: NS 12:09
PROVIDERS: PCP Internal Medicine; Visit Provider Internal Medicine
DX: Z71.3 Dietary counseling and surveillance (principal); E66.9 Obesity, unspecified; Z68.36 Body mass index [BMI] 36.0-36.9, adult
CPT/HCPCS: 97803

== ENCOUNTER → 2020-09-15 08:53 | Outpatient (CLI) | payer OTHER, SELFPAY ==
[2020-09-15 08:41] VITALS: BMI 36.7
--- NOTE | 2020-09-15 08:54 | RAD_ITS ---
HISTORY: pain EXAMINATION/TECHNIQUE: XR Spine Lumbar Min 4 Views: 5 views COMPARISON: Lumbar CT 05/15/18 FINDINGS: VERTEBRAE: Preserved vertebral body height. No acute fracture. Stable posterior lumbar fusion hardware L3-S1 with stable fracture of the left S1 pedicle screw. Interval development of 10 mm spondylolisthesis at L2-3. Preservation of the normal lumbar lordosis. DISCS: Disc spaces are maintained. INCLUDED ABDOMEN: Included bowel gas pattern is non-obstructive. Control unit with stimulator leads passing into the lower thoracic spine. RAD/L/S Spine Min 4 Views IMPRESSION: Stable surgical changes of posterior fusion with hardware L3-S1. Stable fracture of the left S1 pedicle screw. Interval development of 10 mm spondylolisthesis at L2-3. at 1857 Reported and signed by: Barrett Gary MD Electronically Signed: Barrett Gary MD at 18:56 EDT This report is pending additional review. Service support ,
== END ==
PROVIDERS: PCP Internal Medicine; Referring Provider Orthopaedic Surgery; Visit Provider Orthopaedic Surgery
DX: M54.5 Low back pain (principal); G89.29 Other chronic pain
CPT/HCPCS: 72110

== ENCOUNTER → 2020-09-23 15:13 | Outpatient (CLI) | payer OTHER, SELFPAY ==
[2020-09-15 08:41] VITALS: BMI 36.7
--- NOTE | 2020-09-23 15:18 | RAD_ITS ---
STUDY: X-RAY - LEFT FOOT CLINICAL: Female, 54 years old. FOLLOW UP ON SESAMOID FX TECHNIQUE: 4 view(s) of the foot. COMPARISON: Left foot x-ray dated JULY 29, 2020 and April 28, 2020 FINDINGS: The bony structures are mildly demineralized. Normal talus, calcaneus, and tarsal bones. Normal visualized subtalar, talonavicular, calcaneocuboid, tarsal and tarsometatarsal articulations. Normal metatarsi. There is mild degenerative arthrosis of the metatarsophalangeal joint of the hallux with a hallux valgus deformity. There is a bipartite tibial sesamoid, normal fibular sesamoid. No interval changes noted. Normal interphalangeal joint of the great toe. Normal phalanges of the great toe. Normal second through fifth metatarsophalangeal joints. Normal interphalangeal joints and phalanges of the lesser toes. The soft tissue structures are unremarkable. There is no demonstrated fracture. RAD/Foot min 3 Views IMPRESSION: Mild hallux valgus deformity and joint space narrowing. Electronically Signed: Collin Richardson MD at 21:04 EDT , Service support ,
== END ==
PROVIDERS: PCP Internal Medicine; Referring Provider Podiatrist; Visit Provider Podiatrist
DX: S92.812A Other fracture of left foot, initial encounter for closed fracture (principal)
CPT/HCPCS: 73630

== ENCOUNTER → 2020-10-04 10:19 | Outpatient (CLI) | payer OTHER, SELFPAY ==
[2020-09-28 08:14] VITALS: BMI 36.7
[2020-10-04 12:37] LABS: Anion Gap 7 (5-15); BUN 14 mg/dL (7-18); BUN/Creat Ratio 16.9 RATIO (10-20); Calcium,Total 8.7 mg/dL (8.5-10.1); Chloride 105 mmol/L (98-107); Creatinine, Serum 0.83 mg/dL (0.55-1.02); EST Glomerular Filtration Rate 77 mL/min (>60); Est Glom Filt Rate - Afr Amer 93 mL/min (>60); Glucose 74 mg/dL (74-106); Potassium 3.8 mmol/L (3.5-5.1); Sodium Level 140 mmol/L (136-145); Vitamin D,25 Hydroxy 39.6 ng/mL
== END ==
PROVIDERS: PCP Internal Medicine; Referring Provider Podiatrist; Visit Provider Podiatrist
DX: S82.292A Other fracture of shaft of left tibia, initial encounter for closed fracture (principal)
CPT/HCPCS: 36415; 80048; 82306

== ENCOUNTER 2020-10-11 12:15 | Outpatient (RCR) | payer OTHER, SELFPAY ==
[2020-09-15 08:41] VITALS: BMI 36.7
== END 2020-10-20 23:59 ==
LOC: NS 12:15
PROVIDERS: PCP Internal Medicine; Visit Provider Internal Medicine
DX: Z71.3 Dietary counseling and surveillance (principal); E66.9 Obesity, unspecified; Z68.36 Body mass index [BMI] 36.0-36.9, adult
CPT/HCPCS: 97802; 97803

== ENCOUNTER 2020-11-01 13:58 | Outpatient (RCR) | payer OTHER, SELFPAY ==
[2020-10-13 08:48] VITALS: BMI 36.7
== END 2020-11-20 23:59 ==
LOC: NS 13:58
PROVIDERS: PCP Internal Medicine; Visit Provider Internal Medicine
DX: Z71.3 Dietary counseling and surveillance (principal); E66.9 Obesity, unspecified; Z68.36 Body mass index [BMI] 36.0-36.9, adult
CPT/HCPCS: 97803

== ENCOUNTER → 2020-11-10 08:12 | Outpatient (CLI) | payer OTHER, SELFPAY ==
[2020-10-13 08:48] VITALS: BMI 36.7
[2020-11-03 09:10] VITALS: BMI 36.7
--- NOTE | 2020-11-10 08:14 | CT_ITS ---
STUDY: CT LUMBAR SPINE WITHOUT CONTRAST REASON FOR EXAM: Female, 54 years old. BACK PAIN RADIATION DOSAGE (If Supplied By Facility): CTDIvol = ( 28.23 ) mGy, DLP = ( 721.66 ) mGycm TECHNIQUE: The patient was scanned in a multi detector CT scanner. High resolution transaxial imaging was performed. Images were obtained from L1 to S1 vertebral level. Sagittal and coronal images were reconstructed. Individualized dose optimization techniques were used for this CT. COMPARISON: Comparison is made with prior examination dated 05/15/2018 FINDINGS: There is straightening of the normal lumbar lordosis. There is no substantial scoliosis. With scan, the patient is status post laminectomy and interpedicular screw and valentina fixation at the L3-L4 and L4-L5 levels. There is also evidence of intertransverse body bone grafting. L1-2: Normal endplates. Normal disc height and morphology. Normal bilateral facet joints. Normal central canal and bilateral lateral recesses. Normal bilateral intervertebral neural foramina. L2-3: Minimal anterior listhesis of L2 on L3 most likely secondary to the facet joint osteoarthritis. No significant central canal or bilateral neural foraminal stenosis seen. L3-4: The patient is status post posterior laminectomy and interpedicular screw and valentina fixation. No evidence of stenosis L4-5: Moderate degree of disc space narrowing. Prior laminectomy and interpedicular screw and bar fixation. No significant abnormality is seen. L5-S1: Moderate degree of disc space narrowing. No evidence of stenosis. Normal visualized paraspinous soft tissue structures. CT/Spine Lumbar without Contrast IMPRESSION: Status post laminectomy and fusion at the L3-L4 and L4-L5 levels. Electronically Signed: Ez Mascorro MD at 10:55 EDT , Service support ,
== END ==
PROVIDERS: PCP Internal Medicine; Referring Provider Anesthesiology Pain Medicine; Visit Provider Anesthesiology Pain Medicine
DX: M54.9 Dorsalgia, unspecified (principal); M79.606 Pain in leg, unspecified
CPT/HCPCS: 72131

== ENCOUNTER → 2020-12-01 06:30 | Outpatient (CLI) | payer OTHER, SELFPAY ==
[2020-09-15 08:41] VITALS: BMI 36.7
[2020-11-29 10:34] VITALS: BMI 36.7
--- NOTE | 2020-12-01 13:38 | NEURO ---
NCS and/or EMG Patient Report Ordering Doctor: Barry Gatica DATE OF SERVICE: 12/01/20 Diane Mosquera presents for electrodiagnostic testing of the left upper limb. She reports a burning pain around the left thumb. Electrodiagnostic findings: Left median motor nerve demonstrates normal distal latency, amplitude and conduction velocity. Normal left ulnar motor response. Normal median ulnar F waves. Normal left median sensory latency at the wrist. Normal left ulnar and radial sensory responses. On needle EMG, all muscles tested in the left upper limb showed no evidence of denervation with normal motor unit action potentials. No denervation noted in the left cervical paraspinals. Electrodiagnostic impression: This is a normal electrodiagnostic study in the left upper limb. There is no electrodiagnostic evidence for peripheral neuropathy or cervical radiculopathy.
== END ==
PROVIDERS: PCP Internal Medicine; Referring Provider Specialist; Visit Provider Specialist
DX: R20.2 Paresthesia of skin (principal)
CPT/HCPCS: 95886; 95910

== ENCOUNTER 2020-12-13 13:26 | Outpatient (RCR) | payer OTHER, SELFPAY ==
[2020-11-17 09:09] VITALS: BMI 36.7
== END 2020-12-21 23:59 ==
LOC: NS 13:26
PROVIDERS: PCP Internal Medicine; Visit Provider Internal Medicine
DX: Z71.3 Dietary counseling and surveillance (principal); E66.9 Obesity, unspecified; Z68.36 Body mass index [BMI] 36.0-36.9, adult
CPT/HCPCS: 97803

== ENCOUNTER → 2020-12-17 12:13 | Outpatient (CLI) | payer OTHER, SELFPAY ==
[2020-12-17 15:25] LABS: Absolute Lymphocyte Count 2.42 X10^3/uL (0.83-4.51); Basophil# 0.02 X10^3/uL; Basophil% 0.3 % (0-1); Eosinophil# 0.04 X10^3/uL; Eosinophils% 0.7 % (0-5); Hematocrit 38.5 % (37-47); Hemoglobin 12.5 g/dL (12.0-15.0); Lymphocyte # 2.42 X10^3/ul (0.83-4.51); Lymphocyte % 40.9 % (19-41); Mean Corp Hgb Conc 32.5 g/dL (32-36); Mean Corpuscular Hgb 29.3 pg (27.0-32.0); Mean Corpuscular Volume 90.2 fL (81-99); Mean Platelet Vol. 9.5 fl (6.2-12.0); Monocyte# 0.44 X10^3/uL; Monocyte% 7.4 % (0-10); NRBC Flagged by Analyzer 0 % (0-5); Neutrophil # 2.99 X10^3/uL (2.7-7.7); Neutrophil % 50.5 % (47-70); Platelet Count 363 K/mm3 (150-450); RBC Distribution Width SD 42.5 fl (35.1-43.9); Red Blood Count 4.27 M/mm3 (4.2-5.4); White Blood Count 5.9 K/mm3 (4.4-11.0)
[2020-12-17 16:00] LABS: Anion Gap 6 (5-15); BUN 12 mg/dL (7-18); BUN/Creat Ratio 17.1 RATIO (10-20); Calcium,Total 8.8 mg/dL (8.5-10.1); Chloride 104 mmol/L (98-107); EST Glomerular Filtration Rate 93 mL/min (>60); Est Glom Filt Rate - Afr Amer 112 mL/min (>60); Glucose 81 mg/dL (74-106); Potassium 3.5 mmol/L (3.5-5.1); Sodium Level 139 mmol/L (136-145)
== END ==
PROVIDERS: PCP Internal Medicine; Referring Provider Specialist; Visit Provider Specialist
DX: Z01.818 Encounter for other preprocedural examination (principal)
CPT/HCPCS: 36415; 80048; 85025

== ENCOUNTER 2020-12-22 06:01 | Day surgery (SDC) | payer OTHER, SELFPAY ==
[2020-09-15 08:41] VITALS: BMI 36.7
--- NOTE | 2020-12-20 12:19 | EKG12_ITS ---
Test Reason : PRE OP Blood Pressure : / mmHG Vent. Rate : 082 BPM Atrial Rate : 082 BPM P-R Int : 152 ms QRS Dur : 084 ms QT Int : 366 ms P-R-T Axes : 054 070 036 degrees QTc Int : 427 ms Normal sinus rhythm Normal ECG Confirmed by BLANCA SU, EMMY ([id number]), editorial specialist KAI LOCO ([id number]) on 12/21/2020 8:36:09 AM Referred By: Barry Gatica Confirmed By:EMMY RIOS MD
[2020-12-22] VITALS (10 sets, daily range): BP systolic 128–152; BP diastolic 78–99; PULSE 76–107; RESP 16; TEMP 35.9–36.7; O2SAT 92–99; BMI 37.0
[2020-12-22] MEDS: Lactated Ringers 1,000 ML 100 ML IV ×2 (06:42→09:29)
[2020-12-22] MEDS: Cefazolin 1 GM/50 ML BAG IV (07:20)
--- NOTE | 2020-12-22 08:32 | PCM.OPRPT ---
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 Complete release of first dorsal compartment. 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 X-rays show joint space narrowing, subluxation of the joint and osteophyte formation as well as subchondral sclerosis. We discussed surgical intervention including first CMC arthroplasty with tendon transfer. Risks and benefits discussed included but were not limited to blood loss, DVTs, PEs, neurovascular damage, infection, general risk of anesthesia, hematoma and weakness. Patient demonstrated understanding was able to sign informed consent. Procedure: On the date of the procedure the patient's l hand was marked in the preoperative area. Patient was taken back to the operating room where they were transferred to the table in the supine position. Anesthesia assumed control the C-spine airway and remained in control throughout the remainder of the procedure. All bony prominences were identified and well-padded tourniquet was placed on the l upper extremity. The operative extremity was prepped in a sterile fashion. Surgeon then scrubbed Upon reentering the room, the right upper extremity was draped in a standard orthopedic fashion. Incision was marked out. Timeout was called everyone agreed upon the side, the site, the procedure to be performed, patient identity and antibiotics given. Esmarch bandage was used to exsanguinate the extremity. Tourniquet was placed up to 250 mmHg. Incision was taken down through skin. Blunt dissection was taken through subcutaneous tissues. Superficial nerve was identified and retracted out of the way. At this time we bluntly dissected down along the tendons of the first dorsal compartment. Once we identified the first dorsal compartment it was sharply released with scissors. Carefully identified for any additional slips none were noted. Once the compartment was completely released we directed our attention back to the joint. Radial artery was identified and retracted out of the way. Once we are able to identify the joint arthrotomy was made and the trapezium was identified. Once the trapezium was identified dorsal and volar aspects were debrided of connective tissue. Saw was then used to make a cruciform cut in an osteotomy was completed with the osteotome. Once this was done a rongeur was used to remove the bone fragments and the trapezium in its entirety. Attention was then directed towards the FCR to harvest. FCR was identified in the wrist and FiberWire suture was placed around it passed up into the forearm. We then made a small incision in the form and brought the FiberWire through. Transection of the FCR was done in the forearm. The FCR tendon was then fed down to the wrist and into the joint in the previous incision. Vicryl suture was then used to tag the end of the graft for transfer. Attention was then directed towards the proximal end of the first metacarpal. A bur was used to make a bone tunnel for tendon transfer. Loop suture was then passed through the upper holes and used to pull the graft through the bone tunnel. Once this was done a sling was made and 3-0 Ethibond suture was used to tie the tendon on itself. Once the tendon was appropriately secured anchovy was made with the remainder of the tendon. This was sewn down into the joint using 3-0 Ethibond. Copious amounts of irrigation were used throughout the procedure and prior to closure of the wound. Arthrotomy was closed with 2-0 Vicryl skin was closed with 2-0 Vicryl and 4-0 Monocryl with Steri-Strips. Xeroform dressing was placed. Sterile dressing was placed. Compressive dressing was placed. Tourniquet was let down. Well-padded splint was then placed with the thumb in abduction. Patient was then awakened by anesthesia and transferred to the PACU for recovery. Postoperative plan: Patient will remain in the splint for 2 weeks. 2 weeks we will check the incision and remove any sutures or tails. He will be transferred to a cast and abduction at that time. They will then follow standard postoperative protocol for first CMC arthroplasty with Occupational Therapy. Complications none Admit VTE Documentation VTE Present on Admission: No VTE Mechan Device Prophylaxis: SCD's VTE Pharm Prophylaxis ordered?: No Reason prophylaxis not ordered:: Procedure Not Indicated
[2020-12-22] MEDS: Ketorolac 30 MG/ML Syringe IV (09:26)
--- NOTE | 2020-12-22 09:35 | SUR.PHASEI ---
Patient is experiencing left arm pain. Elevated on pillow, ice applied per order. Continuing to medicate via PACU orders. <3 seconds cap refill, warm to touch. Supraclavicular nerve block performed in PACU. Patient still experiencing pain post block. Will continue to monitor.
--- NOTE | 2020-12-22 09:48 | SUR.PHASEI ---
No sensation in left thumb from supraclavicular block, all 4 fingers with sensation and movement at this time. Dr. Addison to bedside to consult block effectiveness.
--- NOTE | 2020-12-22 10:23 | SUR.PHASEI ---
Patient declined axillary block after consulting Dr. Addison in PACU.
[2020-12-22] MEDS: HYDROcodone Bitartrate/Apap 5/325 Tablet PO (11:19)
== END 2020-12-22 12:07 | disposition home or self-care (01) ==
LOC: SDC 06:02 → AC 06:03
PROVIDERS: PCP Internal Medicine; Referring Provider Specialist; Visit Provider Specialist
PROC: (CPT 25447; principal; 2020-12-22 07:15)
DX: M18.12 Unilateral primary osteoarthritis of first carpometacarpal joint, left hand (principal); M65.4 Radial styloid tenosynovitis [de Quervain]; I10 Essential (primary) hypertension; G89.29 Other chronic pain; E66.8 Other obesity; Z68.36 Body mass index [BMI] 36.0-36.9, adult
CPT/HCPCS: 25000; 25310; 93005; J7120; J2405

== ENCOUNTER 2021-01-03 13:12 | Outpatient (RCR) | payer OTHER, SELFPAY ==
[2020-12-22 00:20] VITALS: BMI 36.7
== END 2021-01-20 23:59 ==
LOC: NS 13:12
PROVIDERS: PCP Internal Medicine; Visit Provider Internal Medicine
DX: Z71.3 Dietary counseling and surveillance (principal); E66.9 Obesity, unspecified; Z68.36 Body mass index [BMI] 36.0-36.9, adult
CPT/HCPCS: 97803

== ENCOUNTER → 2021-01-27 12:19 | Outpatient (CLI) | payer OTHER, SELFPAY ==
--- NOTE | 2021-01-27 12:20 | BI_ITS ---
MAMMOGRAPHY - BILATERAL SCREENING REASON FOR EXAM: Female, 55 years old. Routine annual screening examination. PERTINENT HISTORY: Aunt with breast cancer. TECHNIQUE: Digital bilateral breast senait (3D mammographic acquisition) in the CC and MLO projections. 2-D mediolateral oblique (MLO) and craniocaudad (CC) views of both breasts were obtained. CAD: Full Field Digital Mammography with Computer Added Detection was performed. COMPARISON: Comparison is made with prior outside examination dated 04/02/2019 and 02/22/2017. FINDINGS: Breast Composition: The breasts are heterogeneously dense, which may obscure small masses. A 1 cm well-defined nodule in the central slightly upper deep aspect of the left breast. Ultrasound recommended. Small benign-appearing bilateral axillary lymph nodes. No other significant abnormalities are identified. BI/SCRN MAMM (CAD)W/SENAIT BILAT IMPRESSION: 1 cm well-defined nodule in the central slightly upper deep aspect of the left breast. Correlation with ultrasound is recommended. ASSESSMENT CATEGORY: BIRADS Category 0: Incomplete. Need additional imaging evaluation. A letter regarding these results will be sent to the patient by the facility within 30 days. Approximately 10% of breast cancers are not detected by mammography. A normal mammogram should not delay biopsy of a clinically suspicious abnormality. [id number] Electronically Signed: Ez Mascorro MD at 9:14 EDT , Service support ,
== END ==
PROVIDERS: PCP Internal Medicine; Referring Provider Internal Medicine; Visit Provider Internal Medicine
DX: Z12.31 Encounter for screening mammogram for malignant neoplasm of breast (principal)
CPT/HCPCS: 77063; 77067

== ENCOUNTER → 2021-02-01 13:17 | Outpatient (CLI) | payer OTHER, SELFPAY ==
--- NOTE | 2021-02-01 13:20 | BI_ITS ---
MAMMOGRAPHY - UNILATERAL DIAGNOSTIC: LEFT BREAST REASON FOR EXAM: Female, 55 years old. Abnormal screening mammogram. PERTINENT HISTORY: Aunt with breast cancer. TECHNIQUE: 90 degree lateral view and compression spot views were obtained. CAD: Full Field Digital Mammography with Computer Added Detection was performed. COMPARISON: Comparison is made with prior examination dated 01/27/2021. FINDINGS: Breast Composition: The breasts are heterogeneously dense, which may obscure small masses. There are no dominant masses or suspicious calcifications. The previously seen abnormality on the screening examination most likely represents superimposition of breast tissue. No other significant abnormalities are identified. BI/DIAG MAMM W/CAD, UNILAT IMPRESSION: Stable unilateral diagnostic mammogram. One year follow-up mammogram recommended. (A) ASSESSMENT CATEGORY: BIRADS Category 2: Benign. A letter regarding these results will be sent to the patient by the facility within 30 days. Approximately 10% of breast cancers are not detected by mammography. A normal mammogram should not delay biopsy of a clinically suspicious abnormality. Electronically Signed: Ez Mascorro MD at 14:27 EDT , Service support ,
== END ==
PROVIDERS: PCP Internal Medicine; Referring Provider Internal Medicine; Visit Provider Internal Medicine
DX: N63.20 Unspecified lump in the left breast, unspecified quadrant (principal); Z80.3 Family history of malignant neoplasm of breast
CPT/HCPCS: 77065

== ENCOUNTER 2021-02-14 13:00 | Outpatient (RCR) | payer OTHER, SELFPAY ==
[2021-01-21 00:15] VITALS: BMI 36.7
== END 2021-02-20 23:59 ==
LOC: NS 13:00
PROVIDERS: PCP Internal Medicine; Visit Provider Internal Medicine
DX: Z71.3 Dietary counseling and surveillance (principal); E66.9 Obesity, unspecified; Z68.36 Body mass index [BMI] 36.0-36.9, adult
CPT/HCPCS: 97803

== ENCOUNTER 2021-03-09 08:15 | Outpatient (RCR) | payer OTHER, SELFPAY ==
[2020-04-23 00:12] VITALS: BMI 37.0
== END 2021-03-09 19:00 | disposition home or self-care (01) ==
LOC: MASS 08:15
PROVIDERS: PCP Internal Medicine; Referring Provider Anesthesiology Pain Medicine; Visit Provider Anesthesiology Pain Medicine
DX: M54.9 Dorsalgia, unspecified (principal)
CPT/HCPCS: 97124

== ENCOUNTER 2021-03-21 11:30 | Outpatient (RCR) | payer OTHER, SELFPAY ==
[2021-02-21 00:11] VITALS: BMI 36.7
== END 2021-03-22 23:59 ==
LOC: NS 11:30
PROVIDERS: PCP Internal Medicine; Visit Provider Internal Medicine
DX: Z71.3 Dietary counseling and surveillance (principal); E66.9 Obesity, unspecified; Z68.36 Body mass index [BMI] 36.0-36.9, adult
CPT/HCPCS: 97803

== ENCOUNTER 2021-03-21 13:30 | Outpatient (RCR) | payer OTHER, SELFPAY ==
--- NOTE | 2021-01-21 10:58 | HP.OTEVAL_ITS ---
Patient's Visit Information DAVIS JONES is a 55 year old F, referred to Occupational Therapy by Wilner Jacinto PA-C, with a diagnosis of left unilateral primary osteoarthritis. Date of Evaluation: 01/21/21 Occupational Therapist: Marsha Felix, SAMMY/Zoltan, CHT - Subjective This 55 year old female was seen for OT eval with dx of left unilateral primary osteoarthritis of 1st carpometacarpal joint. pt underwent left cmc arthroplasty on 12/22/20. pt states she struggled with pain and limited use for years- pt had several cortisone shots until she decided to have reconstructive sx. pt would like to return to her PLOF. - Pain left hand 1 Pain Intensity Range: 1, 6 - ROM Wrist: right 75/75 left 35/15 CMC: right 10 left 15 MP: right 65 left 15 IP: right 65 left 20 Radial Abduction: right 35 left 30 - Strength Flanging Machine Operator: right 65 left NT Lateral Pinch: right 10# left NT Tripod Pinch: right 12# left NT - Sensation Sensation Comments: tip of left tingling from sx - Quick DASH-Disab of Arm,Shoulder& Hand Quick DASH Score: [phone] - Goals Goal:100% adherence to protocol: Yes Comment: cmc arthroplasty Goal:Daily scar massage when approriate: Yes Goal:ROM equal to unaffected hand: Yes Goal:Flanging Machine Operator/Pinch strength at least 75% of unaffected hand: Yes Goal:No pain with affected hand use: Yes Goal:Full use of affected hand in daily activities including: Yes - Rehabilitation General Assessment: pt s/p 4 weeks and 2 days from left CMC arthroplasty. pt demo with limited ROM and weakness limiting pts ind. with ADLs and IADLS. pt would benefit from skilled OT services 1-2x week for 8 weeks. Today therapist clay. custom orthosis to provide support and protection while reconstruction is healing. Therapist reviewed skin precautions and POC. pt demo understating and agree to POC. Rehabilitation Potential: Good - Anticipated Interventions A/AAROM/PROM, Strengthening, Scar Care, Modalities, Orthoses, Joint Protection/Energy Conservation, Fine Motor Coord/Domenico, Home Program - Visit Plan Frequency: 1-2x /Week Duration: 2 Months TEXT: Thank you for the opportunity to evaluate your patient. For Medicare and Medicare HMO plans, please review the plan of care and approve it. It will need to be FAXED BACK to us at [phone] for Medicare purposes. Please let me know if there are questions or concerns regarding this plan of care. Physician Signature: Date:
--- NOTE | 2021-07-28 14:39 | HP.OT.NRP ---
DAVIS JONES was seen in my office for initial evaluation on 01/21/21. The following Plan of Care was established for this patient: Initial Frequency: 1-2x /Week Initial Duration: 2 Months Plan: Cont POC Anticipated Interventions: A/AAROM/PROM, Strengthening, Scar Care, Modalities, Orthoses, Joint Protection/Energy Conservation, Fine Motor Coord/Domenico, Home Program This patient was last seen in our office 03/21/21. Pertinent comments regarding their Occupational therapy will appear below: pt was seen for 13 OT visits following a left CMC arthroplasty- pt made good gains in therapy and was using comfort cool thumb brace as needed- pt had returned to performing her ADLs and IADls at IND. level- pt continues to demo with a hyper extension at her MPJ- use of exercise and bracing was rec. pt demo understanding- pt d/c at this time due to time lapse in services. At this point I will be discontinuing this patient from occupational therapy. I would be happy to see this patient again in the future if found appropriate by the physician. Thank you! Marsha Felix, OTR/L, CHT
== END 2021-03-21 19:00 | disposition home or self-care (01) ==
LOC: OT 13:30
PROVIDERS: PCP Internal Medicine; Referring Provider Physician Assistant Surgical; Visit Provider Physician Assistant Surgical
DX: M18.12 Unilateral primary osteoarthritis of first carpometacarpal joint, left hand (principal)
CPT/HCPCS: 97035; 97110; 97140; 97166; 97530; 97760; 97763

== ENCOUNTER 2021-04-11 16:32 | Outpatient (RCR) | payer OTHER, SELFPAY ==
[2021-03-23 00:16] VITALS: BMI 36.7
== END 2021-04-22 23:59 ==
LOC: NS 16:32
PROVIDERS: PCP Internal Medicine; Visit Provider Internal Medicine
DX: Z71.3 Dietary counseling and surveillance (principal); E66.9 Obesity, unspecified; Z68.36 Body mass index [BMI] 36.0-36.9, adult
CPT/HCPCS: 97803

== ENCOUNTER 2021-05-02 12:21 | Outpatient (RCR) | payer OTHER, SELFPAY ==
[2021-04-23 00:17] VITALS: BMI 36.7
== END 2021-05-23 23:59 ==
LOC: NS 12:21
PROVIDERS: PCP Internal Medicine; Visit Provider Internal Medicine
DX: E66.9 Obesity, unspecified (principal); Z71.3 Dietary counseling and surveillance; Z68.36 Body mass index [BMI] 36.0-36.9, adult
CPT/HCPCS: 97803

== ENCOUNTER 2021-06-08 08:25 | Outpatient (CLI) | payer OTHER, SELFPAY ==
[2021-06-08 08:30] LABS: Mucous, Urine 0 SEEN /hpf (<or=2+)
[2021-06-08 10:34] LABS: Color, Urine Brown (Yellow); Glucose, Dipstick Normal (Normal); Ketone-Dipstick 5 mg/dl (Negative); Leukocyte Esterase-Dipstick 500 /ul (Negative); Nitrite-Dipstick Positive (Negative); Occult Blood-Urine 250 /ul (Negative); Protein-Dipstick 500 mg/dl (Negative); Urine Clarity Cloudy (Clear); Urine Urobilinogen 12 mg/dl (Normal)
[2021-06-08 10:39] LABS: Urine Bilirubin Dipstick 6 mg/dL (Negative)
[2021-06-08 10:46] LABS: Anion Gap 6 (5-15); BUN 12 mg/dL (7-18); BUN/Creat Ratio 13.4 RATIO (10-20); Calcium,Total 8.7 mg/dL (8.5-10.1); Chloride 104 mmol/L (98-107); EST Glomerular Filtration Rate 70 mL/min (>60); Est Glom Filt Rate - Afr Amer 84 mL/min (>60); Glucose 107 mg/dL (74-106); Potassium 3.3 mmol/L (3.5-5.1); Sodium Level 141 mmol/L (136-145)
[2021-06-08 10:53] LABS: Bacteria 1+ /hpf (None Seen); Red Blood Cells-Urine 25-50 SEEN /hpf (0-5); Squamous Epithelial Cells - UA 0-5 SEEN /hpf (5-10); White Blood Cells 25-50 SEEN /hpf (0-5)
[2021-06-08 11:00] LABS: T4 Free Direct 0.88 ng/dL (0.76-1.46); Thyroid Stim Hormone (TSH) 0.73 uIU/mL (0.358-3.74)
== END 2021-06-08 23:59 | disposition home or self-care (01) ==
LOC: MTLAB 08:27
PROVIDERS: Physician Assistant; PCP Internal Medicine; Referring Provider Internal Medicine; Visit Provider Internal Medicine
DX: R39.15 Urgency of urination (principal); I10 Essential (primary) hypertension; R00.0 Tachycardia, unspecified; N39.0 Urinary tract infection, site not specified
CPT/HCPCS: 36415; 80048; 81001; 84439; 84443; 87077; 87086; 87088; 87186

== ENCOUNTER 2021-06-14 12:45 | Outpatient (RCR) | payer OTHER, SELFPAY ==
[2021-05-24 00:21] VITALS: BMI 36.7
== END 2021-06-20 23:59 ==
LOC: NS 12:45
PROVIDERS: PCP Internal Medicine; Referring Provider Internal Medicine; Visit Provider Internal Medicine
DX: E66.9 Obesity, unspecified (principal); Z71.3 Dietary counseling and surveillance; Z68.36 Body mass index [BMI] 36.0-36.9, adult
CPT/HCPCS: 97803

== ENCOUNTER 2021-06-21 10:05 | Outpatient (CLI) | payer OTHER, SELFPAY ==
[2021-06-21 11:50] LABS: Amphetamine Urine VISTA NEGATIVE (<1000 ng/mL); Barbiturate Urine VISTA NEGATIVE (< 200 ng/mL); Benzodiazepine Urine VISTA NEGATIVE (< 200 ng/mL); Cocaine Urine VISTA NEGATIVE (< 300 ng/mL); Ecstacy Urine VISTA NEGATIVE (< 500 ng/mL); Methadone Urine VISTA NEGATIVE (< 300 ng/mL); PCP Urine VISTA NEGATIVE (< 25 ng/mL); THC Urine VISTA NEGATIVE (< 50 ng/mL); Vista UDS pH Range 7
== END 2021-06-21 23:59 | disposition home or self-care (01) ==
LOC: LAB 10:07
PROVIDERS: PCP Internal Medicine; Referring Provider Anesthesiology Pain Medicine; Visit Provider Anesthesiology Pain Medicine
DX: F11.20 Opioid dependence, uncomplicated (principal)
CPT/HCPCS: 80307

== ENCOUNTER 2021-07-11 12:48 | Outpatient (RCR) | payer OTHER, SELFPAY ==
[2021-06-21 00:23] VITALS: BMI 36.7
== END 2021-07-21 23:59 ==
LOC: NS 12:48
PROVIDERS: PCP Internal Medicine; Referring Provider Internal Medicine; Visit Provider Internal Medicine
DX: E66.9 Obesity, unspecified (principal); Z71.3 Dietary counseling and surveillance; Z68.36 Body mass index [BMI] 36.0-36.9, adult
CPT/HCPCS: 97803

== ENCOUNTER 2021-08-04 13:34 | Outpatient (CLI) | payer OTHER, SELFPAY ==
--- NOTE | 2021-08-04 11:33 | EKG12_ITS ---
Test Reason : TACHY ARRYTHMIA Blood Pressure : / mmHG Vent. Rate : 074 BPM Atrial Rate : 074 BPM P-R Int : 152 ms QRS Dur : 082 ms QT Int : 388 ms P-R-T Axes : 021 040 018 degrees QTc Int : 430 ms Normal sinus rhythm Normal ECG Confirmed by DESTINY SU, ELLA ([id number]), editorial writer KAI LOCO ([id number]) on 08/05/2021 1:06:29 PM Referred By: ROSELYN Confirmed By:PRASANTH DIXON MD
== END 2021-08-04 23:59 | disposition home or self-care (01) ==
LOC: PSN 08-11 13:34
PROVIDERS: PCP Internal Medicine; Visit Provider Internal Medicine
DX: R00.0 Tachycardia, unspecified (principal)
CPT/HCPCS: 93005; 93225; 93226

== ENCOUNTER 2021-10-04 12:00 | Outpatient (RCR) | payer OTHER, SELFPAY ==
--- NOTE | 2021-09-05 13:05 | HP.PTEVAL_ITS ---
Patient's Visit Information DAVIS JONES is a 55 year old F referred to Physical Therapy by Dr. Kenton Colse, DO with a diagnosis of THORACIC SPRAIN/STRAIN. Date of Evaluation: 09/05/21 Physical Therapist: Kelly Blake, PT, Cert MDT - Visit Plan Frequency: 2-3x /Week Duration: 4-6 Weeks Plan: START VERY SLOW AND TEST RE-ENTRY ON TO LAND AFTER A SHORT TIME IN THE POOL AT LEAST VISITS ONE AND TWO PLEASE. AQUATIC THERAPY FOR PAIN RELEIF, POSTURE CORRECTION/STRENGTHENING, INSTRUCTION IN APPROPRIATE BODY MECHANICS AND ACTIVITY MODIFICATIONS. DLS STARTING WITH A NEUTRAL SPINE PROGRESSING ROM TOLERATED. MILTON LE ROM, STRETCHING AND STRENGTHENING. HEP INSTRUCTION. 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 OFF WORK SINCE LAST SUNDAY PER DR. COLES. NO PENDING RTW DATE BUT OFF AT LEAST TWO WEEKS UNTIL FOLLOW UP WITH DR. COLES 09/16/21. Disability: NO. Present symptoms: MILTON LE PAIN, NUMBNESS AND TINGLING. LEFT > RIGHT. THORACIC PAIN AND TIGHTNESS. LOW BACK PAIN. LIKE A LEG CRAMP IN MY BACK. PATIENT REPORTS ALL OF HER SYMPTOMS ARE CHRONIC BUT SHE STARTED TO NOTICE A NEW SYMPTOM, TIGHTNESS IN HER THORACIC REGION RECENTLY AND HER LE SX'S ARE WORSENING. Present since: SUNDAY EVENING - THORACIC. Pain Scale: WORSE 7/10, LEAST 3/10. Currently: 08/30. Commenced as a result of: NO APPARENT REASON. Symptoms at onset: THORACIC TIGHTNESS. Worse: STANDING IN ONE POSITION, BENDING, STAIRS, LIFTING ANYTHING, TAKING A SHOWER, DOING THE DISHES, ANY HOUSEHOLD WORK, WALKING TO THE BARN TO TAKE CARE OF THE ANIMALS. Better: HEAT, MEDICINE - PERCOCET, SITTING, LYING DOWN. Disturbed sleep: YES. Previous history/Previous treatment: BACK SURGERY 2009. STIMULATOR PLACEMENT 2011. SEE 01/31/18 PT [facility] FOR EXTENSIVE HISTORY. Treatment this episode: PT CONSULT. Coughing/sneezing/straining: UNKNOWN. Gait: I FEEL LIKE I AM HUNCHED OVER AND MY LEGS FEEL WEAKER, ACHIER AND MORE PAINFUL THAN USUAL. UNABLE TO WALK 1/4 MILE NOW. PATIENT REPORTS INCREASED TIGHTNESS AND PAIN JUST WALKING BACK TO TREATMENT ROOM FROM LOBBY. Difficulty initiating urination: NO. Bowel or Bladder Dysfunction: NO. Unexplained weight loss: NO. Imaging: RECENT THORACIC X-RAY: STUDY: X-RAY - THORACIC SPINE. REASON FOR EXAM: Female, 55 years old. pain. TECHNIQUE: XR Spine Thoracic 2 Views. COMPARISON: None. . FINDINGS: Normal kyphosis of the thoracic spine. There is scoliosis. There is. demineralization of the thoracic spine with endplate spondylosis. There is. multilevel disc space narrowing of the thoracic spine. There is a right. side sided subcutaneous implanted electronic device with leads extending. into the spinal canal. This is likely an SCS (spinal cord stimulator). The soft tissue structures are unremarkable. . RAD/Thoracic Spine 2 Views. IMPRESSION: There are degenerative changes as noted above. . Electronically Signed: Juan Ramon العلي MD. at 17:12 EDT. Reading Location ID and State: [address] [place] [address]. , Service support , . 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 - Objective Sitting/Standing Posture: POOR. SCOLIOSIS. INCREASED TRUNK FLEXION. Active Correction of posture: PATIENT C/O INCRASED PAIN IN BACK AND LEGS IMMEDIATELY UPON RISING FROM SITTING. C/O LEFT LEG SHAKING UPON STANDING X 30 SEC. Other Observations: DIFFICULTY RISING FROM SITTING AND INITIATING GAIT. INDEP GAIT X APPROX 300 FEET WITHOUT AD, WITHOUT LOB BUT DECREASED CADANCE, INCREASED TRUNK FLEXION AND DECREASED MILTON STRIDE LENGTH. Sensory deficit: L THIGH HYPERSENSATIVITY COMPARED TO RIGHT BUT OTHERWISE GROSSLY DECREASED LIGHT TOUCH SENSATION LLE COMPARED TO RIGHT. ROM deficit: TIGHT MILTON LE HIP FLEXORS, HS'S AND GASTROC SOLEUS COMPLEX'S. Motor deficit: MILTON HIPS 4/5. MILTON KNEES AND ANKLES GROSSLY 5/5. Dural Signs: POSITIVE MILTON LE'S. Lumbar mvmt loss: flex - MOD. ext - TAL. R SG - MOD. L SG - MOD. PATIENT C/O INCREASED PINCHING IN BACK AND PAIN IN LEGS WITH LUMBAR ROM TESTING ALL PLANES. Core strength: POOR. Palpation: RIGHT LOWER THORACIC TENDERNESS. INCREASED MUSCLE TONE MILTON THORACIC AND LUMBAR PARASPINALS. TREATMENT: NEUROMUSCULAR REEDUCATION - RETRAINING OF MVMT AND POSTURE FOR SITTING, LYING AND STANDING ACTIVITIES. - Balance/Special Test Scores Oswestry Low Back Score: 25 - Goals Goal 1:: DECREASE C/O BACK AND LE'S SX'S. Goal Time Frame: 4-6 Weeks Goal 2:: IMPROVE PERSONAL CARE, LIFTING, WALKING, SITTING, STANDING, SLEEP, SOC IAL LIFE, TRAVEL AND HOMEMAKING FUNCTION. Goal Time Frame: 4-6 Weeks Goal 3:: INSTRUCT IN PROPHYLAXIS Goal Time Frame: 4-6 Weeks - Anticipated Interventions Patient/Client Instruction: Educate patient on: Condition, Plan of Care, Risk Factors For the Purpose of:: To improve self management Therapeutic Exercise to Include: Strength training, Body mechanics, Postural training, Flexibilty training, Neuromotor development, In an aquatic setting, Dynamic Lumbar Stabilization For the Purpose of:: To decrease pain, To increase ROM, To improve muscle performance and motor function, To increase tolerance to ac tivity/condition/position, To improve ability of physical actions for home/community/work/leisure, To improve gait and locomotor functions Thank you for the opportunity to evaluate your patient. For Medicare and Medicare HMO plans, please review the plan of care and approve it. It will need to be FAXED BACK to us at [phone] for Medicare purposes. For Medicare only, by signing this I certify the plan of care. Please let me know if there are questions or concerns regarding this plan of care. Physician Signature: __Date:
--- NOTE | 2022-01-31 12:12 | HP.PTDCSUM ---
It has been my pleasure to treat DAVIS JONES referred by Dr. Kenton Coles DO, with the diagnosis of THORACIC SPRAIN/STRAIN for a total of 11 visit(s). Discharge Date: 10/04/21 Please see the following information for a summary of their discharge status. Subjective: PATIENT REPORTS DR. COLES TOLD HER SHE COULD DO PT BUT IT WOULDN'T HELP. PATIENT REPORTS HE TOLD HER SHE EITHER CAN DEAL WITH THE PAIN OR GO ON DISABILITY. SHE REPORTS HE WROTE HER OFF WORK UNTIL 10/10/21. SHE REPORTS SHE WENT TO [facility] FOR SECOND OPINION 09/30/21. MYLOGRAM ORDERED BUT NOT SCHEDULED YET. SHE REPORTS PA SAID PT NOTED LLE WEAKNESS COMPARED TO RIGHT. PATIENT REPORTS SHE FEELS HER LLE HAS GOT WEAKER OVER THE LAST MONTH AND HER LEFT LEG WEAKNESS INCREASES WHEN HER BACK PAIN INCREASES. PATIENT REPORTS SHE CAN'T EVEN STAND FOR 5 MINUTES AND SHE HAS CRAMPING AND STABBING DOWN HER LEFT LEG RIGHT NOW. SHE REPORTS THERE IS NO WAY SHE CAN GO BACK TO WORK 10/10/21. PATIENT REPORTS SHE IS LEARNING A LOT FROM THERAPY ABOUT PROPER SPINE POSITION AND SHE FEELS MORE EDUCATED AND MORE AWARE. SHE FEELS THIS IS HELPING HER CORE AND LEG STRENGTH A LITTLE BIT BUT IT IS NOT HELPING HER PAIN. RLE Pain Intensity (Out of 10): 3 LLE Pain Intensity (Out of 10): 5 Lumbar Spine Pain Intensity (Out of 10): 5 Thoracic Spoine Pain Intensity (Out of 10): 1 % Improvement: 0 Objective/Function: PATIENT WAS SEEN TODAY FOR RE-ASSESSMENT OF PROGRESS TOWARD THE SET PT GOALS AND THE NEED FOR FURTHER PHYSICAL THERAPY VS READINESS FOR DISCHARGE. PATIENT DENIES PT HELPING HER PAIN AND SHE DEMO'S A LITTLE INCREASED LLE WEAKNESS COMPARED TO INITIAL EVAL. HER LUMBAR FLEXION AND EXTENSION ROM HAVE IMPROVED A LITTLE BIT AND R LE DURAL SIGN IS NEGATIVE NOW BUT SHE CAN ONLY TOLERATE VERY LIGHT AQUATIC THERAPY. SHE HAS TESTING PENDING I AM GOING TO GO AHEAD AND RECOMMEND DISCHARGE TO INDEP WATER EX IN [employer] POOL AND [facility] TOLERATED AT THIS TIME. PATIENT IS AGREEABLE. UPON EXAM TODAY: Motor deficit: R LE: HIP 4/5, KNEE AND ANKLE 5/5. L LE: HIP 4-/5, KNEE FLEX 4/5, KNEE EXT 5/5 AND L ANKLE 5/5. PATIENT IS ONLY ABLE TO WALK ON HER TOES ABOUT 2 STEPS AND HER HEELS ABOUT 2 STEPS WITH DIFFICULTY. Dural Signs: POSITIVE MILTON LE'S. Lumbar mvmt loss: flex - MIN. ext - MOD. R SG - MOD. L SG - MOD. PATIENT C/O INCREASED PINCHING IN BACK AND PAIN IN LEGS WITH LUMBAR ROM TESTING ALL PLANES. Core strength: POOR Goal 1:: DECREASE C/O BACK AND LE'S SX'S. Goal Progress: Not Progressing Goal 2:: IMPROVE PERSONAL CARE, LIFTING, WALKING, SITTING, STANDING, SLEEP, SOCIAL LIFE, TRAVEL AND HOMEMAKING FUNCTION. Goal Progress: Not Progressing Goal 3:: INSTRUCT IN PROPHYLAXIS Goal Progress: Not Progressing Plan: D/C TO PHYSICIAN FOLLOW UP AND INDEP EX AT THIS TIME. PATIENT AGREEABLE. PATIENT REPORTS THE PA IS AWARE OF HER LLE WEAKNESS AND TESTING HAS BEEN ORDERED. If there are questions or concerns regarding this patient's physical therapy, please feel free to call me at [phone]. Thank you for the referral of this patient. Sincerely, Kelly Blake, PT, Cert MDT Balance/Gait/Functional tests - Balance/Special Test Scores Oswestry Low Back Score: 25
== END 2021-10-04 19:00 | disposition home or self-care (01) ==
LOC: PT 12:00
PROVIDERS: PCP Internal Medicine; Referring Provider Orthopaedic Surgery; Visit Provider Orthopaedic Surgery
DX: S23.3XXD Sprain of ligaments of thoracic spine, subsequent encounter (principal)
CPT/HCPCS: 97112; 97113; 97162; 97164

== ENCOUNTER → 2021-10-12 | Outpatient (CLI) | payer OTHER, SELFPAY ==
--- NOTE | 2021-10-12 12:16 | CT_ITS ---
STUDY: CT LUMBAR SPINE WITH CONTRAST REASON FOR EXAM: Female, 55 years old. RADICULOPATHY RADIATION DOSAGE (If Supplied By Facility): CTDIvol = ( 26.44 ) mGy, DLP = ( 814.76 ) mGycm TECHNIQUE: The patient was scanned in a multi detector CT scanner. High resolution transaxial imaging was performed following the intrathecal administration of ISO M200- 15CC. Images were obtained from T12 to the sacrum. Sagittal and coronal images were reconstructed. Individualized dose optimization techniques were used for this CT. COMPARISON: CT lumbar spine without contrast from 11/10/2020. CT lumbar spine with intrathecal contrast from 05/15/2018. FINDINGS: The visualized abdomen and pelvis are unremarkable. The retroperitoneal soft tissues are unremarkable. There is some mild postoperative scar tissue along the midline surgical defect overlying the lower lumbar spine. The paraspinal tissues are otherwise unremarkable.. There is a partially visualized right posterior stimulator device with the terminal and of the lead not included in the [id number]. Stable positioning and intact appearance of of the posterior approach lumbar fusion hardware from the L3-S1 level with associated laminectomy defects. Metallic streak artifact from the surgical hardware somewhat obscures assessment of the adjacent structures. There is stable 4 mm of grade 1 anterolisthesis of L2 on L3. There is redemonstration of straightening of the lumbar spine. The vertebral heights are maintained. No acute fracture or subluxation. There is intrathecal contrast. The conus medullaris terminates in stable position at the level of the T12-L1 intervertebral disc space. The cauda equina nerve roots are normal to the level of the level of moderate to severe stenosis at the L2-L3 level which is detailed below. Below this level, there is now some minimal clumping of the nerve roots along the ventral aspect of the thecal sac when compared to prior study from 05/15/2018. Assessment of the foramina is significantly limited due to limited sensitivity on CT study as well as lack of opacification from intrathecal contrast. T12-L1: No significant disc levels. No significant spinal stenosis. No obvious foraminal narrowing. L1-2: No significant disc bulge. Bilateral ligamentum flavum hypertrophy. No significant spinal stenosis. No obvious foraminal narrowing. L2-3: When compared to prior CT from 05/15/2018, there is mild increase in degree of the posterior disc bulge with some mild cranial migration and degree of ligamentum flavum hypertrophy or postoperative scar tissue. Bilateral facet arthropathy. Findings result in moderate to severe spinal stenosis. There is presumed moderate to severe foraminal narrowing at this level as well. L3-4: Bilateral facet arthropathy. No significant disc bulge. No significant spinal stenosis. No obvious foraminal narrowing. L4-5: Bilateral facet arthropathy. No significant disc bulge. No significant spinal stenosis. No obvious foraminal narrowing. L5-S1: Bilateral facet arthropathy. No significant disc bulge. No significant spinal stenosis. No obvious foraminal narrowing CT/Spine Lumbar WITH Contrast IMPRESSION: When compared to prior CT lumbar myelogram from 05/15/2018, there is mild increase in degree of the posterior disc bulge at L2-L3 with some mild cranial migration and increase in degree of ligamentum flavum hypertrophy or postoperative scar tissue. These findings now contribute to moderate to severe spinal stenosis with compression of the cauda equina nerve roots at this level. Below this level the cauda equina nerve roots demonstrates some minimal clumping along the ventral aspect of the thecal sac which is favored to relate to normal poststenotic findings, however these findings can also be seen in arachnoiditis. Electronically Signed: Manav Lo, at 9:52 EDT ,
[2021-10-12 12:28] VITALS: BP 123/73; PULSE 65; RESP 16; TEMP 36.7; O2SAT 98; BMI 36.0
--- NOTE | 2021-10-12 12:45 | RAD_ITS ---
PROCEDURE: Fluoroscopic guided lumbar myelogram. DATE OF EXAMINATION: 10/12/2021 INDICATION: Female, 55 years old. Radiculopathy PHYSICIAN: Manav Lo DO FLUOROSCOPY TIME (if supplied): (36 seconds). 2 intraoperative fluoroscopic images submitted for assessment. 2 oblique and 1 lateral full exposure images were taken after the procedure. CONSENT: The risks, benefits and alternatives to the procedure were explained to the patient, and the patient agreed to the procedure and signed the consent. 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 PROCEDURE/TECHNIQUE: (All elements of maximal sterile barrier technique followed, including US elements as applicable) The risks, benefits, and alternatives to the procedure were explained to patient, and the patient agreed to the procedure and signed a consent form for the procedure. A timeout was performed to confirm the patient''s identity, the type of procedure, to be performed and the site of entry. The lumbar spine was assessed with fluoroscopy to select appropriate needle entry site. Redemonstration of spinal stimulator device and L3-S1 lumbar fusion hardware. The skin was marked about needle entry site selected at the level of the L4 laminectomy. The surface was prepared in usual sterile fashion. 5 mL of local LIDOCAINE was utilized for superficial anesthesia. A 22-gauge spinal needle was then advanced into the thecal sac utilizing periodic fluoroscopic guidance. Slow flowing clear CSF fluid was seen in the needle confirming intrathecal location. Approximately 15 cc of ISOVUE-M contrast was then injected into the thecal sac. Intraoperative and postoperative images demonstrated intrathecal location of the injected contrast. The needle was then removed. There were no complications and the patient tolerated the procedure well. The patient was sent for subsequent CT lumbar spine and was discharged home in stable condition. RAD/Lumbar Myelogram IMPRESSION: Fluoroscopic guided lumbar myelogram. Electronically Signed: Manav Lo, at 15:37 EDT ,
[2021-10-12] MEDS: Lidocaine 2% (5ml sdv) 5 ML VIAL.MPF INFILT (13:10)
[2021-10-12 14:23] VITALS: BP 120/68; PULSE 67; RESP 14; O2SAT 97
== END | disposition home or self-care (01) ==
LOC: RAD 12:13
PROVIDERS: PCP Internal Medicine
DX: M54.16 Radiculopathy, lumbar region (principal)
CPT/HCPCS: 62304; 72132; Q9965

== ENCOUNTER → 2021-11-02 | Outpatient (CLI) | payer OTHER, SELFPAY | END | disposition home or self-care (01) | LOC: SL 20:25 | PROVIDERS: PCP Internal Medicine; Referring Provider Internal Medicine; Visit Provider Internal Medicine | DX: G47.10 Hypersomnia, unspecified (principal) | CPT/HCPCS: 95810 ==

== ENCOUNTER → 2021-11-15 | Outpatient (CLI) | payer OTHER, SELFPAY ==
--- NOTE | 2021-11-15 13:59 | ECHOD_ITS ---
Reason For Study: ARRYTHMIA Procedure This was a 2D Doppler, Color Flow transthoracic echocardiogram. The exam was of adequate technical quality. Exam performed in department. Left Ventricle Normal LV size. Left ventricular systolic function is normal. The estimated ejection fraction is 65 %. No evidence for diastolic dysfunction. No regional wall motion abnormalities noted. Right Ventricle Normal RV size. Normal systolic function. Atria Normal left atrium. Normal right atrium. No doppler evidence for ASD. Mitral Valve There is no mitral annular calcification. Normal mitral valve. Trivial mitral valve insufficiency. Tricuspid Valve Normal tricuspid valve. Trivial tricuspid valve insufficiency. Unable to estimate RV systolic pressure due to insufficient tricuspid regurgitant envelope. Aortic Valve Trisinus/trileaflet aortic valve. Normal aortic valve. Pulmonic Valve The pulmonic valve is not well visualized. Great Vessels Normal sized aortic root. Pericardium/Pleural No pericardial effusion. MMode/2D Measurements & Calculations LVIDd: 4.1 cm IVSd: 1.2 cm Ao root diam: 2.7 cm LVIDs: 2.4 cm LVPWd: 1.3 cm FS: 40.3 % LAV(MOD-bp): 66.3 ml LVAd ap4: 31.8 cm2 SV(MOD-sp4): 72.8 ml LAV(MOD-bp) Indexed: 33.2 ml/m2 LVLd ap4: 7.9 cm LAV(MOD-sp2): 71.3 ml EDV(MOD-sp4): 104.5 ml LAV(MOD-sp4): 59.7 ml EDV(sp4-el): 108.1 ml LVAs ap4: 14.9 cm2 LVLs ap4: 5.6 cm ESV(MOD-sp4): 31.8 ml ESV(sp4-el): 33.6 ml EF(MOD-sp4): 69.6 % EF(sp4-el): 68.9 % SV(sp4-el): 74.5 ml LA A4 area: 19.0 cm2 LA dimension(2D): 3.5 cm RA A4 area: 10.9 cm2 Time Measurements MV dec time: 0.21 sec Doppler Measurements & Calculations MV E max andrew: 85.4 cm/sec MV V2 max: 84.5 cm/sec MV dec slope: 405.8 cm/sec2 MV A max andrew: 83.4 cm/sec MV max P.9 mmHg MV E/A: 1.0 MV V2 mean: 61.2 cm/sec MV mean P.6 mmHg MV V2 VTI: 29.8 cm Ao V2 max: 149.1 cm/sec LV V1 max: 138.7 cm/sec PA V2 max: 107.4 cm/sec Ao max P.9 mmHg LV V1 max P.7 mmHg PA V2 mean: 77.9 cm/sec Ao V2 mean: 101.0 cm/sec LV V1 mean P.6 mmHg Ao mean P.7 mmHg LV V1 mean: 86.7 cm/sec Ao V2 VTI: 32.0 cm LV V1 VTI: 26.5 cm ECHO/Echo Complete Interpretation Summary Left ventricular systolic function is normal. The estimated ejection fraction is 65 %. Trivial mitral valve insufficiency. Trivial tricuspid valve insufficiency. Unable to estimate RV systolic pressure due to insufficient tricuspid regurgita nt envelope. No evidence for diastolic dysfunction. Ordering Physician: Espinoza Branham Referring Physician: Espinoza Branham Performed By: Ml Waterman RCS
== END | disposition home or self-care (01) ==
LOC: CVS 13:59
PROVIDERS: PCP Internal Medicine; Referring Provider Internal Medicine Cardiovascular Disease; Visit Provider Internal Medicine Cardiovascular Disease
DX: R01.1 Cardiac murmur, unspecified (principal); R00.0 Tachycardia, unspecified
CPT/HCPCS: 93306

== ENCOUNTER → 2022-02-01 | Outpatient (CLI) | payer OTHER, SELFPAY ==
[2022-02-01 13:43] LABS: Amphetamine Urine VISTA NEGATIVE (<1000 ng/mL); Barbiturate Urine VISTA NEGATIVE (< 200 ng/mL); Benzodiazepine Urine VISTA NEGATIVE (< 200 ng/mL); Cocaine Urine VISTA NEGATIVE (< 300 ng/mL); Ecstacy Urine VISTA NEGATIVE (< 500 ng/mL); Methadone Urine VISTA NEGATIVE (< 300 ng/mL); PCP Urine VISTA NEGATIVE (< 25 ng/mL); THC Urine VISTA NEGATIVE (< 50 ng/mL); Vista UDS pH Range 6
== END | disposition home or self-care (01) ==
LOC: LAB 13:16
PROVIDERS: PCP Internal Medicine; Visit Provider Anesthesiology Pain Medicine
DX: F11.20 Opioid dependence, uncomplicated (principal)
CPT/HCPCS: 80307

== ENCOUNTER → 2022-02-03 | Outpatient (CLI) | payer OTHER, SELFPAY | END | disposition home or self-care (01) | LOC: SL 11:54 | PROVIDERS: PCP Internal Medicine; Visit Provider Internal Medicine | DX: Z00.00 Encounter for general adult medical examination without abnormal findings (principal) ==

== ENCOUNTER → 2022-02-17 | Outpatient (CLI) | payer OTHER, SELFPAY ==
[2022-02-17 15:20] LABS: Absolute Lymphocyte Count 1.82 X10^3/uL (0.83-4.51); Absolute Neutrophil Count 1.5 X10^3/uL (2.0-7.7); Basophil# 0.02 X10^3/uL; Basophil% 0.5 % (0-1); Eosinophil# 0.06 X10^3/uL; Eosinophils% 1.6 % (0-5); Hematocrit 36.7 % (37-47); Hemoglobin 12.2 g/dL (12.0-15.0); Lymphocyte # 1.82 X10^3/ul (0.83-4.51); Lymphocyte % 49.5 % (19-41); Mean Corp Hgb Conc 33.2 g/dL (32-36); Mean Corpuscular Hgb 28.8 pg (27.0-32.0); Mean Corpuscular Volume 86.6 fL (81-99); Mean Platelet Vol. 9.3 fl (6.2-12.0); Monocyte% 8.2 % (0-10); NRBC Flagged by Analyzer 0 % (0-5); Neutrophil # 1.48 X10^3/uL (2.7-7.7); Neutrophil % 40.2 % (47-70); Platelet Count 335 K/mm3 (150-450); RBC Distribution Width CV 13.4 % (11.6-14.6); RBC Distribution Width SD 41.8 fl (35.1-43.9); Red Blood Count 4.24 M/mm3 (4.2-5.4); White Blood Count 3.7 K/mm3 (4.4-11.0)
[2022-02-17 15:36] LABS: AST(SGOT) 28 U/L (15-37); Alanine Aminotransfer ALT/SGPT 36 U/L (13-56); Albumin, Serum 3.6 g/dL (3.2-5.0); Alkaline Phosphatase 76 U/L (45-117); Anion Gap 7 (5-15); BUN 13 mg/dL (7-18); BUN/Creat Ratio 15.7 RATIO (10-20); Calcium,Total 9.5 mg/dL (8.5-10.1); Chloride 104 mmol/L (98-107); Cholesterol 234 mg/dL (200); Creatinine, Serum 0.83 mg/dL (0.55-1.02); EST Glomerular Filtration Rate 76 mL/min (>60); Est Glom Filt Rate - Afr Amer 92 mL/min (>60); Globulin 3.7 g/dL (2.2-4.2); Glucose 97 mg/dL (74-106); High Density Lipoprotein 80 mg/dL; Potassium 3.9 mmol/L (3.5-5.1); Protein, Total 7.3 g/dL (6.4-8.2); Sodium Level 141 mmol/L (136-145); Triglycerides 105 mg/dL; Very Low Density Lipoprotein 21 mg/dL (5-40)
== END | disposition home or self-care (01) ==
LOC: MTLAB 11:37
PROVIDERS: PCP Internal Medicine; Referring Provider Internal Medicine; Visit Provider Internal Medicine
DX: I10 Essential (primary) hypertension (principal); E87.6 Hypokalemia
CPT/HCPCS: 36415; 80048; 80053; 80061; 85025

== ENCOUNTER → 2022-04-04 | Outpatient (CLI) | payer OTHER, SELFPAY ==
[2022-04-04 17:35] LABS: Vitamin B12 404 pg/mL (211-911); Vitamin D,25 Hydroxy 23.7 ng/mL
== END | disposition home or self-care (01) ==
LOC: BIMLAB 15:55
PROVIDERS: PCP Internal Medicine; Referring Provider Nurse Practitioner Family; Visit Provider Nurse Practitioner Family
DX: E56.9 Vitamin deficiency, unspecified (principal); R53.83 Other fatigue
CPT/HCPCS: 36415; 82306; 82607; 84443

== ENCOUNTER → 2022-04-04 | Outpatient (REF) | payer OTHER, SELFPAY ==
[2022-04-04 18:38] LABS: Absolute Lymphocyte Count 1.91 X10^3/uL (0.83-4.51); Basophil# 0.03 X10^3/uL; Basophil% 0.6 % (0-1); Eosinophil# 0.04 X10^3/uL; Eosinophils% 0.7 % (0-5); Hematocrit 37.9 % (37-47); Hemoglobin 12.4 g/dL (12.0-15.0); Lymphocyte # 1.91 X10^3/ul; Lymphocyte % 35.2 % (19-41); Mean Corp Hgb Conc 32.7 g/dL (32-36); Mean Corpuscular Hgb 28.2 pg (27.0-32.0); Mean Corpuscular Volume 86.3 fL (81-99); Mean Platelet Vol. 9.3 fl (6.2-12.0); Monocyte# 0.48 X10^3/uL; Monocyte% 8.9 % (0-10); NRBC Flagged by Analyzer 0 % (0-5); Neutrophil # 2.95 X10^3/uL (2.7-7.7); Neutrophil % 54.4 % (47-70); Platelet Count 368 K/mm3 (150-450); RBC Distribution Width CV 13.2 % (11.6-14.6); RBC Distribution Width SD 42.1 fl (35.1-43.9); Red Blood Count 4.39 M/mm3 (4.2-5.4); White Blood Count 5.4 K/mm3 (4.4-11.0)
[2022-04-04 18:50] LABS: ALB/GLOB Ratio 0.9 RATIO (0.9-2.4); AST(SGOT) 14 U/L (15-37); Alanine Aminotransfer ALT/SGPT 16 U/L (13-56); Albumin, Serum 3.6 g/dL (3.2-5.0); Alkaline Phosphatase 86 U/L (45-117); Anion Gap 6 (5-15); BUN 16 mg/dL (7-18); BUN/Creat Ratio 18.4 RATIO (10-20); Bilirubin, Direct 0.09 mg/dL (0.00-0.30); Calcium,Total 8.9 mg/dL (8.5-10.1); Chloride 101 mmol/L (98-107); Cholesterol 236 mg/dL (200); Creatinine, Serum 0.87 mg/dL (0.55-1.02); EST Glomerular Filtration Rate 72 mL/min (>60); Est Glom Filt Rate - Afr Amer 87 mL/min (>60); Globulin 3.8 g/dL (2.2-4.2); Glucose 100 mg/dL (74-106); High Density Lipoprotein 81 mg/dL; LDH 179 U/L (84-246); Phosphorus 3.3 mg/dL (2.5-4.9); Potassium 3.3 mmol/L (3.5-5.1); Protein, Total 7.4 g/dL (6.4-8.2); Sodium Level 137 mmol/L (136-145); Triglycerides 157 mg/dL; Very Low Density Lipoprotein 31 mg/dL (5-40)
== END ==
LOC: EMPH 18:31
PROVIDERS: PCP Internal Medicine; Visit Provider Nurse Practitioner Family
DX: R69 Illness, unspecified (principal)

== ENCOUNTER 2022-04-21 14:00 | Outpatient (RCR) | payer OTHER, SELFPAY ==
--- NOTE | 2021-12-14 13:31 | HP.PTEVAL_ITS ---
Patient's Visit Information DAVIS JONES is a 56 year old F referred to Physical Therapy by CAROLYN BARAJAS with a diagnosis of S/P L/S surgery 11/17/21. Date of Evaluation: 12/14/21 Physical Therapist: Juan Ramon Garcia, PT, ATC - Visit Plan Frequency: 2x /Week Duration: 4-6 Weeks Plan: Core strengthening, B LE strengthening, balance and proprio, bike, and HEP - Subjective DOS: 11/17/21. Pt reports she had to have hardware removed in her L/S and decompression performed in her LB from a surgery she had performed 12 years ago. Pt reports she had this surgery to fix pain that was in her L LE. Pt reports her L LE was feeling numb, weak, and very tingly prior to having the surgery. Pt reports this surgery was very successful as she is now experiencing much less of those sx's now, and she keeps feeling less and less everyday. Pt reports she has been performing dural nerve root stretching and has been walking which is what she was told to do. Pt reports now she feels good, but feels sick by the end of the day secondary to overdoing it. Pt reports she still has pain with riding in a truck now secondary to pain. Pt reports she is able to bend enough to get dressed, but still feels pain afterwards. Pt reports she is still having diffic ulty with sleep at this time secondary to pain. 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 Pt reports she is able to do most of her IADL's, but notes she has to perform them much slower at this time. Pt is still limited with laundry and doing dishes. 4/10 pain at rest. 7/10 pain at worst (by the end of the day). - Pain L/S Pain Intensity (Out of 10): 4 Pain Intensity Range: 7 - Objective Neuro: L L3 dermatome is hyposensitive to light touch. All other B LE sensation is WNL to light touch. B patellar reflex= 3/3. MMT: L hip flex is 4-/5. L hip abd and add 4/5. All other LE MMT is 5/5 throughout. Gait: Pt is able to ambulate 340 feet with no AD and CGAx1 until needing to sit down secondary to fatigue. Pt displays a Trendelenburg gait pattern indicating core weakness at this time. TU.48 - Balance/Special Test Scores Lower Extremity Functional Score: 33 - Goals Goal 1:: Decrease LBP x 50% to aid with sleep Goal Time Frame: 4-6 Weeks Goal 2:: Pt will be able to ambulate greater than 1000' I to aid with community ambulation Goal Time Frame: 4-6 Weeks Goal 3:: Increase B hip strength x 1 grade to aid with RTW without limitation Goal Time Frame: 4-6 Weeks Goal 4:: I with HEP Goal Time Frame: 4-6 Weeks - Rehabilitation Potential Physical Therapy Diagnosis: Pt has LBP, core weakness, and intolerance for prolonged ambulation secondary to L/S surgery Rehabilitation Potential: Good - Anticipated Interventions Patient/Client Instruction: Educate patient on: Condition, Plan of Care For the Purpose of:: To improve self management Therapeutic Exercise to Include: Strength training, Endurance training, Balance training, Dynamic Lumbar Stabilization For the Purpose of:: To decrease pain, To increase ROM, To improve muscle performance and motor function Cryotherapy (ice pack, ice massage): Yes For the Purpose of:: To decrease pain Thank you for the opportunity to evaluate your patient. For Medicare and Medicare HMO plans, please review the plan of care and approve it. It will need to be FAXED BACK to us at [phone] for Medicare purposes. For Medicare only, by signing this I certify the plan of care. Please let me know if there are questions or concerns regarding this plan of care. Physician Signature: Date:
--- NOTE | 2022-02-17 12:37 | HP.PTREVAL ---
CAROLYN BARAJAS, It has been my pleasure to treat DAVIS JONES over the last 19 visits for S/P L/S surgery 11/17/21. Please see the progress note below for an update on the physical therapy plan of care! Subjective: I feel so weak and achy Objective/Function: LBP ranges from 1-3/10. MMT: R LE is grossly 5/5 while L LE is 4/5. Gait: Pt is able to ambulate 600 feet until needing to rest secondary to LBP. Pt is showing good improvements toward Rx goals but still lacks functional strength and mobility Plan Plan: Cont to progress core strengthening as tolerated Balance/Gait/Functional tests - Balance/Special Test Scores Lower Extremity Functional Score: 33 Goals Goal 1:: Decrease LBP x 50% to aid with sleep Goal Time Frame: 4-6 Weeks Goal Progress: Progressing Goal 2:: Pt will be able to ambulate greater than 1000' I to aid with community ambulation Goal Time Frame: 4-6 Weeks Goal Progress: Progressing Goal 3:: Increase B hip strength x 1 grade to aid with RTW without limitation Goal Time Frame: 4-6 Weeks Goal Progress: Progressing Goal 4:: I with HEP Goal Time Frame: 4-6 Weeks Goal Progress: Progressing Anticipated Interventions Patient/Client Instruction: Educate patient on: Condition, Plan of Care For the Purpose of:: To improve self management Therapeutic Exercise to Include: Strength training, Endurance training, Balance training, Dynamic Lumbar Stabilization For the Purpose of:: To decrease pain, To increase ROM, To improve muscle performance and motor function Cryotherapy (ice pack, ice massage): Yes For the Purpose of:: To decrease pain Please do not hesitate to contact me at [phone] by phone or if you have questions or concerns regarding this new plan of care! Sincerely, Juan Ramon Garcia, PT, ATC
--- NOTE | 2022-03-14 15:14 | HP.PTREVAL ---
CAROLYN BARAJAS, It has been my pleasure to treat DAVIS JONES over the last 26 visits for S/P L/S surgery 11/17/21. Please see the progress note below for an update on the physical therapy plan of care! Subjective: Pt reports she continues to still get that hot and cold sensation down her L LE with increased activity Objective/Function: LBP ranges from 3-6/10 while on medication. Pt reports her L LE radiculopathy was gone after the surgery, but has returned and is constant. Gets worse with activity. MMT: B LE's are grossly 4+/5 throughout. Pt is able to ambulate groosly 680 feet until needing to rest secondary to pain Plan Plan: Cont with PT post visit focusing on core strengthening activity Balance/Gait/Functional tests - Balance/Special Test Scores Oswestry Low Back Score: 31 Lower Extremity Functional Score: 33 Goals Goal 1:: Decrease LBP x 50% to aid with sleep Goal Time Frame: 4-6 Weeks Goal Progress: Progressing Goal 2:: Pt will be able to ambulate greater than 1000' I to aid with community ambulation Goal Time Frame: 4-6 Weeks Goal Progress: Progressing Goal 3:: Increase B hip strength x 1 grade to aid with RTW without limitation Goal Time Frame: 4-6 Weeks Goal Progress: Goal Met Goal 4:: I with HEP Goal Time Frame: 4-6 Weeks Goal Progress: Progressing Anticipated Interventions Patient/Client Instruction: Educate patient on: Condition, Plan of Care For the Purpose of:: To improve self management Therapeutic Exercise to Include: Strength training, Endurance training, Balance training, Dynamic Lumbar Stabilization For the Purpose of:: To decrease pain, To increase ROM, To improve muscle performance and motor function Cryotherapy (ice pack, ice massage): Yes For the Purpose of:: To decrease pain Please do not hesitate to contact me at [phone] by phone or if you have questions or concerns regarding this new plan of care! Sincerely, Juan Ramon Garcia, PT, ATC
--- NOTE | 2022-04-21 14:43 | HP.PTDCSUM ---
It has been my pleasure to treat DAVIS JONES referred by CAROLYN BARAJAS, with the diagnosis of S/P L/S surgery 11/17/21 for a total of 35 visit(s). Discharge Date: Please see the following information for a summary of their discharge status. Subjective: I am not getting any better. I feel like I am getting worse. Pt reports her legs seem like they keep getting weaker. This is a really bad day L/S Pain Intensity (Out of 10): 4 B LE Pain Intensity (Out of 10): 4 % Improvement: 10 Objective/Function: LBP 4/10 currently, increases to 7/10 at worst. B LE's are grossly 4/5 throughout. Pt is only able to ambulate 340' until feeling increased back pain and having to stop. Pt is I with HEP Goal 1:: Decrease LBP x 50% to aid with sleep Goal Progress: Not Progressing Goal 2:: Pt will be able to ambulate greater than 1000' I to aid with community ambulation Goal Progress: Not Progressing Goal 3:: Increase B hip strength x 1 grade to aid with RTW without limitation Goal Progress: Goal Met Goal 4:: I with HEP Goal Progress: Goal Met Plan: Discontinue and recommend pt to return to doctor secondary to lack of progress. If there are questions or concerns regarding this patient's physical therapy, please feel free to call me at [phone]. Thank you for the referral of this patient. Sincerely, Juan Ramon Garcia, PT, ATC Balance/Gait/Functional tests - Balance/Special Test Scores Oswestry Low Back Score: 30 Lower Extremity Functional Score: 33
== END 2022-04-21 14:59 | disposition home or self-care (01) ==
LOC: PT 14:00
PROVIDERS: PCP Internal Medicine
DX: M43.16 Spondylolisthesis, lumbar region (principal)
CPT/HCPCS: 97110; 97161; 97164

== ENCOUNTER → 2022-06-05 | Outpatient (CLI) | payer OTHER, SELFPAY ==
[2022-06-05 15:56] LABS: Anion Gap 7 (5-15); BUN 13 mg/dL (7-18); BUN/Creat Ratio 15.3 RATIO (10-20); Calcium,Total 9.1 mg/dL (8.5-10.1); Chloride 100 mmol/L (98-107); Creatinine, Serum 0.85 mg/dL (0.55-1.02); EST Glomerular Filtration Rate 74 mL/min (>60); Est Glom Filt Rate - Afr Amer 90 mL/min (>60); Glucose 97 mg/dL (74-106); Potassium 3.3 mmol/L (3.5-5.1); Sodium Level 137 mmol/L (136-145)
[2022-06-05 15:59] LABS: Vitamin B12 279 pg/mL (211-911); Vitamin D,25 Hydroxy 25.2 ng/mL
== END | disposition home or self-care (01) ==
LOC: BIMLAB 11:57
PROVIDERS: PCP Internal Medicine; Referring Provider Internal Medicine; Visit Provider Internal Medicine
DX: I10 Essential (primary) hypertension (principal); E56.9 Vitamin deficiency, unspecified
CPT/HCPCS: 36415; 80048; 82306; 82607

== ENCOUNTER → 2022-06-20 | Outpatient (CLI) | payer OTHER, SELFPAY ==
[2022-06-20 16:53] LABS: Anion Gap 8 (5-15); BUN 11 mg/dL (7-18); BUN/Creat Ratio 12.5 RATIO (10-20); Calcium,Total 9.3 mg/dL (8.5-10.1); Chloride 102 mmol/L (98-107); Creatinine, Serum 0.88 mg/dL (0.55-1.02); EST Glomerular Filtration Rate 71 mL/min (>60); Est Glom Filt Rate - Afr Amer 86 mL/min (>60); Glucose 120 mg/dL (74-106); Potassium 3.4 mmol/L (3.5-5.1); Sodium Level 139 mmol/L (136-145)
== END | disposition home or self-care (01) ==
LOC: BIMLAB 15:30
PROVIDERS: PCP Internal Medicine; Referring Provider Internal Medicine; Visit Provider Internal Medicine
DX: E87.6 Hypokalemia (principal)
CPT/HCPCS: 36415; 80048

== ENCOUNTER → 2022-07-25 | Outpatient (CLI) | payer OTHER, SELFPAY ==
--- NOTE | 2022-07-25 10:09 | BI_ITS ---
MAMMOGRAPHY - BILATERAL SCREENING REASON FOR EXAM: Female, 56 years old. Routine annual screening examination. PERTINENT HISTORY: Aunt with breast cancer. TECHNIQUE: Digital bilateral breast senait (3D mammographic acquisition) in the CC and MLO projections. 2-D mediolateral oblique (MLO) and craniocaudad (CC) views of both breasts were obtained. CAD: Full Field Digital Mammography with Computer Added Detection was performed. COMPARISON: Comparison is made with prior study dated January 27, 2021 and February 22, 2017. FINDINGS: Breast Composition: The breasts are heterogeneously dense, which may obscure small masses. There are no dominant masses or suspicious calcifications. No other significant abnormalities are identified. There has been no significant change since the prior study. BI/SCRN MAMM (CAD)W/SENAIT BILAT IMPRESSION: Stable bilateral screening mammogram. Yearly follow-up mammogram recommended. (A) ASSESSMENT CATEGORY: BIRADS Category 1: Negative. A letter regarding these results will be sent to the patient by the facility within 30 days. Approximately 10% of breast cancers are not detected by mammography. A normal mammogram should not delay biopsy of a clinically suspicious abnormality. [id number] Electronically Signed: Ez Mascorro MD at 11:14 EDT ,
== END | disposition home or self-care (01) ==
LOC: OPBI 10:08
PROVIDERS: PCP Internal Medicine; Visit Provider Internal Medicine
DX: Z12.31 Encounter for screening mammogram for malignant neoplasm of breast (principal); Z80.3 Family history of malignant neoplasm of breast
CPT/HCPCS: 77063; 77067

== ENCOUNTER → 2022-10-18 | Outpatient (CLI) | payer OTHER, SELFPAY ==
[2022-10-18 16:43] LABS: Vitamin B12 369 pg/mL (211-911); Vitamin D,25 Hydroxy 49.6 ng/mL
[2022-10-18 16:50] LABS: ALB/GLOB Ratio 0.9 RATIO (0.9-2.4); AST(SGOT) 19 U/L (15-37); Alanine Aminotransfer ALT/SGPT 22 U/L (13-56); Albumin, Serum 3.6 g/dL (3.2-5.0); Alkaline Phosphatase 98 U/L (45-117); Anion Gap 5 (5-15); BUN 14 mg/dL (7-18); BUN/Creat Ratio 16.1 RATIO (10-20); Calcium,Total 9.3 mg/dL (8.5-10.1); Chloride 104 mmol/L (98-107); Creatinine, Serum 0.87 mg/dL (0.55-1.02); EST Glomerular Filtration Rate 72 mL/min (>60); Est Glom Filt Rate - Afr Amer 87 mL/min (>60); Globulin 3.8 g/dL (2.2-4.2); Glucose 106 mg/dL (74-106); Potassium 3.6 mmol/L (3.5-5.1); Protein, Total 7.4 g/dL (6.4-8.2); Sodium Level 140 mmol/L (136-145)
== END | disposition home or self-care (01) ==
LOC: BIMLAB 13:44
PROVIDERS: PCP Internal Medicine; Referring Provider Nurse Practitioner Family; Visit Provider Nurse Practitioner Family
DX: I10 Essential (primary) hypertension (principal); R53.83 Other fatigue; S06.0XAA Concussion with loss of consciousness status unknown, initial encounter; E87.6 Hypokalemia; E56.9 Vitamin deficiency, unspecified
CPT/HCPCS: 36415; 80053; 82306; 82607

== ENCOUNTER → 2023-01-18 | Outpatient (CLI) | payer OTHER, SELFPAY ==
[2023-01-18 16:49] LABS: Absolute Lymphocyte Count 2.24 X10^3/uL (0.83-4.51); Absolute Neutrophil Count 2.5 X10^3/uL (2.0-7.7); Basophil# 0.02 X10^3/uL; Basophil% 0.4 % (0-1); Eosinophil# 0.03 X10^3/uL; Eosinophils% 0.6 % (0-5); Lymphocyte # 2.24 X10^3/ul (0.83-4.51); Mean Corp Hgb Conc 32.6 g/dL (32-36); Mean Corpuscular Hgb 29.7 pg (27.0-32.0); Mean Corpuscular Volume 91.3 fL (81-99); Mean Platelet Vol. 9.5 fl (6.2-12.0); Monocyte% 7.7 % (0-10); NRBC Flagged by Analyzer 0 % (0-5); Neutrophil # 2.47 X10^3/uL (2.7-7.7); Neutrophil % 47.3 % (47-70); Platelet Count 359 K/mm3 (150-450); RBC Distribution Width CV 12.4 % (11.6-14.6); RBC Distribution Width SD 41.4 fl (35.1-43.9); Red Blood Count 4.71 M/mm3 (4.2-5.4); White Blood Count 5.2 K/mm3 (4.4-11.0)
[2023-01-18 17:13] LABS: AST(SGOT) 19 U/L (15-37); Alanine Aminotransfer ALT/SGPT 31 U/L (13-56); Albumin, Serum 3.9 g/dL (3.2-5.0); Alkaline Phosphatase 96 U/L (45-117); Anion Gap 3 (5-15); BUN 12 mg/dL (7-18); Calcium,Total 9.7 mg/dL (8.5-10.1); Chloride 102 mmol/L (98-107); Creatinine, Serum 0.93 mg/dL (0.55-1.02); EST Glomerular Filtration Rate 67 mL/min (>60); Est Glom Filt Rate - Afr Amer 81 mL/min (>60); Glucose 123 mg/dL (74-106); Potassium 3.2 mmol/L (3.5-5.1); Protein, Total 7.9 g/dL (6.4-8.2); Sodium Level 137 mmol/L (136-145)
== END | disposition home or self-care (01) ==
LOC: BIMLAB 15:49
PROVIDERS: PCP Internal Medicine; Referring Provider Internal Medicine; Visit Provider Internal Medicine
DX: I10 Essential (primary) hypertension (principal)
CPT/HCPCS: 36415; 80053; 85025

== ENCOUNTER → 2023-01-31 | Outpatient (CLI) | payer OTHER, SELFPAY ==
[2023-01-31 16:20] LABS: Amphetamine Urine VISTA NEGATIVE (<1000 ng/mL); Barbiturate Urine VISTA NEGATIVE (< 200 ng/mL); Benzodiazepine Urine VISTA NEGATIVE (< 200 ng/mL); Cocaine Urine VISTA NEGATIVE (< 300 ng/mL); Ecstacy Urine VISTA NEGATIVE (< 500 ng/mL); Methadone Urine VISTA NEGATIVE (< 300 ng/mL); PCP Urine VISTA NEGATIVE (< 25 ng/mL); THC Urine VISTA NEGATIVE (< 50 ng/mL); Vista UDS pH Range 6
== END | disposition home or self-care (01) ==
LOC: LAB 14:11
PROVIDERS: PCP Internal Medicine; Referring Provider Anesthesiology Pain Medicine; Visit Provider Anesthesiology Pain Medicine
DX: F11.20 Opioid dependence, uncomplicated (principal)
CPT/HCPCS: 80307

== ENCOUNTER → 2023-04-19 | Outpatient (CLI) | payer OTHER, SELFPAY ==
--- OUTSIDE RECORDS SUMMARY | 2023-04-19 14:55 | XMS RPT_ITS | CCD ---
Author Name Unknown Address [address] [place] [address] Organization [facility] Care Team Providers Care Lead Loader Name Role Phone Oli Dempsey MD Unavailable [phone] TERI QUISPE Attending Unavailable SUSAN KOLB Primary Care Unavailable Susan Kolb MD Primary Care Provider [phone] OLI DEMPSEY MD Primary Care UnavailBERNABE Espino MD Attending Unavailable Allergies Allergy Classification Reported Allergen(s) Allergy Type Date of Onset Reaction(s) Facility (1 source) Seasonal allergy drug allergy 7 [facility] Work Phone: (1 source) OTHER; Translations: [OTHER] Propensity to adverse reactions (disorder) 5 [facility] Medications Completed/Discontinued Medications Medication Drug Class(es) Dates Sig (Normalized) Sig (Original) OXYCODONE-ACETAMINO PHEN TABS (2 sources) Opioid Agonist Start: 10-11-2016 PERCOCET TABS as directed OXYCODONE-ACETAMINOP HEN TABS [id number] Barry WADE Problems Active Problems Problem Classification Problem Date Documented Da te Episodic/Chronic Essential hypertension (1 source) Hypertensive disorder; Translations: [Essential (primary) hypertension] Onset: 01-31-2017 01-31-2017 Chronic Other upper respiratory disease (1 source) Allergic rhinitis; Translations: [Allergic rhinitis, unspecified] Onset: 07-18-2007 07-18-2007 Chronic Rheumatoid arthritis and related disease (1 source) Rheumatoid arthritis; Translations: [Rheumatoid arthritis, unspecified] Onset: 05-31-2022 05-31-2022 Chronic Unclassified (1 source) Screening mammography ; Translations: [Encounter for screening mammogram for malignant neoplasm of breast] Onset: 01-31-2017 01-31-2017 Unclassified (1 source) Screening - health check; Translations: [Encounter for general adult medical examination without abnormal findings] Onset: 01-31-2017 01-31-2017 Unclassified (1 source) Physical examination; Translations: [Encounter for general adult medical examination without abnormal findings] Onset: 10-11-2016 10-11-2016 Past or Other Problems Problem Classification Problem Date Documented Da te Episodic/Chronic Other infections; including parasitic (1 source) H/O: infectious disease; Translations: [Personal history of other infectious and parasitic diseases] Onset: 06-19-2005 06-19-2005 Episodic Spondylosis; intervertebral disc disorders; other back problems (1 source) Chronic low back pain; Translations: [Low back pain] Onset: 01-31-2017 01-31-2017 Episodic Unclassified (1 source) Encounter for screening for lipoid disorders; Translations: [Encounter for screening for lipoid disorders] Onset: 01-31-2017 01-31-2017 Episodic Results Test Name Value Interpretation Reference Range Facil ity Vital Signs Date Time Vital Sign Value Performing Clinician Facility 01-31-2017 15:27-0400 BMI (Body Mass Index) 32.61 kg/m2 Oli Dempsey MD [facility] Work Phone: 01-31-2017 15:27-0400 Body Temperature 97.8 [degF] Oli Dempsey MD [facility] Work Phone: 01-31-2017 15:27-0400 BP Diastolic 89 mm[Hg] Oli Dempsey MD [facility] Work Phone: 01-31-2017 15:27-0400 BP Systolic 151 mm[Hg] Oli Dempsey MD [facility] Work Phone: 01-31-2017 15:27-0400 Height 165.1 cm Oli Dempsey MD [facility] Work Phone: 01-31-2017 15:27-0400 Pulse (Heart Rate) 67 /min Oli Dempsey MD [facility] Work Phone: 01-31-2017 15:27-0400 Respiratory Rate 16 /min Oli Dempsey MD [facility] Work Phone: 01-31-2017 15:27-0400 Weight 88.91 kg Oli Dempsey MD [facility] Work Phone: Encounters Encounter Date Encounter Type Care Provider Facility Start: 02-06-2023 ambulatory OLI DEMPSEY MD F acility:B Start: 06-05-2022 Refill Teri Quispe RELIGION INSTRUCTOR.CNM Work Phone: OB/Gynecology Procedures Date Procedure Procedure Detail Performing Clinician Start: 04-02-2019 Mammography Teri Co sta RELIGION INSTRUCTOR.CNM Work Phone: Start: 01-31-2017 End: 02-22-2017 *BMP Oli Thurston Work Phone: Start: 01-31-2017 End: 02-01-2017 *CBC with Differential Oli farris MD Work Phone: Start: 01-31-2017 End: 02-22-2017 Follow Up Appt 6 months Oli puente MD Work Phone: Start: 01-31-2017 End: 02-02-2017 Lipid 1996 panel - Serum or Plasma Oli Dempsey MD Work Phone: Start: 01-31-2017 End: 02-22-2017 Mammogram, screening Oli Dempsey MD Work Phone: Start: 01-31-2017 End: 02-01-2017 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 Oli Dempsey MD Work Phone: Start: 10-11-2016 End: 10-11-2016 Pre-employment PE Barry WADE Work Phone: Start: 10-11-2016 End: 10-11-2016 Skin test tuberculosis intradermal Barry WADE Work Phone: Start: 12-05-2012 Colonoscopy Teri durham APRN.CNM Work Phone: Plan of Treatment Date Care Activity Detail Author Start: 03-09-2025 HPV TESTING HPV TESTING [facility] Start: 03-09-2025 PAP TESTING PAP TESTING [facility] Start: 04-23-2022 DEPRESSION ASSESSMENT DEPRESSION ASSESSMENT [facility] Start: 02-02-2022 LIPID SCREEN LIPID SCREEN [facility] Start: 06-03-2021 COVID-19 VACCINE (4 - Booster for Moderna series) COVID-19 VACCINE (4 - Booster for Moderna series) [facility] Start: 04-02-2020 Mammography MAMMOGRAM [facility] Start: 12-05-2017 Colonoscopy COLONOSCOPY [facility] Start: 12-05-2017 COLORECTAL CANCER SCREENING COLORECTAL CANCER SCREENING [facility] Start: 12-05-2017 SHINGRIX VACCINE (1 of 2) SHINGRIX VACCINE (1 of 2) [facility] Start: 01-31-2017 End: 02-22-2017 *BMP *BMP [facility] Work Phone: Start: 01-31-2017 End: 02-01-2017 *CBC with Differential *CBC with Differential [facility] Work Phone: Start: 01-31-2017 End: 02-22-2017 Follow Up Appt 6 months Follow Up Appt 6 months [facility] Work Phone: Start: 01-31-2017 End: 02-02-2017 Lipid panel [AGGREGATE] *Lipid Profile [facility] Work Phone: Start: 01-31-2017 End: 02-22-2017 Mammogram, screening Mammogram, Screening, both breasts [facility] Work Phone: Start: 01-31-2017 End: 02-22-2017 Pain Management Referral Pain Management Referral Marija Rascon, [address] [place] [address], [address], [place], [address] [facility] Work Phone: Start: 08-22-2015 DIABETES SCREEN DIABETES SCREEN [facility] Start: 12-05-2012 COLOGUARD (FIT-DNA) COLOGUARD (FIT-DNA) [facility] Start: 12-05-[address] COLONOGRAPHY [facility] Start: 12-05-2012 FECAL OCCULT BLOOD FECAL OCCULT BLOOD [facility] Start: 12-05-2012 SIGMOIDOSCOPY SIGMOIDOSCOPY [facility] Start: 12-05-1986 Urine microalbumin profile DTAP,TDAP,TD (1 - Tdap) [facility] Start: 12-05-1985 HEPATITIS C SCREENING HEPATITIS C SCREENING [facility] Start: 12-05-1985 HIV SCREENING HIV SCREENING [facility] Immunizations Immunization Date Immunization Notes Care Provider Fa cility 03-01-2020 influenza, injectabl e, quadrivalent, contains preservative Teri Jose Enrique WILCOXN.CNM Work Phone: [facility] Work Phone: 10-11-2016 [id number] Oli Dempsey MD [facility] Work Phone: 02-26-2013 hepatitis B vaccine, adult dosage Teri Jose Enrique WILCOXN.CNM Work Phone: [facility] Work Phone: 02-26-2013 influenza virus vaccine, unspecified formulation Teri Jose Enrique WILCOXN.CNM Work Phone: [facility] Work Phone: 09-18-2012 hepatitis B vaccine, adult dosage Teri Quispe RELIGION INSTRUCTOR.CNM Work Phone: [facility] 09-18-2012 measles, mumps and rubella virus vaccine Teri Jose Enrique WILCOXN.CNM Work Phone: [facility] 08-19-2012 hepatitis B vaccine, adult dosage Teri Quispe RELIGION INSTRUCTOR.CNM Work Phone: [facility] 02-04-2009 influenza virus vaccine, live, attenuated, for intranasal use Teri Jose Enrique WADE.CNM Work Phone: [facility] Work Phone: Payers Date Payer Category Payer Private Health Insurance [id number] 2022 Private Health Insurance [id number] 2022 Private Health Insurance [employer] A [facility] [id number] 2022-Present [phone] [address] [place] [id number] PPO [id number] 1965 Unknown [id number] Social History Date Type Detail Facility Start: 05-31-2022 Tobacco smoking stat us CAIS Never smoked tobacco [facility] Start: 05-31-2022 Tobacco use and exposure Smoke less tobacco non-user [facility] Start: 05-31-2022 Alcohol intake Current drinke r of alcohol (finding) [facility] Start: 03-09-2020 History SDOH Alcohol Frequency 2 [facility] Start: 03-07-2019 Alcohol Comment Rarely [facility] Start: 1965 Sex Assigned At Not on file [facility] Note 06-05-2022 Telephone Encounter - Janelle Delaney RN - 06/05/2022 11:38 AM EST Note Date & Type Note Facility 06-05-2022 Miscellaneous Notes Formattin g of this note is different from the original. Had annual with [facility] 05/31/22. Requested Prescriptions Pending Prescriptions Disp Refills estradiol (ESTRACE) 1 mg tablet 30 tablet 11 Sig: Take 1 tablet by mouth once daily. medroxyPROGESTERone (PROVERA, CYCRIN) 2.5 mg tablet 30 tablet 11 Sig: Take 1 tablet by mouth once daily. RX INSTRUCTIONS: Patient aware RX will be sent to pharmacy. No need to notify patient. Janelle Delaney RN documented in this encounter [facility] Summary Purpose Family History No Family History Records FoundNo Family History Records Found Advance Directives No Advanced Directives Records FoundNo Advanced Directives Records Found Additional Source Comments INFORMATION SOURCE (unrecogn ized section and content) DATE CREATED AUTHOR AUTHOR'S ORGANIZ ATION 02/06/2023 [facility] ([place]) Source Comments (unrecognize d section and content) In the event this informatio n is protected by the Federal Confidentiality of Alcohol and Drug Abuse Patient Records regulations: The Federal rules restrict any use of the information to criminally investigate or prosecute any alcohol or drug abuse patient.[facility] Reason for Visit (unrecogniz ed section and content) Care Teams (unrecognized sec tion and content) FOR RECORDS PERTAINING TO PATIENTS WHO ARE OR HAVE BEEN ENROLLED IN A CHEMICAL DEPENDENCY/SUBSTANCEABUSE PROGRAM, SOME INFORMATION MAY BE OMITTED. This clinical summary was aggregated from multiple sources. Caution should be exercised in using it in the provision of clinical care. This summary normalizes information from multiple sources, and as a consequence, information in this document may materially change the coding, format and clinical context of patient data. In addition, data may be omitted in some cases. CLINICAL DECISIONS SHOULD BE BASED ON THE PRIMARY CLINICAL RECORDS. [facility]. provides no warranty or guarantee of the accuracy or completeness of information in this document.
[2023-04-19 16:07] LABS: Anion Gap 5 (5-15); BUN 15 mg/dL (7-18); BUN/Creat Ratio 17.5 RATIO (10-20); Calcium,Total 9.8 mg/dL (8.5-10.1); Chloride 101 mmol/L (98-107); Creatinine, Serum 0.86 mg/dL (0.55-1.02); EST Glomerular Filtration Rate 73 mL/min (>60); Est Glom Filt Rate - Afr Amer 88 mL/min (>60); Glucose 88 mg/dL (74-106); Potassium 4.3 mmol/L (3.5-5.1); Sodium Level 138 mmol/L (136-145)
== END | disposition home or self-care (01) ==
LOC: BIMLAB 14:33
PROVIDERS: PCP Internal Medicine; Referring Provider Internal Medicine; Visit Provider Internal Medicine
DX: I10 Essential (primary) hypertension (principal)
CPT/HCPCS: 36415; 80048

== ENCOUNTER → 2023-07-11 | Outpatient (CLI) | payer OTHER, SELFPAY ==
[2023-07-11 16:04] LABS: AST(SGOT) 20 U/L (15-37); Alanine Aminotransfer ALT/SGPT 20 U/L (13-56); Albumin, Serum 3.8 g/dL (3.2-5.0); Alkaline Phosphatase 90 U/L (45-117); Anion Gap 7 (5-15); BUN 14 mg/dL (7-18); BUN/Creat Ratio 15.9 RATIO (10-20); Calcium,Total 9.5 mg/dL (8.5-10.1); Chloride 101 mmol/L (98-107); Cholesterol 263 mg/dL (200); Creatinine, Serum 0.88 mg/dL (0.55-1.02); EST Glomerular Filtration Rate 71 mL/min (>60); Est Glom Filt Rate - Afr Amer 85 mL/min (>60); Globulin 3.7 g/dL (2.2-4.2); Glucose 92 mg/dL (74-106); High Density Lipoprotein 97 mg/dL; Potassium 3.8 mmol/L (3.5-5.1); Protein, Total 7.5 g/dL (6.4-8.2); Sodium Level 136 mmol/L (136-145); Triglycerides 139 mg/dL; Very Low Density Lipoprotein 28 mg/dL (5-40)
== END | disposition home or self-care (01) ==
LOC: BIMLAB 14:28
PROVIDERS: PCP Internal Medicine; Referring Provider Internal Medicine; Visit Provider Internal Medicine
DX: E78.5 Hyperlipidemia, unspecified (principal); I10 Essential (primary) hypertension
CPT/HCPCS: 36415; 80053; 80061; 83735

== ENCOUNTER → 2023-08-01 | Outpatient (CLI) | payer OTHER, SELFPAY ==
--- NOTE | 2023-08-01 12:43 | BI_ITS ---
MAMMOGRAPHY - BILATERAL SCREENING REASON FOR EXAM: Female, 57 years old. Routine annual screening examination. PERTINENT HISTORY: Aunt with breast cancer. TECHNIQUE: Digital bilateral breast senait (3D mammographic acquisition) in the CC and MLO projections. 2-D mediolateral oblique (MLO) and craniocaudad (CC) views of both breasts were obtained. CAD: Full Field Digital Mammography with Computer Added Detection was performed. COMPARISON: Comparison is made with prior examination July 25, 2022 and February 01, 2021. FINDINGS: Breast Composition: The breasts are heterogeneously dense, which may obscure small masses. There are no dominant masses or suspicious calcifications. No other significant abnormalities are identified. There has been no significant change since the prior study. BI/SCRN MAMM (CAD)W/SENAIT BILAT IMPRESSION: Stable bilateral screening mammogram. Yearly follow-up mammogram recommended. (A) ASSESSMENT CATEGORY: BIRADS Category 1: Negative. A letter regarding these results will be sent to the patient by the facility within 30 days. Approximately 10% of breast cancers are not detected by mammography. A normal mammogram should not delay biopsy of a clinically suspicious abnormality. [id number] Electronically Signed: Ez Mascorro MD at 13:58 EDT ,
== END | disposition home or self-care (01) ==
PROVIDERS: PCP Internal Medicine; Referring Provider Internal Medicine; Visit Provider Internal Medicine
DX: Z12.31 Encounter for screening mammogram for malignant neoplasm of breast (principal); Z80.3 Family history of malignant neoplasm of breast
CPT/HCPCS: 77063; 77067

== ENCOUNTER → 2023-10-22 | Outpatient (CLI) | payer OTHER, SELFPAY ==
[2023-10-22 15:25] LABS: Absolute Neutrophil Count 2.4 X10^3/uL (2.0-7.7); Basophil# 0.02 X10^3/uL; Basophil% 0.4 % (0-1); Eosinophil# 0.06 X10^3/uL; Eosinophils% 1.3 % (0-5); Hematocrit 38.9 % (37-47); Hemoglobin 12.3 g/dL (12.0-15.0); Lymphocyte % 37.5 % (19-41); Mean Corp Hgb Conc 31.6 g/dL (32-36); Mean Corpuscular Hgb 28.7 pg (27.0-32.0); Mean Corpuscular Volume 90.7 fL (81-99); Mean Platelet Vol. 9.6 fl (6.2-12.0); Monocyte# 0.48 X10^3/uL; NRBC Flagged by Analyzer 0 % (0-5); Neutrophil # 2.43 X10^3/uL (2.7-7.7); Neutrophil % 50.6 % (47-70); Platelet Count 337 K/mm3 (150-450); RBC Distribution Width CV 12.9 % (11.6-14.6); RBC Distribution Width SD 42.6 fl (35.1-43.9); Red Blood Count 4.29 M/mm3 (4.2-5.4); White Blood Count 4.8 K/mm3 (4.4-11.0)
[2023-10-22 15:39] LABS: ALB/GLOB Ratio 0.9 RATIO (0.9-2.4); AST(SGOT) 12 U/L (15-37); Alanine Aminotransfer ALT/SGPT 22 U/L (13-56); Albumin, Serum 3.4 g/dL (3.2-5.0); Alkaline Phosphatase 86 U/L (45-117); Anion Gap 2 (5-15); BUN 13 mg/dL (7-18); BUN/Creat Ratio 15.2 RATIO (10-20); Calcium,Total 9.3 mg/dL (8.5-10.1); Chloride 104 mmol/L (98-107); Creatinine, Serum 0.85 mg/dL (0.55-1.02); EST Glomerular Filtration Rate 73 mL/min (>60); Est Glom Filt Rate - Afr Amer 89 mL/min (>60); Globulin 3.7 g/dL (2.2-4.2); Glucose 91 mg/dL (74-106); Potassium 3.9 mmol/L (3.5-5.1); Protein, Total 7.1 g/dL (6.4-8.2); Sodium Level 138 mmol/L (136-145)
[2023-10-22 17:19] LABS: Vitamin B12 499 pg/mL (211-911)
== END | disposition home or self-care (01) ==
LOC: BIMLAB 12:10
PROVIDERS: PCP Internal Medicine; Referring Provider Internal Medicine; Visit Provider Internal Medicine
DX: I10 Essential (primary) hypertension (principal); E56.9 Vitamin deficiency, unspecified
CPT/HCPCS: 36415; 80053; 82607; 85025

== ENCOUNTER 2023-12-11 08:01 | Day surgery (SDC) | payer OTHER, SELFPAY ==
[2023-12-11 08:27] VITALS: BP 122/70; PULSE 87; RESP 18; TEMP 36.2; O2SAT 100; BMI 36.3
[2023-12-11] MEDS: Lactated Ringers 1,000 ML 15 ML IV (08:35)
--- NOTE | 2023-12-11 08:36 | HP.PCM_ITS ---
History and Physical Date of Admission: 12/11/23 Intake Vital Signs 10/21/2410:33 11/28/2412:12 Height 5 ft 4 in 5 ft 4 in Weight: 215 lb 211 lb BMI 36.8 36.2 BP 128/90 H 124/83 H Blood Pressure Location Lt brachial Rt brachial Position Sitting Sitting Respiration 16 17 Pulse 92 80 Pulse Source Monitor Monitor Temp 97.7 F L Temp Source Temporal Pulse Oximetry (%) 98 97 Oxygen Delivery Method room air room air Intake Visit Reasons: HEARTBURN Chief Complaint: HEARTBURN CONCERNS Is patient in pain?: Yes Allergies No Known Allergies Allergy (Verified 11/29/23 13:12) Medications ?Medication ?Instructions ?Recorded ?Confirmed ?Type tizanidine 4 mg capsule 4 mg PO QHS 01/30/20 11/29/23 History multivitamin 1 tab PO DAILY 09/15/20 11/29/23 History hydroxychloroquine 200 mg tablet 200 mg PO BID 01/19/22 11/29/23 History (Plaquenil) ascorbate calcium (vitamin C) 500 500 mg PO DAILY 04/04/22 11/29/23 History mg tablet duloxetine 30 mg capsule,delayed 30 mg PO BID depression #180 caps 10/30/22 11/29/23 Rx release potassium chloride 20 mEq 20 meq PO DAILY #90 tabs 04/03/23 11/29/23 Rx tablet,extended release omeprazole 40 mg capsule,delayed 40 mg PO DAILY #90 caps 07/11/23 11/29/23 Rx release triamterene 37.5 See Rx Instructions .Route 09/26/23 11/29/23 Rx mg-hydrochlorothiazide 25 mg tablet .COMPLEX #90 tabs amlodipine 10 mg tablet 10 mg PO DAILY #90 tabs 10/09/23 11/29/23 Rx oxycodone myristate 9 mg capsule 9 mg PO BID 10/22/23 11/29/23 History sprinkle extended release 12 hr(DON'T CRUSH) (Xtampza ER) ropinirole 0.25 mg tablet 0.25 mg PO QHS #30 tabs 10/22/23 11/29/23 Rx sucralfate 1 gram tablet (Carafate) 1 g PO QACHS PRN Reflux #180 tabs 10/22/23 11/29/23 Rx PFSH Medical History Muscle cramps Health care maintenance Hyperlipidemia GERD (gastroesophageal reflux disease) Concussion Vitamin deficiency Fatigue Preventative health care Rheumatoid arthritis Hypertension Anxiety and depression Hypersomnolence Cardiac murmur Essential hypertension Family history of heart disease in female family member before age 65 UTI (urinary tract infection) Arthritis Foot pain Tachycardia Abnormal mammogram of left breast Abnormal mammogram Preventative health care Wears glasses History of anxiety Easy bruising Injury of back Restless legs Non-smoker Leg cramps History of cardiac murmur History of stress test History of rheumatic fever Spinal cord stimulator status Post-menopausal Arthritis of carpometacarpal (CMC) joint of left thumb Lumbar disc herniation with radiculopathy Hypertension Neuropathy Segmental and somatic dysfunction of sacral region Segmental and somatic dysfunction of pelvic region Back pain Segmental and somatic dysfunction of thoracic region Segmental and somatic dysfunction of cervical region Segmental and somatic dysfunction of lumbar region Osteoarthritis Surgical History Hx of hand surgery History of colonoscopy History of tonsillectomy Previous back surgery (11/17/21) Family History (Updated 11/29/23 @ 13:12 by Alison Jordan) Aunt Breast cancerSister Colon cancerMother Heart disease High cholesterol Hypertension Social History Smoking Status: Never smoker alcohol intake: former substance use type: does not use caffeine: Yes Type: tea what type of physical activity do you participate in: walking frequency: 1-2 times per week HPI HPI HPI: Patient is a 57-year-old female with reflux. She says she has had reflux her entire life but it has gotten worse over the last year. She did say that last time she had a severe episode of reflux she did vomit. She is on a PPI and she is taking Carafate. ROS General General: Yes fatigue; No weight change, appetite, colon cancer, breast cancer or weakness HEENT HEENT: No difficulty swallowing, eye injury, eye surgery, swollen glands or hoarseness Endo Endocrine: No thyroid disease, diabetes mellitus, thyroid cancer, Hair loss, heat intolerance or cold intolerance Skin Skin: No rash or changing moles Musc Musculoskeletal: Yes back problems, arthritis and rheumatoid arthritis; No gout or joint pain Cardio Cardiovascular: Yes high blood pressure; No murmur, pacemaker, heart disease, atrial fibrillation, heart attack, heart stent, palpitations, shortness of breat with exertion or chest pain Psych Psychiatric: Yes depression; No anxiety or hearing voices Resp Respiratory: No shortness of breath, Yes sleep apnea, No cough, No COPD, No asthma, No emphysema and No wheezing Gastro Gastrointestinal: No abdominal pain, No nausea or vomiting, No diarrhea, Yes constipation, No blood in stool, Yes acid reflux, No hemorrhoids, No ulcers, No gallbladder problem and No black,tarry stools Peter Hematologic: No blood thinners, No blood disorders, No bleeding, No anemia and No blood clots Neuro Neurologic: No system reviewed and no additional complaints, except as documented, No as per HPI, No abnormal gait, No abnormal hearing, No abnormal movements, No abnormal speech, No behavioral changes, No burning sensations, No confusion, No convulsions, No disequilibrium, No dizziness, No localized weakness, No frequent falls, No headache(s), No lack of coordination, No loss of vision, No memory loss, No numbness, No other visual disturbances, No radicular pain, No restless legs, No sensory deficit, No syncope, No tingling, No tremor(s), No weakness and No other Exam Const General: cooperative Orientation: alert and oriented x3 HENMT Head: normal to inspection Neck Neck: normal visual inspection and full ROM Chest Chest palpation & inspection: normal inspection of the chest Resp Effort & Inspection: normal respiratory effort Auscultation: clear to auscultation bilaterally Cardio Rate: regular rate Rhythm: regular rhythm GI Inspection: non-distended Palpation: soft and nontender Skin General: no rashes or lesions noted Neuro General: patient alert and patient oriented x3 Extrem General: full ROM Psych Appearance: grossly normal Mental Status: mental status grossly normal Assessment and Plan Assessment and Plan (1) GERD (gastroesophageal reflux disease): Status: Chronic Plan: Patient is having severe GERD when she is impacting her lifestyle. She is on daily PPI which she has been on for years and she has been taking Carafate. She has never had an EGD. She reports that the pain has been getting worse over the last year. I discussed performing EGD with biopsies. I also discussed possibly referring her to bariatric surgery for evaluation for bypass. Patient seemed interested but we will discuss further after EGD. I explained endoscopy in detail to the patient. I explained the risks including but not limited to stroke or heart attack with anesthesia, perforation of the GI tract, bleeding, infection. I explained that any of these could necessitate further emergency surgery. The patient understands and all questions were answered sufficiently. The patient wishes to proceed with procedure. Davin Clark MD Pager: [facility] [address] [place] [address], [address] [place] [address] Office: I have examined the patient and the H&P has been reviewed. There are no clinical changes since date of exam.
[2023-12-11 08:39] VITALS: BP 122/70; PULSE 87; RESP 18; TEMP 36.2; O2SAT 100
--- NOTE | 2023-12-11 08:39 | PRE.ANES_ITS ---
ASA Classification* ASA Classification ASA Classification: 2 Assessment & Plan Anesthesia* Anesthesia Assessment Anesthesia Assessment: Discussed sedation and/or anesthesia options, risks, benefits, and alternatives with patient/parents/legal guardian/POA. Questions invited. The patient/parents/legal guardian/POA seems to understand and agrees to proceed with anesthesia plan. Reviewed the physical assessment, medical history, allergy history and patient home medications list prior to surgery/procedure/anesthetic and documented any changes. Performed airway and anesthesia risk assessments. Anesthesia Type Anesthesia Type: MAC (see written pre anesthesia record for full assessment) Anesthesia Focused Assessment* Temperature: 97.1 F Pulse Rate: 87 Blood Pressure: 122/70 Respiratory Rate: 18 Pulse Ox: 100 Airway Assessment Mouth opens: >3 cm Mallampati Score: II Focused Labs Anesthesia Preop lab: CBC WBC 4.8 K/mm3 (4.4-11.0) 10/22/23 12:10 RBC 4.29 M/mm3 (4.2-5.4) 10/22/23 12:10 Hgb 12.3 g/dL (12.0-15.0) 10/22/23 12:10 Hct 38.9 % (37-47) 10/22/23 12:10 Plt Count 337 K/mm3 (150-450) 10/22/23 12:10 CHEMISTRY Potassium 3.9 mmol/L (3.5-5.1) 10/22/23 12:10 Sodium 138 mmol/L (136-145) 10/22/23 12:10 Magnesium 2.0 mg/dL (1.6-2.6) 07/11/23 14:28 Phosphorus 3.3 mg/dL (2.5-4.9) 04/04/22 15:55 BUN 13 mg/dL (7-18) 10/22/23 12:10 Creatinine 0.85 mg/dL (0.55-1.02) 10/22/23 12:10 Glucose 91 mg/dL (74-106) 10/22/23 12:10 TSH 0.80 uIU/mL (0.358-3.74) 04/04/22 15:55 COAG Pre-Assessment Diagnosis/Proposed Procedure Planned Operative Procedure(s): EGD Anesthesia History 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 When Was Last Pacemaker Check QUESTION #4 FULL TEXT: You/Your Family Experience fever (hyperthermia) with Anesthesia Last Oral Intake Last Oral intake: Last Oral Intake NPO since 20:00 12/11/23 08:27 Meds taken in AM with sips of Yes 12/11/23 08:27 water? 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 Female Yes 12/05/23 14:32 HX of Motion Sickness No 12/05/23 14:32 HX of N/V After Surgery No 12/05/23 14:32 Non-Smoker Yes 12/05/23 14:32 Duration of Surgery greater No 12/05/23 14:32 than 60 minutes Number of Risk Factors 2 12/05/23 14:32 PONV Score Moderate Risk 12/05/23 14:32 Height & Weight Height & Weight: Anesthesia: Height & Weight Height 5 ft 4 in 12/11/23 08:27 Weight: 95.889 kg 12/11/23 08:27 Body Mass Index (BMI) 36.3 12/11/23 08:27 Respiratory Assessment Respiratory Assessment - operations and maintenance manager: Respiratory Tract Infection Hx - operations and maintenance manager Hx Respiratory Tract Infection Yes: COVID 11/21/23 12/05/23 14:32 STOP Sleep Apnea STOP Sleep Apnea - operations and maintenance manager: STOP Sleep Apnea - operations and maintenance manager Hx Hypertension Yes: CONTROLLED WITH MEDS 12/05/23 14:32 Hx Sleep Apnea Yes 12/05/23 14:32 CPAP Yes 12/05/23 14:32 BIPAP No 12/05/23 14:32 Do you snore loudly (louder than talking or can be heard Do you often feel tired/ fatigued/ sleepy during daytime? Has anyone observed you stop breathing during sleep? STOP Results Positive 12/05/23 14:32 QUESTION #5 FULL TEXT : Do you snore loudly (louder than talking or can be heard through closed doors)? 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 Specify any problems Hx of Preganancy in last 3 No 12/05/23 14:32 Months Nurse Filling Out Transfusion DSCHRIBER 12/05/23 14:32 & Questions: Date: 12/05/23 12/05/23 14:32 Time: 14:34 12/05/23 14:32 Patient unable to answer at this time (ie. confused, unrespo /Reproduction History /Reproductive History - operations and maintenance manager: /Reproductive Hx- operations and maintenance manager Hx Now No 12/05/23 14:32 Gestational Age (in weeks): EDC: Hx Hx Para Hx Section SAB No 12/05/23 14:32 Active Medications Active Medications: Current Medications Generic Name Dose Route Start Last Admin Trade Name Freq PRN Reason Stop Dose Admin Lactated Ringer's 1,000 mls @ 15 mls/hr 12/11/23 08:15 12/11/23 08:35 IV 15 mls/hr .Q48H ROHAN Administration PFSH Medical History CPAP (continuous positive airway pressure) dependence Shortness of breath on exertion History of pain when walking History of edema History of echocardiogram Cardiology follow-up encounter History of irregular heartbeat Muscle cramps Health care maintenance Hyperlipidemia GERD (gastroesophageal reflux disease) Concussion Vitamin deficiency Fatigue Preventative health care Rheumatoid arthritis Hypertension Anxiety and depression Hypersomnolence Cardiac murmur Essential hypertension Family history of heart disease in female family member before age 65 UTI (urinary tract infection) Arthritis Foot pain Tachycardia Abnormal mammogram of left breast Abnormal mammogram Preventative health care Wears glasses Easy bruising Injury of back Restless legs Non-smoker Leg cramps History of stress test History of rheumatic fever Spinal cord stimulator status Post-menopausal Arthritis of carpometacarpal (CMC) joint of left thumb Lumbar disc herniation with radiculopathy Hypertension Neuropathy Segmental and somatic dysfunction of sacral region Segmental and somatic dysfunction of pelvic region Back pain Segmental and somatic dysfunction of thoracic region Segmental and somatic dysfunction of cervical region Segmental and somatic dysfunction of lumbar region Osteoarthritis Home Medications ?Medication ?Instructions ?Recorded ?Last Taken ?Type tizanidine 4 mg capsule 4 mg PO QHS 01/30/20 12/10/23 History multivitamin 1 tab PO DAILY 09/15/20 12/10/23 History hydroxychloroquine 200 mg tablet 200 mg PO BID 01/19/22 12/11/23 07:00 History (Plaquenil) ascorbate calcium (vitamin C) 500 500 mg PO DAILY 04/04/22 12/10/23 History mg tablet duloxetine 30 mg capsule,delayed 30 mg PO BID depression #180 caps 10/30/22 12/11/23 07:00 Rx release potassium chloride 20 mEq 20 meq PO DAILY #90 tabs 04/03/23 12/10/23 Rx tablet,extended release omeprazole 40 mg capsule,delayed 40 mg PO DAILY #90 caps 07/11/23 12/10/23 Rx release triamterene 37.5 See Rx Instructions .Route 09/26/23 12/10/23 Rx mg-hydrochlorothiazide 25 mg tablet .COMPLEX #90 tabs amlodipine 10 mg tablet 10 mg PO DAILY #90 tabs 10/09/23 12/11/23 07:00 Rx oxycodone myristate 9 mg capsule 9 mg PO BID 10/22/23 12/10/23 History sprinkle extended release 12 hr(DON'T CRUSH) (Xtampza ER) sucralfate 1 gram tablet (Carafate) 1 g PO QACHS Reflux 12/11/23 12/10/23 History Allergy/AdvReac Type Severity Reaction Status Date / Time No Known Allergies Allergy Verified 12/11/23 08:24 Family History Aunt Breast cancer Sister Colon cancer Mother Heart disease High cholesterol Hypertension Surgical History Hx of tubal ligation Hx of hand surgery History of colonoscopy History of tonsillectomy Previous back surgery (11/17/21) Social History Smoking Status: Never smoker alcohol intake: former substance use type: does not use caffeine: Yes Type: tea what type of physical activity do you participate in: walking frequency: 1-2 times per week Review of Systems (Anesthesia) ROS Narrative System reviewed and no additional complaints, except as documented.
--- NOTE | 2023-12-11 08:57 | OP.CCLET_ITS ---
12/11/2023 Jonny Manzano MD [address] [place] [address] [place] [address] Re : Upper GI endoscopy procedure for Diane Mosquera Dear Dr. Manzano This procedure was performed on Monday, December 11, 2023. My impressions and recommendations are as follows: Impressions : - Normal esophagus. - Normal stomach. - Normal examined duodenum. - No specimens collected. Recommendations : - Discharge patient to home. - Resume previous diet. - Continue present medications. My findings are described in the full procedure note, which is enclosed. If I can be of further assistance, please feel free to contact me at Doctor phone number(s): , Work: . Sincerely, Davin Clark MD 12/11/2023 8:57:05 AM This report has been signed electronically.
--- NOTE | 2023-12-11 08:57 | OP.EGD_ITS ---
Patient Name: Diane Mosquera Procedure Date: 12/11/2023 8:36 AM Date of : 1965 Age: 58 Procedure: Upper GI endoscopy Indications: Esophageal reflux Providers: Davin Clark MD Medicines: Propofol per Anesthesia Patient Profile: This is a 58 year old female. Refer to note in patient chart for documentation of history and physical. Complications: No immediate complications. Estimated blood loss: Minimal. Procedure: Pre-Anesthesia Assessment: - Prior to the procedure, a History and Physical was performed, and patient medications and allergies were reviewed. The patient's tolerance of previous anesthesia was also reviewed. The risks and benefits of the procedure and the sedation options and risks were discussed with the patient. All questions were answered, and informed consent was obtained. Prior Anticoagulants: The patient has taken no anticoagulant or antiplatelet agents. After reviewing the risks and benefits, the patient was deemed in satisfactory condition to undergo the procedure. After obtaining informed consent, the endoscope was passed under direct vision. Throughout the procedure, the patient's blood pressure, pulse, and oxygen saturations were monitored continuously. The gastroscope was introduced through the mouth, and advanced to the third part of duodenum. The upper GI endoscopy was accomplished without difficulty. The patient tolerated the procedure well. Scope In: 8:51:49 AM Scope Out: 8:53:25 AM Total Procedure Duration Time 0 hours 1 minute 36 seconds Findings: The esophagus was normal. The stomach was normal. The examined duodenum was normal. Impression: - Normal esophagus. - Normal stomach. - Normal examined duodenum. - No specimens collected. Recommendation: - Discharge patient to home. - Resume previous diet. - Continue present medications. Procedure Code(s): --- Professional --- 56290, Esophagogastroduodenoscopy, flexible, transoral; diagnostic, including collection of specimen(s) by brushing or washing, when performed (separate procedure) Diagnosis Code(s): --- Professional --- K21.9, Gastro-esophageal reflux disease without esophagitis CPT copyright 2021 [employer]. All rights reserved. The codes documented in this report are preliminary and upon hygiene assistant review may be revised to meet current compliance requirements. Davin Clark MD 12/11/2023 8:57:05 AM This report has been signed electronically. Number of Addenda: 0 Note Initiated On: 12/11/2023 8:36 AM
[2023-12-11 09:00] VITALS: BP 122/70; BP 124/76; PULSE 79; RESP 16; TEMP 36.1; O2SAT 92
--- NOTE | 2023-12-11 09:04 | PCM.POST.ANE ---
Anesthesia: Postop Eval I Current Vital Signs Temperature: 97 F Pulse Rate: 84 Blood Pressure: 124/76 Respiratory Rate: 16 Pulse Ox: 95 Oxygen Delivery Method: Room Air Assessment Airway patent: Yes Spontaneous unlabored respirations: Yes Mental status: Asleep nausea: No Vomiting: No Anesthesia Complication: No Fluid Hydration Crystalloid volume administer (ml): 400 Total IV fluid infused: 400 Progress Note Anesthesia document: Postop Eval 1 completed: Yes
[2023-12-11 09:05] VITALS: BP 122/70; BP 124/76; BP 124/77; PULSE 78; PULSE 84; RESP 16; TEMP 36.1; O2SAT 95; O2SAT 96
[2023-12-11 09:10] VITALS: BP 119/73; BP 122/70; PULSE 79; RESP 16; TEMP 36.8; O2SAT 97
[2023-12-11 09:25] VITALS: BP 122/70
--- NOTE | 2023-12-11 09:25 | PCM.POSTANE2 ---
Anesthesia Postop Eval I Sum Postop Eval Completion status Anesthesia document: Postop Eval 1 completed: Yes Anesthesia Postop Eval I Summary Anesthesia Postop Eval I Summary: Anesthesia Postop Eval I: Assessment Summary Airway patent Yes 12/11/23 09:05 [email or web address] Spontaneous unlabored Yes 12/11/23 09:05 [email or web address] respirations Mental status Asleep 12/11/23 09:05 [email or web address] nausea No 12/11/23 09:05 [email or web address] Vomiting No 12/11/23 09:05 [email or web address] Anesthesia Postop Eval I: Fluid Summary Crystalloid volume administer 400 12/11/23 09:05 [email or web address] (ml) Colloids volume administered ( ml) Blood Product volume administered (ml) Total IV fluid infused 400 12/11/23 09:05 [email or web address] Anesthesia Postop Eval I: Summary Notes Anesthesia Complication No 12/11/23 09:05 [email or web address] Anesthesia Complication Comment: Post-operative progress note Anesthesia: Postop Eval II Evaluation Mental status: Awake and Calm Pain Level: 0 nausea: No Vomiting: No Complications Anesthesia Complication: No
== END 2023-12-11 09:32 | disposition home or self-care (01) ==
LOC: EN 08:06 → AC 08:07
PROVIDERS: PCP Internal Medicine; Referring Provider Internal Medicine; Visit Provider Surgery
PROC: 0DJ08ZZ Inspection of Upper Intestinal Tract, Via Natural or Artificial Opening Endoscopic (ICD-10-PCS; CPT 43235; principal; 2023-12-11 08:55)
DX: K21.9 Gastro-esophageal reflux disease without esophagitis (principal); E78.5 Hyperlipidemia, unspecified; I10 Essential (primary) hypertension; F32.A Depression, unspecified; R53.83 Other fatigue
CPT/HCPCS: 43235; J7120; J2405

== ENCOUNTER → 2024-02-06 | Outpatient (CLI) | payer OTHER, SELFPAY ==
--- NOTE | 2024-02-06 17:15 | RAD_ITS ---
EXAM: XR CERVICAL SPINE, 2 OR 3 VIEWS CLINICAL INDICATION: NECK PAIN TECHNIQUE: Frontal and lateral views of the cervical spine. COMPARISON: No relevant prior studies available. FINDINGS: VERTEBRAE: Unremarkable. Preserved vertebral body height. No acute fracture. No spondylolisthesis. Preservation of the normal cervical lordosis. No significant facet arthropathy. DISC SPACES: Unremarkable. Disc spaces are maintained. SOFT TISSUES: Unremarkable. No prevertebral soft tissue widening. LUNG APICES: Clear. RAD/Cerv Spine 2 or 3 Views IMPRESSION: No evidence of acute fracture or spondylolisthesis. Electronically Signed: Juan Ramon العلي MD at 19:31 EDT ,
[2024-02-06 17:45] LABS: Amphetamine Urine VISTA NEGATIVE (<1000 ng/mL); Barbiturate Urine VISTA NEGATIVE (< 200 ng/mL); Benzodiazepine Urine VISTA NEGATIVE (< 200 ng/mL); Cocaine Urine VISTA NEGATIVE (< 300 ng/mL); Ecstacy Urine VISTA NEGATIVE (< 500 ng/mL); Methadone Urine VISTA NEGATIVE (< 300 ng/mL); PCP Urine VISTA NEGATIVE (< 25 ng/mL); THC Urine VISTA NEGATIVE (< 50 ng/mL); Vista UDS pH Range 5
== END | disposition home or self-care (01) ==
PROVIDERS: PCP Internal Medicine; Referring Provider Anesthesiology Pain Medicine; Visit Provider Anesthesiology Pain Medicine
DX: M54.2 Cervicalgia (principal); F11.20 Opioid dependence, uncomplicated
CPT/HCPCS: 72040; 80307

== ENCOUNTER 2024-04-17 13:07 | Emergency (ER) | payer OTHER, SELFPAY ==
[2024-04-17 13:08] VITALS: BP 148/88; PULSE 96; RESP 16; TEMP 36.9; O2SAT 99; BMI 35.2
--- NOTE | 2024-04-17 17:13 | EDS_ITS ---
HPI <MAURO Castañeda - Last Filed: 04/17/24 18:16> History of Present Illness Chief Complaint: Other, Pain/Inj Narrative Narrative: Patient presenting today with pain to the bilateral wrists, ankles, and knees that started over the weekend. She reports swelling to these joints that is causing pain to radiate up her legs and arms bilaterally. She does have a history of rheumatoid arthritis but does not generally experience RA flares. She is on Plaquenil for this, she follows with rheumatology. She is in pain management due to history of chronic low back pain and and bilateral lower extremity pain. She does not have any history of CHF. She denies fevers, chills, shortness of breath. [facility] <MAURO Castañeda - Last Filed: 04/17/24 18:16> [facility] Medical History CPAP (continuous positive airway pressure) dependence Shortness of breath on exertion History of pain when walking History of edema History of echocardiogram Cardiology follow-up encounter History of irregular heartbeat Muscle cramps Health care maintenance Hyperlipidemia GERD (gastroesophageal reflux disease) Concussion Vitamin deficiency Fatigue Preventative health care Rheumatoid arthritis Hypertension Anxiety and depression Hypersomnolence Cardiac murmur Essential hypertension Family history of heart disease in female family member before age 65 UTI (urinary tract infection) Arthritis Foot pain Tachycardia Abnormal mammogram of left breast Abnormal mammogram Preventative health care Wears glasses Easy bruising Injury of back Restless legs Non-smoker Leg cramps History of stress test History of rheumatic fever Spinal cord stimulator status Post-menopausal Arthritis of carpometacarpal (CMC) joint of left thumb Lumbar disc herniation with radiculopathy Hypertension Neuropathy Segmental and somatic dysfunction of sacral region Segmental and somatic dysfunction of pelvic region Back pain Segmental and somatic dysfunction of thoracic region Segmental and somatic dysfunction of cervical region Segmental and somatic dysfunction of lumbar region Osteoarthritis Home Medications ?Medication ?Instructions ?Recorded ?Last Taken ?Type tizanidine 4 mg capsule 4 mg PO QHS 01/30/20 12/10/23 History multivitamin 1 tab PO DAILY 09/15/20 12/10/23 History hydroxychloroquine 200 mg tablet 200 mg PO BID 01/19/22 12/11/23 07:00 History (Plaquenil) ascorbate calcium (vitamin C) 500 500 mg PO DAILY 04/04/22 12/10/23 History mg tablet duloxetine 30 mg capsule,delayed 30 mg PO BID depression #180 caps 10/30/22 12/11/23 07:00 Rx release potassium chloride 20 mEq 20 meq PO DAILY #90 tabs 04/03/23 12/10/23 Rx tablet,extended release triamterene 37.5 See Rx Instructions .Route 09/26/23 12/10/23 Rx mg-hydrochlorothiazide 25 mg tablet .COMPLEX #90 tabs oxycodone myristate 9 mg capsule 9 mg PO BID 10/22/23 12/10/23 History sprinkle extended release 12 hr(DON'T CRUSH) (Xtampza ER) sucralfate 1 gram tablet (Carafate) 1 g PO QACHS Reflux 12/11/23 12/10/23 History amlodipine 10 mg tablet 10 mg PO DAILY #90 tabs 01/24/24 Unknown Rx omeprazole 40 mg capsule,delayed 40 mg PO DAILY #90 caps 02/12/24 Unknown Rx release prednisone 20 mg tablet 40 mg (2 x 20 mg) PO DAILY 5 days 04/17/24 Unknown Rx #10 tabs Allergy/AdvReac Type Severity Reaction Status Date / Time No Known Allergies Allergy Verified 04/17/24 13:08 Family History Aunt Breast cancer Sister Colon cancer Mother Heart disease High cholesterol Hypertension Surgical History Hx of tubal ligation Hx of hand surgery History of colonoscopy History of tonsillectomy Previous back surgery (11/17/21) Social History Smoking Status: Never smoker alcohol intake: former substance use type: does not use caffeine: Yes Type: tea what type of physical activity do you participate in: walking frequency: 1-2 times per week ROS <MAURO Castañeda - Last Filed: 04/17/24 18:16> ROS ED Constitutional Constitutional ED: Denies chills or fever(s) Cardiovascular Cardiovascular: Denies chest pain Respiratory/Chest Respiratory/Chest: Denies dyspnea Gastrointestinal Gastrointestinal: Denies abdominal pain, nausea or vomiting Musculoskeletal Musculoskeletal: Reports arthralgias Integumentary Denies rash Neurologic Neurologic: Denies paresthesias EXAM <MAURO Castañeda - Last Filed: 04/17/24 18:16> Physical Exam Const Vital Signs: 04/17/24 13:08 04/17/24 16:22 Temperature 98.5 F Temperature Source Oral Pulse Rate 96 Respiratory Rate 16 Respiratory Effort Normal Non-Labored Respiratory Pattern Normal Blood Pressure 148/88 H Blood Pressure Mean 108 Pulse Ox 99 Oxygen Delivery Method Room Air Positive well nourished, well developed and no apparent distress General Appearance ED: well developed HEENT Reports normocephalic and head/scalp atraumatic Mouth ED: Yes moist mucous membranes normal Eyes PERRL and EOMs intact bilaterally Neck full ROM and supple Chest Wall inspection of chest normal Resp normal respiratory effort and clear to auscultation bilaterally Cardio regular rate and regular rhythm Back/Spine normal ROM and normal to inspection Extremity Extremity Narrative: Edema and generalized pain to palpation to the bilateral ankles. No swelling that extends to the lower calves bilaterally. Generalized pain to palpation to the bilateral knees and bilateral wrists. Limited ROM to the bilateral ankles, knees, and wrists due to pain. No signs of septic joints. No upper extremity swelling. Neurovascularly intact to the bilateral upper and lower extremities. Neuro oriented x3, CN's II-XII intact bilaterally, moves all extremities, no focal motor deficits and no sensory deficits noted Sensorium / Orientation: awake and alert Psych mental status grossly normal and thought process normal Skin no rashes or lesions noted and no wounds <Dr. Jason Chaudhry MD - Last Filed: 04/17/24 17:25> Physical Exam Const Vital Signs: 04/17/24 13:08 04/17/24 16:22 Temperature 98.5 F Temperature Source Oral Pulse Rate 96 Respiratory Rate 16 Respiratory Effort Normal Non-Labored Respiratory Pattern Normal Blood Pressure 148/88 H Blood Pressure Mean 108 Pulse Ox 99 Oxygen Delivery Method Room Air MDM <MAURO Castañeda - Last Filed: 04/17/24 18:16> [facility] Narrative Medical decision making narrative: Patient presenting today with pain to her bilateral wrists, ankles, knees, right knee has worse pain than the left. She does have a history of RA. No history of gout. She otherwise is nontoxic-appearing. She does have swelling to her bilateral ankles but no joint effusion to the knees, I do not appreciate any swelling to her wrists. She reports that she did have to take her rings off her fingers because she was getting swelling in her hands and also has pain to the joints of her fingers. She does not have any swelling that extends past the bilateral ankles, no shortness of breath, this does not appear consistent with CHF. Her examination is consistent with an RA flare. I think patient would benefit from a course of prednisone and was given first dose here. She does have Percocet at home that she can take for pain as needed. Recommended she follow-up with her commercial manager and pain management. She will be discharged home in stable condition. <Dr. Jason Chaudhry MD - Last Filed: 04/17/24 17:25> MDM Treatment and Re-Evaluation Comments:: I have personally performed a face to face assessment of the patient and have reviewed the JUVENTINO Note. I performed a substantive portion of the visit including all aspects of the following. My arnold findings include: History is patient states she has been having multiple days of pain and swelling in both ankles, both knees, both wrists, the pain radiates upper arms and upper legs. Swelling is more prominent in her ankles right now. She states her hands and fingers have been feeling more sore and stiff since this has been going on. She denies any fevers, chills, dyspnea with exertion, orthopnea, chest comfort, abdominal swelling/distention or pain. Exam limited range of motion of ankles, knees, wrist. There are some scattered areas of erythema at these joints but for the most part they are not red or hot. She does not appear to have pretibial edema to suggest a cardiac or other source. Converses in full sentences. Neurovascular intact distally throughout all 4 extremities. Medical Decison Making given the fact the patient has multiple joints involved including her upper extremities as well as her fingers and hands, and history of rheumatoid arthritis I think this is more consistent with that. She states she is worried about my heart, my kidneys, my liver because I know all those things can make you swell. She is not having any systemic symptoms that I think warrants an extended emergent workup right now. In my judgment I would try a short course of steroid to see if that helps and if it does not or it causes things to get worse, at that point she is welcome to return and I would be happy to obtain more of a workup but I do not think it would be dangerous to empirically try steroids at this time. Other additions or changes: [None] Discharge Plan Triage Chief Complaint: Other, Pain/Inj Other Complaint: Back Edema ED Midlevel Provider: Lacy Her ED Provider: Jason Chaudhry Dx/Rx/DC Orders Clinical Impression: Rheumatoid arthritis flare Instructions: ED Rheumatoid Arthritis Prescriptions: New prednisone 20 mg tablet 40 mg PO DAILY 5 Days Qty: 10 0RF No Action multivitamin Tablet 1 tab PO DAILY hydroxychloroquine [Plaquenil] 200 mg tablet 200 mg PO BID ascorbate calcium (vitamin C) 500 mg tablet 500 mg PO DAILY Xtampza ER 9 mg cap,sprinkl,ER12hr(DONT CRUSH) 9 mg PO BID Rx Instructions: must administer with a meal/food tizanidine 4 MG capsule 4 mg PO QHS sucralfate [Carafate] 1 gram tablet 1 g PO QACHS duloxetine 30 mg capsule,delayed release(DR/EC) 30 mg PO BID Qty: 180 3RF potassium chloride 20 mEq tablet extended release 20 meq PO DAILY Qty: 90 2RF triamterene-hydrochlorothiazid 37.5-25 mg tablet See Rx Instructions .ROUTE .COMPLEX Qty: 90 1RF Dose Instruction: TAKE 1 TABLET BY MOUTH EVERY MORNING Rx Instructions: TAKE 1 TABLET BY MOUTH EVERY MORNING amlodipine 10 mg tablet 10 mg PO DAILY Qty: 90 0RF Rx Instructions: Take 1 tablet daily omeprazole 40 mg capsule,delayed release(DR/EC) 40 mg PO DAILY Qty: 90 0RF Rx Instructions: Take 30 minutes before breakfast Primary Care Provider: Jonny Manzano Referrals: Jonny Manzano MD [Primary Care Provider] - As soon as possible Activity Restrictions/Additional Instructions: Follow-up with your PCP and return for any worsening symptoms. Print Language: Croatian Disposition Disposition: Home, Self Care Discharge Date/Time: 04/17/24 17:34
== END 2024-04-17 17:34 | disposition home or self-care (01) ==
PROVIDERS: Emergency Provider Emergency Medicine; PCP Internal Medicine; Visit Provider Emergency Medicine
DX: M06.9 Rheumatoid arthritis, unspecified (principal); M25.571 Pain in right ankle and joints of right foot; E78.5 Hyperlipidemia, unspecified; M79.605 Pain in left leg; M25.572 Pain in left ankle and joints of left foot; I10 Essential (primary) hypertension; R60.9 Edema, unspecified; M54.50 Low back pain, unspecified; G89.29 Other chronic pain; Z99.89 Dependence on other enabling machines and devices; Z98.51 Tubal ligation status
CPT/HCPCS: 99283

== ENCOUNTER → 2024-07-28 | Outpatient (CLI) | payer OTHER, SELFPAY ==
--- NOTE | 2024-07-28 06:24 | ECHOCS_ITS ---
Reason For Study Reason For Study: Tachycardia Procedure This was a 2D Doppler, Color Flow transthoracic echocardiogram. Contrast injection was performed. Exam performed in department. Left Ventricle Normal LV size. Left ventricular systolic function is normal. The left ventricular ejection fraction is 65 %. No regional wall motion abnormalities noted. Right Ventricle Normal RV size. Normal systolic function. Atria Normal left atrium. Normal right atrium. Mitral Valve Normal mitral valve. Tricuspid Valve Normal tricuspid valve. Aortic Valve Trisinus/trileaflet aortic valve. Pulmonic Valve The pulmonic valve is not well visualized. Great Vessels Normal aortic root. The pulmonary artery is normal size. Inferior vena cava collapse with respiration. Pericardium/Pleural No pericardial effusion. Medication 22 gauge I.V. with prn adaptor inserted into right arm. Diluted definity 3ml given slow IV push to enhance endocardial definition. MMode/2D Measurements & Calculations LVIDd: 4.5 cm IVSd: 0.85 cm Ao root diam: 3.1 cm LVIDs: 3.0 cm LVPWd: 0.52 cm RVDd: 3.4 cm FS: 34.1 % LAV(MOD-bp): 51.2 ml LVAd ap4: 31.8 cm2 SV(MOD-sp4): 67.9 ml LAV(MOD-bp) Indexed: 25.6 ml/m2 LVLd ap4: 8.1 cm SI(MOD-sp4): 34.0 ml/m2 LAV(MOD-sp2): 51.7 ml EDV(MOD-sp4): 104.2 ml LAV(MOD-sp4): 44.2 ml EDV(sp4-el): 106.5 ml LVAs ap4: 16.8 cm2 LVLs ap4: 6.4 cm ESV(MOD-sp4): 36.3 ml ESV(sp4-el): 37.6 ml EF(MOD-sp4): 65.1 % EF(sp4-el): 64.7 % SV(sp4-el): 68.9 ml LA A4 area: 18.0 cm2 LA dimension(2D): 3.6 cm RA A4 area: 15.6 cm2 TAPSE: 1.9 cm Time Measurements MV dec time: 0.21 sec Doppler Measurements & Calculations MV E max gee: 93.3 cm/sec Lat Peak E' Gee: 14.8 cm/sec Med Peak E' Gee: 11.1 cm/sec MV A max gee: 82.9 cm/sec E/E' lat: 6.3 E/E' med: 8.4 MV E/A: 1.1 MV V2 max: 105.7 cm/sec MV P1/2t max gee: 106.8 cm/sec Ao V2 max: 136.1 cm/sec MV max P.5 mmHg MV P1/2t: 68.9 msec Ao max P.4 mmHg MV V2 mean: 61.4 cm/sec MV dec slope: 454.1 cm/sec2 Ao V2 mean: 92.0 cm/sec MV mean P.8 mmHg MVA(P1/2t): 3.2 cm2 Ao mean P.9 mmHg MV V2 VTI: 27.7 cm Ao V2 VTI: 29.7 cm AV (velocity ratio): 0.89 LV V1 max: 122.1 cm/sec PA V2 max: 101.4 cm/sec LV V1 max P.0 mmHg PA V2 mean: 72.3 cm/sec LV V1 mean P.3 mmHg LV V1 mean: 85.4 cm/sec LV V1 VTI: 26.3 cm ECHO/Echo Complete W/ Contrast Interpretation Summary Normal LV size. Left ventricular systolic function is normal. The left ventricular ejection fraction is 65 %. Contrast injection was performed. Ordering Physician: Drake Mares Referring Physician: Drake Mares Performed By: Mike Crockett RCS
--- NOTE | 2024-07-28 16:32 | STRESSREP ---
Stress Test Report Pharmacologic myocardial perfusion stress test. 58-year-old lady with a history of chest pain Resting EKG demonstrates sinus rhythm with a rate of 67 bpm. Resting blood pressure is 128/70 mmHg. 0.4 mg of regadenoson was infused per usual protocol followed by rapid intravenous saline flush injection. Continuous EKG monitoring was performed. The maximum heart rate was 105 bpm which was 64% of max impacted heart rate the maximum workload was 1 metabolic equivalent. At rest there were no ST or T wave changes noted to suggest ischemia and at peak infusion nonspecific ST changes were noted which did not meet the criteria for ischemia. No clinical angina is noted. The final blood pressure was 124/68 mmHg. Myocardial perfusion protocol. 13.2 mCi of technetium 99m sestamibi was injected at rest. 0.4 mg of regadenoson was infused per usual protocol. At peak infusion 43.1 mCi of technetium 99m sestamibi was injected stress images were obtained stress and rest images were reconstructed and compared in the short axis vertical long and horizontal long axis. Gated images were also obtained. Perfusion SPECT analysis: Review of the stress images demonstrate normal uptake of tracer noted in all areas of the myocardium. The resting images similar demonstrated normal uptake of tracer noted in all areas of the myocardium. No areas of reversibility are noted to suggest ischemia and no previous infarct is noted. Gated SPECT analysis: The gated ejection fraction is 82%. Conclusion: Normal pharmacologic myocardial perfusion stress test. Preserved ejection fraction.
== END | disposition home or self-care (01) ==
LOC: CVS 06:22
PROVIDERS: PCP Internal Medicine; Referring Provider Nurse Practitioner Family; Visit Provider Nurse Practitioner Family
DX: Z01.810 Encounter for preprocedural cardiovascular examination (principal); R01.1 Cardiac murmur, unspecified; I10 Essential (primary) hypertension
CPT/HCPCS: 78452; 93017; 93306; A9500; Q9957; A4216; C8929; J2785

== ENCOUNTER → 2024-08-14 | Outpatient (CLI) | payer OTHER, SELFPAY ==
[2024-08-14 15:50] LABS: Amphetamine Urine NEGATIVE (<1000 ng/mL); Barbiturate Urine NEGATIVE (< 200 ng/mL); Benzodiazepine Urine NEGATIVE (< 200 ng/mL); Buprenorphine Urine NEGATIVE (< 200 ng/mL); Cocaine Urine NEGATIVE (< 300 ng/mL); Fentanyl, Urine NEGATIVE; Methadone Urine NEGATIVE (< 300 ng/mL); Opiates Urine NEGATIVE (< 300 ng/mL); Oxycodone, Urine PRESUMPTIVE POSITIVE (< 100 ng/mL); PCP Urine NEGATIVE (< 25 ng/mL); THC Urine NEGATIVE (< 50 ng/mL)
== END | disposition home or self-care (01) ==
LOC: LAB 13:59
PROVIDERS: PCP Internal Medicine; Referring Provider Anesthesiology Pain Medicine; Visit Provider Anesthesiology Pain Medicine
DX: F11.20 Opioid dependence, uncomplicated (principal)
CPT/HCPCS: 80307

== ENCOUNTER → 2024-08-25 | Outpatient (CLI) | payer OTHER, SELFPAY ==
--- NOTE | 2024-08-25 13:12 | BI_ITS ---
EXAM: SCRN MAMM (CAD)W/SENAIT BILAT DATE: 08/25/2024 CLINICAL HISTORY: F, Age 58 y/o , SCREENING BREAST CANCER RISK ASSESSMENT: Has not been calculated. TECHNIQUE: Bilateral screening digital breast tomosynthesis with 2D and 3D images. Computer aided detection. COMPARISON: Prior exam(s) dated 08/01/2023 and 07/25/2022. FINDINGS: TISSUE DENSITY: The breast tissue is composed of scattered area of fibroglandular density. Bilateral Breast Mammographic Findings: There are no suspicious masses, suspicious clustered microcalcifications, architectural distortion or secondary signs of malignancy identified in either breast. Benign round microcalcifications are seen in the left breast. The overall breast findings are similar when compared to the prior exams. BI/SCRN MAMM (CAD)W/SENAIT BILAT IMPRESSION: OVERALL FINAL ASSESSMENT: BIRADS 2 BENIGN FINDING RECOMMENDATION: Routine annual follow-up in 1 Year A letter with findings and recommendations will be mailed to the patient. Reading Location: [id number]
== END | disposition home or self-care (01) ==
LOC: OPBI 13:11
PROVIDERS: PCP Internal Medicine; Referring Provider Advanced Practice Midwife; Visit Provider Advanced Practice Midwife
DX: Z12.31 Encounter for screening mammogram for malignant neoplasm of breast (principal)
CPT/HCPCS: 77063; 77067

== ENCOUNTER → 2024-09-03 | Outpatient (CLI) | payer OTHER, SELFPAY ==
[2024-09-03 15:29] LABS: Absolute Lymphocyte Count 1.82 X10^3/uL (0.83-4.51); Absolute Neutrophil Count 2.3 X10^3/uL (2.0-7.7); Basophil# 0.03 X10^3/uL; Basophil% 0.6 % (0-1); Eosinophil# 0.06 X10^3/uL; Eosinophils% 1.3 % (0-5); Hematocrit 39.1 % (37-47); Hemoglobin 12.6 g/dL (12.0-15.0); Lymphocyte # 1.82 X10^3/ul (0.83-4.51); Lymphocyte % 39.3 % (19-41); Mean Corp Hgb Conc 32.2 g/dL (32-36); Mean Corpuscular Volume 89.9 fL (81-99); Mean Platelet Vol. 9.4 fl (6.2-12.0); Monocyte# 0.45 X10^3/uL; Monocyte% 9.7 % (0-10); NRBC Flagged by Analyzer 0 % (0-5); Neutrophil # 2.26 X10^3/uL (2.7-7.7); Neutrophil % 48.9 % (47-70); Platelet Count 320 K/mm3 (150-450); RBC Distribution Width CV 13.4 % (11.6-14.6); Red Blood Count 4.35 M/mm3 (4.2-5.4); White Blood Count 4.6 K/mm3 (4.4-11.0)
[2024-09-03 16:45] LABS: ALB/GLOB Ratio 1.6 RATIO (0.9-2.4); AST(SGOT) 24 U/L (<=31); Alanine Aminotransfer ALT/SGPT 17 U/L (<=34); Albumin, Serum 4.2 g/dL (3.5-5.0); Alkaline Phosphatase 88 U/L (35-104); Anion Gap 11 (5-15); BUN 14 mg/dL (4-19); BUN/Creat Ratio 15.7 RATIO (10-20); Calcium,Total 9.3 mg/dL (7.6-11.0); Carbon Dioxide 28.1 mmol/L (21.0-32.0); Chloride 100 mmol/L (98-108); Cholesterol 228 mg/dL (<=200); Creatinine, Serum 0.92 mg/dL (0.70-1.20); EST Glomerular Filtration Rate 73 (>60); Globulin 2.7 g/dL (2.2-4.2); Glucose 106 mg/dL (70-99); High Density Lipoprotein 78 mg/dL; Low Density Lipoprotein Calc. 133 mg/dL; Potassium 3.7 mmol/L (3.3-5.1); Protein, Total 6.9 g/dL (5.9-8.4); Sodium Level 139 mmol/L (133-145); Total Bilirubin 0.24 mg/dL (0.00-1.30); Triglycerides 83 mg/dL; Very Low Density Lipoprotein 17 mg/dL (5-40); cholesterol:hdl ratio screen 2.92
== END | disposition home or self-care (01) ==
LOC: BIMLAB 14:00
PROVIDERS: PCP Internal Medicine; Referring Provider Internal Medicine; Visit Provider Internal Medicine
DX: I10 Essential (primary) hypertension (principal); E78.5 Hyperlipidemia, unspecified
CPT/HCPCS: 36415; 80053; 80061; 85025